=== PATIENT | female | born 1945 | race Caucasian/White ===

== ENCOUNTER 2016-10-21 05:23 | Inpatient (IN) | payer OTHER ==
[2016-10-21 05:33] VITALS: BMI 34.2
--- NOTE | 2016-10-21 06:01 | DR.GENAD ---
HPI - PCP Primary Care Physician: BLAIR - Complaint/Symptoms Chief Complaint Doctors Comments: RUQ onset this am associated with nausea. History pancreatitis. Griselda done in the past. Pain is 8-10, sharp, aggratavted by deep respiration. sharp quality. Pain radiates to back. Chief Complaint:: RUQ ABD PAIN ONSET 1230, NAUSEA Self Treatment fo Chief Complaint: TUMS - Source History Provided: Patient - Mode of Arrival Mode of Arrival: Wheelchair - Timing Onset of Chief Complaint: 10/21/16 PMH - PMH Past Medical History: Yes Past Medical History: Arthritis, GERD, Hypertension, Hypothyroidism, Kidney Stones Past Surgical History: Yes Surgical History: Cholecystectomy, Hysterectomy, Ortho Surgery - Family History History of Family Medical Conditions: Yes Family Medical History: Diabetes Mellitus, Cancer, [place], Heart Failure, Hypertension - Social History Does patient currently use any type of tobacco product: No Have you used tobacco products in the last 12 months: No Type of Tobacco Use: None Does any household member use tobacco: No Alcohol Use: None Do you use any recreational Drugs:: No Lives With: Spouse Lives Where: Home - infectious screening In the last 2 months have you had wt loss of >10#?: NO Have you had fever, night sweats or hemotysis?: No Have you traveled outside the country in the last 6 months?: No Isolation: Standard ROS - Review of Systems Constitutional: No Symptoms Reported Eyes: No Symptoms Reported ENTM: No Symptoms Reported Respiratoy: No Symptoms Reported Cardiovascular: No Symptoms Reported Gastrointestinal/Abdominal: No Symptoms Reported Genitourinary: No Symptoms Reported Neurological: No Symptoms Reported Musculoskeletal: No Symptoms Reported Integumentary: No Symptoms Reported Endocrine: No Symptoms Reported Psychiatric: No Symptoms Reported All Other Systems: Reviewed and Negative PE - Vital Signs Vitals: Temperature 97.9 F Pulse Rate 70 Respiratory Rate 16 Blood Pressure [Left Arm] 144/64 Blood Pressure [Right Arm] 132/60 Blood Pressure 137/69 O2 Sat by Pulse Oximetry 96 - General Limitations: No Limitations General Appearance: Alert, In No Apparent Distress - Head Head Exam: Normal Inspection, Atraumatic - Eyes Eye exam: Normal Appearance, PERRL, EOMI - ENT ENT Exam: Normal Exam External Ear Exam: Normal External Inspection TM/Canal Exam: Bilateral Normal Nose Exam: Normal Nose Exam, Sinus Tenderness Mouth Exam: Normal Inspection Throat Exam: Normal Inspection - Neck Neck Exam: Normal Inspection - Chest Chest Inspection: Normal Inspection - Respiratory Respiratory Exam: Normal Lung Sounds Bilat Respiratory Exam: Bilateral Clear to Auscultation - Cardiovascular Cardiovascular Exam: Regular Rate, Normal Rhythm - Abdominal Exam Abdominal Exam: Normal Inspection Abdominal Tenderness: negative: RUQ, RLQ, LUQ, LLQ, Epigastrium, Suprapubic, Diffuse, Mild, Moderate, Severe, Other - Extremities Extremities Exam: Normal Inspection - Back Back Exam: Normal Inspection - Neurologic Neurological Exam: Alert, Oriented X3, CN II-XII Intact - Psychiatric Psychiatric Exam: Normal Affect - Skin Skin Exam: Warm, Dry, Intact Course - Reevaluation 1st: Improved - Consultation Called: 08:00 (Admit for further management) ROR - Labs Reviewed Laboratory Results Reviewed?: Yes (Amylase 576, Lipase 61083) Result Diagrams: 10/21/16 06:15 10/21/16 06:15 Laboratory: WBC 12.1 X10^3/uL (3.6-10.0) H 10/21/16 06:15 RBC 3.86 X10^6/uL (3.5-5.4) 10/21/16 06:15 Hgb 11.8 g/dL (12.0-16.0) L 10/21/16 06:15 Hct 35.3 % (36.0-47.0) L 10/21/16 06:15 MCV 91.6 fL (80.0-100.0) 10/21/16 06:15 MCH 30.6 pg (27.0-34.0) 10/21/16 06:15 MCHC 33.4 g/dL (33.0-35.0) 10/21/16 06:15 RDW 14.0 % (11.6-16.5) 10/21/16 06:15 Plt Count 235 X10^3/uL (150.0-450.0) 10/21/16 06:15 MPV 7.9 fL (7.4-11.0) 10/21/16 06:15 Neut % 65.4 % (42.0-75.0) 10/21/16 06:15 Lymph % 28.0 % (21.0-51.0) 10/21/16 06:15 [place] % 5.1 % (0.0-13.0) 10/21/16 06:15 Eos % 0.8 % (0.9-2.9) L 10/21/16 06:15 Baso % 0.7 % (0.2-1.0) 10/21/16 06:15 Neut # 7.9 x10^3/uL (2.2-4.8) H 10/21/16 06:15 Lymph # 3.4 X10^3/uL (1.3-2.9) H 10/21/16 06:15 [place] # 0.6 x10^3/uL (0.3-0.8) 10/21/16 06:15 Eos # 0.1 x10^3/uL (0.0-0.2) 10/21/16 06:15 Baso # 0.1 X10^3/uL (0.0-0.1) 10/21/16 06:15 Absolute Nucleated RBC 0.0 /100WBC 10/21/16 06:15 Sodium 142 mmol/L (136-145) 10/21/16 06:15 Corrected Sodium 144 mmol/L (136-145) 10/21/16 06:15 Potassium 3.9 mmol/L (3.5-5.1) 10/21/16 06:15 Chloride 105 mmol/L (98-107) 10/21/16 06:15 Carbon Dioxide 26.8 mmol/L (21-32) 10/21/16 06:15 BUN 16 mg/dL (7-18) 10/21/16 06:15 Creatinine 0.94 mg/dL (0.55-1.02) 10/21/16 06:15 Est GFR (MDRD) Af Amer > 60 (>60) 10/21/16 06:15 Est GFR (MDRD) Non-Af > 60 (>60) 10/21/16 06:15 Glucose 174 mg/dL (65-99) H 10/21/16 06:15 Calcium 8.8 mg/dL (8.5-10.1) 10/21/16 06:15 Corrected Calcium 9.5 mg/dL (8.5-10.1) 10/21/16 06:15 Total Bilirubin 0.50 mg/dL (0.2-1.0) 10/21/16 06:15 AST 217 Units/L (15-37) H 10/21/16 06:15 ALT 101 Units/L (12-78) H 10/21/16 06:15 Alkaline Phosphatase 143 Units/L (46-116) H 10/21/16 06:15 Total Protein 7.0 g/dL (6.4-8.2) 10/21/16 06:15 Albumin 3.1 g/dL (3.4-5.0) L 10/21/16 06:15 Globulin 3.9 g/dL (2.5-4.5) 10/21/16 06:15 Albumin/Globulin Ratio 0.8 Ratio (1.1-2.1) L 10/21/16 06:15 Amylase 576 Units/L (25-115) H 10/21/16 06:15 Lipase 05772 Units/L (73-393) H 10/21/16 06:15 - Diagnosis Discharge Problem: Acute pancreatitis Qualifiers: Pancreatitis type: unspecified pancreatitis type Acute pancreatitis complication: unspecified Qualified Code(s): K85.90 - Acute pancreatitis without necrosis or infection, unspecified - Discharge Plan Condition: Stable - Follow ups/Referrals Follow ups/Referrals: Vijay Rai [Primary Care Provider] - 3 days - Instructions
[2016-10-21] MEDS ORDERED: MORPHINE SULFATE INJ 4 MG IVP ONE (06:06)
[2016-10-21] MEDS ORDERED: ZOFRAN INJ 4 MG VIAL IVP ONE (06:09)
[2016-10-21] MEDS ORDERED: ZOFRAN INJ 4 MG VIAL ONE (06:14)
[2016-10-21] MEDS ORDERED: MORPHINE SULFATE INJ 4 MG ONE (06:14)
[2016-10-21 06:32] LABS: BASOPHILS # (AUTO) 0.1 X10^3/uL (0.0-0.1); BASOPHILS % (AUTO) 0.7 % (0.2-1.0); EOSINOPHILS # (AUTO) 0.1 x10^3/uL (0.0-0.2); EOSINOPHILS % (AUTO) 0.8 % (0.9-2.9); HEMATOCRIT 35.3 % (36.0-47.0); HEMOGLOBIN 11.8 g/dL (12.0-16.0); LYMPHOCYTES # (AUTO) 3.4 X10^3/uL (1.3-2.9); MEAN CORPUSCULAR HEMOGLOBIN 30.6 pg (27.0-34.0); MEAN CORPUSCULAR HGB CONC 33.4 g/dL (33.0-35.0); MEAN CORPUSCULAR VOLUME 91.6 fL (80.0-100.0); MEAN PLATELET VOLUME 7.9 fL (7.4-11.0); MONOCYTES # (AUTO) 0.6 x10^3/uL (0.3-0.8); MONOCYTES % (AUTO) 5.1 % (0.0-13.0); NEUTROPHILS # (AUTO) 7.9 x10^3/uL (2.2-4.8); NEUTROPHILS % (AUTO) 65.4 % (42.0-75.0); PLATELET COUNT 235 X10^3/uL (150.0-450.0); RED BLOOD COUNT 3.86 X10^6/uL (3.5-5.4); WHITE BLOOD COUNT 12.1 X10^3/uL (3.6-10.0)
[2016-10-21 06:35] LABS: ALANINE AMINOTRANSFERASE 101 Units/L (12-78); ALBUMIN 3.1 g/dL (3.4-5.0); ALKALINE PHOSPHATASE 143 Units/L (46-116); AMYLASE 576 Units/L (25-115); ASPARTATE AMINO TRANSFERASE 217 Units/L (15-37); BLOOD UREA NITROGEN 16 mg/dL (7-18); CALCIUM 8.8 mg/dL (8.5-10.1); CARBON DIOXIDE 26.8 mmol/L (21-32); CHLORIDE 105 mmol/L (98-107); COR CA(FOR HYPOALB) 9.5 mg/dL (8.5-10.1); COR NA(FOR HYPERGLY) 144 mmol/L (136-145); CREATININE 0.94 mg/dL (0.55-1.02); GLUCOSE 174 mg/dL (65-99); SODIUM 142 mmol/L (136-145); eGFR BLACK RACES > 60 (>60); eGFR NON BLACK RACES > 60 (>60)
[2016-10-21 07:19] LABS: LIPASE 12434 Units/L (73-393)
[2016-10-21] MEDS ORDERED: MORPHINE SULFATE INJ 10 MG IVP PRN (08:18)
[2016-10-21] MEDS ORDERED: ZOFRAN INJ 4 MG VIAL IVP PRN (08:19)
[2016-10-21] MEDS ORDERED: NS 100 ML IV 100 ML IV ONE (08:39)
[2016-10-21] MEDS ORDERED: NS 1000 ML 1,000 ML ONE (08:54)
[2016-10-21] MEDS ORDERED: NS + KCL 20 MEQ/L 1,000 ML IV ONE (09:03)
[2016-10-21] MEDS: NS 1000 ML 1,000 ML with POTASSIUM CHLORIDE INJ 20 MEQ VIAL 20 MEQ IV SCH ×4 (09:09→21:59)
[2016-10-21] MEDS: FLAGYL IV PREMIX 500 MG BAG 500 MG/100 ML BAG IV SCH ×3 (09:17→20:43)
--- NOTE | 2016-10-21 09:50 | CT ---
Indication: Pain and pancreatitis. Exam: CT abdomen and pelvis with contrast . Technique: Axial spiral images were obtained from lung bases through the pubic symphysis after admin istration of 100 cc Omnipaque 350 and oral contrast and reconstructed at 5 mm intervals with coronal and sagittal multiplanar reconstructions . Comparison: 03/06/2015 . Findings: There is mild linear scarring along the lung bases which is unchanged. There is a small hi atal hernia with reflux of barium into the distal esophagus. There is a small pericardial effusion w hich is more apparent. The liver and spleen are normal size and density. There is mild prominence of the central biliary ducts which is unchanged. There is a 14 mm cyst in the right lobe of liver whic h is unchanged. The gallbladder has been removed with clips in the gallbladder fossa which is unchan ged. The common bile duct moderately dilated proximally and tapers to the ampulla which is unchanged . Again noted is a probable diverticulum along the 2nd portion the duodenum extending medially which is filled with debris and is more prominent. There is some mild stranding around the duodenum in th e area and involving the head of the pancreas which is less prominent . No focal mass or fluid colle ction is seen. The body and distal pancreas are unremarkable. The spleen is unremarkable . The adren als are normal . The kidneys are normal size with no hydronephrosis seen. There are several small st ones scattered in the right kidney measuring up to 4 mm superiorly which are more prominent. No hydr onephrosis is seen . There is cortical scarring in the right kidney which is unchanged. The ureters are normal caliber. No retroperitoneal mass or adenopathy is seen. The appendix is normal. The uteru s has been removed with no adnexal mass or free fluid. The appendix is unremarkable. Moderate degene rative changes are seen throughout the spine with a moderate compression fracture and vertebroplasty at T12 and a mild compression deformity of L1 which is unchanged. Impression: Status post cholecystectomy with persistent mild prominence of the central biliary ducts and moderat e dilatation of the common bile duct which tapers distally and is not significantly changed. Persistent diverticulum along the 2nd portion of the duodenum with mild stranding around the area an d extending along the head of the pancreas which is less prominent from the prior study. This could represent a recurrent inflammatory process in the area possibly due to duodenitis or pancreatitis wi th no focal mass or fluid collection seen. Slightly limited exam with all contrast seen still within the stomach which may represent an element of gastroparesis . Suggest a followup study with additional oral contrast to better delineate the d uodenum. Small pericardial effusion Small hepatic cyst . Small residual hiatal hernia with reflux into the distal esophagus. Small renal stones bilaterally which are more prominent with no hydronephrosis or renal masses. Previous hysterectomy with no pelvic mass or inflammation. Reported By:
[2016-10-21] MEDS: CIPRO IV 400 MG PREMIX* 400 MG/200 ML IV.SOLN. IV SCH ×2 (10:25→20:43)
[2016-10-21 11:10] LABS: BILIRUBIN,URINE NEGATIVE (NEGATIVE); BLOOD/HEMOGLOBIN,URINE NEGATIVE (NEGATIVE); GLUCOSE, URINE NEGATIVE (NEGATIVE); KETONES,URINE NEGATIVE (NEGATIVE); LEUKOCYTE ESTERASE ,URINE 2+ (NEGATIVE); NITRITES,URINE NEGATIVE (NEGATIVE); PROTEIN,URINE 1+ (NEGATIVE); UROBILINOGEN,URINE NORMAL (NORMAL)
[2016-10-21 11:16] LABS: APPEARANCE,URINE CLOUDY (CLEAR); COLOR,URINE YELLOW (YELLOW)
[2016-10-21 11:25] LABS: RBC,URINE Rare /HPF (NEGATIVE)
[2016-10-21 11:29] LABS: AMORPHOUS SEDIMENT,UR TRACE /HPF (NEGATIVE); SQUAMOUS EPITHELIAL CELL,UR RARE /HPF (NEGATIVE)
[2016-10-21 11:41] LABS: BACTERIA,URINE 3+ /HPF (NEGATIVE); CALCIUM OXALATE CRYSTALS,UR FEW /HPF (NEGATIVE)
[2016-10-21] MEDS: PEPCID 20 MG IV PREMIX* 20 MG/50 ML BAG IV SCH ×2 (14:32→20:43)
[2016-10-21] MEDS: PROTONIX INJ 40 MG VIAL IVP SCH (14:32)
[2016-10-21] MEDS: REQUIP PO SCH (16:07)
[2016-10-21] MEDS: RISPERDAL 0.5 MG PO SCH (20:44)
[2016-10-21] MEDS: NS + KCL 20 MEQ/L 1,000 ML IV SCH ×2 (22:10→23:43)
[2016-10-21] MEDS: DILAUDID INJ IVP PRN (22:22)
--- NOTE | 2016-10-21 23:35 | DR.H&P ---
H&P - History & Physical for Day of: H&P Date: 10/21/16 - Chief Complaint Chief Complaint: RUQ ABDOMINAL PAIN - Allergies Allergies/Adverse Reactions: Allergies Allergy/AdvReac Type Severity Reaction Status Date / Time Penicillins Allergy Verified 02/10/16 19:01 TAPE Allergy Uncoded 02/10/16 19:01 - History of Present Illness History of Present Illness: THIS IS A 71 YEAR OLD FEMALE, WHO IS A PATIENT OF OURS. SHE PRESENTS TO THE EMERGENCY ROOM WITH COMPLAINTS OF RUQ ABDOMINAL PAIN , ONSET THIS MORNING. SHE REPORTS ASSOCIATED NAUSEA WITH ABDOMINAL PAIN. PATIENT REPORTS PAIN IS AN 8 TO A 10 ON A 1-TO-10 PAIN SCALE AND IS AGGRAVATED BY DEEP BREATHING. SHE STATES THE PAIN IS SHARP, CONSTANT AND RADIATES TO HER BACK. PATIENT STATES SHE HAS TAKEN TUMS AT HOME WITH NO IMPROVEMENT IN SYMPTOMS. ON PALPATION, PATIENT IS NOTED WITH DIFFUSE, SEVERE, ABDOMINAL PAIN. LABS OBTAINED. CBC WNL EXCEPT: WBC 12.1, H/H 11.8/35.3. CMP WNL EXCEPT: GLUCOSE 174, AST 217, ALT 101, ALK PHOS 143, ALBUMIN 3.1. AMYLASE 576, LIPASE 12,434. PT/INR 2.40. URINALYSIS ABNORMALS: PROTEIN 1+, LEUKOCYTE ESTERASE 2+, WBC 5-10, BACTERIA 3+; CULTURE PENDING. CT OF ABD/PELVIS REPORTS: STATUS POST CHOLECYSTECTOMY WITH PERSISTENT MILD PROMINENCE OF THE CENTRAL BILIARY DUCTS AND MODERATE DILITATION OF THE COMMON BILE DUCT WHICH TAPERS DISTALLY AND IS NOT SIGNIFICANTLY CHANGED; PERSISTENT DIVERTICULUM OF THE DUODENUM WITH MILD STRANDING AROUND THE AREA AND EXTENDING ALONG THE HEAD OF THE PANCREAS WHICH COULD REPRESENT PANCREATITIS. WE WILL ADMIT PATIENT FOR FURTHER TREATMENT AND EVALUATION. WE WILL START IV FLUIDS, IV CIPRO, IV FLAGYL, PEPCID, PROTONIX, AND CONTINUE TO MONITOR. - Past Medical History Past Medical History: Arthritis, GERD, Hypertension, Hypothyroidism, Kidney Stones Additional Medical History: Lupus, Cataracts, Sleep Apnea (CPAP at home), Atrial Fibrillation, Hx IBS, Hiatal Hernia, Fibromyalgia, Chronic Back Pain, Hx DVT, Pancreatitis - Past Surgical History Surgical History: Hysterectomy, Ortho Surgery, Other Additional Surgical History: Bladder Tack, Breast Reduction, Fissurectomy, Hemorroidectomy, Cardiac Ablation, Back Stimulator - Family History Family Medical History: Diabetes Mellitus, Cancer, [place], Heart Failure, Hypertension - Social History Does patient currently use any type of tobacco product: No Have you used tobacco products in the last 12 months: No Type of Tobacco Use: None Does any household member use tobacco: No Alcohol Use: None Drug Use: None - Medications Home Medications: Melatonin 10 mg PO HS 10/21/16 [History Confirmed 10/21/16] Temazepam 7.5 mg PO HS 10/21/16 [History Confirmed 10/21/16] Warfarin Sodium [COUMADIN 4 MG *] 4 mg PO HS 10/21/16 [History Confirmed ] - Review of Systems Constitutional: Weakness, Malaise Eyes: No Symptoms Reported. denies: Pain, Vision Change, Conjunctivae Inflammation, Eyelid Inflammation, Redness ENT: No Symptoms Reported. denies: Ear Pain, Ear Discharge, Nose Pain, Nose Discharge, Nose Congestion, Mouth Pain, Mouth Swelling, Throat Pain, Throat Swelling Respiratory: No Symptoms Reported. denies: Cough, Shortness of Breath, Hemoptysis, SOB with Excertion, Pleuritic Pain, Sputum, Wheezing Cardiovascular: No Symptoms Reported. denies: Chest Pain, Palpitations, Orthopnea, Edema, Light Headedness Gastrointestinal: Nausea, Abdominal Pain. denies: Diarrhea, Constipation, Melena, Hematochezia Genitourinary: Frequency. denies: Dysuria, Incontinence, Hematuria, Retention Musculoskeletal: No Symptoms Reported. denies: Shoulder Pain, Arm Pain, Back Pain, Hand Pain, Leg Pain, Foot Pain, Neck Pain Skin: No Symptoms Reported. denies: Rash, Lesions, Jaundice, Bruising, Wound, Ecchymosis Neurological: No Symptoms Reported. denies: Weakness, Numbness, Incoordination , Change in Speech, Confusion, Seizures - Physical Exam Vital Signs: Temperature 98.5 F Pulse Rate [Right Brachial] 101 Pulse Rate [Left Brachial] 110 Respiratory Rate 18 Blood Pressure [Left Arm] 116/54 Blood Pressure [Right Arm] 93/50 O2 Sat by Pulse Oximetry 99 Oriented: Normal, Time, Person, Place Eyes: Normal. negative: Blurred Vision, Diplopia, Discharge, Pain, Redness, Photophobia Ear: Normal. negative: Swelling, Ecchymosis, Hemotypanum, Abrasion, Laceration Nose: Normal. negative: Injected, Discharge, Blood Throat: Dry. negative: Tonsillar Hypertrophy, Exudate Respiratory: Clear Throughout Cardiovascular: Normal. negative: Murmur, Edema : Frequency. negative: Bleeding, Auscultation: Bowel Sounds: Decreased. negative: Bruit Palpation: Normal. negative: Spleen Enlarged, Liver Enlarged, Mass Pulsatile Tenderness: Diffuse, RUQ, Periumbilical, Severe. negative: Rebound, Guarding, Rigidity Skin: Decreased [place]urgur. negative: Diaphoresis, Wound, Bruising, Ecchymosis Musculoskeletal: Instability Psychiatric: Normal Mood Description: Calm, Appropriate Affect: Normal Speech Pattern: Clear, Appropriate - Assessment/Plan (1) Acute pancreatitis Qualifiers: Pancreatitis type: unspecified pancreatitis type Acute pancreatitis complication: unspecified Qualified Code(s): K85.90 - Acute pancreatitis without necrosis or infection, unspecified Status: Acute Plan: ADMIT PATIENT, START CIPRO, FLAGYL, IV FLUIDS, PEPCID, PROTONIX, DILAUDID , ZOFRAN, MONITOR. (2) Abdominal pain Qualifiers: Abdominal location: generalized Qualified Code(s): R10.84 - Generalized abdominal pain Status: Acute Plan: ABOVE. (3) Urinary tract infection Qualifiers: Urinary tract infection type: acute cystitis Hematuria presence: without hematuria Indwelling urinary catheter type: I Encounter type: E Qualified Code(s): N30.00 - Acute cystitis without hematuria Status: Acute Plan: ABOVE. (4) Atrial fibrillation Qualifiers: Atrial fibrillation type: chronic Qualified Code(s): I48.2 - Chronic atrial fibrillation Status: Chronic (5) CAD (coronary artery disease) Qualifiers: Coronary Disease-Associated Artery/Lesion type: [place] artery [place] vs. 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 (7) Essential (primary) hypertension Status: Chronic (8) YANY (generalized anxiety disorder) Status: Chronic (9) GERD (gastroesophageal reflux disease) Qualifiers: Esophagitis presence: esophagitis presence not specified Qualified Code(s) : K21.9 - Gastro-esophageal reflux disease without esophagitis Status: Chronic (10) Hypertension Qualifiers: Hypertension type: essential hypertension Qualified Code(s): I10 - Essential (primary) hypertension Status: Chronic (11) Hypothyroidism Qualifiers: Hypothyroidism type: acquired Qualified Code(s): E03.9 - Hypothyroidism, unspecified Status: Chronic (12) Lupus Qualifiers: Systemic lupus erythematosus type: S Systemic lupus erythematosus organ involvement: S Status: Chronic (13) Arthritis Status: Chronic
[2016-10-22] MEDS: FLAGYL IV PREMIX 500 MG BAG 500 MG/100 ML BAG IV SCH ×4 (02:20→20:53)
[2016-10-22 06:33] LABS: BASOPHILS % (AUTO) 0.2 % (0.2-1.0); EOSINOPHILS # (AUTO) 0.1 x10^3/uL (0.0-0.2); EOSINOPHILS % (AUTO) 0.5 % (0.9-2.9); HEMATOCRIT 32.1 % (36.0-47.0); HEMOGLOBIN 10.6 g/dL (12.0-16.0); LYMPHOCYTES # (AUTO) 1.2 X10^3/uL (1.3-2.9); LYMPHOCYTES % (AUTO) 10.5 % (21.0-51.0); MEAN CORPUSCULAR HEMOGLOBIN 30.6 pg (27.0-34.0); MEAN CORPUSCULAR VOLUME 92.7 fL (80.0-100.0); MEAN PLATELET VOLUME 8.1 fL (7.4-11.0); MONOCYTES # (AUTO) 0.7 x10^3/uL (0.3-0.8); MONOCYTES % (AUTO) 6.1 % (0.0-13.0); NEUTROPHILS # (AUTO) 9.6 x10^3/uL (2.2-4.8); NEUTROPHILS % (AUTO) 82.7 % (42.0-75.0); PLATELET COUNT 216 X10^3/uL (150.0-450.0); RED BLOOD COUNT 3.46 X10^6/uL (3.5-5.4); WHITE BLOOD COUNT 11.7 X10^3/uL (3.6-10.0)
[2016-10-22 06:52] LABS: ALANINE AMINOTRANSFERASE 150 Units/L (12-78); ALBUMIN 2.6 g/dL (3.4-5.0); ALKALINE PHOSPHATASE 158 Units/L (46-116); AMYLASE 156 Units/L (25-115); ASPARTATE AMINO TRANSFERASE 172 Units/L (15-37); BLOOD UREA NITROGEN 16 mg/dL (7-18); CALCIUM 8.4 mg/dL (8.5-10.1); CARBON DIOXIDE 25.2 mmol/L (21-32); CHLORIDE 106 mmol/L (98-107); COR CA(FOR HYPOALB) 9.5 mg/dL (8.5-10.1); CREATININE 0.84 mg/dL (0.55-1.02); GLUCOSE 101 mg/dL (65-99); LIPASE 938 Units/L (73-393); SODIUM 140 mmol/L (136-145); TOTAL PROTEIN 6.2 g/dL (6.4-8.2); eGFR BLACK RACES > 60 (>60); eGFR NON BLACK RACES > 60 (>60)
[2016-10-22] MEDS ORDERED: PATIENT'S HOME MEDICATION RESPIRATORY (Ropinirole Hydrochloride [Ropinirole Hcl] 0.5 MG) PO SCH (09:00)
[2016-10-22] MEDS: PROTONIX INJ 40 MG VIAL IVP SCH (09:29)
[2016-10-22] MEDS: CIPRO IV 400 MG PREMIX* 400 MG/200 ML IV.SOLN. IV SCH ×2 (09:29→20:53)
[2016-10-22] MEDS: SYNTHROID 88 mcg TAB PO SCH (09:29)
[2016-10-22] MEDS: REQUIP PO SCH (09:29)
[2016-10-22] MEDS: EFFEXOR XR 150 MG CAP PO SCH (09:30)
[2016-10-22] MEDS: PEPCID 20 MG IV PREMIX* 20 MG/50 ML BAG IV SCH ×2 (09:30→20:53)
[2016-10-22] MEDS: DILAUDID INJ IVP PRN ×2 (09:39→15:50)
[2016-10-22] MEDS: NS + KCL 20 MEQ/L 1,000 ML IV SCH (15:41)
[2016-10-22] MEDS ORDERED: PHARMACY CONSULT - DOSE _____ XX SCH (17:00)
[2016-10-22] MEDS: RISPERDAL 0.5 MG PO SCH (20:54)
[2016-10-22] MEDS: LIPOSYN III 20% 250ML 250 ML IV SCH (23:00)
[2016-10-23] MEDS: FLAGYL IV PREMIX 500 MG BAG 500 MG/100 ML BAG IV SCH ×4 (02:03→20:20)
[2016-10-23] MEDS: NS + KCL 20 MEQ/L 1,000 ML IV SCH ×2 (02:03→18:43)
[2016-10-23 06:52] LABS: ALANINE AMINOTRANSFERASE 103 Units/L (12-78); ALBUMIN 2.6 g/dL (3.4-5.0); ALKALINE PHOSPHATASE 135 Units/L (46-116); AMYLASE 43 Units/L (25-115); ASPARTATE AMINO TRANSFERASE 86 Units/L (15-37); BLOOD UREA NITROGEN 8 mg/dL (7-18); CALCIUM 8.2 mg/dL (8.5-10.1); CARBON DIOXIDE 23.5 mmol/L (21-32); CHLORIDE 106 mmol/L (98-107); CHOL/HDL RATIO 2.3 (0.0-5.0); CHOLESTEROL 163 mg/dL (0-200); COR CA(FOR HYPOALB) 9.3 mg/dL (8.5-10.1); CREATININE 0.66 mg/dL (0.55-1.02); GLUCOSE 93 mg/dL (65-99); HDL CHOLESTEROL 71 mg/dL (40-60); LIPASE 301 Units/L (73-393); SODIUM 139 mmol/L (136-145); TOTAL PROTEIN 6.4 g/dL (6.4-8.2); TRIGLYCERIDES 41 mg/dL (0-150); eGFR BLACK RACES > 60 (>60); eGFR NON BLACK RACES > 60 (>60)
[2016-10-23 06:55] LABS: BASOPHILS % (AUTO) 0.6 % (0.2-1.0); EOSINOPHILS # (AUTO) 0.2 x10^3/uL (0.0-0.2); EOSINOPHILS % (AUTO) 2.1 % (0.9-2.9); HEMATOCRIT 31.8 % (36.0-47.0); HEMOGLOBIN 10.9 g/dL (12.0-16.0); LYMPHOCYTES # (AUTO) 1.5 X10^3/uL (1.3-2.9); LYMPHOCYTES % (AUTO) 16.4 % (21.0-51.0); MEAN CORPUSCULAR HEMOGLOBIN 31.8 pg (27.0-34.0); MEAN CORPUSCULAR HGB CONC 34.2 g/dL (33.0-35.0); MEAN CORPUSCULAR VOLUME 93.1 fL (80.0-100.0); MONOCYTES # (AUTO) 0.6 x10^3/uL (0.3-0.8); MONOCYTES % (AUTO) 6.3 % (0.0-13.0); NEUTROPHILS # (AUTO) 6.6 x10^3/uL (2.2-4.8); NEUTROPHILS % (AUTO) 74.6 % (42.0-75.0); PLATELET COUNT 214 X10^3/uL (150.0-450.0); RED BLOOD COUNT 3.42 X10^6/uL (3.5-5.4); WHITE BLOOD COUNT 8.9 X10^3/uL (3.6-10.0)
[2016-10-23] MEDS: REQUIP PO SCH (09:28)
[2016-10-23] MEDS: EFFEXOR XR 150 MG CAP PO SCH (09:28)
[2016-10-23] MEDS: PEPCID 20 MG IV PREMIX* 20 MG/50 ML BAG IV SCH ×2 (09:28→20:20)
[2016-10-23] MEDS: DILAUDID INJ IVP PRN ×2 (09:28→20:20)
[2016-10-23] MEDS: PROTONIX INJ 40 MG VIAL IVP SCH (09:28)
[2016-10-23] MEDS: CIPRO IV 400 MG PREMIX* 400 MG/200 ML IV.SOLN. IV SCH ×2 (09:28→20:19)
[2016-10-23] MEDS: SYNTHROID 88 mcg TAB PO SCH (09:28)
[2016-10-23] MEDS: RISPERDAL 0.5 MG PO SCH (20:19)
[2016-10-23] MEDS: LIPOSYN III 20% 250ML 250 ML IV SCH (21:00)
[2016-10-24] MEDS: NS + KCL 20 MEQ/L 1,000 ML IV SCH (03:47)
[2016-10-24] MEDS: FLAGYL IV PREMIX 500 MG BAG 500 MG/100 ML BAG IV SCH ×2 (03:47→09:13)
[2016-10-24 05:48] LABS: BASOPHILS # (AUTO) 0.1 X10^3/uL (0.0-0.1); BASOPHILS % (AUTO) 0.9 % (0.2-1.0); EOSINOPHILS # (AUTO) 0.2 x10^3/uL (0.0-0.2); HEMATOCRIT 32.3 % (36.0-47.0); LYMPHOCYTES # (AUTO) 2.2 X10^3/uL (1.3-2.9); LYMPHOCYTES % (AUTO) 32.4 % (21.0-51.0); MEAN CORPUSCULAR HEMOGLOBIN 31.1 pg (27.0-34.0); MEAN CORPUSCULAR HGB CONC 34.1 g/dL (33.0-35.0); MEAN CORPUSCULAR VOLUME 91.2 fL (80.0-100.0); MONOCYTES # (AUTO) 0.6 x10^3/uL (0.3-0.8); MONOCYTES % (AUTO) 9.5 % (0.0-13.0); NEUTROPHILS # (AUTO) 3.6 x10^3/uL (2.2-4.8); NEUTROPHILS % (AUTO) 54.2 % (42.0-75.0); PLATELET COUNT 221 X10^3/uL (150.0-450.0); RED BLOOD COUNT 3.54 X10^6/uL (3.5-5.4); RED CELL DISTRIBUTION WIDTH 13.7 % (11.6-16.5); WHITE BLOOD COUNT 6.7 X10^3/uL (3.6-10.0)
[2016-10-24 06:00] LABS: ALANINE AMINOTRANSFERASE 73 Units/L (12-78); ALBUMIN 2.5 g/dL (3.4-5.0); ALKALINE PHOSPHATASE 114 Units/L (46-116); AMYLASE 25 Units/L (25-115); ASPARTATE AMINO TRANSFERASE 48 Units/L (15-37); BLOOD UREA NITROGEN 6 mg/dL (7-18); CARBON DIOXIDE 24.8 mmol/L (21-32); CHLORIDE 107 mmol/L (98-107); COR CA(FOR HYPOALB) 9.2 mg/dL (8.5-10.1); CREATININE 0.71 mg/dL (0.55-1.02); GLUCOSE 84 mg/dL (65-99); LIPASE 129 Units/L (73-393); SODIUM 140 mmol/L (136-145); TOTAL PROTEIN 6.2 g/dL (6.4-8.2); eGFR BLACK RACES > 60 (>60); eGFR NON BLACK RACES > 60 (>60)
[2016-10-24] MEDS: PEPCID 20 MG IV PREMIX* 20 MG/50 ML BAG IV SCH (09:13)
[2016-10-24] MEDS: REQUIP PO SCH (09:14)
[2016-10-24] MEDS: SYNTHROID 88 mcg TAB PO SCH (09:14)
[2016-10-24] MEDS: EFFEXOR XR 150 MG CAP PO SCH (09:14)
[2016-10-24] MEDS: CIPRO IV 400 MG PREMIX* 400 MG/200 ML IV.SOLN. IV SCH (09:14)
[2016-10-24] MEDS: PROTONIX INJ 40 MG VIAL IVP SCH (09:21)
[2016-10-24 09:57] VITALS: BP 135/65
== END 2016-10-24 13:30 | disposition home or self-care (01) | DRG 439 ==
LOC: ER 05:23 → MED/SURG 08:14
PROVIDERS: ADMIT Internal Medicine; ATTEND Internal Medicine
DX: K85.80 Other acute pancreatitis without necrosis or infection (principal); R10.11 Right upper quadrant pain; M13.89 Other specified arthritis, multiple sites; K21.9 Gastro-esophageal reflux disease without esophagitis; I10 Essential (primary) hypertension; E03.8 Other specified hypothyroidism; N30.00 Acute cystitis without hematuria; I48.2 Chronic atrial fibrillation; I25.10 Atherosclerotic heart disease of native coronary artery without angina pectoris; I50.42 Chronic combined systolic (congestive) and diastolic (congestive) heart failure; F41.8 Other specified anxiety disorders; L93.0 Discoid lupus erythematosus
CPT/HCPCS: 36415; 74177; 80053; 80061; 81001; 82150; 83690; 85025; 85610; 87086; 87088; 87186; 94760; 96365; 96374; 96375; 99284; A4222; C9113; S0028; S0030; J0744; J1170; J2270; J2405; J3480

== ENCOUNTER 2017-05-02 13:23 | Day surgery (SDC) | payer OTHER ==
[~2017-05-02 13:23] MED LIST: AK-DILATE 2.5% OPHTH 1 DOSE OP ONE; ALPHAGAN-P OPHTH 1 DOSE AFFEYE ONE; CYCLOGYL 1% OPHTH 1 DOSE OP ONE; MYDRIACIL OPHTH 1 DOSE AFFEYE ONE; PROLENSA OPHTH 1 DOSE AFFEYE ONE; TETRACAINE 0.5% OPHTH 1 DOSE AFFEYE ONE; VIGAMOX 0.5% OPHTH 1 DOSE AFFEYE ONE
[2017-05-02] MEDS ORDERED: NS 500 ML IV 500 ML IV ONE (13:41)
[2017-05-02] MEDS ORDERED: TETRACAINE 0.5% OPHTH 1 DOSE AFFEYE ONE ×4 (13:55→16:45)
[2017-05-02] MEDS ORDERED: DIPRIVAN VIAL ONE (15:54)
[2017-05-02] MEDS: VERSED ONE ×2 (16:03→16:17)
[2017-05-02] MEDS ORDERED: AK-DILATE 10% OPHTH 1 DOSE AFFEYE ONE (16:21)
[2017-05-02] MEDS ORDERED: BETADINE OPHTH SOLN 5% EACHEYE ONE (16:40)
[2017-05-02] MEDS ORDERED: VISCOAT 0.5 ML IO ONE (16:46)
[2017-05-02] MEDS ORDERED: BSS OPHTH (PLAIN) 500 ML with VANCOMYCIN HCL 500 MG VIAL 25 MG, ADRENALINE CHL INJ 1 MG IR ONE ×3 (16:46)
[2017-05-02] MEDS ORDERED: DUOVISC IO ONE (16:46)
[2017-05-02] MEDS ORDERED: XYLOCAINE-MPF 1% IJ ONE (16:46)
[2017-05-02] MEDS ORDERED: ADRENALINE CHL INJ IJ ONE (16:46)
[2017-05-02] MEDS ORDERED: VIGAMOX 0.5% OPHTH 1 DOSE AFFEYE ONE ×2 (16:50→16:59)
[2017-05-02 17:43] VITALS: BP 122/70
== END 2017-05-02 17:25 | disposition home or self-care (01) ==
LOC: SURG1 13:23
PROVIDERS: ATTEND Ophthalmology
PROC: 08RK3JZ Replacement of Left Lens with Synthetic Substitute, Percutaneous Approach (ICD-10-PCS; principal; 2017-05-02 22:45)
PROC: 08DK3ZZ Extraction of Left Lens, Percutaneous Approach (ICD-10-PCS; principal; 2017-05-02 22:45)
DX: H25.12 Age-related nuclear cataract, left eye (principal); H25.012 Cortical age-related cataract, left eye; H52.222 Regular astigmatism, left eye
CPT/HCPCS: 99100; A4217; J0170; J2250; J3370; J3490

== ENCOUNTER 2017-05-18 01:06 | Inpatient (IN) | payer OTHER ==
[2017-05-18 01:52] LABS: BASOPHILS % (AUTO) 0.2 % (0.2-1.0); EOSINOPHILS # (AUTO) 0.1 x10^3/uL (0.0-0.2); HEMOGLOBIN 12.2 g/dL (12.0-16.0); LYMPHOCYTES # (AUTO) 2.5 X10^3/uL (1.3-2.9); LYMPHOCYTES % (AUTO) 24.1 % (21.0-51.0); MEAN CORPUSCULAR HEMOGLOBIN 31.8 pg (27.0-34.0); MEAN CORPUSCULAR HGB CONC 33.9 g/dL (33.0-35.0); MEAN CORPUSCULAR VOLUME 93.8 fL (80.0-100.0); MEAN PLATELET VOLUME 7.4 fL (7.4-11.0); MONOCYTES # (AUTO) 0.5 x10^3/uL (0.3-0.8); NEUTROPHILS # (AUTO) 7.3 x10^3/uL (2.2-4.8); NEUTROPHILS % (AUTO) 69.7 % (42.0-75.0); PLATELET COUNT 288 X10^3/uL (150.0-450.0); RED BLOOD COUNT 3.84 X10^6/uL (3.5-5.4); WHITE BLOOD COUNT 10.5 X10^3/uL (3.6-10.0)
[2017-05-18 02:06] LABS: ALANINE AMINOTRANSFERASE 110 Units/L (12-78); ALBUMIN 3.2 g/dL (3.4-5.0); ALKALINE PHOSPHATASE 111 Units/L (46-116); ASPARTATE AMINO TRANSFERASE 224 Units/L (15-37); BLOOD UREA NITROGEN 18 mg/dL (7-18); CALCIUM 8.8 mg/dL (8.5-10.1); CARBON DIOXIDE 26.1 mmol/L (21-32); CHLORIDE 102 mmol/L (98-107); COR CA(FOR HYPOALB) 9.4 mg/dL (8.5-10.1); COR NA(FOR HYPERGLY) 139 mmol/L (136-145); CREATININE 1.05 mg/dL (0.55-1.02); SODIUM 137 mmol/L (136-145); TOTAL PROTEIN 7.5 g/dL (6.4-8.2); eGFR BLACK RACES > 60 (>60); eGFR NON BLACK RACES 55 (>60)
[2017-05-18 02:16] LABS: AMYLASE 999 Units/L (25-115)
[2017-05-18 02:21] LABS: LIPASE 32421 Units/L (73-393)
--- NOTE | 2017-05-18 02:22 | DR.GENAD ---
HPI - PCP Primary Care Physician: BLAIR - HPI Comment HPI Comment: NO VOMITING OR FEVER. NO DYSURIA. HISTORY PREVIOUS EPISODES OF PANCREATITIS. - Complaint/Symptoms Chief Complaint Doctors Comments: UPPER ABDOMINAL PAIN WITH NAUSEA TIMES ONE DAY. WORSE SINCE 22:00PM TONIGHT. Chief Complaint:: PT C/O PAIN IN MIDDLE OF STOMACH CHILLS NAUSEA NO VOMITING - Nurses notes reviewed Nurses Notes Review: Yes - Source History Provided: Patient - Mode of Arrival Mode of Arrival: Ambulatory - Timing Onset of Chief Complaint: 05/18/17 Came on: Suddenly - Duration Duration: Constant Duration: Days - Severity Severity: Moderate PMH - PMH Past Medical History: Yes Past Medical History: Arthritis, GERD, Hypertension, Hypothyroidism, Kidney Stones Past Medical History Comment: LUPUS, A FIB Past Surgical History: Yes Surgical History: Angioplasty/Stents, Cholecystectomy, Ortho Surgery Past Surgical History Comment: BREAST REDUCTION,BACK SURGERY SPINAL CORD STIMULATOR - Family History History of Family Medical Conditions: Yes Family Medical History: Diabetes Mellitus, Cancer, [place], Heart Failure, Hypertension - Social History Does any household member use tobacco: No Do you use any recreational Drugs:: No Lives With: Family Lives Where: Home - infectious screening In the last 2 months have you had wt loss of >10#?: NO Have you traveled outside the country in the last 6 months?: No Isolation: Standard ROS - Review of Systems Constitutional: Chills, Weakness, Fatigue, Loss of Appetite. negative: Fever Eyes: negative: Eye Pain, Discharge ENTM: negative: Ear Discharge, Nose Discharge, Nose Congestion, Throat Pain Respiratoy: Short of Breath. negative: Productive Cough, Non-Productive Cough, Stridor, Wheezing Cardiovascular: Edema Gastrointestinal/Abdominal: Abdominal Pain, Nausea Genitourinary: negative: Dysuria, Frequency, Hematuria Neurological: Weakness, Dizziness Musculoskeletal: Muscle Pain Integumentary: No Symptoms Reported Hematologic/Lymphatic: No Symptoms Reported Endocrine: No Symptoms Reported All Other Systems: Reviewed and Negative PE - Vital Signs Vitals: Temperature 97.7 F Pulse Rate 99 Respiratory Rate 18 Blood Pressure [Left Arm] 135/65 Blood Pressure [Right Arm] 136/60 Blood Pressure 99/54 O2 Sat by Pulse Oximetry 100 - General Limitations: No Limitations General Appearance: Alert - Head Head Exam: Normal Inspection - Eyes Eye exam: Normal Appearance - ENT ENT Exam: Normal External Ear Exam External Ear Exam: Normal External Inspection TM/Canal Exam: Bilateral Normal Nose Exam: Normal Nose Exam Mouth Exam: Normal Inspection Throat Exam: Normal Inspection - Neck Neck Exam: Trachea Midline - Chest Chest Inspection: Symmetric Chest Wall Rise - Respiratory Respiratory Exam: Normal Lung Sounds Bilat Respiratory Exam: Bilateral Clear to Auscultation - Cardiovascular Cardiovascular Exam: Regular Rate, Normal Rhythm, Normal Heart Sounds - Abdominal Exam Abdominal Exam: Normal Bowel Sounds, Soft, Tenderness Abdominal Tenderness: Diffuse, Moderate - Extremities Extremities Exam: Edema - Back Back Exam: Normal Inspection - Neurologic Neurological Exam: Alert, Oriented X3 - Psychiatric Psychiatric Exam: Normal Affect, Normal Mood - Skin Skin Exam: Erythema MDM - Additional Information Additional Information Obtained From: Family - Differential Diagnosis Differential Diagnosis: ABDOMINAL PAIN, ACUTE PANCREATITIS, BOWEL OBSTRCTION, Course - Treatment Treatment: SEE ORDERS. - Consultation Consultation Comments: DISCUSS PATIENT WITH DR. DARBY. HE WILL ADMIT PATIENT. - Education/Counseling Education/Counseling: Patient, Family, Education Educated On: Diagnosis ROR - Labs Reviewed Laboratory Results Reviewed?: Yes Result Diagrams: 05/18/17 01:40 05/18/17 01:40 Laboratory: WBC 10.5 X10^3/uL (3.6-10.0) H 05/18/17 01:40 RBC 3.84 X10^6/uL (3.5-5.4) 05/18/17 01:40 Hgb 12.2 g/dL (12.0-16.0) 05/18/17 01:40 Hct 36.0 % (36.0-47.0) 05/18/17 01:40 MCV 93.8 fL (80.0-100.0) 05/18/17 01:40 MCH 31.8 pg (27.0-34.0) 05/18/17 01:40 MCHC 33.9 g/dL (33.0-35.0) 05/18/17 01:40 RDW 14.0 % (11.6-16.5) 05/18/17 01:40 Plt Count 288 X10^3/uL (150.0-450.0) 05/18/17 01:40 MPV 7.4 fL (7.4-11.0) 05/18/17 01:40 Neut % 69.7 % (42.0-75.0) 05/18/17 01:40 Lymph % 24.1 % (21.0-51.0) 05/18/17 01:40 [place] % 5.0 % (0.0-13.0) 05/18/17 01:40 Eos % 1.0 % (0.9-2.9) 05/18/17 01:40 Baso % 0.2 % (0.2-1.0) 05/18/17 01:40 Neut # 7.3 x10^3/uL (2.2-4.8) H 05/18/17 01:40 Lymph # 2.5 X10^3/uL (1.3-2.9) 05/18/17 01:40 [place] # 0.5 x10^3/uL (0.3-0.8) 05/18/17 01:40 Eos # 0.1 x10^3/uL (0.0-0.2) 05/18/17 01:40 Baso # 0.0 X10^3/uL (0.0-0.1) 05/18/17 01:40 Absolute Nucleated RBC 0.0 /100WBC 05/18/17 01:40 INR Target Range - 05/18/17 01:40 INR 2.30 (0.8-1.3) H 05/18/17 01:40 PTT 36.6 SECONDS (22.9-36.5) H 05/18/17 01:40 PTT Comment - 05/18/17 01:40 Sodium 137 mmol/L (136-145) 05/18/17 01:40 Corrected Sodium 139 mmol/L (136-145) 05/18/17 01:40 Potassium 3.9 mmol/L (3.5-5.1) 05/18/17 01:40 Chloride 102 mmol/L (98-107) 05/18/17 01:40 Carbon Dioxide 26.1 mmol/L (21-32) 05/18/17 01:40 BUN 18 mg/dL (7-18) 05/18/17 01:40 Creatinine 1.05 mg/dL (0.55-1.02) H 05/18/17 01:40 Est GFR (MDRD) Af Amer > 60 (>60) 05/18/17 01:40 Est GFR (MDRD) Non-Af 55 (>60) L 05/18/17 01:40 Glucose 170 mg/dL (65-99) H 05/18/17 01:40 Calcium 8.8 mg/dL (8.5-10.1) 05/18/17 01:40 Corrected Calcium 9.4 mg/dL (8.5-10.1) 05/18/17 01:40 Total Bilirubin 0.60 mg/dL (0.2-1.0) 05/18/17 01:40 AST 224 Units/L (15-37) H 05/18/17 01:40 ALT 110 Units/L (12-78) H 05/18/17 01:40 Alkaline Phosphatase 111 Units/L (46-116) 05/18/17 01:40 Total Protein 7.5 g/dL (6.4-8.2) 05/18/17 01:40 Albumin 3.2 g/dL (3.4-5.0) L 05/18/17 01:40 Globulin 4.3 g/dL (2.5-4.5) 05/18/17 01:40 Albumin/Globulin Ratio 0.7 Ratio (1.1-2.1) L 05/18/17 01:40 Amylase 999 Units/L (25-115) H 05/18/17 01:40 Lipase 98362 Units/L (73-393) H 05/18/17 01:40 H. pylori IgG Antibody Positive (NEGATIVE) A 05/18/17 01:40 - XRAY XRAY Interpreted by: Radiologist XRAY Findings: REPORT DISCUSS WITH PATIENT AND HER . - Diagnosis Discharge Problem: Helicobacter pylori antibody positive, Diverticulitis, duodenum Acute pancreatitis Qualifiers: Pancreatitis type: unspecified pancreatitis type Acute pancreatitis complication: unspecified Qualified Code(s): K85.90 - Acute pancreatitis without necrosis or infection, unspecified Abdominal pain Qualifiers: Abdominal location: upper abdomen, unspecified Qualified Code(s): R10.10 - Upper abdominal pain, unspecified - Discharge Plan Disposition: ADMITTED INPATIENT Condition: Stable - Follow ups/Referrals Follow ups/Referrals: Vijay Rai [Primary Care Provider] - 3 days - Instructions
[2017-05-18] MEDS ORDERED: PEPCID 20 MG IV PREMIX* 20 MG/50 ML BAG IV ONE ×2 (02:23→02:25)
[2017-05-18] MEDS ORDERED: DEMEROL INJ IVP ONE (02:23)
[2017-05-18] MEDS ORDERED: ZOFRAN INJ 4 MG VIAL IVP ONE (02:23)
[2017-05-18] MEDS ORDERED: ZOFRAN INJ 4 MG VIAL ONE (02:25)
[2017-05-18] MEDS ORDERED: DEMEROL INJ ONE (02:26)
[2017-05-18] MEDS ORDERED: NS 1000 ML 1,000 ML IV SCH (03:00)
[2017-05-18] MEDS ORDERED: PEPCID 20 MG IV PREMIX* 20 MG/50 ML BAG IV PRN (03:14)
[2017-05-18] MEDS ORDERED: MORPHINE SULFATE INJ 2 MG INJ IVP PRN (03:14)
--- NOTE | 2017-05-18 03:18 | CT ---
CT abdomen and pelvis without contrast Indication: Abdominal pain with nausea Comparison: 10/21/2016 CT Technique: Helical images through the abdomen and pelvis without contrast. Coronal and sagittal refor mats provided. Findings: Limited images through the lower chest shows coronary artery disease and cardiomegaly. Smal l hiatal hernia noted. Review of bone windows shows spine stimulator device and vertebroplasty change s T12. Abdomen: Indeterminate hepatic hypodensity. Atrophic fatty liver. The spleen, stomach and adrenal gla nds are normal. Duodenal diverticulum again noted. Remaining small bowel is normal. The appendix and colon are normal. Minimal vascular plaque seen. Multiple bilateral nonobstructing renal stones are no vincenzo. No hydroureteronephrosis seen. Pelvis: The urinary bladder and rectum are normal. Uterus is absent. No adnexal region lesion identif ied. Impression: 1. Minimal stranding around the duodenal diverticulum again noted. Duodenal diverticulitis not comple tely excluded. 2. Hiatal hernia, trace pericardial fluid, mild cardiomegaly, spine degenerative change other finding s as above. 3. Nonobstructing bilateral renal stones. 4. Hepatic hypodensity is probably a cyst. Nonemergent ultrasound confirmation recommended. Reported By:
[2017-05-18] MEDS ORDERED: ZOFRAN INJ 4 MG VIAL IVP PRN (03:23)
[2017-05-18 04:45] VITALS: BMI 35.3
[2017-05-18] MEDS: NS 1000 ML 1,000 ML IV SCH ×3 (05:41→14:39)
[2017-05-18] MEDS: CIPRO IV 400 MG PREMIX* 400 MG/200 ML IV.SOLN. IV SCH ×2 (05:46→20:38)
[2017-05-18] MEDS ORDERED: FLAGYL IV PREMIX 500 MG BAG 500 MG/100 ML BAG IV SCH ×2 (06:00→15:00)
[2017-05-18 07:39] LABS: BILIRUBIN,URINE NEGATIVE (NEGATIVE); BLOOD/HEMOGLOBIN,URINE NEGATIVE (NEGATIVE); GLUCOSE, URINE NEGATIVE (NEGATIVE); KETONES,URINE NEGATIVE (NEGATIVE); LEUKOCYTE ESTERASE ,URINE 1+ (NEGATIVE); NITRITES,URINE NEGATIVE (NEGATIVE); PROTEIN,URINE NEGATIVE (NEGATIVE); UROBILINOGEN,URINE 1+ (NORMAL)
[2017-05-18 07:54] LABS: APPEARANCE,URINE CLEAR (CLEAR); BACTERIA,URINE NEGATIVE /HPF (NEGATIVE); COLOR,URINE YELLOW (YELLOW); RBC,URINE 0-1 /HPF (NEGATIVE); RENAL EPITHELIAL CELLS,URINE RARE /HPF (NEGATIVE); SQUAMOUS EPITHELIAL CELL,UR RARE /HPF (NEGATIVE)
[2017-05-18] MEDS ORDERED: XANAX PO PRN (09:21)
[2017-05-18] MEDS ORDERED: CYANOCOBALAMIN PO SCH (09:30)
[2017-05-18] MEDS ORDERED: OXYBUTYNIN CHLORIDE 5 MG PO SCH (09:30)
[2017-05-18] MEDS ORDERED: PATIENT'S HOME MEDICATION (Cholecalciferol (Vitamin D3) [Vitamin D3] 5,000 UNIT) PO SCH (09:30)
[2017-05-18] MEDS ORDERED: PRASTERONE 25 MG PO SCH (09:30)
[2017-05-18] MEDS ORDERED: METOPROLOL TARTRATE PO SCH (09:30)
[2017-05-18] MEDS ORDERED: MULTIPLE VITAMINS PO SCH (09:30)
[2017-05-18] MEDS ORDERED: MINERALS PO SCH (09:30)
[2017-05-18] MEDS ORDERED: PATIENT'S HOME MEDICATION (Venlafaxine Hcl [Venlafaxine Hcl Er] 150 MG) PO SCH (09:30)
[2017-05-18] MEDS ORDERED: DIPRIVAN VIAL 20 ML ONE (12:52)
[2017-05-18] MEDS ORDERED: REGLAN INJ 10 MG VIAL IVP PRN (13:21)
[2017-05-18] MEDS: FLAGYL IV PREMIX 500 MG BAG 500 MG/100 ML BAG IV SCH ×2 (13:48→22:45)
[2017-05-18 14:00] LABS: CHOL/HDL RATIO 3.7 (0.0-5.0)
[2017-05-18] MEDS: REGLAN INJ 10 MG VIAL IVP SCH ×3 (14:51→20:56)
[2017-05-18] MEDS: TAB-A-VITE PO SCH (14:58)
[2017-05-18] MEDS: EFFEXOR XR 150 MG CAP PO SCH (14:58)
[2017-05-18] MEDS: OXYBUTYNIN CHLORIDE ER PO SCH (14:58)
[2017-05-18] MEDS: VITAMIN B-12 PO SCH (14:58)
[2017-05-18] MEDS: PROTONIX TAB 40 MG PO SCH (14:59)
[2017-05-18] MEDS: SYNTHROID 100 mcg TAB PO SCH (16:54)
[2017-05-18] MEDS ORDERED: ROPINIROLE HCL PO SCH (18:00)
[2017-05-18] MEDS ORDERED: RISPERIDONE 0.5 MG PO SCH (18:00)
[2017-05-18] MEDS: REQUIP PO SCH (20:38)
[2017-05-18] MEDS: VITAMIN D3 PO SCH (20:39)
[2017-05-18] MEDS: NORCO 10/325 TAB PO SCH (20:39)
[2017-05-18] MEDS: ULTRAM PO SCH (20:40)
[2017-05-18] MEDS: LOPRESSOR TAB 25 MG PO SCH (20:40)
[2017-05-18] MEDS: COUMADIN TAB 4 MG PO SCH (20:54)
[2017-05-18] MEDS ORDERED: PATIENT'S HOME MEDICATION (Melatonin [Melatonin] 10 MG) PO SCH (21:00)
[2017-05-18] MEDS ORDERED: TRAMADOL HCL 50 MG PO SCH (21:00)
[2017-05-19 05:58] LABS: BASOPHILS % (AUTO) 0.3 % (0.2-1.0); EOSINOPHILS # (AUTO) 0.2 x10^3/uL (0.0-0.2); EOSINOPHILS % (AUTO) 2.8 % (0.9-2.9); HEMATOCRIT 30.3 % (36.0-47.0); HEMOGLOBIN 10.6 g/dL (12.0-16.0); LYMPHOCYTES # (AUTO) 2.3 X10^3/uL (1.3-2.9); LYMPHOCYTES % (AUTO) 39.4 % (21.0-51.0); MEAN CORPUSCULAR HEMOGLOBIN 32.6 pg (27.0-34.0); MEAN CORPUSCULAR HGB CONC 34.9 g/dL (33.0-35.0); MEAN CORPUSCULAR VOLUME 93.5 fL (80.0-100.0); MEAN PLATELET VOLUME 7.8 fL (7.4-11.0); MONOCYTES # (AUTO) 0.4 x10^3/uL (0.3-0.8); MONOCYTES % (AUTO) 7.5 % (0.0-13.0); PLATELET COUNT 222 X10^3/uL (150.0-450.0); RED BLOOD COUNT 3.24 X10^6/uL (3.5-5.4); RED CELL DISTRIBUTION WIDTH 13.8 % (11.6-16.5); WHITE BLOOD COUNT 5.9 X10^3/uL (3.6-10.0)
[2017-05-19] MEDS: FLAGYL IV PREMIX 500 MG BAG 500 MG/100 ML BAG IV SCH ×3 (05:59→21:31)
[2017-05-19] MEDS: NS 1000 ML 1,000 ML IV SCH ×3 (05:59→20:19)
[2017-05-19 06:06] LABS: ALANINE AMINOTRANSFERASE 192 Units/L (12-78); ALBUMIN 2.4 g/dL (3.4-5.0); ALKALINE PHOSPHATASE 113 Units/L (46-116); AMYLASE 116 Units/L (25-115); ASPARTATE AMINO TRANSFERASE 194 Units/L (15-37); BILIRUBIN,DIRECT 0.18 mg/dL (0-0.2); BLOOD UREA NITROGEN 11 mg/dL (7-18); CALCIUM 8.4 mg/dL (8.5-10.1); CHLORIDE 107 mmol/L (98-107); COR CA(FOR HYPOALB) 9.7 mg/dL (8.5-10.1); LIPASE 501 Units/L (73-393); SODIUM 140 mmol/L (136-145); TOTAL PROTEIN 6.1 g/dL (6.4-8.2); eGFR BLACK RACES > 60 (>60); eGFR NON BLACK RACES > 60 (>60)
[2017-05-19] MEDS: LOPRESSOR TAB 25 MG PO SCH ×2 (09:08→20:21)
[2017-05-19] MEDS: EFFEXOR XR 150 MG CAP PO SCH (09:08)
[2017-05-19] MEDS: TAB-A-VITE PO SCH (09:08)
[2017-05-19] MEDS: PROTONIX TAB 40 MG PO SCH (09:08)
[2017-05-19] MEDS: VITAMIN D3 PO SCH ×2 (09:09→20:19)
[2017-05-19] MEDS: CIPRO IV 400 MG PREMIX* 400 MG/200 ML IV.SOLN. IV SCH ×2 (09:10→20:19)
[2017-05-19] MEDS: VITAMIN B-12 PO SCH (09:10)
[2017-05-19] MEDS: OXYBUTYNIN CHLORIDE ER PO SCH (09:10)
[2017-05-19] MEDS: REGLAN INJ 10 MG VIAL IVP SCH ×4 (09:11→20:21)
[2017-05-19] MEDS: SYNTHROID 100 mcg TAB PO SCH (17:30)
[2017-05-19] MEDS: ULTRAM PO SCH (20:20)
[2017-05-19] MEDS: REQUIP PO SCH (20:20)
[2017-05-19] MEDS: NORCO 10/325 TAB PO SCH (20:20)
[2017-05-19] MEDS: COUMADIN TAB 4 MG PO SCH (20:21)
[2017-05-20 06:31] LABS: BASOPHILS % (AUTO) 0.3 % (0.2-1.0); EOSINOPHILS # (AUTO) 0.2 x10^3/uL (0.0-0.2); EOSINOPHILS % (AUTO) 2.6 % (0.9-2.9); HEMATOCRIT 33.3 % (36.0-47.0); HEMOGLOBIN 11.4 g/dL (12.0-16.0); LYMPHOCYTES # (AUTO) 4.1 X10^3/uL (1.3-2.9); LYMPHOCYTES % (AUTO) 48.5 % (21.0-51.0); MEAN CORPUSCULAR HEMOGLOBIN 31.9 pg (27.0-34.0); MEAN CORPUSCULAR VOLUME 93.8 fL (80.0-100.0); MEAN PLATELET VOLUME 7.9 fL (7.4-11.0); MONOCYTES # (AUTO) 0.6 x10^3/uL (0.3-0.8); MONOCYTES % (AUTO) 7.5 % (0.0-13.0); NEUTROPHILS # (AUTO) 3.4 x10^3/uL (2.2-4.8); NEUTROPHILS % (AUTO) 41.1 % (42.0-75.0); PLATELET COUNT 258 X10^3/uL (150.0-450.0); RED BLOOD COUNT 3.56 X10^6/uL (3.5-5.4); RED CELL DISTRIBUTION WIDTH 13.8 % (11.6-16.5); WHITE BLOOD COUNT 8.4 X10^3/uL (3.6-10.0)
[2017-05-20 06:38] LABS: ALANINE AMINOTRANSFERASE 146 Units/L (12-78); ALBUMIN 2.8 g/dL (3.4-5.0); ALKALINE PHOSPHATASE 112 Units/L (46-116); AMYLASE 36 Units/L (25-115); ASPARTATE AMINO TRANSFERASE 106 Units/L (15-37); BLOOD UREA NITROGEN 8 mg/dL (7-18); CALCIUM 8.7 mg/dL (8.5-10.1); CARBON DIOXIDE 24.3 mmol/L (21-32); CHLORIDE 106 mmol/L (98-107); COR CA(FOR HYPOALB) 9.7 mg/dL (8.5-10.1); CREATININE 0.84 mg/dL (0.55-1.02); LIPASE 133 Units/L (73-393); SODIUM 142 mmol/L (136-145); TOTAL PROTEIN 6.8 g/dL (6.4-8.2); eGFR BLACK RACES > 60 (>60); eGFR NON BLACK RACES > 60 (>60)
[2017-05-20] MEDS: NS 1000 ML 1,000 ML IV SCH ×3 (06:44→17:30)
[2017-05-20] MEDS: FLAGYL IV PREMIX 500 MG BAG 500 MG/100 ML BAG IV SCH ×3 (06:47→22:15)
--- NOTE | 2017-05-20 08:31 | DR.H&P ---
H&P - History & Physical for Day of: H&P Date: 05/18/17 - Chief Complaint Chief Complaint: abdominal pain - Allergies Allergies/Adverse Reactions: Allergies Allergy/AdvReac Type Severity Reaction Status Date / Time adhesive tape Allergy Verified 05/18/17 01:08 ciprofloxacin Allergy ITCHING, Verified 05/20/17 09:33 REDNESS Penicillins Allergy Verified 05/18/17 01:08 - History of Present Illness History of Present Illness: Ms. Jaimes is a 72 year old patient of ours who presented to the emergency room with complaints of upper abdominal pain for one day. Patient reports that pain is located in the middle of her stomach. She reports chills and nausea, but denies vomiting, fever, or dysuria. Associated symptoms include chills, weakness, fatigue, loss of appetite, shortness of breath, edema, abdominal pain, nausea, dizziness and muscle pain. On examination , lungs are clear to auscultation. Abdomen is round, soft, and noted with moderated, diffuse tenderness. Normal bowel sounds are noted in all quadrants. On arrival to the ER, her vital signs were 97.7, 99, 18, 100%RA, 99/54. Labs and an abdomen/pelvis CT were obtained. Abnormal Lab values include the following: WBC 10.5, Neut# 7.3, INR 2.30, PTT 36.6, Creatinine 1.05, GFR(non) 55 , Glucose 170, AST 224, ALT 110, Albumin 3.2, A/G Ratio 0.7, Hpylori Positive. Amylase and Lipase levels are noted to be high at 999 and [address]. Urinalysis reported: Urobilinogen 1+, Leuk Jasmin 1+, RBC 0-1, WBC 0-3, Squam Epith Cells Rare, Renal Epith Cells Rare. Abd/Pelvis CT reported: Minimal stranding around the duodenal diverticulum again noted. Duodenal diverticulitis not completely excluded. Hiatal hernia, trace pericardial fluid, mild cardiomegaly, spine degenerative change other findings as above. Nonobstructing bilateral renal stones. Hepatic hypodensity is probably a cyst. Nonemergenct ultrasound confirmation recommended. Patient reports a medical history of arthritis, GERD, hypertension, hypothyroidism, kidney stones, lupus, afib, angioplasty/stents, cholecystectomy, ortho surgery, breast reduction, back surgery , spinal cord stimulator. We admitted patient to the hospital for further evaluation and treatment. She was started on Normal saline at 100ml/hr, flagyl 500mg IV q8h, cipro 400mg iv q12h, and Pepcid 20mg iv bid. Home medications will be reviewed when they are confirmed. Patient will be placed NPO. We plan to follow up with labs in the morning and continue to monitor patient. - Past Medical History Past Medical History: Arthritis, GERD, Hypertension, Hypothyroidism, Kidney Stones Additional Medical History: Lupus, Cataracts, Sleep Apnea (CPAP at home), Atrial Fibrillation, Hx IBS, Hiatal Hernia, Fibromyalgia, Chronic Back Pain, Hx DVT, Pancreatitis - Past Surgical History Surgical History: Hysterectomy, Ortho Surgery, Other Additional Surgical History: Bladder Tack, Breast Reduction, Fissurectomy, Hemorroidectomy, Cardiac Ablation, Back Stimulator - Family History Family Medical History: Diabetes Mellitus, Cancer, [place], Heart Failure, Hypertension - Social History Does patient currently use any type of tobacco product: No Have you used tobacco products in the last 12 months: No Type of Tobacco Use: None Does any household member use tobacco: No Alcohol Use: None Drug Use: None - Medications Home Medications: Alprazolam [Xanax] 0.5 mg PO HS PRN 05/18/17 [History Confirmed 05/18/17] Cholecalciferol (Vitamin D3) [D3 Maximum Strength] 5,000 unit PO BID 05/18/17 [ History Confirmed 05/18/17] Cyanocobalamin (Vitamin B-12) [B-12] 1 tab PO DAILY 05/18/17 [History Confirmed 05/18/17] Famotidine 20 mg PO HS 05/18/17 [History Confirmed 05/18/17] Levothyroxine Sodium [Levoxyl] 1 tab PO DAILYAC 05/18/17 [History Confirmed 09/02] Prasterone (Dhea) [Dhea 25] 25 mg PO DAILY 05/18/17 [History Confirmed 05/18/17] - Physical Exam Vital Signs: Temperature 98.6 F Pulse Rate [Left Brachial] 80 Pulse Rate 99 Respiratory Rate 16 Blood Pressure [Left Arm] 139/60 Blood Pressure [Right Arm] 136/60 Blood Pressure 99/54 O2 Sat by Pulse Oximetry 97
[2017-05-20] MEDS: CIPRO IV 400 MG PREMIX* 400 MG/200 ML IV.SOLN. IV SCH ×3 (09:17→21:12)
[2017-05-20] MEDS: REGLAN INJ 10 MG VIAL IVP SCH ×4 (09:18→21:15)
[2017-05-20] MEDS: VITAMIN D3 PO SCH ×2 (09:19→21:32)
[2017-05-20] MEDS: VITAMIN B-12 PO SCH (09:20)
[2017-05-20] MEDS: LOPRESSOR TAB 25 MG PO SCH ×2 (09:21→21:13)
[2017-05-20] MEDS: EFFEXOR XR 150 MG CAP PO SCH (09:21)
[2017-05-20] MEDS: PROTONIX TAB 40 MG PO SCH (09:21)
[2017-05-20] MEDS: TAB-A-VITE PO SCH (09:21)
[2017-05-20] MEDS: OXYBUTYNIN CHLORIDE ER PO SCH (09:21)
[2017-05-20] MEDS ORDERED: VISTARIL PO PRN (09:35)
[2017-05-20] MEDS: SYNTHROID 100 mcg TAB PO SCH (17:51)
[2017-05-20] MEDS: COUMADIN TAB 4 MG PO SCH (21:12)
[2017-05-20] MEDS: NORCO 10/325 TAB PO SCH (21:13)
[2017-05-20] MEDS: ULTRAM PO SCH (21:25)
[2017-05-20] MEDS: REQUIP PO SCH (21:25)
[2017-05-20] MEDS ORDERED: STERILE WATER IRRIGATION IR ONE (21:31)
[2017-05-21] MEDS: FLAGYL IV PREMIX 500 MG BAG 500 MG/100 ML BAG IV SCH ×2 (05:47→14:11)
[2017-05-21 06:19] LABS: BASOPHILS % (AUTO) 0.5 % (0.2-1.0); EOSINOPHILS # (AUTO) 0.2 x10^3/uL (0.0-0.2); EOSINOPHILS % (AUTO) 3.7 % (0.9-2.9); HEMATOCRIT 32.1 % (36.0-47.0); HEMOGLOBIN 11.1 g/dL (12.0-16.0); LYMPHOCYTES # (AUTO) 2.6 X10^3/uL (1.3-2.9); LYMPHOCYTES % (AUTO) 41.9 % (21.0-51.0); MEAN CORPUSCULAR HEMOGLOBIN 32.3 pg (27.0-34.0); MEAN CORPUSCULAR HGB CONC 34.6 g/dL (33.0-35.0); MEAN CORPUSCULAR VOLUME 93.3 fL (80.0-100.0); MEAN PLATELET VOLUME 8.1 fL (7.4-11.0); MONOCYTES # (AUTO) 0.5 x10^3/uL (0.3-0.8); NEUTROPHILS # (AUTO) 2.8 x10^3/uL (2.2-4.8); NEUTROPHILS % (AUTO) 45.9 % (42.0-75.0); PLATELET COUNT 256 X10^3/uL (150.0-450.0); RED BLOOD COUNT 3.44 X10^6/uL (3.5-5.4); RED CELL DISTRIBUTION WIDTH 13.9 % (11.6-16.5); WHITE BLOOD COUNT 6.1 X10^3/uL (3.6-10.0)
[2017-05-21 06:25] LABS: ALANINE AMINOTRANSFERASE 100 Units/L (12-78); ALBUMIN 2.5 g/dL (3.4-5.0); ALKALINE PHOSPHATASE 93 Units/L (46-116); AMYLASE 22 Units/L (25-115); ASPARTATE AMINO TRANSFERASE 62 Units/L (15-37); BLOOD UREA NITROGEN 7 mg/dL (7-18); CALCIUM 8.3 mg/dL (8.5-10.1); CARBON DIOXIDE 25.7 mmol/L (21-32); CHLORIDE 107 mmol/L (98-107); COR CA(FOR HYPOALB) 9.5 mg/dL (8.5-10.1); CREATININE 0.66 mg/dL (0.55-1.02); LIPASE 91 Units/L (73-393); SODIUM 141 mmol/L (136-145); TOTAL PROTEIN 6.3 g/dL (6.4-8.2); eGFR BLACK RACES > 60 (>60); eGFR NON BLACK RACES > 60 (>60)
[2017-05-21] MEDS: NS 1000 ML 1,000 ML IV SCH ×3 (07:09→14:07)
[2017-05-21] MEDS: CIPRO IV 400 MG PREMIX* 400 MG/200 ML IV.SOLN. IV SCH ×2 (08:03→21:07)
[2017-05-21] MEDS: VITAMIN B-12 PO SCH (09:07)
[2017-05-21] MEDS: PROTONIX TAB 40 MG PO SCH (09:08)
[2017-05-21] MEDS: EFFEXOR XR 150 MG CAP PO SCH (09:08)
[2017-05-21] MEDS: TAB-A-VITE PO SCH (09:08)
[2017-05-21] MEDS: OXYBUTYNIN CHLORIDE ER PO SCH (09:09)
[2017-05-21] MEDS: LOPRESSOR TAB 25 MG PO SCH ×2 (09:09→21:08)
[2017-05-21] MEDS: REGLAN INJ 10 MG VIAL IVP SCH ×4 (09:10→21:11)
[2017-05-21] MEDS: VITAMIN D3 PO SCH ×2 (09:10→21:10)
[2017-05-21] MEDS ORDERED: K-LYTE EFFERVESCENT PO PRN (15:31)
[2017-05-21] MEDS ORDERED: K-RIDER 10 MEQ/NS 100 ML 10 MEQ/100 ML BAG IV PRN (15:31)
[2017-05-21] MEDS: SYNTHROID 100 mcg TAB PO SCH (18:08)
[2017-05-21 20:30] VITALS: BP 173/74
[2017-05-21] MEDS: COUMADIN TAB 4 MG PO SCH (21:07)
[2017-05-21] MEDS: NORCO 10/325 TAB PO SCH (21:08)
[2017-05-21] MEDS: ULTRAM PO SCH (21:10)
[2017-05-21] MEDS: REQUIP PO SCH (21:11)
[2017-05-23 21:19] LABS: HEPATITIS A ANTIBODY IGM Negative (Negative)
[2017-05-24 06:08] LABS: HEPATITIS B CORE IGM Negative (Negative); HEPATITIS B SURFACE ANTIGEN Negative (Negative)
== END 2017-05-21 21:30 | disposition home or self-care (01) | DRG 440 ==
LOC: ER 01:06 → ICU 03:30
PROVIDERS: ADMIT Internal Medicine; ATTEND Internal Medicine
PROC: 0DJ08ZZ Inspection of Upper Intestinal Tract, Via Natural or Artificial Opening Endoscopic (ICD-10-PCS; principal; 2017-05-18 17:15)
DX: K85.80 Other acute pancreatitis without necrosis or infection (principal); K57.10 Diverticulosis of small intestine without perforation or abscess without bleeding; B96.81 Helicobacter pylori [H. pylori] as the cause of diseases classified elsewhere; K21.9 Gastro-esophageal reflux disease without esophagitis; I10 Essential (primary) hypertension; E03.8 Other specified hypothyroidism; I48.91 Unspecified atrial fibrillation; R10.10 Upper abdominal pain, unspecified; K31.84 Gastroparesis; K29.60 Other gastritis without bleeding
CPT/HCPCS: 36415; 74176; 80053; 80061; 80074; 81001; 82150; 82248; 83690; 85025; 85610; 85730; 86677; 96365; 96374; 96375; 99284; A4217; A4222; Q0177; S0028; S0030; J0744; J2175; J2405; J2765; J3490

== ENCOUNTER 2017-06-06 06:46 | Day surgery (SDC) | payer OTHER ==
[2017-06-06] MEDS ORDERED: TETRACAINE 0.5% OPHTH 1 DOSE AFFEYE ONE ×8 (07:00→10:29)
[2017-06-06] MEDS ORDERED: VIGAMOX 0.5% OPHTH 1 DOSE AFFEYE ONE ×5 (07:05→10:40)
[2017-06-06] MEDS ORDERED: PROLENSA OPHTH 1 DOSE AFFEYE ONE (07:16)
[2017-06-06] MEDS ORDERED: ALPHAGAN-P OPHTH 1 DOSE AFFEYE ONE (07:17)
[2017-06-06] MEDS ORDERED: MYDRIACIL OPHTH 1 DOSE AFFEYE ONE ×3 (07:18→07:20)
[2017-06-06] MEDS ORDERED: CYCLOGYL 1% OPHTH 1 DOSE OP ONE ×3 (07:18→07:20)
[2017-06-06] MEDS ORDERED: AK-DILATE 2.5% OPHTH 1 DOSE OP ONE ×3 (07:18→07:20)
[2017-06-06] MEDS ORDERED: NS 500 ML IV 500 ML IV ONE (07:20)
[2017-06-06] MEDS ORDERED: VERSED ONE ×2 (07:42→10:47)
[2017-06-06] MEDS ORDERED: VERSED IVP ONE ×4 (07:56→10:03)
[2017-06-06] MEDS ORDERED: AK-DILATE 10% OPHTH 1 DOSE AFFEYE ONE ×2 (07:57→10:04)
[2017-06-06] MEDS ORDERED: BETADINE OPHTH SOLN 5% EACHEYE ONE (10:10)
[2017-06-06] MEDS ORDERED: DUOVISC IO ONE ×3 (10:17→10:29)
[2017-06-06] MEDS ORDERED: ADRENALINE CHL INJ IJ ONE ×3 (10:17→10:29)
[2017-06-06] MEDS ORDERED: BSS OPHTH (PLAIN) 500 ML with VANCOMYCIN HCL 500 MG VIAL 25 MG, ADRENALINE CHL INJ 1 MG IR ONE ×6 (10:17)
[2017-06-06] MEDS ORDERED: XYLOCAINE-MPF 1% IJ ONE ×3 (10:17→10:29)
[2017-06-06 11:00] VITALS: BP 123/66
== END 2017-06-06 11:02 | disposition home or self-care (01) ==
LOC: SURG1 06:46
PROVIDERS: ATTEND Ophthalmology
PROC: 08DJ3ZZ Extraction of Right Lens, Percutaneous Approach (ICD-10-PCS; principal; 2017-06-06 09:45)
PROC: 08RJ3JZ Replacement of Right Lens with Synthetic Substitute, Percutaneous Approach (ICD-10-PCS; principal; 2017-06-06 09:45)
DX: H25.11 Age-related nuclear cataract, right eye (principal); H25.011 Cortical age-related cataract, right eye; H52.221 Regular astigmatism, right eye
CPT/HCPCS: 99100; A4217; J0170; J2250; J3370

== ENCOUNTER → 2017-07-18 | Outpatient (CLI) | payer OTHER ==
--- NOTE | 2017-07-19 12:48 | MG ---
HISTORY: SCREENING Comparison: 02/10/2016 FINDINGS: Bilateral CC and MLO projections of the breast were obtained. Scattered fibroglandular tissue is seen to be present. No significant architectural distortion, mass or clustered microcalcifications c an be observed to suggest malignancy. No skin thickening or nipple retraction is appreciated. No p athological lymphadenopathy can be identified. IMPRESSION: NO RADIOGRAPHIC EVIDENCE OF MALIGNANCY. ACR CATEGORY I - NEGATIVE EXAM. FOLLOW-UP EXAM 1 YEAR. Diagnostic CAD was utilized and reviewed. * 0 (ZERO) - ASSESSMENT INCOMPLETE; ADDITIONAL IMAGING IS NEEDED. * 1/ (ONE) - NEGATIVE. * 2/II (TWO) - BENIGN FINDINGS. * 3/III (THREE) - PROBABLY BENIGN FINDING; SHORT INTERVAL FOLLOW-UP SUGGESTED. * 4/IV (FOUR) - SUSPICIOUS ABNORMALITY; BIOPSY SHOULD BE CONSIDERED. * 5/V - HIGHLY SUSPICIOUS OF MALIGNANCY; BIOPSY SHOULD BE PERFORMED. A NEGATIVE X-RAY REPORT SHOULD NOT DELAY BIOPSY IF A DOMINANT OR CLINICALLY SUSPICIOUS MASS IS PRESENT; 4 TO 8 PERCENT OF CANCERS ARE NOT IDENTIFIED BY X-RAY. A NEGA TIVE REPORT MAY REINFORCE THE CLINICAL IMPRESSION. ADENOSIS AND DENSE BREASTS MAY OBSCURE AN UNDERLY ING NEOPLASM. Reported By:
== END ==
LOC: RAD 10:03
PROVIDERS: ATTEND Internal Medicine
DX: Z12.31 Encounter for screening mammogram for malignant neoplasm of breast (principal)
CPT/HCPCS: 77067

== ENCOUNTER 2017-09-08 15:08 | Emergency (ER) | payer OTHER ==
[2017-09-08 15:16] VITALS: BMI 33.2
[2017-09-08 15:18] VITALS: BP 136/71
--- NOTE | 2017-09-08 15:58 | DR.GENAD ---
HPI - PCP Primary Care Physician: priti beard - Complaint/Symptoms Chief Complaint:: Patient's stated "She has a egd done a few days ago and now she has been having a headche with a dry cough and "sweats". Patient states she has been very weak today and is unable to stand. - Source History Provided: Significant Other - Mode of Arrival Mode of Arrival: Wheelchair - Timing Onset of Chief Complaint: 09/06/17 PMH - PMH Past Medical History: Yes Past Medical History: Arthritis, GERD, Hypertension, Hypothyroidism, Kidney Stones Past Medical History Comment: dvt, a-fib, pancreatitis, lupus, fibromyalgia Past Surgical History: Yes Surgical History: Hysterectomy, Ortho Surgery, Other Past Surgical History Comment: spinal cord stimulator, cataracts - Family History History of Family Medical Conditions: Yes Family Medical History: Diabetes Mellitus, Cancer, [place], Heart Failure, Hypertension - Social History Does patient currently use any type of tobacco product: No Have you used tobacco products in the last 12 months: No Type of Tobacco Use: None Does any household member use tobacco: No Alcohol Use: None Do you use any recreational Drugs:: No Lives With: Family Lives Where: Home - infectious screening In the last 2 months have you had wt loss of >10#?: NO Have you had fever, night sweats or hemotysis?: No Have you traveled outside the country in the last 6 months?: No Isolation: Standard ROS - Review of Systems Eyes: No Symptoms Reported ENTM: No Symptoms Reported Respiratoy: No Symptoms Reported Cardiovascular: No Symptoms Reported Gastrointestinal/Abdominal: No Symptoms Reported Genitourinary: No Symptoms Reported Neurological: No Symptoms Reported Musculoskeletal: No Symptoms Reported Integumentary: No Symptoms Reported Hematologic/Lymphatic: No Symptoms Reported Endocrine: No Symptoms Reported Psychiatric: No Symptoms Reported All Other Systems: Reviewed and Negative PE - Vital Signs Vitals: Temperature 99 F Pulse Rate 99 Respiratory Rate 21 Blood Pressure [Left Arm] 173/74 Blood Pressure [Right Arm] 175/73 Blood Pressure 136/71 O2 Sat by Pulse Oximetry 99 - General General Appearance: Alert, In No Apparent Distress - Head Head Exam: Normal Inspection, Atraumatic - Eyes Eye exam: Normal Appearance, PERRL, EOMI - ENT ENT Exam: Normal Exam External Ear Exam: Normal External Inspection TM/Canal Exam: Bilateral Normal Nose Exam: Normal Nose Exam Mouth Exam: Normal Inspection Throat Exam: Normal Inspection - Neck Neck Exam: Normal Inspection, Full ROM - Chest Chest Inspection: Normal Inspection - Respiratory Respiratory Exam: Normal Lung Sounds Bilat Respiratory Exam: Bilateral Clear to Auscultation - Cardiovascular Cardiovascular Exam: Regular Rate, Normal Rhythm - Abdominal Exam Abdominal Exam: Normal Inspection, Normal Bowel Sounds Abdominal Tenderness: negative: RUQ, RLQ, LUQ, LLQ, Epigastrium, Suprapubic, Diffuse, Mild, Moderate, Severe, Other - Extremities Extremities Exam: Normal Inspection - Back Back Exam: Normal Inspection, Full ROM - Neurologic Neurological Exam: Alert, Oriented X3, CN II-XII Intact - Psychiatric Psychiatric Exam: Normal Affect - Skin Skin Exam: Warm, Dry, Intact ROR - Labs Reviewed Laboratory Results Reviewed?: Yes (influenza negative) Result Diagrams: 09/08/17 16:30 09/08/17 16:30 Laboratory: WBC 6.9 X10^3/uL (3.6-10.0) 09/08/17 16:30 RBC 3.91 X10^6/uL (3.5-5.4) 09/08/17 16:30 Hgb 12.3 g/dL (12.0-16.0) 09/08/17 16:30 Hct 35.6 % (36.0-47.0) L 09/08/17 16:30 MCV 91.0 fL (80.0-100.0) 09/08/17 16:30 MCH 31.6 pg (27.0-34.0) 09/08/17 16:30 MCHC 34.7 g/dL (33.0-35.0) 09/08/17 16:30 RDW 13.5 % (11.6-16.5) 09/08/17 16:30 Plt Count 294 X10^3/uL (150.0-450.0) 09/08/17 16:30 MPV 7.6 fL (7.4-11.0) 09/08/17 16:30 Neut % 61.4 % (42.0-75.0) 09/08/17 16:30 Lymph % 25.9 % (21.0-51.0) 09/08/17 16:30 [place] % 10.8 % (0.0-13.0) 09/08/17 16:30 Eos % 1.2 % (0.9-2.9) 09/08/17 16:30 Baso % 0.7 % (0.2-1.0) 09/08/17 16:30 Neut # 4.2 x10^3/uL (2.2-4.8) 09/08/17 16:30 Lymph # 1.8 X10^3/uL (1.3-2.9) 09/08/17 16:30 [place] # 0.7 x10^3/uL (0.3-0.8) 09/08/17 16:30 Eos # 0.1 x10^3/uL (0.0-0.2) 09/08/17 16:30 Baso # 0.0 X10^3/uL (0.0-0.1) 09/08/17 16:30 Absolute Nucleated RBC 0.0 /100WBC 09/08/17 16:30 Sodium 139 mmol/L (136-145) 09/08/17 16:30 Corrected Sodium 140 mmol/L (136-145) 09/08/17 16:30 Potassium 3.8 mmol/L (3.5-5.1) 09/08/17 16:30 Chloride 102 mmol/L (98-107) 09/08/17 16:30 Carbon Dioxide 26.4 mmol/L (21-32) 09/08/17 16:30 BUN 11 mg/dL (7-18) 09/08/17 16:30 Creatinine 0.89 mg/dL (0.55-1.02) 09/08/17 16:30 Est GFR (MDRD) Af Amer > 60 (>60) 09/08/17 16:30 Est GFR (MDRD) Non-Af > 60 (>60) 09/08/17 16:30 Glucose 122 mg/dL (65-99) H 09/08/17 16:30 Calcium 9.3 mg/dL (8.5-10.1) 09/08/17 16:30 Corrected Calcium 9.9 mg/dL (8.5-10.1) 09/08/17 16:30 Total Bilirubin 0.50 mg/dL (0.2-1.0) 09/08/17 16:30 AST 28 Units/L (15-37) 09/08/17 16:30 ALT 27 Units/L (12-78) 09/08/17 16:30 Alkaline Phosphatase 79 Units/L (46-116) 09/08/17 16:30 Total Protein 8.0 g/dL (6.4-8.2) 09/08/17 16:30 Albumin 3.3 g/dL (3.4-5.0) L 09/08/17 16:30 Globulin 4.7 g/dL (2.5-4.5) H 09/08/17 16:30 Albumin/Globulin Ratio 0.7 Ratio (1.1-2.1) L 09/08/17 16:30 Influenza Type A (PCR) Negative (NEGATIVE) 09/08/17 16:22 Influenza Type B (PCR) Negative (NEGATIVE) 09/08/17 16:22 - XRAY XRAY Interpreted by: Radiologist (Chest: No acute abnormality) - Diagnosis Discharge Problem: Upper respiratory infection Qualifiers: URI type: unspecified viral URI Qualified Code(s): J06.9 - Acute upper respiratory infection, unspecified - Discharge Plan Condition: Stable - Follow ups/Referrals Follow ups/Referrals: Vijay Beard [Primary Care Provider] - 3 days - Instructions
[2017-09-08 16:38] LABS: BASOPHILS % (AUTO) 0.7 % (0.2-1.0); EOSINOPHILS # (AUTO) 0.1 x10^3/uL (0.0-0.2); EOSINOPHILS % (AUTO) 1.2 % (0.9-2.9); HEMATOCRIT 35.6 % (36.0-47.0); HEMOGLOBIN 12.3 g/dL (12.0-16.0); LYMPHOCYTES # (AUTO) 1.8 X10^3/uL (1.3-2.9); LYMPHOCYTES % (AUTO) 25.9 % (21.0-51.0); MEAN CORPUSCULAR HEMOGLOBIN 31.6 pg (27.0-34.0); MEAN CORPUSCULAR HGB CONC 34.7 g/dL (33.0-35.0); MEAN PLATELET VOLUME 7.6 fL (7.4-11.0); MONOCYTES # (AUTO) 0.7 x10^3/uL (0.3-0.8); MONOCYTES % (AUTO) 10.8 % (0.0-13.0); NEUTROPHILS # (AUTO) 4.2 x10^3/uL (2.2-4.8); NEUTROPHILS % (AUTO) 61.4 % (42.0-75.0); PLATELET COUNT 294 X10^3/uL (150.0-450.0); RED BLOOD COUNT 3.91 X10^6/uL (3.5-5.4); RED CELL DISTRIBUTION WIDTH 13.5 % (11.6-16.5); WHITE BLOOD COUNT 6.9 X10^3/uL (3.6-10.0)
[2017-09-08 16:48] LABS: ALANINE AMINOTRANSFERASE 27 Units/L (12-78); ALBUMIN 3.3 g/dL (3.4-5.0); ALKALINE PHOSPHATASE 79 Units/L (46-116); ASPARTATE AMINO TRANSFERASE 28 Units/L (15-37); BLOOD UREA NITROGEN 11 mg/dL (7-18); CALCIUM 9.3 mg/dL (8.5-10.1); CARBON DIOXIDE 26.4 mmol/L (21-32); CHLORIDE 102 mmol/L (98-107); COR CA(FOR HYPOALB) 9.9 mg/dL (8.5-10.1); COR NA(FOR HYPERGLY) 140 mmol/L (136-145); CREATININE 0.89 mg/dL (0.55-1.02); SODIUM 139 mmol/L (136-145); eGFR BLACK RACES > 60 (>60); eGFR NON BLACK RACES > 60 (>60)
--- NOTE | 2017-09-08 17:55 | RAD ---
History: Cough Study: Portable upright AP chest Comparison: None Findings: The lungs are clear and the heart size is normal. There is no edema or effusion. Dorsal col umn stimulator wires are visualized. Impression: No acute cardiopulmonary disease Reported By:
[2017-09-08] MEDS ORDERED: TUSSIONEX PENNKINETIC SUSP PO ONE (18:01)
[2017-09-08] MEDS ORDERED: TUSSIONEX PENNKINETIC SUSP ONE (18:01)
== END 2017-09-08 18:11 | disposition home or self-care (01) ==
LOC: ER 15:24
DX: J06.9 Acute upper respiratory infection, unspecified (principal)
CPT/HCPCS: 36415; 71045; 80053; 85025; 87502; 99282

== ENCOUNTER 2019-03-23 11:14 | Inpatient (IN) ==
[2019-03-23] MEDS ORDERED: CARDIZEM INJ 125 MG VIAL ONE (12:13)
[2019-03-23] MEDS ORDERED: CARDIZEM INJ 50 MG VIAL ONE (12:13)
--- NOTE | 2019-03-23 12:13 | DR.GENAD ---
HPI - PCP Primary Care Physician: BLAIR GOULD - Complaint/Symptoms Chief Complaint Doctors Comments: Patient states her heart started running away at home after giving herself a Lovenox shot with dizziness and not feeling well at 10:30 am about two hours ago. She is taking metoprolol 25mg 1/2 tablet daily and is taking Lovenox shots twice daily because they stopped her coumadin two days ago so she can get injections in her back next week. States she has had a problem with atrial fibrillation in the past but had an ablation 9-10 years ago and has not had atrial fibrillation since. She denies tobacco, acohol, drug or vape usage. She denies chest pain but had sensation of indigestion earlier. Spouse states she took a hydrocodone for her back earlier today. Chief Complaint:: PT C/O HEART RATE FAST ,, PT STATES " I GAVE MY-SELF A LOVENOX SHOT AND THEN I HAD A BOUT OF MY HEART BEATING FAST ". .PT HAS HX , OF AFIB, AND PT HAS HX OF ABLATION,,BR. PT STATES " ITS STILL BEATING FAST NOW" PT C/O WEAKNESS ..BR Self Treatment fo Chief Complaint: PT TOOK HER METOPROLOL THIS AM , PTS COUMADIN IS ON HOLD AND SHE IS TAKING LOVENOX. BR - Nurses notes reviewed Nurses Notes Review: Yes - Source History Provided: Patient - Mode of Arrival Mode of Arrival: Ambulatory - Timing Onset of Chief Complaint: 03/23/19 Came on: Suddenly - Duration Duration: Constant How lon Duration: Hours - Location Location: low back pain - Severity Severity: Moderate - Modifying Factors Worsens:: heart running away Improves:: nothing PMH - PMH Past Medical History: Yes Past Medical History: Hypertension, Hypothyroidism, GERD, Arthritis, Kidney Stones Past Medical History Comment: AFIB, LUPUS, BACK , Past Surgical History: Yes Surgical History: Hysterectomy, Ortho Surgery, Other Past Surgical History Comment: PANCREATITIS, BACK STIMULATOR - Family History History of Family Medical Conditions: Yes Family Medical History: Diabetes Mellitus, Cancer, [place], Heart Failure, H ypertension - Social History Does patient currently use any type of tobacco product: No Have you used tobacco products in the last 12 months: No Type of Tobacco Use: None Does any household member use tobacco: No Alcohol Use: None Do you use any recreational Drugs:: No Lives With: Family Lives Where: Home - infectious screening In the last 2 months have you had wt loss of >10#?: NO Have you had fever, night sweats or hemotysis?: No Have you traveled outside the country in the last 6 months?: No Isolation: Standard ROS - Review of Systems Constitutional: No Symptoms Reported Eyes: No Symptoms Reported. negative: See HPI, Eye Pain, Blurred Vision, Tearing, Discharge, Photophobia, Diplopia, Other ENTM: No Symptoms Reported Respiratoy: No Symptoms Reported. negative: See HPI, Productive Cough, Non- Productive Cough, Moist Cough, Dry Cough, Hacking Cough, Barking Cough, Brassy Cough, Orthopnea, Short of Breath, Stridor, Wheezing, Hemoptysis, Other Cardiovascular: No Symptoms Reported, Palpitations Gastrointestinal/Abdominal: No Symptoms Reported. negative: See HPI, Abdominal Pain, Constipation, Diarrhea, Nausea, Vomiting, Food Intolerance, Other Genitourinary: No Symptoms Reported. negative: See HPI, Discharge, Dysuria, Frequency, Hematuria, Pain, Bleeding, Other Neurological: No Symptoms Reported Musculoskeletal: No Symptoms Reported, Back Pain (chronic back pain with stimulator) Integumentary: No Symptoms Reported. negative: See HPI, Change in Color, Change in Hair/Nails, Dryness, Lesions, Lumps, Rash, Itching, Wound, Bruises, Juandice, Other Hematologic/Lymphatic: No Symptoms Reported Endocrine: No Symptoms Reported Psychiatric: No Symptoms Reported. negative: See HPI, Anxiety, Depression, Hallucinations, Excessive crying, Suicidal, Other PE - General Limitations: No Limitations General Appearance: Alert, In Distress (moderate) - Head Head Exam: Normal Inspection, Atraumatic, Normocephalic - Eyes Eye exam: Normal Appearance, PERRL, EOMI. negative: Scleral Icterus, Conjunctival Injection, Nystagmus, Miosis, Mydrasis, Periorbital Swelling, Periorbital Tenderness, Other - ENT ENT Exam: Normal Exam, Normal Oropharynx, Normal External Ear Exam, Mucous Membranes Moist, TM's Normal Bilaterally External Ear Exam: Normal External Inspection TM/Canal Exam: Bilateral Normal Nose Exam: Normal Nose Exam Mouth Exam: Normal Inspection. negative: Drooling, Trismus, Lip Swelling, Tongue Elevation, Tongue Swelling, Laceration, Other Throat Exam: Normal Inspection. negative: Tonsillar Erythema, Tonsillomegaly, Tonsillar Exudate, R Peritonsillar Mass, L Peritonsillar Mass, Muffled Voice, Other - Neck Neck Exam: Normal Inspection, Full ROM, Trachea Midline. negative: Tenderness, Meningismus, Lymphadenopathy, Thyromegaly, Other - Chest Chest Inspection: Normal Inspection, Symmetric Chest Wall Rise. negative: Tenderness, Rash, Abscess, Other - Respiratory Respiratory Exam: Normal Lung Sounds Bilat Respiratory Exam: Bilateral Clear to Auscultation - Cardiovascular Cardiovascular Exam: Normal Rhythm, Tachycardia, Irregular Rhythm, Systolic Murmur - Abdominal Exam Abdominal Exam: Normal Inspection, Normal Bowel Sounds, Soft. negative: Distention, Tenderness, Guarding, Rebound, Rigidity, Dimnished Bowel Sounds, Hyperactive Bowel Sounds, Hypoactive Bowel Sounds, Organomegaly, Trauma, Incision, Ascites, Mass, Bruit, Pulsatile Mass, Hernia, Other Abdominal Tenderness: negative: RUQ, RLQ, LUQ, LLQ, Epigastrium, Suprapubic, Diffuse, Mild, Moderate, Severe, Other - Extremities Extremities Exam: Normal Inspection, Full ROM, Normal Capillary Refill. negative: Tenderness, Edema, Joint Swelling, Calf Tenderness, Other - Back Back Exam: Normal Inspection, Full ROM, Tenderness - Neurologic Neurological Exam: Alert, Oriented X3, CN II-XII Intact, Reflexes Normal. negat mary: Normal Gait (gait not tested) - Psychiatric Psychiatric Exam: Normal Affect, Normal Mood - Skin Skin Exam: Warm, Dry, Intact, Normal Color - Vital Signs Vitals: Temperature 97.0 F Pulse Rate [Left Brachial] 102 Pulse Rate 124 Respiratory Rate 15 Blood Pressure [Left Arm] 144/62 Blood Pressure [Right Arm] 175/73 Blood Pressure 114/59 O2 Sat by Pulse Oximetry 99 Course - Reevaluation 1st: Improved - Consultation Called: 14:22 Call Returned: 14:22 (Dr. Morales to admit) - Education/Counseling Education/Counseling: Patient, Family Educated On: Treatment, Diagnosis, Prognosis, Needs for Follow Up ROR - Labs Reviewed Laboratory Results Reviewed?: Yes (All labs and x-ray results reviewed and discussed with patient) Result Diagrams: 03/23/19 12:05 03/23/19 12:05 - XRAY XRAY Interpreted by: Radiologist (CXR: No acute chest abnormality or significant interval change) - EKG Rate: 191 [place]: Normal Rhythm: Afib Block: None Hypertrophy: None ST: Nonsp - Labs Reviewed Laboratory: WBC 7.7 X10^3/uL (3.6-10.0) 03/23/19 12:05 RBC 4.05 X10^6/uL (3.5-5.4) 03/23/19 12:05 Hgb 12.8 g/dL (12.0-16.0) 03/23/19 12:05 Hct 38.0 % (36.0-47.0) 03/23/19 12:05 MCV 94.0 fL (80.0-100.0) 03/23/19 12:05 MCH 31.6 pg (27.0-34.0) 03/23/19 12:05 MCHC 33.6 g/dL (33.0-35.0) 03/23/19 12:05 RDW 14.3 % (11.6-16.5) 03/23/19 12:05 Plt Count 311 X10^3/uL (150.0-450.0) 03/23/19 12:05 MPV 7.6 fL (7.4-11.0) 03/23/19 12:05 Neut % (Auto) 36.0 % (42.0-75.0) L 03/23/19 12:05 Lymph % (Auto) 51.9 % (21.0-51.0) H 03/23/19 12:05 [place] % (Auto) 7.8 % (0.0-13.0) 03/23/19 12:05 Eos % (Auto) 3.6 % (0.9-2.9) H 03/23/19 12:05 Baso % (Auto) 0.7 % (0.2-1.0) 03/23/19 12:05 Neut # (Auto) 2.8 x10^3/uL (2.2-4.8) 03/23/19 12:05 Lymph # (Auto) 4.0 X10^3/uL (1.3-2.9) H 03/23/19 12:05 [place] # (Auto) 0.6 x10^3/uL (0.3-0.8) 03/23/19 12:05 Eos # (Auto) 0.3 x10^3/uL (0.0-0.2) H 03/23/19 12:05 Baso # (Auto) 0.1 X10^3/uL (0.0-0.1) 03/23/19 12:05 Absolute Nucleated RBC 0.0 /100WBC 03/23/19 12:05 PT 22.0 SECONDS (11.8-14.3) 03/23/19 12:05 INR Target Range - 03/23/19 12:05 INR 2.00 (0.8-1.3) H 03/23/19 12:05 APTT 49.6 SECONDS (22.9-36.5) H 03/23/19 12:05 PTT Comment - 03/23/19 12:05 Sodium 139 mmol/L (136-145) 03/23/19 12:05 Corrected Sodium TNP 03/23/19 12:05 Potassium 3.8 mmol/L (3.5-5.1) 03/23/19 12:05 Chloride 103 mmol/L (98-107) 03/23/19 12:05 Carbon Dioxide 23.3 mmol/L (21-32) 03/23/19 12:05 BUN 14 mg/dL (7-18) 03/23/19 12:05 Creatinine 1.04 mg/dL (0.55-1.02) H 03/23/19 12:05 Est GFR (MDRD) Af Amer > 60 (>60) 03/23/19 12:05 Est GFR (MDRD) Non-Af 55 (>60) L 03/23/19 12:05 Glucose 110 mg/dL (65-99) H 03/23/19 12:05 Calcium 9.2 mg/dL (8.5-10.1) 03/23/19 12:05 Corrected Calcium 9.9 mg/dL (8.5-10.1) 03/23/19 12:05 Magnesium 1.5 mg/dL (1.7-2.9) L 03/23/19 12:05 Total Bilirubin 0.40 mg/dL (0.2-1.0) 03/23/19 12:05 AST 22 Units/L (15-37) 03/23/19 12:05 ALT 18 Units/L (12-78) 03/23/19 12:05 Alkaline Phosphatase 85 Units/L (46-116) 03/23/19 12:05 Creatine Kinase 48 Units/L (26-192) 03/23/19 12:05 CK-MB (CK-2) < 1.0 ng/mL (0-4.0) 03/23/19 12:05 CK/CKMB % Calc 2.1 % (<4) 03/23/19 12:05 Troponin I < 0.02 ng/mL (0-1.5) 03/23/19 12:05 Total Protein 7.3 g/dL (6.4-8.2) 03/23/19 12:05 Albumin 3.1 g/dL (3.4-5.0) L 03/23/19 12:05 Globulin 4.2 g/dL (2.5-4.5) 03/23/19 12:05 Albumin/Globulin Ratio 0.7 Ratio (1.1-2.1) L 03/23/19 12:05 Opioid - Opioid Risk Tool Age (Bennett box if 16-45): No History of Preadolescent Sexual Abuse: No Total: 0 Total Score Risk Category: Low Risk - Diagnosis Discharge Problem: Atrial fibrillation with rapid ventricular response, Cardiomegaly, Hyperglycemia Chronic kidney disease (CKD) Qualifiers: Chronic kidney disease stage: stage 4 (severe) Qualified Code(s): N18.4 - Chronic kidney disease, stage 4 (severe) Hypertension Qualifiers: Hypertension type: essential hypertension Qualified Code(s): I10 - Essential (primary) hypertension - Discharge Plan Disposition: ADMITTED INPATIENT Condition: Stable - Follow ups/Referrals Follow ups/Referrals: Vijay Rai [Primary Care Provider] - 3 days - Instructions
[2019-03-23] MEDS ORDERED: NS 100 ML IV + SPIKE MINIBAG* 100 ML ONE ×2 (12:15→19:03)
[2019-03-23 12:21] LABS: BASOPHILS # (AUTO) 0.1 X10^3/uL (0.0-0.1); BASOPHILS % (AUTO) 0.7 % (0.2-1.0); EOSINOPHILS # (AUTO) 0.3 x10^3/uL (0.0-0.2); EOSINOPHILS % (AUTO) 3.6 % (0.9-2.9); HEMOGLOBIN 12.8 g/dL (12.0-16.0); LYMPHOCYTES % (AUTO) 51.9 % (21.0-51.0); MEAN CORPUSCULAR HEMOGLOBIN 31.6 pg (27.0-34.0); MEAN CORPUSCULAR HGB CONC 33.6 g/dL (33.0-35.0); MEAN PLATELET VOLUME 7.6 fL (7.4-11.0); MONOCYTES # (AUTO) 0.6 x10^3/uL (0.3-0.8); MONOCYTES % (AUTO) 7.8 % (0.0-13.0); NEUTROPHILS # (AUTO) 2.8 x10^3/uL (2.2-4.8); PLATELET COUNT 311 X10^3/uL (150.0-450.0); RED BLOOD COUNT 4.05 X10^6/uL (3.5-5.4); RED CELL DISTRIBUTION WIDTH 14.3 % (11.6-16.5); WHITE BLOOD COUNT 7.7 X10^3/uL (3.6-10.0)
[2019-03-23] MEDS ORDERED: CARDIZEM INJ 50 MG VIAL IVP ONE (12:25)
[2019-03-23] MEDS: CARDIZEM INJ 125 MG VIAL 125 MG in NS 100 ML IV 100 ML IV PRN ×3 (12:26→19:17)
[2019-03-23 12:37] LABS: BLOOD UREA NITROGEN 14 mg/dL (7-18); CALCIUM 9.2 mg/dL (8.5-10.1); CARBON DIOXIDE 23.3 mmol/L (21-32); CHLORIDE 103 mmol/L (98-107); CREATININE 1.04 mg/dL (0.55-1.02); SODIUM 139 mmol/L (136-145); TROPONIN I < 0.02 ng/mL (0-1.5); eGFR NON BLACK RACES 55 (>60)
[2019-03-23 12:39] LABS: ALANINE AMINOTRANSFERASE 18 Units/L (12-78); ALBUMIN 3.1 g/dL (3.4-5.0); ALKALINE PHOSPHATASE 85 Units/L (46-116); ASPARTATE AMINO TRANSFERASE 22 Units/L (15-37); CKMB % 2.1 % (<4); COR CA(FOR HYPOALB) 9.9 mg/dL (8.5-10.1); CREATINE KINASE 48 Units/L (26-192); CREATINE KINASE MB < 1.0 ng/mL (0-4.0); MAGNESIUM 1.5 mg/dL (1.7-2.9); TOTAL PROTEIN 7.3 g/dL (6.4-8.2)
--- NOTE | 2019-03-23 13:02 | RAD ---
Examination: Portable AP chest History: Chest pain Comparison 09/08/2017 Findings: Cardiomegaly with essentially clear lungs and pleural spaces. Slight interstitial prominence in the lungs is compatible with mild peribronchial thickening. Spinal stimulator device is projected over the thoracic spine. Impression: No acute chest abnormality or significant interval change. Reported By:
[2019-03-23] MEDS ORDERED: MORPHINE SULFATE INJ 2 MG INJ IVP PRN (14:24)
[2019-03-23 15:51] VITALS: BMI 39.7
[2019-03-23] MEDS: NS 1000 ML 1,000 ML IV SCH (17:19)
[2019-03-23] MEDS: LOVENOX INJ 100 MG SYR SC SCH ×2 (17:20→20:00)
[2019-03-23] MEDS: PROTONIX INJ 40 MG VIAL IVP SCH (17:24)
[2019-03-23] MEDS: SYNTHROID 100 mcg TAB PO SCH (17:25)
[2019-03-23] MEDS ORDERED: STERILE WATER IRRIGATION ONE (17:26)
[2019-03-23 18:29] LABS: CREATINE KINASE 49 Units/L (26-192); CREATINE KINASE MB < 1.0 ng/mL (0-4.0); TROPONIN I 0.09 ng/mL (0-1.5)
[2019-03-23] MEDS ORDERED: K-DUR TAB 20 MEQ PO PRN (19:34)
[2019-03-23] MEDS ORDERED: POTASSIUM CHL 60 MEQ/NS 0.45% 500 ML IV PRN (19:34)
[2019-03-23] MEDS ORDERED: POTASSIUM CHL 40 MEQ/NS 0.45% 500 ML IV PRN (19:34)
[2019-03-23] MEDS ORDERED: KLOR-CON PO PRN (19:34)
[2019-03-23] MEDS ORDERED: MICRO K EXTEN CAP 10 MEQ PO PRN (19:34)
[2019-03-23] MEDS ORDERED: POTASSIUM CHLORIDE LIQ 20 MEQ UDC PO PRN (19:34)
[2019-03-23] MEDS ORDERED: K-RIDER 10 MEQ/NS 100 ML 10 MEQ/100 ML BAG IV PRN (19:34)
[2019-03-23] MEDS: MAGNESIUM SULFATE 1 GRAM/100 mL PREMIX 1 GM/100 ML BAG IV PRN ×2 (19:59→21:52)
[2019-03-24 01:23] LABS: CKMB % 2.3 % (<4); CREATINE KINASE 44 Units/L (26-192); CREATINE KINASE MB < 1.0 ng/mL (0-4.0); TROPONIN I 0.11 ng/mL (0-1.5)
[2019-03-24] MEDS ORDERED: ZOFRAN INJ 4 MG VIAL IVP PRN (03:10)
[2019-03-24] MEDS ORDERED: ZOFRAN INJ 4 MG VIAL ONE (03:11)
[2019-03-24] MEDS: NS 1000 ML 1,000 ML IV SCH ×3 (03:16→18:09)
[2019-03-24 05:52] LABS: BASOPHILS % (AUTO) 0.5 % (0.2-1.0); EOSINOPHILS # (AUTO) 0.2 x10^3/uL (0.0-0.2); EOSINOPHILS % (AUTO) 3.7 % (0.9-2.9); HEMOGLOBIN 11.2 g/dL (12.0-16.0); LYMPHOCYTES # (AUTO) 2.7 X10^3/uL (1.3-2.9); LYMPHOCYTES % (AUTO) 43.6 % (21.0-51.0); MEAN CORPUSCULAR HEMOGLOBIN 31.5 pg (27.0-34.0); MEAN CORPUSCULAR HGB CONC 33.9 g/dL (33.0-35.0); MEAN CORPUSCULAR VOLUME 93.1 fL (80.0-100.0); MEAN PLATELET VOLUME 7.9 fL (7.4-11.0); MONOCYTES # (AUTO) 0.5 x10^3/uL (0.3-0.8); NEUTROPHILS # (AUTO) 2.7 x10^3/uL (2.2-4.8); NEUTROPHILS % (AUTO) 44.2 % (42.0-75.0); PLATELET COUNT 263 X10^3/uL (150.0-450.0); RED BLOOD COUNT 3.54 X10^6/uL (3.5-5.4); RED CELL DISTRIBUTION WIDTH 14.4 % (11.6-16.5); WHITE BLOOD COUNT 6.1 X10^3/uL (3.6-10.0)
[2019-03-24 05:57] LABS: ALANINE AMINOTRANSFERASE 13 Units/L (12-78); ALBUMIN 2.7 g/dL (3.4-5.0); ALKALINE PHOSPHATASE 68 Units/L (46-116); ASPARTATE AMINO TRANSFERASE 18 Units/L (15-37); BLOOD UREA NITROGEN 10 mg/dL (7-18); CALCIUM 8.3 mg/dL (8.5-10.1); CARBON DIOXIDE 26.9 mmol/L (21-32); CHLORIDE 106 mmol/L (98-107); CHOL/HDL RATIO 3.7 (0.0-5.0); CHOLESTEROL 167 mg/dL (0-200); COR CA(FOR HYPOALB) 9.3 mg/dL (8.5-10.1); CREATININE 0.75 mg/dL (0.55-1.02); HDL CHOLESTEROL 45 mg/dL (40-60); MAGNESIUM 1.9 mg/dL (1.7-2.9); SODIUM 140 mmol/L (136-145); TOTAL PROTEIN 6.2 g/dL (6.4-8.2); TRIGLYCERIDES 91 mg/dL (0-150); eGFR NON BLACK RACES > 60 (>60)
[2019-03-24] MEDS: SYNTHROID 100 mcg TAB PO SCH (06:40)
[2019-03-24 07:07] LABS: CKMB % 2.5 % (<4); CREATINE KINASE 40 Units/L (26-192); CREATINE KINASE MB < 1.0 ng/mL (0-4.0); TROPONIN I 0.08 ng/mL (0-1.5)
[2019-03-24] MEDS: DITROPAN TAB 5 MG PO SCH (08:03)
[2019-03-24] MEDS: LOPRESSOR TAB 25 MG PO SCH (08:03)
[2019-03-24] MEDS: PROTONIX INJ 40 MG VIAL IVP SCH (08:04)
[2019-03-24] MEDS: LOVENOX INJ 100 MG SYR SC SCH ×2 (08:04→21:17)
[2019-03-24] MEDS: NYSTATIN POWDER TOP SCH ×2 (08:07→21:17)
[2019-03-24] MEDS: CARDIZEM CD 180 MG 24-HR PO SCH (10:12)
[2019-03-25] MEDS: NS 1000 ML 1,000 ML IV SCH ×2 (01:47→08:54)
[2019-03-25 02:46] LABS: APPEARANCE,URINE HAZY (CLEAR); BILIRUBIN,URINE NEGATIVE (NEGATIVE); BLOOD/HEMOGLOBIN,URINE 1+ (NEGATIVE); COLOR,URINE YELLOW (YELLOW); GLUCOSE, URINE NEGATIVE (NEGATIVE); KETONES,URINE NEGATIVE (NEGATIVE); LEUKOCYTE ESTERASE ,URINE 2+ (NEGATIVE); NITRITES,URINE POSITIVE (NEGATIVE); PROTEIN,URINE NEGATIVE (NEGATIVE); UROBILINOGEN,URINE NORMAL (NORMAL)
[2019-03-25 02:59] LABS: BACTERIA,URINE 2+ /HPF (NEGATIVE); RBC,URINE 0-2 /HPF (0-3); SQUAMOUS EPITHELIAL CELL,UR FEW /HPF (NEGATIVE)
[2019-03-25 05:40] LABS: BASOPHILS % (AUTO) 0.5 % (0.2-1.0); EOSINOPHILS # (AUTO) 0.3 x10^3/uL (0.0-0.2); EOSINOPHILS % (AUTO) 4.1 % (0.9-2.9); HEMATOCRIT 32.6 % (36.0-47.0); LYMPHOCYTES # (AUTO) 3.2 X10^3/uL (1.3-2.9); LYMPHOCYTES % (AUTO) 49.2 % (21.0-51.0); MEAN CORPUSCULAR HEMOGLOBIN 31.8 pg (27.0-34.0); MEAN CORPUSCULAR HGB CONC 33.8 g/dL (33.0-35.0); MEAN CORPUSCULAR VOLUME 93.9 fL (80.0-100.0); MEAN PLATELET VOLUME 8.1 fL (7.4-11.0); MONOCYTES # (AUTO) 0.5 x10^3/uL (0.3-0.8); MONOCYTES % (AUTO) 7.3 % (0.0-13.0); NEUTROPHILS # (AUTO) 2.5 x10^3/uL (2.2-4.8); NEUTROPHILS % (AUTO) 38.9 % (42.0-75.0); PLATELET COUNT 266 X10^3/uL (150.0-450.0); RED BLOOD COUNT 3.48 X10^6/uL (3.5-5.4); RED CELL DISTRIBUTION WIDTH 14.2 % (11.6-16.5); WHITE BLOOD COUNT 6.5 X10^3/uL (3.6-10.0)
[2019-03-25] MEDS: SYNTHROID 100 mcg TAB PO SCH (06:03)
[2019-03-25 06:04] LABS: ALANINE AMINOTRANSFERASE 15 Units/L (12-78); ALBUMIN 2.6 g/dL (3.4-5.0); ALKALINE PHOSPHATASE 71 Units/L (46-116); ASPARTATE AMINO TRANSFERASE 24 Units/L (15-37); BLOOD UREA NITROGEN 11 mg/dL (7-18); CALCIUM 8.1 mg/dL (8.5-10.1); CARBON DIOXIDE 26.1 mmol/L (21-32); CHLORIDE 107 mmol/L (98-107); COR CA(FOR HYPOALB) 9.2 mg/dL (8.5-10.1); CREATININE 0.81 mg/dL (0.55-1.02); SODIUM 141 mmol/L (136-145); TOTAL PROTEIN 6.2 g/dL (6.4-8.2); eGFR NON BLACK RACES > 60 (>60)
[2019-03-25] MEDS: LOPRESSOR TAB 25 MG PO SCH (08:55)
[2019-03-25] MEDS: DITROPAN TAB 5 MG PO SCH (08:55)
[2019-03-25] MEDS: MAGNESIUM SULFATE 1 GRAM/100 mL PREMIX 1 GM/100 ML BAG IV PRN ×2 (08:55→11:00)
[2019-03-25] MEDS: CARDIZEM CD 180 MG 24-HR PO SCH (08:55)
[2019-03-25] MEDS: LOVENOX INJ 100 MG SYR SC SCH (08:56)
[2019-03-25] MEDS: NYSTATIN POWDER TOP SCH (08:57)
[2019-03-25] MEDS: PROTONIX INJ 40 MG VIAL IVP SCH (08:58)
[2019-03-25] MEDS ORDERED: VITAMIN D3 PO SCH (09:00)
[2019-03-25] MEDS ORDERED: TAB-A-VITE PO SCH (09:00)
--- NOTE | 2019-03-25 09:00 | DR.H&P ---
H&P - History & Physical for Day of: H&P Date: 03/23/19 - Chief Complaint Chief Complaint: INCREASED HEART RATE, DIZZINESS - History of Present Illness History of Present Illness: IS A 73 YEAR OLD PATIENT OF OURS WHO PRESENTED TO THE ER WITH COMPLAINTS OF INCREASED HEART RATE. PATIENT HAS A HISTORY OF ATRIAL FIBRILLATION. SHE HAD AN ABLATION 9-10 YEARS AGO AND HAS NOT HAD PROBLEMS SINCE. SHE REPORTS COMPLIANCE WITH ALL MEDICATIONS. SYMPTOMS STARTED A FEW HOURS PRIOR TO ARRIVAL. SHE REPORTS THAT HER COUMADIN IS ON HOLD DUE TO UPCOMING BACK INJECTIONS. SHE IS TAKING LOVENOX INSTEAD. ASSOCIATED SYMPTOMS INCLUDE DIZZINESS AND INDIGESTION. SHE HAS CHRONIC BACK PAIN. ON ARRIVAL TO THE ER, VITALS WERE 97.0-91-20-95%RA-119/66. LABS WERE OBTAINED. ABNORMAL LAB VALUES INCLUDE THE FOLLOWING: INR 2.00, CREATININE 1.04, GLUCOSE 110, MAGNESIUM 1.5, ALBUMIN 3.1. CARDIAC ENZYMES ARE WITHIN NORMAL LIMITS. AN EKG WAS OBTAINED AND REVEALED: A-FIB WITH RAPID VENTRICULAR RATE. A CHEST XRAY WAS OBTAINED AND REVEALED: NO ACUTE CHEST ABNORMALITY OR SIGNIFICANT INTERVAL CHANGE. SHE WAS GIVEN A 20MG BOLUS OF CARDIZEM AND STARTED ON A CARDIZEM DRIP. SHE WAS ADMITTED TO THE INTENSIVE CARE UNIT FOR FURTHER EVALUATION AND TREATMENT OF ATRIAL FIBRILLATION WITH RVR. SHE WAS STARTED ON NORMAL SALINE AT 75ML/HR, POTASSIUM PROTOCOL, MAGNESIUM PROTOCOL, MORPHINE 2MG IV Q2H PRN, AND WILL REMAIN ON THE CARDIZEM DRIP. WE PLAN TO MONITOR SERIAL CARDIAC ENZYMES AND EKGs. OTHERWISE, WE WILL FOLLOW UP WITH AM LABS AND CONTINUE TO MONITOR. - Past Medical History Past Medical History: Hypertension, Hypothyroidism, GERD, Arthritis, Kidney Stones Additional Medical History: Lupus, Cataracts, Sleep Apnea (CPAP at home), Atrial Fibrillation, Hx IBS, Hiatal Hernia, Fibromyalgia, Chronic Back Pain, Hx DVT, Pancreatitis - Past Surgical History Surgical History: Abdominal Surgery, Hysterectomy, Joint Replacement, Other Additional Surgical History: Bladder Tack, Breast Reduction, Fissurectomy, Hemorroidectomy, Cardiac Ablation, Back Stimulator - Family History Family Medical History: Diabetes Mellitus, Cancer, [place], Heart Failure, Hypertension - Social History Does patient currently use any type of tobacco product: No Have you used tobacco products in the last 12 months: No Type of Tobacco Use: None Does any household member use tobacco: No Alcohol Use: None Drug Use: None Prescription drug monitoring program results: PDMP was not reviewed - Medications Home Medications: acetaminophen [From Percocet] Allergy (Verified 06/24/18 11:50) adhesive tape Allergy (Verified 03/23/19 11:23) ciprofloxacin Allergy (Verified 03/23/19 11:23) ITCHING, REDNESS oxycodone [From Percocet] Allergy (Verified 03/23/19 11:23) Penicillins Allergy (Verified 03/23/19 11:23) CONTINUE taking the following medications cholecalciferol (vitamin D3) [Vitamin D3] 5,000 unit PO DAILY 03/23/19 [History] cyanocobalamin (vitamin B-12) [Vitamin B-12] 5,000 mcg SUBLINGUAL DAILY 03/23/19 [History] duloxetine 30 mg PO HS 03/23/19 [History] - Review of Systems Constitutional: Weakness Eyes: No Symptoms Reported ENT: No Symptoms Reported Respiratory: Shortness of Breath Cardiovascular: See HPI, Palpitations, Light Headedness Gastrointestinal: No Symptoms Reported Genitourinary: No Symptoms Reported Musculoskeletal: Back Pain Skin: No Symptoms Reported Neurological: Weakness - Physical Exam Vital Signs: Temperature 97.6 F Pulse Rate [Left Brachial] 102 Pulse Rate 77 Respiratory Rate 17 Blood Pressure [Left Arm] 144/62 Blood Pressure [Right Arm] 175/73 Blood Pressure 108/52 O2 Sat by Pulse Oximetry 95 Oriented: Normal Eyes: Normal Ear: Normal Nose: Normal Throat: Normal Respiratory: Diminished Throughout Cardiovascular: Tachycardia, Irregular. negative: S3, S4, Murmur : Normal Auscultation: Bowel Sounds: Normal Palpation: Normal Tenderness: Normal Skin: Normal Musculoskeletal: Back:Lumbar, Tender Psychiatric: Normal Mood Description: Calm Affect: Normal Speech Pattern: Clear - Assessment/Plan (1) Atrial fibrillation with rapid ventricular response Status: Acute Plan: ADMIT, IV FLUIDS, CARDIZEM DRIP, SUPPLEMENTAL OXYGEN, MENTAL HEALTH PROGRAM SPECIALIST (2) Chronic kidney disease (CKD) Qualifiers: Chronic kidney disease stage: stage 4 (severe) Qualified Code(s): N18.4 - Chronic kidney disease, stage 4 (severe) Status: Acute Plan: IV FLUIDS, CONTINUE TO MONITOR (3) Chronic back pain Qualifiers: Back pain location: low back pain Sciatica presence: unspecified whether sciatica present Status: Acute - Allergies Allergies/Adverse Reactions: Allergies Allergy/AdvReac Type Severity Reaction Status Date / Time acetaminophen [From Percocet] Allergy Verified 06/24/18 11:50 adhesive tape Allergy Verified 03/23/19 11:23 ciprofloxacin Allergy ITCHING, Verified 03/23/19 11:23 REDNESS oxycodone [From Percocet] Allergy Verified 03/23/19 11:23 Penicillins Allergy Verified 03/23/19 11:23
[2019-03-25] MEDS ORDERED: AQUA-MEPHYTON ADULT INJ SC NR (10:13)
[2019-03-25 16:22] VITALS: BP 128/32
[2019-03-25] MEDS ORDERED: REQUIP PO SCH (18:00)
[2019-03-25] MEDS ORDERED: CYMBALTA PO SCH (21:00)
[2019-03-25] MEDS ORDERED: ATIVAN TAB 0.5 MG PO SCH (21:00)
[2019-03-25] MEDS ORDERED: ANTIVERT TAB 25 MG PO SCH (21:00)
[2019-03-25] MEDS ORDERED: PEPCID TAB 20 MG PO SCH (21:00)
[2019-03-25] MEDS ORDERED: PATIENT'S HOME MEDICATION (Melatonin 10 MG) PO SCH (21:00)
== END 2019-03-25 16:15 | disposition home or self-care (01) | DRG 309 ==
LOC: ER 11:14 → ICU 14:22
PROVIDERS: ADMIT Internal Medicine; ATTEND Internal Medicine
DX: N39.0 Urinary tract infection, site not specified; I51.7 Cardiomegaly; R42 Dizziness and giddiness; N18.4 Chronic kidney disease, stage 4 (severe); Z79.01 Long term (current) use of anticoagulants; M54.5 Low back pain; I12.9 Hypertensive chronic kidney disease with stage 1 through stage 4 chronic kidney disease, or unspecified chronic kidney disease; I48.91 Unspecified atrial fibrillation; B96.89 Other specified bacterial agents as the cause of diseases classified elsewhere
CPT/HCPCS: 36415; 71010; 71045; 80053; 80061; 81001; 82550; 82553; 83735; 84484; 85025; 85610; 85730; 87086; 87088; 87186; 93005; 93041; 96365; 96367; 96374; 96375; 99285; A4216; A4217; A4222; C9113; J1650; J2270; J2405; J3430; J3475; J3490; J7030; J7050

== ENCOUNTER 2020-03-27 00:51 | Observation (INO) ==
--- NOTE | 2020-03-27 01:22 | DR.FEVERAD ---
HPI Time seen Time Seen by Provider: 03/27/20 01:01 Complaints/Symptoms Chief Complaint Doctor Comments: complaint of fever onset last night 3-4 hours ago. Has had ear pain past 3 days and urinary urgency. Source History Provided: Patient and EMS Mode of Arrival Mode of Arrival: EMS Timing Onset of Chief Complaint: 03/26/20 Came on: Gradually Duration Duration: Intermittent How lon Duration: Hours Severity Fever Severity/Quality: greater than 100.5 F Context Recent: None Symptoms: Fever and Cough (chronic x months) History of: None Associated signs and symptoms Associated signs and symptoms: Weakness PMH PMH Past Medical History: Arthritis, GERD, Hypertension, Hypothyroidism and Kidney Stones Past Surgical History: Yes Surgical History: Abdominal Surgery, Hysterectomy, Joint Replacement and Other Family History Family Medical History: Diabetes Mellitus, Cancer, [place], Heart Failure and Hypertension Social History Do you use any recreational Drugs:: No ROS Review of Systems Constitutional: Fever Eyes: No Symptoms Reported ENTM: Ear Pain Respiratoy: Dry Cough (chronic) Cardiovascular: No Symptoms Reported Gastrointestinal/Abdominal: No Symptoms Reported Genitourinary: Dysuria Neurological: No Symptoms Reported Musculoskeletal: No Symptoms Reported Integumentary: No Symptoms Reported Hematologic/Lymphatic: No Symptoms Reported Endocrine: No Symptoms Reported Psychiatric: No Symptoms Reported All Other Systems: Reviewed and Negative PE Vital Signs Vitals: Temperature 98.8 F Pulse Rate [Left Brachial] 100 Pulse Rate 98 Respiratory Rate 20 Blood Pressure [Left Arm] 143/65 Blood Pressure [Right Arm] 175/73 Blood Pressure 132/61 O2 Sat by Pulse Oximetry 94 General Limitations: No Limitations General Appearance: Alert and In No Apparent Distress Head Head Exam: Normal Inspection, Atraumatic and Normocephalic Eyes Eye exam: Normal Appearance, PERRL and EOMI ENT ENT Exam: Normal Exam and Normal Oropharynx External Ear Exam: Normal External Inspection Nose Exam: Normal Nose Exam Nasal Speculum Exam: Bilateral: Normal Mouth Exam: Normal Inspection Teeth Exam: Normal Inspection Throat Exam: Normal Inspection Neck Neck Exam: Normal Inspection, Full ROM and Trachea Midline Respiratory Respiratory Exam: Normal Lung Sounds Bilat Respiratory Exam: Bilateral: Clear to Auscultation Cardiovascular Cardiovascular Exam: Regular Rate Abdominal Exam Abdominal Exam: Normal Inspection, Normal Bowel Sounds and Soft; negative Distention, Tenderness and Guarding Extremities Extremities Exam: Normal Inspection and Full ROM Back Back Exam: Normal Inspection and Full ROM Neurologic Neurological Exam: Alert, Oriented X3 and CN II-XII Intact Psychiatric Psychiatric Exam: Normal Affect Skin Skin Exam: Normal Color Type of Lesion: negative Rash COURSE Consultation Called: 03:31 Call Returned: 03:31 Consultation Comments: case discussed with DR. ENRIQUEZ requested troponin and admit if normal, transfer if elevated ROR Labs Reviewed Result Diagrams: 03/27/20 01:32 03/27/20 01:32 Laboratory: WBC 8.2 X10^3/uL (3.6-10.0) 03/27/20 01:32 RBC 4.13 X10^6/uL (3.5-5.4) 03/27/20 01:32 Hgb 13.0 g/dL (12.0-16.0) 03/27/20 01:32 Hct 38.6 % (36.0-47.0) 03/27/20 01:32 MCV 93.5 fL (80.0-100.0) 03/27/20 01:32 MCH 31.5 pg (27.0-34.0) 03/27/20 01:32 MCHC 33.7 g/dL (33.0-35.0) 03/27/20 01:32 RDW 13.6 % (11.6-16.5) 03/27/20 01:32 Plt Count 289 X10^3/uL (150.0-450.0) 03/27/20 01:32 MPV 7.2 fL (7.4-11.0) L 03/27/20 01:32 Neut % (Auto) 87.7 % (42.0-75.0) H 03/27/20 01:32 Lymph % (Auto) 9.7 % (21.0-51.0) L 03/27/20 01:32 [place] % (Auto) 2.2 % (0.0-13.0) 03/27/20 01:32 Eos % (Auto) 0.2 % (0.9-2.9) L 03/27/20 01:32 Baso % (Auto) 0.2 % (0.2-1.0) 03/27/20 01:32 Neut # (Auto) 7.2 x10^3/uL (2.2-4.8) H 03/27/20 01:32 Lymph # (Auto) 0.8 X10^3/uL (1.3-2.9) L 03/27/20 01:32 [place] # (Auto) 0.2 x10^3/uL (0.3-0.8) L 03/27/20 01:32 Eos # (Auto) 0.0 x10^3/uL (0.0-0.2) 03/27/20 01:32 Baso # (Auto) 0.0 X10^3/uL (0.0-0.1) 03/27/20 01:32 Absolute Nucleated RBC 0.0 /100WBC 03/27/20 01:32 PT 29.9 SECONDS (11.8-14.3) 03/27/20 01:32 INR Target Range - 03/27/20 01:32 INR 2.95 (0.8-1.3) H 03/27/20 01:32 Sodium 140 mmol/L (136-145) 03/27/20 01:32 Corrected Sodium 141 mmol/L (136-145) 03/27/20 01:32 Potassium 3.9 mmol/L (3.5-5.1) 03/27/20 01:32 Chloride 103 mmol/L (98-107) 03/27/20 01:32 Carbon Dioxide 29.8 mmol/L (21-32) 03/27/20 01:32 BUN 18 mg/dL (7-18) 03/27/20 01:32 Creatinine 1.24 mg/dL (0.55-1.02) H 03/27/20 01:32 Est GFR (MDRD) Af Amer 55 (>60) L 03/27/20 01:32 Est GFR (MDRD) Non-Af 45 (>60) L 03/27/20 01:32 Glucose 151 mg/dL (65-99) H 03/27/20 01:32 Calcium 9.0 mg/dL (8.5-10.1) 03/27/20 01:32 Corrected Calcium 9.7 mg/dL (8.5-10.1) 03/27/20 01:32 Total Bilirubin 0.90 mg/dL (0.2-1.0) 03/27/20 01:32 AST 611 Units/L (15-37) H 03/27/20 01:32 ALT 317 Units/L (12-78) H 03/27/20 01:32 Alkaline Phosphatase 174 Units/L (46-116) H 03/27/20 01:32 Troponin I < 0.02 ng/mL (0-1.5) 03/27/20 01:32 Total Protein 7.2 g/dL (6.4-8.2) 03/27/20 01:32 Albumin 3.1 g/dL (3.4-5.0) L 03/27/20 01:32 Globulin 4.1 g/dL (2.5-4.5) 03/27/20 01:32 Albumin/Globulin Ratio 0.8 Ratio (1.1-2.1) L 03/27/20 01:32 Lipase 75 Units/L (73-393) 03/27/20 01:32 Specimen Type Random urine 03/27/20 02:38 Urine Color Yellow (YELLOW) 03/27/20 02:38 Urine Appearance Clear (CLEAR) 03/27/20 02:38 Urine pH 7.0 (5.0 - 8.0) 03/27/20 02:38 Ur Specific [place] 1.010 (1.000-1.030) 03/27/20 02:38 Urine Protein Negative (NEGATIVE) 03/27/20 02:38 Urine Glucose (UA) Negative (NEGATIVE) 03/27/20 02:38 Urine Ketones Negative (NEGATIVE) 03/27/20 02:38 Urine Occult Blood 2+ (NEGATIVE) 03/27/20 02:38 Urine Nitrite Negative (NEGATIVE) 03/27/20 02:38 Urine Bilirubin Negative (NEGATIVE) 03/27/20 02:38 Urine Urobilinogen 2+ (NORMAL) 03/27/20 02:38 Ur Leukocyte Esterase 1+ (NEGATIVE) 03/27/20 02:38 Urine RBC 0-2 /HPF (0-3) 03/27/20 02:38 Urine WBC 0-2 /HPF (0-5) 03/27/20 02:38 Ur Squamous Epith Cells Few /HPF (NEGATIVE) 03/27/20 02:38 Urine Bacteria 4+ /HPF (NEGATIVE) 03/27/20 02:38 Ur Culture Indicated? No/not indicated 03/27/20 02:38 Salicylates < 2.8 mg/dL (2.8-20) L 03/27/20 01:32 Acetaminophen 0.0 ug/mL (10-30) L 03/27/20 01:32 SARS-CoV-2 (PCR) Negative (NEGATIVE) 03/27/20 04:18 Opioid Opioid Risk Tool Age (Bennett box if 16-45): No History of Preadolescent Sexual Abuse: No Total: 0 Total Score Risk Category: Low Risk Copyright: Christian [employer]NALES predicting aberrant behaviors
[2020-03-27] MEDS ORDERED: MOTRIN TAB 800 MG PO ONE ×2 (01:23→01:28)
[2020-03-27 01:44] LABS: BASOPHILS % (AUTO) 0.2 % (0.2-1.0); EOSINOPHILS % (AUTO) 0.2 % (0.9-2.9); HEMATOCRIT 38.6 % (36.0-47.0); LYMPHOCYTES # (AUTO) 0.8 X10^3/uL (1.3-2.9); LYMPHOCYTES % (AUTO) 9.7 % (21.0-51.0); MEAN CORPUSCULAR HEMOGLOBIN 31.5 pg (27.0-34.0); MEAN CORPUSCULAR HGB CONC 33.7 g/dL (33.0-35.0); MEAN CORPUSCULAR VOLUME 93.5 fL (80.0-100.0); MEAN PLATELET VOLUME 7.2 fL (7.4-11.0); MONOCYTES # (AUTO) 0.2 x10^3/uL (0.3-0.8); MONOCYTES % (AUTO) 2.2 % (0.0-13.0); NEUTROPHILS # (AUTO) 7.2 x10^3/uL (2.2-4.8); NEUTROPHILS % (AUTO) 87.7 % (42.0-75.0); PLATELET COUNT 289 X10^3/uL (150.0-450.0); RED BLOOD COUNT 4.13 X10^6/uL (3.5-5.4); RED CELL DISTRIBUTION WIDTH 13.6 % (11.6-16.5); WHITE BLOOD COUNT 8.2 X10^3/uL (3.6-10.0)
[2020-03-27 01:52] LABS: ALBUMIN 3.1 g/dL (3.4-5.0); CARBON DIOXIDE 29.8 mmol/L (21-32); COR CA(FOR HYPOALB) 9.7 mg/dL (8.5-10.1); CREATININE 1.24 mg/dL (0.55-1.02); TOTAL PROTEIN 7.2 g/dL (6.4-8.2)
--- NOTE | 2020-03-27 02:21 | RAD ---
STUDY: CHEST, 1 VIEWCOMPARISON: March 23, 2019HISTORY: PT C/O FEVER SINCE 10 PM PT DENIES TAKING ANYTHING FOR THE TEMP PT ALSO C/O HAVING SOME DIZZINESS AND NAUSEAFINDINGS:Cardiomegaly is seen with findings suggesting mild degree of pulmonary edema. Probable small left pleural effusion is noted. No right-sided pleural effusion is seen. Exam is limited due to patient rotation of the left no gross pneumothorax is identified.IMPRESSION:Exam is limited due to patient rotation to the left. No definitive focal consolidation is seen.Electronically signed by: Jason Spicer (Mar 27, 2020 02:21:05)
[2020-03-27 02:58] LABS: BILIRUBIN,URINE NEGATIVE (NEGATIVE); BLOOD/HEMOGLOBIN,URINE 2+ (NEGATIVE); GLUCOSE, URINE NEGATIVE (NEGATIVE); KETONES,URINE NEGATIVE (NEGATIVE); LEUKOCYTE ESTERASE ,URINE 1+ (NEGATIVE); NITRITES,URINE NEGATIVE (NEGATIVE); PROTEIN,URINE NEGATIVE (NEGATIVE); UROBILINOGEN,URINE 2+ (NORMAL)
[2020-03-27 03:09] LABS: APPEARANCE,URINE CLEAR (CLEAR); BACTERIA,URINE 4+ /HPF (NEGATIVE); COLOR,URINE YELLOW (YELLOW); RBC,URINE 0-2 /HPF (0-3); SQUAMOUS EPITHELIAL CELL,UR FEW /HPF (NEGATIVE)
[2020-03-27 03:22] LABS: SALICYLATE < 2.8 mg/dL (2.8-20)
[2020-03-27] MEDS ORDERED: NS 1000 ML 1,000 ML ONE (04:35)
[2020-03-27] MEDS ORDERED: NS 500 ML IV 500 ML IV ONE (09:25)
[2020-03-27] MEDS ORDERED: MUCOMYST (RESPIRATORY USE ONLY) ONE (09:48)
[2020-03-27] MEDS: MUCOMYST 20% 200 MG/ML PO SCH ×2 (10:19→20:43)
[2020-03-27] MEDS ORDERED: ZOFRAN INJ 4 MG VIAL IVP PRN (10:51)
[2020-03-27] MEDS ORDERED: MORPHINE SULFATE INJ 2 MG INJ IVP PRN (10:52)
[2020-03-27] MEDS ORDERED: MOTRIN TAB 800 MG PO PRN (10:53)
--- NOTE | 2020-03-27 10:59 | DR.H&P ---
H&P - History & Physical for Day of: H&P Date: 03/27/20 - Chief Complaint Chief Complaint: FEVER, WEAKNESS, URINARY URGENCY, ABDOMINAL PAIN. - History of Present Illness History of Present Illness: IS A 74 YEAR OLD PATIENT OF OURS. SHE PRESENTED TO THE ER WITH COMPLAINTS OF FEVER, WEAKNESS, URINARY URGENCY, DIFFUSE ABDOMINAL PAIN, AND EAR PAIN. PAIN STARTED 3-4 DAYS PRIOR. 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 ABDOMINAL PAIN IS CURRENTLY RATED A 4/10. SHE DENIES DIARRHEA, NAUSEA, OR VOMITING. SHE DOES ADMIT TO A CHRONIC COUGH. HER PMH INCLUDES: ARTHRITIS, GERD, HTN, HYPOTHYROIDISM, KIDNEY STONES, ABDOMINAL SURGERY, HYSTERECTOMY AND JOINT REPLACEMENT. ON ARRIVAL TO THE ER, VITALS WERE 100.3-98-18-97%-132/61. LABS WERE OBTAINED. ABNORMAL LAB VALUES INCLUDE THE FOLLOWING: INR 2.95, CREATININE 1.24, GLUCOSE 151, AST 611, ALT 317, ALK PHOS 174, BNP 80.30, ALBUMIN 3.1. URINALYSIS REVEALED: WBC 0-2, RBC 0-2, LEUKOCYTES 1+, BACTERIA 4+. COVID-19 NEGATIVE. BLOOD CULTURES WERE SET UP. A CHEST XRAY WAS OBTAINED DUE TO CHRONIC COUGH AND REVEALED: Cardiomegaly is seen with findings suggesting mild degree of pulmonary edema. Probable small left pleural effusion is noted. No right-sided pleural effusion is seen. Exam is limited due to patient rotation of the left no gross pneumothorax is identified. SHE WAS GIVEN MOTRIN 800MG PO X 1 FOR FEVER IN THE ER. SHE WAS ADMITTED TO THE HOSPITAL FOR FURTHER EVALUATION AND TREATMENT OF ABDOMINAL PAIN, ELEVATED LIVER ENZYMES, FEVER, AND A LEFT PLEURAL EFFUSION. SHE WAS GIVEN A 500 ML BOLUS OF NORMAL SALINE, THEN STARTED ON NORMAL SALINE AT 50 ML/HR, MORPHINE 2MG IV Q4H PRN, ZOFRAN 4MG IV Q4H PRN, IBUPROFEN 800MG IV Q8H, AND MUCOMYST 600MG PO BID. WE WILL OBTAIN AN ABDOMEN/PELVIS CT WITH CONTRAST. WE WILL REVIEW HER HOME MEDICATIONS. OTHERWISE, WE PLAN TO FOLLOW UP WITH AM LABS AND CONTINUE TO MONITOR. - Past Medical History Past Medical History: Hypertension, Hypothyroidism, GERD, Arthritis, Kidney Stones Additional Medical History: Lupus, Cataracts, Sleep Apnea (CPAP at home), Atrial Fibrillation, Hx IBS, Hiatal Hernia, Fibromyalgia, Chronic Back Pain, Hx DVT, Pancreatitis - Past Surgical History Surgical History: Abdominal Surgery, Hysterectomy, Joint Replacement, Other Additional Surgical History: Bladder Tack, Breast Reduction, Fissurectomy, He morroidectomy, Cardiac Ablation, Back Stimulator - Family History Family Medical History: Diabetes Mellitus, Cancer, [place], Heart Failure, Hypertension - Social History Does any household member use tobacco: No Alcohol Use: None - Medications Home Medications: acetaminophen [From Percocet] Allergy (Verified 06/24/18 11:50) adhesive tape Allergy (Verified 03/23/19 11:23) ciprofloxacin Allergy (Verified 03/23/19 11:23) ITCHING, REDNESS oxycodone [From Percocet] Allergy (Verified 03/23/19 11:23) Penicillins Allergy (Verified 03/23/19 11:23) CONTINUE taking the following medications cyanocobalamin (vitamin B-12) 1,500 mcg IM QWEEK 03/27/20 [History] diltiazem HCl 120 mg PO QAM 03/27/20 [History] duloxetine 60 mg PO QAM 03/27/20 [History] melatonin 10 mg PO HS 03/27/20 [History] meloxicam 15 mg PO QAM 03/27/20 [History] metoprolol tartrate 12.5 mg PO BID 03/27/20 [History] montelukast 10 mg PO QAM 03/27/20 [History] ztiertipotzb-Gw-cqvm-minerals [Multiple Vitamin, Womens] 1 tab PO QAM 03/27/20 [History] oxybutynin chloride 10 mg PO DAILY 03/27/20 [History] pantoprazole [Protonix] 40 mg PO QAM 03/27/20 [History] warfarin 2 mg PO SUTUTHFRSA 03/27/20 [History] warfarin 4 mg PO MOWE 03/27/20 [History] - Review of Systems Constitutional: Fever, Chills, Weakness Eyes: No Symptoms Reported ENT: No Symptoms Reported Respiratory: No Symptoms Reported Gastrointestinal: See HPI, Abdominal Pain. denies: Nausea, Vomiting, Diarrhea, Constipation, Melena, Hematochezia Genitourinary: No Symptoms Reported Musculoskeletal: No Symptoms Reported Skin: No Symptoms Reported Neurological: Weakness - Physical Exam Vital Signs: Temperature 98.3 F Pulse Rate [Left Brachial] 91 Pulse Rate 98 Respiratory Rate 20 Blood Pressure [Left Arm] 117/66 Blood Pressure [Right Arm] 175/73 Blood Pressure 132/61 O2 Sat by Pulse Oximetry 95 Oriented: Normal Eyes: Normal Ear: Normal Nose: Normal Throat: Normal Respiratory: Diminished Throughout Cardiovascular: Normal : Normal Auscultation: Bowel Sounds: Normal Palpation: Normal Tenderness: Diffuse, Mild. negative: Rebound, Guarding, Rigidity Skin: Normal Musculoskeletal: Normal Psychiatric: Normal Mood Description: Calm Affect: Normal Speech Pattern: Clear - Assessment/Plan (1) Abdominal pain Qualifiers: Abdominal location: upper abdomen, unspecified Qualified Code(s): R10.10 - Upper abdominal pain, unspecified Status: Acute Plan: ADMIT, NORMAL SALINE AT 50 ML/HR, MORPHINE 2MG IV Q4H PRN, ZOFRAN 4MG IV Q4H PRN, IBUPROFEN 800MG IV Q8H, AND MUCOMYST 600MG PO BID. OBTAIN ABDOMEN/PELVIS CT WITH CONTRAST (2) Elevated liver enzymes Status: Acute (3) Fever Qualifiers: Fever type: unspecified Qualified Code(s): R50.9 - Fever, unspecified Status: Acute (4) Pleural effusion, left Status: Acute - Allergies Allergies/Adverse Reactions: Allergies Allergy/AdvReac Type Severity Reaction Status Date / Time acetaminophen [From Percocet] Allergy Verified 06/24/18 11:50 adhesive tape Allergy Verified 03/23/19 11:23 ciprofloxacin Allergy ITCHING, Verified 03/23/19 11:23 REDNESS oxycodone [From Percocet] Allergy Verified 03/23/19 11:23 Penicillins Allergy Verified 03/23/19 11:23
[2020-03-27] MEDS: NS 1000 ML 1,000 ML IV SCH ×3 (11:57→22:01)
[2020-03-27 12:01] VITALS: BMI 37.8
--- NOTE | 2020-03-27 12:44 | CT ---
HISTORYABD PAINSTUDYABDOMEN/PELVIS WITH CONCOMPARISONCT abdomen and pelvis/report only June 24, 2018.TECHNIQUEMultiple axial images of the abdomen and pelvis were obtained from the lung bases to the pubic symphysis after the administration of IV contrast. Dose reduction techniques including Automated Exposure Control (AEC) and adjustment of mA and kV were utilized.FINDINGSThe visualized portions of the lung bases are unremarkable other than a small pericardial effusion maximal 1.34 cm in thickness posteriorly and a moderate-sized hiatal hernia. Mitral annulus calcifications are observed.. The liver, spleen, kidneys, and adrenal glands are unremarkable in their CT appearance. The gallbladder surgically absent with surgical clips in the gallbladder fossa and mild dilatation of the intrahepatic ducts left greater than right. A small cyst is seen laterally in the right lobe of the liver also described on the last exam in 2018 at the same location in same size. The pancreas is atrophic.. No significant mesenteric lymphadenopathy or stranding can be observed. The abdominal aorta and IVC are normal there is no aneurysm or retroperitoneal adenopathy. No free fluid or free air is seen within the abdomen. No bowel wall thickening or bowel dilatation is present. The colon is unremarkable. Specifically, there is no diverticulosis noted within the sigmoid colon. The urinary bladder is grossly unremarkable. The bony structures are grossly intact. There is vacuum disc space narrowing at L5-S1. The patient has undergone a prior T12 vertebroplasty. The patient has also had a hysterectomy.IMPRESSIONNo acute findings to explain abdominal pain. Again note is made of a hiatal hernia small pericardial effusion simple hepatic cysts. The gallbladder and uterus are surgically absent. There is vacuum disc space narrowing at L5-S1 L1-2 T12-L1 and T11-12 with prior vertebroplasty at T12.There are no renal calculi or obstructive uropathy.Electronically signed by: DION NAIK (Mar 27, 2020 12:44:28)
[2020-03-28 06:05] LABS: ALANINE AMINOTRANSFERASE 256 Units/L (12-78); ALBUMIN 2.7 g/dL (3.4-5.0); ALKALINE PHOSPHATASE 139 Units/L (46-116); ASPARTATE AMINO TRANSFERASE 245 Units/L (15-37); BLOOD UREA NITROGEN 10 mg/dL (7-18); CALCIUM 8.1 mg/dL (8.5-10.1); CARBON DIOXIDE 25.8 mmol/L (21-32); CHLORIDE 106 mmol/L (98-107); COR CA(FOR HYPOALB) 9.1 mg/dL (8.5-10.1); CREATININE 0.81 mg/dL (0.55-1.02); SODIUM 139 mmol/L (136-145); TOTAL PROTEIN 6.7 g/dL (6.4-8.2); eGFR NON BLACK RACES > 60 (>60)
[2020-03-28] MEDS: NS 1000 ML 1,000 ML IV SCH ×3 (06:28→20:00)
[2020-03-28 06:36] LABS: BASOPHILS % (AUTO) 0.2 % (0.2-1.0); EOSINOPHILS # (AUTO) 0.2 x10^3/uL (0.0-0.2); EOSINOPHILS % (AUTO) 1.8 % (0.9-2.9); HEMOGLOBIN 12.1 g/dL (12.0-16.0); LYMPHOCYTES # (AUTO) 2.1 X10^3/uL (1.3-2.9); MEAN CORPUSCULAR HEMOGLOBIN 31.4 pg (27.0-34.0); MEAN CORPUSCULAR HGB CONC 33.6 g/dL (33.0-35.0); MEAN CORPUSCULAR VOLUME 93.6 fL (80.0-100.0); MEAN PLATELET VOLUME 7.8 fL (7.4-11.0); MONOCYTES # (AUTO) 0.6 x10^3/uL (0.3-0.8); MONOCYTES % (AUTO) 5.4 % (0.0-13.0); NEUTROPHILS # (AUTO) 7.8 x10^3/uL (2.2-4.8); NEUTROPHILS % (AUTO) 72.6 % (42.0-75.0); PLATELET COUNT 255 X10^3/uL (150.0-450.0); RED BLOOD COUNT 3.85 X10^6/uL (3.5-5.4); WHITE BLOOD COUNT 10.7 X10^3/uL (3.6-10.0)
[2020-03-28] MEDS ORDERED: K-RIDER 10 MEQ/NS 100 ML 10 MEQ/100 ML BAG IV PRN (06:49)
[2020-03-28] MEDS ORDERED: MICRO K EXTEN CAP 10 MEQ PO PRN (06:49)
[2020-03-28] MEDS ORDERED: POTASSIUM CHL 60 MEQ/NS 0.45% 500 ML IV PRN (06:49)
[2020-03-28] MEDS ORDERED: KLOR-CON PO PRN (06:49)
[2020-03-28] MEDS ORDERED: POTASSIUM CHLORIDE LIQ 20 MEQ UDC PO PRN (06:49)
[2020-03-28] MEDS ORDERED: POTASSIUM CHL 40 MEQ/NS 0.45% 500 ML IV PRN (06:49)
[2020-03-28] MEDS: MUCOMYST 20% 200 MG/ML PO SCH ×2 (09:06→21:30)
[2020-03-28] MEDS: K-DUR TAB 20 MEQ PO PRN ×2 (09:07→12:45)
[2020-03-28] MEDS: TAB-A-VITE PO SCH (16:15)
[2020-03-28] MEDS: CARDIZEM CD 120 MG 24-HR PO SCH (16:15)
[2020-03-28] MEDS: MOBIC TAB 15 MG PO SCH (16:15)
[2020-03-28] MEDS: CYMBALTA PO SCH (16:15)
[2020-03-28] MEDS: PROTONIX INJ 40 MG VIAL IVP SCH (16:15)
[2020-03-28] MEDS: OXYBUTYNIN CHLORIDE ER PO SCH (16:15)
[2020-03-28] MEDS: SINGULAIR TAB 10 MG PO SCH (16:15)
[2020-03-28] MEDS ORDERED: SYNTHROID 100 mcg TAB PO SCH (16:30)
[2020-03-28] MEDS ORDERED: REQUIP PO SCH (18:00)
[2020-03-28] MEDS ORDERED: PEPCID 20 MG IV PREMIX* 20 MG/50 ML BAG IV SCH (21:00)
[2020-03-28] MEDS ORDERED: COUMADIN TAB 2 MG PO SCH (21:00)
[2020-03-28] MEDS: VITAMIN D3 125 mcg (5,000 UNITS) PO SCH (21:29)
[2020-03-28] MEDS: VITAMIN B-12 INJ IM SCH ×2 (21:29→22:56)
[2020-03-28] MEDS: LOPRESSOR TAB 25 MG PO SCH (21:29)
[2020-03-28] MEDS: ANTIVERT TAB 25 MG PO SCH (21:29)
[2020-03-29] MEDS: ANTIVERT TAB 25 MG PO SCH ×2 (05:52→13:55)
[2020-03-29 06:33] LABS: BASOPHILS % (AUTO) 0.5 % (0.2-1.0); EOSINOPHILS # (AUTO) 0.2 x10^3/uL (0.0-0.2); EOSINOPHILS % (AUTO) 2.5 % (0.9-2.9); HEMATOCRIT 35.3 % (36.0-47.0); HEMOGLOBIN 11.8 g/dL (12.0-16.0); LYMPHOCYTES # (AUTO) 2.4 X10^3/uL (1.3-2.9); LYMPHOCYTES % (AUTO) 35.3 % (21.0-51.0); MEAN CORPUSCULAR HEMOGLOBIN 31.2 pg (27.0-34.0); MEAN CORPUSCULAR HGB CONC 33.5 g/dL (33.0-35.0); MEAN CORPUSCULAR VOLUME 93.2 fL (80.0-100.0); MEAN PLATELET VOLUME 7.6 fL (7.4-11.0); MONOCYTES # (AUTO) 0.4 x10^3/uL (0.3-0.8); MONOCYTES % (AUTO) 6.7 % (0.0-13.0); NEUTROPHILS # (AUTO) 3.7 x10^3/uL (2.2-4.8); PLATELET COUNT 281 X10^3/uL (150.0-450.0); RED BLOOD COUNT 3.79 X10^6/uL (3.5-5.4); WHITE BLOOD COUNT 6.7 X10^3/uL (3.6-10.0)
[2020-03-29 06:55] LABS: ALANINE AMINOTRANSFERASE 178 Units/L (12-78); ALBUMIN 2.8 g/dL (3.4-5.0); ALKALINE PHOSPHATASE 129 Units/L (46-116); ASPARTATE AMINO TRANSFERASE 104 Units/L (15-37); BLOOD UREA NITROGEN 7 mg/dL (7-18); CALCIUM 8.4 mg/dL (8.5-10.1); CARBON DIOXIDE 23.6 mmol/L (21-32); CHLORIDE 107 mmol/L (98-107); COR CA(FOR HYPOALB) 9.4 mg/dL (8.5-10.1); COR NA(FOR HYPERGLY) 141 mmol/L (136-145); CREATININE 0.88 mg/dL (0.55-1.02); SODIUM 141 mmol/L (136-145); TOTAL PROTEIN 6.8 g/dL (6.4-8.2); eGFR NON BLACK RACES > 60 (>60)
[2020-03-29] MEDS ORDERED: MUCOMYST (RESPIRATORY USE ONLY) ONE (07:58)
[2020-03-29] MEDS: SINGULAIR TAB 10 MG PO SCH (08:46)
[2020-03-29] MEDS: CYMBALTA PO SCH (08:46)
[2020-03-29] MEDS: MOBIC TAB 15 MG PO SCH (08:46)
[2020-03-29] MEDS: CARDIZEM CD 120 MG 24-HR PO SCH (08:46)
[2020-03-29] MEDS: TAB-A-VITE PO SCH (08:46)
[2020-03-29] MEDS: LOPRESSOR TAB 25 MG PO SCH (08:46)
[2020-03-29] MEDS: VITAMIN D3 125 mcg (5,000 UNITS) PO SCH (08:47)
[2020-03-29] MEDS: OXYBUTYNIN CHLORIDE ER PO SCH (08:47)
[2020-03-29] MEDS: PROTONIX INJ 40 MG VIAL IVP SCH (08:50)
[2020-03-29] MEDS: MUCOMYST 20% 200 MG/ML PO SCH (08:51)
[2020-03-29] MEDS: NS 1000 ML 1,000 ML IV SCH (09:39)
[2020-03-29 11:56] VITALS: BP 171/71
--- NOTE | 2020-03-30 11:39 | PCM.PROG ---
Progress Note - Progress Note for Day of Date of Exam: 03/28/20 - Subjective Subjective: IS BEING TREATED FOR ABDOMINAL PAIN, ELEVATED LIVER ENZYMES, FEVER, AND A LEFT PLEURAL EFFUSION. TODAY, SHE IS ALERT AND ORIENTED, LYING IN BED ON MORNING ROUNDS. SHE HAS BEEN AFEBRILE SINCE ADMISSION. SHE DOES CONTINUE WITH MILD, INTERMITTENT ABDOMINAL PAIN THIS MORNING. ON EXAMINATION, HEART IS REGULAR IN RATE AND RHYTHM. BILATERAL LUNGS ARE NOTED WITH DIMINISHED LUNG SOUNDS THROUGHOUT. ABDOMEN IS ROUND, SOFT, AND NON-TENDER WITH NORMAL BOWEL SOUNDS NOTED IN ALL QUADRANTS. HER VITALS THIS MORNING ARE: 97.4-101-18-95%-129/62. LABS WERE OBTAINED. ABNORMAL LAB VALUES INCLUDE THE FOLLOWING: WBC 10.7, INR 2.32, CALCIUM 8.1, TOTAL BILI 1.50, AST 245, ALT 256, ALK PHOS 139, BNP 80.3, ALBUMIN 2.7. BLOOD CULTURES ARE PENDING. AN ABDOMEN/PELVIS CT WAS OBTAINED AND REVEALED: No acute findings to explain abdominal pain. Again note is made of a hiatal hernia, small pericardial ef fusion, simple hepatic cysts. The gallbladder and uterus are surgically absent. There is vacuum disc space narrowing at L5-S1 L1-2 T12-L1 and T11-12 with prior vertebroplasty at T12. There are no renal calculi or obstructive uropathy. WE WILL RESUME HER HOME MEDICATIONS, START THE POTASSIUM AND MAGNESIUM PROTOCOLS, PROTONIX 40MG IV DAILY, PEPCID 20MG IV DAILY, AND CONTINUE WITH CURRENT PLAN OF CARE TODAY. OTHERWISE, WE PLAN TO FOLLOW UP WITH AM LABS AND CONTINUE TO MONITOR. - Past Medical Family Social History Past Med/Fam/Surg Hx: No changes since H&P Allergies: Allergies acetaminophen [From Percocet] Allergy (Verified 06/24/18 11:50) adhesive tape Allergy (Verified 03/23/19 11:23) ciprofloxacin Allergy (Verified 03/23/19 11:23) ITCHING, REDNESS oxycodone [From Percocet] Allergy (Verified 03/23/19 11:23) Penicillins Allergy (Verified 03/23/19 11:23) - Review of Systems ROS: No change since H&P - Vital Signs and I&O's Vital Signs: Temperature 97.2 F Pulse Rate [Left Brachial] 67 Pulse Rate 98 Respiratory Rate 18 Blood Pressure [Left Arm] 171/71 Blood Pressure [Right Arm] 175/73 Blood Pressure 132/61 O2 Sat by Pulse Oximetry 96 Intake and Output: Intake & Output 03/27/20 03/28/20 03/29/20 03/30/20 11:59 11:59 11:59 11:59 Intake Total 1470 / 1470 1959 Balance 147 / 1469 - Physical Exam Oriented: Normal Eyes: Normal Ear: Normal Nose: Normal Throat: Normal Respiratory: Generalized, Diminished Cardiovascular: Normal : Normal Auscultation: Bowel Sounds: Normal Palpation: Normal Tenderness: Diffuse, Mild. negative: Rebound, Guarding, Rigidity Skin: Normal Musculoskeletal: Normal Psychiatric: Normal Mood Description: Calm Affect: Normal Speech Pattern: Clear, Appropriate - Laboratory and Diagnostics Result Diagrams: 03/29/20 06:00 03/29/20 06:00 Labs: 03/27/20 11:15 Blood Blood Culture - Preliminary 03/27/20 11:10 Blood Blood Culture - Preliminary Laboratory WBC 6.7 X10^3/uL (3.6-10.0) 03/29/20 06:00 RBC 3.79 X10^6/uL (3.5-5.4) 03/29/20 06:00 Hgb 11.8 g/dL (12.0-16.0) L 03/29/20 06:00 Hct 35.3 % (36.0-47.0) L 03/29/20 06:00 MCV 93.2 fL (80.0-100.0) 03/29/20 06:00 MCH 31.2 pg (27.0-34.0) 03/29/20 06:00 MCHC 33.5 g/dL (33.0-35.0) 03/29/20 06:00 RDW 14.0 % (11.6-16.5) 03/29/20 06:00 Plt Count 281 X10^3/uL (150.0-450.0) 03/29/20 06:00 MPV 7.6 fL (7.4-11.0) 03/29/20 06:00 Neut % (Auto) 55.0 % (42.0-75.0) 03/29/20 06:00 Lymph % (Auto) 35.3 % (21.0-51.0) 03/29/20 06:00 [place] % (Auto) 6.7 % (0.0-13.0) 03/29/20 06:00 Eos % (Auto) 2.5 % (0.9-2.9) 03/29/20 06:00 Baso % (Auto) 0.5 % (0.2-1.0) 03/29/20 06:00 Neut # (Auto) 3.7 x10^3/uL (2.2-4.8) 03/29/20 06:00 Lymph # (Auto) 2.4 X10^3/uL (1.3-2.9) 03/29/20 06:00 [place] # (Auto) 0.4 x10^3/uL (0.3-0.8) 03/29/20 06:00 Eos # (Auto) 0.2 x10^3/uL (0.0-0.2) 03/29/20 06:00 Baso # (Auto) 0.0 X10^3/uL (0.0-0.1) 03/29/20 06:00 Absolute Nucleated RBC 0.0 /100WBC 03/29/20 06:00 PT 20.7 SECONDS (11.8-14.3) 03/29/20 06:00 INR Target Range - 03/29/20 06:00 INR 1.84 (0.8-1.3) H 03/29/20 06:00 Sodium 141 mmol/L (136-145) 03/29/20 06:00 Corrected Sodium 141 mmol/L (136-145) 03/29/20 06:00 Potassium 3.8 mmol/L (3.5-5.1) 03/29/20 06:00 Chloride 107 mmol/L (98-107) 03/29/20 06:00 Carbon Dioxide 23.6 mmol/L (21-32) 03/29/20 06:00 BUN 7 mg/dL (7-18) 03/29/20 06:00 Creatinine 0.88 mg/dL (0.55-1.02) 03/29/20 06:00 Est GFR (MDRD) Af Amer > 60 (>60) 03/29/20 06:00 Est GFR (MDRD) Non-Af > 60 (>60) 03/29/20 06:00 Glucose 112 mg/dL (65-99) H 03/29/20 06:00 Calcium 8.4 mg/dL (8.5-10.1) L 03/29/20 06:00 Corrected Calcium 9.4 mg/dL (8.5-10.1) 03/29/20 06:00 Total Bilirubin 0.80 mg/dL (0.2-1.0) 03/29/20 06:00 AST 104 Units/L (15-37) H 03/29/20 06:00 ALT 178 Units/L (12-78) H 03/29/20 06:00 Alkaline Phosphatase 129 Units/L (46-116) H 03/29/20 06:00 Troponin I < 0.02 ng/mL (0-1.5) 03/27/20 01:32 B-Natriuretic Peptide 80.3 pg/mL (0-79) H 03/27/20 01:32 Total Protein 6.8 g/dL (6.4-8.2) 03/29/20 06:00 Albumin 2.8 g/dL (3.4-5.0) L 03/29/20 06:00 Globulin 4.0 g/dL (2.5-4.5) 03/29/20 06:00 Albumin/Globulin Ratio 0.7 Ratio (1.1-2.1) L 03/29/20 06:00 Amylase 25 Units/L (25-115) 03/27/20 01:32 Lipase 75 Units/L (73-393) 03/27/20 01:32 Specimen Type Random urine 03/27/20 02:38 Urine Color Yellow (YELLOW) 03/27/20 02:38 Urine Appearance Clear (CLEAR) 03/27/20 02:38 Urine pH 7.0 (5.0 - 8.0) 03/27/20 02:38 Ur Specific [place] 1.010 (1.000-1.030) 03/27/20 02:38 Urine Protein Negative (NEGATIVE) 03/27/20 02:38 Urine Glucose (UA) Negative (NEGATIVE) 03/27/20 02:38 Urine Ketones Negative (NEGATIVE) 03/27/20 02:38 Urine Occult Blood 2+ (NEGATIVE) 03/27/20 02:38 Urine Nitrite Negative (NEGATIVE) 03/27/20 02:38 Urine Bilirubin Negative (NEGATIVE) 03/27/20 02:38 Urine Urobilinogen 2+ (NORMAL) 03/27/20 02:38 Ur Leukocyte Esterase 1+ (NEGATIVE) 03/27/20 02:38 Urine RBC 0-2 /HPF (0-3) 03/27/20 02:38 Urine WBC 0-2 /HPF (0-5) 03/27/20 02:38 Ur Squamous Epith Cells Few /HPF (NEGATIVE) 03/27/20 02:38 Urine Bacteria 4+ /HPF (NEGATIVE) 03/27/20 02:38 Ur Culture Indicated? No/not indicated 03/27/20 02:38 Salicylates < 2.8 mg/dL (2.8-20) L 03/27/20 01:32 Acetaminophen 0.0 ug/mL (10-30) L 03/27/20 01:32 SARS-CoV-2 (PCR) Negative (NEGATIVE) 03/27/20 04:18 - Plan (1) Abdominal pain Status: Acute Qualifiers: Abdominal location: upper abdomen, unspecified Qualified Code(s): R10.10 - Upper abdominal pain, unspecified Plan: NORMAL SALINE AT 50 ML/HR, PEPCID 20MG IV DAILY, PROTONIX 40MG IV DAILY, MORPHINE 2MG IV Q4H PRN, ZOFRAN 4MG IV Q4H PRN, IBUPROFEN 800MG IV Q8H, AND MUCOMYST 600MG PO BID. (2) Elevated liver enzymes Status: Acute (3) Fever Status: Acute Qualifiers: Fever type: unspecified Qualified Code(s): R50.9 - Fever, unspecified (4) Pleural effusion, left Status: Acute
[2020-03-30] MEDS ORDERED: COUMADIN TAB 4 MG PO SCH (21:00)
[2020-04-01 06:29] LABS: HEPATITIS B SURFACE ANTIGEN Negative (Negative)
--- NOTE | 2020-04-07 06:52 | DR.FEVERAD ---
HPI Time seen Time Seen by Provider: 03/27/20 01:01 PCP Primary Care Physician: Fredi Complaints/Symptoms Chief Complaint:: PT C/O FEVER SINCE 10 PM PT DENIES TAKING ANYTHING FOR THE TEMP PT ALSO C/O HAVING SOME DIZZINESS AND NAUSEA COVID-19 Coronavirus risk:travel/contact w/high risk person: No Has patient experienced Coronavirus symptoms: Yes Coronavirus symptoms experienced: Fever Source History Provided: Patient and EMS Mode of Arrival Mode of Arrival: EMS Timing Onset of Chief Complaint: 03/26/20 Severity Fever Severity/Quality: greater than 100.5 F PMH PMH Past Medical History: Yes Past Medical History: Arthritis, GERD, Hypertension, Hypothyroidism and Kidney Stones Past Medical History Comment: LUPUS,AFIB, VERTIGO, CHRONIC BACK PAIN Past Surgical History: Yes Surgical History: Abdominal Surgery, Hysterectomy, Joint Replacement and Other Family History History of Family Medical Conditions: Yes Family Medical History: Diabetes Mellitus, Cancer, [place], Heart Failure and Hypertension Social History Does patient currently use any type of tobacco product: No Have you used tobacco products in the last 12 months: No Type of Tobacco Use: None Does any household member use tobacco: No Alcohol Use: None Do you use any recreational Drugs:: No Lives With: Family Lives Where: Home Travel Risk Coronavirus risk:travel/contact w/high risk person: No Has patient experienced Coronavirus symptoms: Yes Coronavirus symptoms experienced: Fever Infectious screening In the last 2 months have you had wt loss of >10#?: NO Have you had fever, night sweats or hemotysis?: No Have you traveled outside the country in the last 6 months?: No Isolation: Standard ROS Review of Systems Constitutional: Fever Eyes: No Symptoms Reported ENTM: No Symptoms Reported Respiratoy: No Symptoms Reported Cardiovascular: No Symptoms Reported Gastrointestinal/Abdominal: No Symptoms Reported Genitourinary: No Symptoms Reported Neurological: No Symptoms Reported Musculoskeletal: No Symptoms Reported Integumentary: No Symptoms Reported Hematologic/Lymphatic: No Symptoms Reported Endocrine: No Symptoms Reported Psychiatric: No Symptoms Reported All Other Systems: Reviewed and Negative PE Vital Signs Vitals: Temperature 98.8 F Pulse Rate [Left Brachial] 100 Pulse Rate 98 Respiratory Rate 20 Blood Pressure [Left Arm] 143/65 Blood Pressure [Right Arm] 175/73 Blood Pressure 132/61 O2 Sat by Pulse Oximetry 94 General Limitations: No Limitations General Appearance: Alert and In No Apparent Distress Head Head Exam: Normal Inspection, Atraumatic and Normocephalic Eyes Eye exam: Normal Appearance and EOMI ENT ENT Exam: Normal Exam and Normal Oropharynx External Ear Exam: Normal External Inspection Mouth Exam: Normal Inspection Teeth Exam: Normal Inspection Neck Neck Exam: Normal Inspection, Full ROM and Trachea Midline Respiratory Respiratory Exam: Normal Lung Sounds Bilat Respiratory Exam: Bilateral: Clear to Auscultation Cardiovascular Cardiovascular Exam: Regular Rate Abdominal Exam Abdominal Exam: Normal Inspection, Normal Bowel Sounds and Soft Abdominal Tenderness: Epigastrium and Mild Extremities Extremities Exam: Normal Inspection and Full ROM Back Back Exam: Normal Inspection and Full ROM Neurologic Neurological Exam: Alert, Oriented X3, CN II-XII Intact and Normal Gait Psychiatric Psychiatric Exam: Normal Affect and Normal Mood Skin Skin Exam: Normal Color ROR Labs Reviewed Result Diagrams: 03/29/20 06:00 03/29/20 06:00 Laboratory: WBC 8.2 X10^3/uL (3.6-10.0) 03/27/20 01:32 RBC 4.13 X10^6/uL (3.5-5.4) 03/27/20 01:32 Hgb 13.0 g/dL (12.0-16.0) 03/27/20 01:32 Hct 38.6 % (36.0-47.0) 03/27/20 01:32 MCV 93.5 fL (80.0-100.0) 03/27/20 01:32 MCH 31.5 pg (27.0-34.0) 03/27/20 01:32 MCHC 33.7 g/dL (33.0-35.0) 03/27/20 01:32 RDW 13.6 % (11.6-16.5) 03/27/20 01:32 Plt Count 289 X10^3/uL (150.0-450.0) 03/27/20 01:32 MPV 7.2 fL (7.4-11.0) L 03/27/20 01:32 Neut % (Auto) 87.7 % (42.0-75.0) H 03/27/20 01:32 Lymph % (Auto) 9.7 % (21.0-51.0) L 03/27/20 01:32 [place] % (Auto) 2.2 % (0.0-13.0) 03/27/20 01:32 Eos % (Auto) 0.2 % (0.9-2.9) L 03/27/20 01:32 Baso % (Auto) 0.2 % (0.2-1.0) 03/27/20 01:32 Neut # (Auto) 7.2 x10^3/uL (2.2-4.8) H 03/27/20 01:32 Lymph # (Auto) 0.8 X10^3/uL (1.3-2.9) L 03/27/20 01:32 [place] # (Auto) 0.2 x10^3/uL (0.3-0.8) L 03/27/20 01:32 Eos # (Auto) 0.0 x10^3/uL (0.0-0.2) 03/27/20 01:32 Baso # (Auto) 0.0 X10^3/uL (0.0-0.1) 03/27/20 01:32 Absolute Nucleated RBC 0.0 /100WBC 03/27/20 01:32 PT 29.9 SECONDS (11.8-14.3) 03/27/20 01:32 INR Target Range - 03/27/20 01:32 INR 2.95 (0.8-1.3) H 03/27/20 01:32 Sodium 140 mmol/L (136-145) 03/27/20 01:32 Corrected Sodium 141 mmol/L (136-145) 03/27/20 01:32 Potassium 3.9 mmol/L (3.5-5.1) 03/27/20 01:32 Chloride 103 mmol/L (98-107) 03/27/20 01:32 Carbon Dioxide 29.8 mmol/L (21-32) 03/27/20 01:32 BUN 18 mg/dL (7-18) 03/27/20 01:32 Creatinine 1.24 mg/dL (0.55-1.02) H 03/27/20 01:32 Est GFR (MDRD) Af Amer 55 (>60) L 03/27/20 01:32 Est GFR (MDRD) Non-Af 45 (>60) L 03/27/20 01:32 Glucose 151 mg/dL (65-99) H 03/27/20 01:32 Calcium 9.0 mg/dL (8.5-10.1) 03/27/20 01:32 Corrected Calcium 9.7 mg/dL (8.5-10.1) 03/27/20 01:32 Total Bilirubin 0.90 mg/dL (0.2-1.0) 03/27/20 01:32 AST 611 Units/L (15-37) H 03/27/20 01:32 ALT 317 Units/L (12-78) H 03/27/20 01:32 Alkaline Phosphatase 174 Units/L (46-116) H 03/27/20 01:32 Troponin I < 0.02 ng/mL (0-1.5) 03/27/20 01:32 B-Natriuretic Peptide 80.3 pg/mL (0-79) H 03/27/20 01:32 Total Protein 7.2 g/dL (6.4-8.2) 03/27/20 01:32 Albumin 3.1 g/dL (3.4-5.0) L 03/27/20 01:32 Globulin 4.1 g/dL (2.5-4.5) 03/27/20 01:32 Albumin/Globulin Ratio 0.8 Ratio (1.1-2.1) L 03/27/20 01:32 Amylase 25 Units/L (25-115) 03/27/20 01:32 Lipase 75 Units/L (73-393) 03/27/20 01:32 Specimen Type Random urine 03/27/20 02:38 Urine Color Yellow (YELLOW) 03/27/20 02:38 Urine Appearance Clear (CLEAR) 03/27/20 02:38 Urine pH 7.0 (5.0 - 8.0) 03/27/20 02:38 Ur Specific [place] 1.010 (1.000-1.030) 03/27/20 02:38 Urine Protein Negative (NEGATIVE) 03/27/20 02:38 Urine Glucose (UA) Negative (NEGATIVE) 03/27/20 02:38 Urine Ketones Negative (NEGATIVE) 03/27/20 02:38 Urine Occult Blood 2+ (NEGATIVE) 03/27/20 02:38 Urine Nitrite Negative (NEGATIVE) 03/27/20 02:38 Urine Bilirubin Negative (NEGATIVE) 03/27/20 02:38 Urine Urobilinogen 2+ (NORMAL) 03/27/20 02:38 Ur Leukocyte Esterase 1+ (NEGATIVE) 03/27/20 02:38 Urine RBC 0-2 /HPF (0-3) 03/27/20 02:38 Urine WBC 0-2 /HPF (0-5) 03/27/20 02:38 Ur Squamous Epith Cells Few /HPF (NEGATIVE) 03/27/20 02:38 Urine Bacteria 4+ /HPF (NEGATIVE) 03/27/20 02:38 Ur Culture Indicated? No/not indicated 03/27/20 02:38 Salicylates < 2.8 mg/dL (2.8-20) L 03/27/20 01:32 Acetaminophen 0.0 ug/mL (10-30) L 03/27/20 01:32 SARS-CoV-2 (PCR) Negative (NEGATIVE) 03/27/20 04:18 Opioid Opioid Risk Tool Age ([place] box if 16-45): No History of Preadolescent Sexual Abuse: No Total: 0 Total Score Risk Category: Low Risk Copyright: Christian CANALES predicting aberrant behaviors Instructions Forms: Excuse From Work or School Precautions for COVID19 Patient Portal Social Distancing
--- NOTE | 2020-04-09 11:19 | DR.FEVERAD ---
HPI Time seen Time Seen by Provider: 03/27/20 01:01 PCP Primary Care Physician: Fredi Complaints/Symptoms Chief Complaint:: PT C/O FEVER SINCE 10 PM PT DENIES TAKING ANYTHING FOR THE TEMP PT ALSO C/O HAVING SOME DIZZINESS AND NAUSEA COVID-19 Coronavirus risk:travel/contact w/high risk person: No Has patient experienced Coronavirus symptoms: Yes Coronavirus symptoms experienced: Fever Source History Provided: Patient and EMS Mode of Arrival Mode of Arrival: EMS Timing Onset of Chief Complaint: 03/26/20 Severity Fever Severity/Quality: greater than 100.5 F PMH PMH Past Medical History: Yes Past Medical History: Arthritis, GERD, Hypertension, Hypothyroidism and Kidney Stones Past Medical History Comment: LUPUS,AFIB, VERTIGO, CHRONIC BACK PAIN Past Surgical History: Yes Surgical History: Abdominal Surgery, Hysterectomy, Joint Replacement and Other Family History History of Family Medical Conditions: Yes Family Medical History: Diabetes Mellitus, Cancer, [place], Heart Failure and Hypertension Social History Does patient currently use any type of tobacco product: No Have you used tobacco products in the last 12 months: No Type of Tobacco Use: None Does any household member use tobacco: No Alcohol Use: None Do you use any recreational Drugs:: No Lives With: Family Lives Where: Home Travel Risk Coronavirus risk:travel/contact w/high risk person: No Has patient experienced Coronavirus symptoms: Yes Coronavirus symptoms experienced: Fever Infectious screening In the last 2 months have you had wt loss of >10#?: NO Have you had fever, night sweats or hemotysis?: No Have you traveled outside the country in the last 6 months?: No Isolation: Standard ROS Review of Systems Constitutional: Fever Eyes: No Symptoms Reported ENTM: No Symptoms Reported Respiratoy: No Symptoms Reported Cardiovascular: No Symptoms Reported Gastrointestinal/Abdominal: Nausea Genitourinary: No Symptoms Reported Neurological: Dizziness Musculoskeletal: No Symptoms Reported Integumentary: No Symptoms Reported Endocrine: No Symptoms Reported Psychiatric: No Symptoms Reported All Other Systems: Reviewed and Negative PE Vital Signs Vitals: Temperature 98.8 F Pulse Rate [Left Brachial] 100 Pulse Rate 98 Respiratory Rate 20 Blood Pressure [Left Arm] 143/65 Blood Pressure [Right Arm] 175/73 Blood Pressure 132/61 O2 Sat by Pulse Oximetry 94 General Limitations: No Limitations General Appearance: Alert and In No Apparent Distress Head Head Exam: Normal Inspection, Atraumatic and Normocephalic Eyes Eye exam: Normal Appearance and EOMI ENT ENT Exam: Normal Exam and Normal Oropharynx External Ear Exam: Normal External Inspection Nose Exam: Normal Nose Exam Mouth Exam: Normal Inspection Teeth Exam: Normal Inspection Neck Neck Exam: Normal Inspection, Full ROM and Trachea Midline Respiratory Respiratory Exam: Normal Lung Sounds Bilat; negative Accessory Muscle Use Respiratory Exam: Bilateral: Clear to Auscultation Cardiovascular Cardiovascular Exam: Regular Rate Abdominal Exam Abdominal Exam: Normal Inspection Extremities Extremities Exam: Normal Inspection Back Back Exam: Normal Inspection and Full ROM Neurologic Neurological Exam: Alert, Oriented X3 and CN II-XII Intact Psychiatric Psychiatric Exam: Anxious Skin Skin Exam: Normal Color ROR Labs Reviewed Result Diagrams: 03/29/20 06:00 03/29/20 06:00 Laboratory: WBC 8.2 X10^3/uL (3.6-10.0) 03/27/20 01:32 RBC 4.13 X10^6/uL (3.5-5.4) 03/27/20 01:32 Hgb 13.0 g/dL (12.0-16.0) 03/27/20 01:32 Hct 38.6 % (36.0-47.0) 03/27/20 01:32 MCV 93.5 fL (80.0-100.0) 03/27/20 01:32 MCH 31.5 pg (27.0-34.0) 03/27/20 01:32 MCHC 33.7 g/dL (33.0-35.0) 03/27/20 01:32 RDW 13.6 % (11.6-16.5) 03/27/20 01:32 Plt Count 289 X10^3/uL (150.0-450.0) 03/27/20 01:32 MPV 7.2 fL (7.4-11.0) L 03/27/20 01:32 Neut % (Auto) 87.7 % (42.0-75.0) H 03/27/20 01:32 Lymph % (Auto) 9.7 % (21.0-51.0) L 03/27/20 01:32 [place] % (Auto) 2.2 % (0.0-13.0) 03/27/20 01:32 Eos % (Auto) 0.2 % (0.9-2.9) L 03/27/20 01:32 Baso % (Auto) 0.2 % (0.2-1.0) 03/27/20 01:32 Neut # (Auto) 7.2 x10^3/uL (2.2-4.8) H 03/27/20 01:32 Lymph # (Auto) 0.8 X10^3/uL (1.3-2.9) L 03/27/20 01:32 [place] # (Auto) 0.2 x10^3/uL (0.3-0.8) L 03/27/20 01:32 Eos # (Auto) 0.0 x10^3/uL (0.0-0.2) 03/27/20 01:32 Baso # (Auto) 0.0 X10^3/uL (0.0-0.1) 03/27/20 01:32 Absolute Nucleated RBC 0.0 /100WBC 03/27/20 01:32 PT 29.9 SECONDS (11.8-14.3) 03/27/20 01:32 INR Target Range - 03/27/20 01:32 INR 2.95 (0.8-1.3) H 03/27/20 01:32 Sodium 140 mmol/L (136-145) 03/27/20 01:32 Corrected Sodium 141 mmol/L (136-145) 03/27/20 01:32 Potassium 3.9 mmol/L (3.5-5.1) 03/27/20 01:32 Chloride 103 mmol/L (98-107) 03/27/20 01:32 Carbon Dioxide 29.8 mmol/L (21-32) 03/27/20 01:32 BUN 18 mg/dL (7-18) 03/27/20 01:32 Creatinine 1.24 mg/dL (0.55-1.02) H 03/27/20 01:32 Est GFR (MDRD) Af Amer 55 (>60) L 03/27/20 01:32 Est GFR (MDRD) Non-Af 45 (>60) L 03/27/20 01:32 Glucose 151 mg/dL (65-99) H 03/27/20 01:32 Calcium 9.0 mg/dL (8.5-10.1) 03/27/20 01:32 Corrected Calcium 9.7 mg/dL (8.5-10.1) 03/27/20 01:32 Total Bilirubin 0.90 mg/dL (0.2-1.0) 03/27/20 01:32 AST 611 Units/L (15-37) H 03/27/20 01:32 ALT 317 Units/L (12-78) H 03/27/20 01:32 Alkaline Phosphatase 174 Units/L (46-116) H 03/27/20 01:32 Troponin I < 0.02 ng/mL (0-1.5) 03/27/20 01:32 B-Natriuretic Peptide 80.3 pg/mL (0-79) H 03/27/20 01:32 Total Protein 7.2 g/dL (6.4-8.2) 03/27/20 01:32 Albumin 3.1 g/dL (3.4-5.0) L 03/27/20 01:32 Globulin 4.1 g/dL (2.5-4.5) 03/27/20 01:32 Albumin/Globulin Ratio 0.8 Ratio (1.1-2.1) L 03/27/20 01:32 Amylase 25 Units/L (25-115) 03/27/20 01:32 Lipase 75 Units/L (73-393) 03/27/20 01:32 Specimen Type Random urine 03/27/20 02:38 Urine Color Yellow (YELLOW) 03/27/20 02:38 Urine Appearance Clear (CLEAR) 03/27/20 02:38 Urine pH 7.0 (5.0 - 8.0) 03/27/20 02:38 Ur Specific [place] 1.010 (1.000-1.030) 03/27/20 02:38 Urine Protein Negative (NEGATIVE) 03/27/20 02:38 Urine Glucose (UA) Negative (NEGATIVE) 03/27/20 02:38 Urine Ketones Negative (NEGATIVE) 03/27/20 02:38 Urine Occult Blood 2+ (NEGATIVE) 03/27/20 02:38 Urine Nitrite Negative (NEGATIVE) 03/27/20 02:38 Urine Bilirubin Negative (NEGATIVE) 03/27/20 02:38 Urine Urobilinogen 2+ (NORMAL) 03/27/20 02:38 Ur Leukocyte Esterase 1+ (NEGATIVE) 03/27/20 02:38 Urine RBC 0-2 /HPF (0-3) 03/27/20 02:38 Urine WBC 0-2 /HPF (0-5) 03/27/20 02:38 Ur Squamous Epith Cells Few /HPF (NEGATIVE) 03/27/20 02:38 Urine Bacteria 4+ /HPF (NEGATIVE) 03/27/20 02:38 Ur Culture Indicated? No/not indicated 03/27/20 02:38 Salicylates < 2.8 mg/dL (2.8-20) L 03/27/20 01:32 Acetaminophen 0.0 ug/mL (10-30) L 03/27/20 01:32 SARS-CoV-2 (PCR) Negative (NEGATIVE) 03/27/20 04:18 Opioid Opioid Risk Tool Age (Benn[place] box if 16-45): No History of Preadolescent Sexual Abuse: No Total: 0 Total Score Risk Category: Low Risk Copyright: Christian CANALES predicting aberrant behaviors Diagnosis Discharge Problem: Elevated liver enzymes Fever Qualifiers: Fever type: unspecified Qualified Code(s): R50.9 - Fever, unspecified Instructions Forms: Excuse From Work or School Precautions for COVID19 Patient Portal Social Distancing
== END 2020-03-29 14:30 | disposition home or self-care (01) ==
LOC: MED/SURG 00:52 → ER 00:52 → MED/SURG 08:04
PROVIDERS: ADMIT Obstetrics & Gynecology Obstetrics; ATTEND Internal Medicine
DX: Z20.828 Contact with and (suspected) exposure to other viral communicable diseases; Z79.899 Other long term (current) drug therapy; R94.5 Abnormal results of liver function studies; I10 Essential (primary) hypertension; R50.9 Fever, unspecified; E03.8 Other specified hypothyroidism; K21.9 Gastro-esophageal reflux disease without esophagitis; J90 Pleural effusion, not elsewhere classified; Z79.01 Long term (current) use of anticoagulants

== ENCOUNTER 2021-09-06 10:09 | Inpatient (IN) ==
[2021-09-06] MEDS ORDERED: NS 500 ML IV 500 ML IV ONE ×2 (10:40→11:24)
--- NOTE | 2021-09-06 10:40 | DR.DIZZY ---
HPI Time seen Time Seen by Provider: 09/06/21 10:37 PCP Primary Care Physician: Dr Rai Complaint Chief Complaint Doctor Comments: 76 y/o female brought in via EMS for evaluation. Pt was diagnosed with Covid 2 weeks ago. Feeling worse over the past 2 days. Has had decreased PO intake, increasing weakness. Has been having some confusion. Urine with some odor. Pulse ox reportedly low with EMS, 90-91%. Doing better with 2 L NC. Chief Complaint:: Pt has had poor PO intake x2 days, c/o weakness, possible dehydration, odorous urine, some confusion. Pt's son recently and she was talking to him this morning, per spouse. Pt was dx with COVID 2 weeks ago. COVID-19 Coronavirus risk:travel/contact w/high risk person: No Has patient experienced Coronavirus symptoms: Yes Coronavirus symptoms experienced: Shortness of Breath Nurses Notes Reviewed Nurses Notes Review: Yes Source History Provided: Patient and EMS Mode of Arrival Mode of Arrival: EMS Timing Onset of Chief Complaint: 09/04/21 Symptom Onset: Unknown Location of Weakness Weakness Location: Generalized Context History of: DM Stroke Symptoms: None Associated signs and symptoms Associated Signs and Symptoms: Weak and Other PMH PMH Past Medical History: Yes Past Medical History: Arthritis, GERD, Hypertension, Hypothyroidism and Kidney Stones Past Surgical History: Yes Surgical History: Abdominal Surgery, Hysterectomy, Joint Replacement and Other Family History History of Family Medical Conditions: Yes Family Medical History: Diabetes Mellitus, Cancer, [place], Heart Failure and Hypertension Social History Alcohol Use: None Do you use any recreational Drugs:: No Lives With: Spouse Lives Where: Home Travel Risk Coronavirus risk:travel/contact w/high risk person: No Has patient experienced Coronavirus symptoms: Yes Coronavirus symptoms experienced: Shortness of Breath Infectious screening Have you traveled outside the country in the last 6 months?: No Isolation: Droplet ROS Review of Systems Constitutional: Malaise and Weakness Eyes: No Symptoms Reported ENTM: No Symptoms Reported Respiratoy: Non-Productive Cough Cardiovascular: No Symptoms Reported Gastrointestinal/Abdominal: Nausea Genitourinary: Dysuria and Frequency Neurological: Weakness and Dizziness Musculoskeletal: No Symptoms Reported Integumentary: No Symptoms Reported Hematologic/Lymphatic: No Symptoms Reported Psychiatric: No Symptoms Reported All Other Systems: Reviewed and Negative PE Vital Signs Vitals: Temperature 98.3 F Pulse Rate 76 Respiratory Rate 20 Blood Pressure [Left Arm] 171/71 Blood Pressure [Right Arm] 175/73 Blood Pressure 118/56 O2 Sat by Pulse Oximetry 98 General Limitations: No Limitations General Appearance: Alert and In No Apparent Distress Head Head Exam: Normal Inspection Eyes Eye exam: Normal Appearance, PERRL and EOMI ENT ENT Exam: Normal Exam and Mucous Membranes Moist Neck Neck Exam: Normal Inspection and Full ROM; negative Tenderness Chest Chest Inspection: Normal Inspection Respiratory Respiratory Exam: Normal Lung Sounds Bilat; negative Accessory Muscle Use and Respiratory Distress Respiratory Exam: Bilateral: Clear to Auscultation Cardiovascular Cardiovascular Exam: Regular Rate, Normal Rhythm and Normal Heart Sounds Abdominal Exam Abdominal Exam: Normal Inspection, Normal Bowel Sounds, Soft and Tenderness (suprapubic region) Extremeties Extremities Exam: Normal Inspection and Full ROM; negative Tenderness and Edema Back Back Exam: Normal Inspection; negative (R) CVA Tenderness and (L) CVA Tenderness Neurologic Neurological Exam: Alert, Oriented X3 and CN II-XII Intact; negative Motor Sensory Deficit MDM Differential Diagnosis Differential Diagnosis: Dehydration and Electrolyte disorder Differential Diagnosis Comment: Covid, pneumonia, UTI COURSE Treatment Treatment: 76 y/o female, diagnosed with Covid 2 weeks ago. Has had decreased PO intake, increased weakness. Having some urinary difficulties. W/u initiated. Pt given IV fluids. 1600 - pt still covid +, CXR looks good, no pneumonia changes. U/A + for supriya est, nit, but not many WBC, does have 2+ bacteria. Labs otherwise acceptable. Recommend observation admission. Call put out to Dr Rai, her attending. His CONTINUOUS PROCESS MACHINE OPERATOR agreed to the admission. Pt was given IV fluids, IV rocephin. ROR Labs Reviewed Laboratory Results Reviewed?: Yes Result Diagrams: 09/06/21 10:59 09/06/21 10:59 Laboratory: WBC 10.2 X10^3/uL (3.6-10.0) H 09/06/21 10:59 RBC 4.02 X10^6/uL (3.5-5.4) 09/06/21 10:59 Hgb 12.6 g/dL (12.0-16.0) 09/06/21 10:59 Hct 37.1 % (36.0-47.0) 09/06/21 10:59 MCV 92.3 fL (80.0-100.0) 09/06/21 10:59 MCH 31.4 pg (27.0-34.0) 09/06/21 10:59 MCHC 34.0 g/dL (33.0-35.0) 09/06/21 10:59 RDW 13.8 % (11.6-16.5) 09/06/21 10:59 Plt Count 270 X10^3/uL (150.0-450.0) 09/06/21 10:59 MPV 7.5 fL (7.4-11.0) 09/06/21 10:59 Neut % (Auto) 50.9 % (42.0-75.0) 09/06/21 10:59 Lymph % (Auto) 39.3 % (21.0-51.0) 09/06/21 10:59 [place] % (Auto) 7.8 % (0.0-13.0) 09/06/21 10:59 Eos % (Auto) 0.5 % (0.9-2.9) L 09/06/21 10:59 Baso % (Auto) 1.5 % (0.2-1.0) H 09/06/21 10:59 Neut # (Auto) 5.2 x10^3/uL (2.2-4.8) H 09/06/21 10:59 Lymph # (Auto) 4.0 X10^3/uL (1.3-2.9) H 09/06/21 10:59 [place] # (Auto) 0.8 x10^3/uL (0.3-0.8) 09/06/21 10:59 Eos # (Auto) 0.0 x10^3/uL (0.0-0.2) 09/06/21 10:59 Baso # (Auto) 0.1 X10^3/uL (0.0-0.1) 09/06/21 10:59 Absolute Nucleated RBC 0.1 /100WBC 09/06/21 10:59 Sodium 138 mmol/L (136-145) 09/06/21 10:59 Corrected Sodium TNP 09/06/21 10:59 Potassium 4.0 mmol/L (3.5-5.1) 09/06/21 10:59 Chloride 103 mmol/L (98-107) 09/06/21 10:59 Carbon Dioxide 26.2 mmol/L (21-32) 09/06/21 10:59 BUN 19 mg/dL (7-18) H 09/06/21 10:59 Creatinine 0.86 mg/dL (0.55-1.02) 09/06/21 10:59 Est GFR (MDRD) Af Amer > 60 (>60) 09/06/21 10:59 Est GFR (MDRD) Non-Af > 60 (>60) 09/06/21 10:59 Glucose 95 mg/dL (65-99) 09/06/21 10:59 Calcium 8.0 mg/dL (8.5-10.1) L 09/06/21 10:59 Corrected Calcium 9.1 mg/dL (8.5-10.1) 09/06/21 10:59 Total Bilirubin 0.50 mg/dL (0.2-1.0) 09/06/21 10:59 AST 32 Units/L (15-37) 09/06/21 10:59 ALT 53 Units/L (12-78) 09/06/21 10:59 Alkaline Phosphatase 102 Units/L (46-116) 09/06/21 10:59 Creatine Kinase 24 Units/L (26-192) L 09/06/21 10:59 CK-MB (CK-2) < 1.0 ng/mL (0-4.0) 09/06/21 10:59 CK/CKMB % Calc 4.2 % (<4) 09/06/21 10:59 Troponin I High Sens 13.6 ng/L (4.0-60.0) 09/06/21 10:59 Total Protein 6.7 g/dL (6.4-8.2) 09/06/21 10:59 Albumin 2.6 g/dL (3.4-5.0) L 09/06/21 10:59 Globulin 4.1 g/dL (2.5-4.5) 09/06/21 10:59 Albumin/Globulin Ratio 0.6 Ratio (1.1-2.1) L 09/06/21 10:59 Lipase 64 Units/L (73-393) L 09/06/21 10:59 Specimen Type Catherized urine 09/06/21 11:58 Urine Color Yellow (YELLOW) 09/06/21 11:58 Urine Appearance Clear (CLEAR) 09/06/21 11:58 Urine pH 5.0 (5.0 - 8.0) 09/06/21 11:58 Ur Specific [place] 1.025 (1.000-1.030) 09/06/21 11:58 Urine Protein 2+ (NEGATIVE) 09/06/21 11:58 Urine Glucose (UA) Negative (NEGATIVE) 09/06/21 11:58 Urine Ketones Negative (NEGATIVE) 09/06/21 11:58 Urine Occult Blood 1+ (NEGATIVE) 09/06/21 11:58 Urine Nitrite Positive (NEGATIVE) 09/06/21 11:58 Urine Bilirubin Negative (NEGATIVE) 09/06/21 11:58 Urine Urobilinogen Normal (NORMAL) 09/06/21 11:58 Ur Leukocyte Esterase 1+ (NEGATIVE) 09/06/21 11:58 Urine RBC 3-5 /HPF (0-3) A 09/06/21 11:58 Urine WBC 3-5 /HPF (0-5) 09/06/21 11:58 Ur Squamous Epith Cells Rare /HPF (NEGATIVE) 09/06/21 11:58 Amorphous Sediment 1+ /HPF (NEGATIVE) 09/06/21 11:58 Urine Bacteria 2+ /HPF (NEGATIVE) 09/06/21 11:58 Ur Culture Indicated? Yes/culture set up 09/06/21 11:58 SARS-CoV-2 (PCR) Positive (NEGATIVE) A 09/06/21 11:48 Influenza Type A (PCR) Negative (NEGATIVE) 09/06/21 11:48 Influenza Type B (PCR) Negative (NEGATIVE) 09/06/21 11:48 RSV (PCR) Negative (NEGATIVE) 09/06/21 11:48 EKG Rate: 74 [place]: LAD Rhythm: Afib Block: None Hypertrophy: None ST: Nonsp Opioid Opioid Risk Tool Age (Bennett box if 16-45): No History of Preadolescent Sexual Abuse: No Total: 0 Total Score Risk Category: Low Risk Copyright: Christian CANALES predicting aberrant behaviors Diagnosis Discharge Problem: COVID-19 virus infection, Acute UTI
[2021-09-06 11:07] LABS: BASOPHILS # (AUTO) 0.1 X10^3/uL (0.0-0.1); BASOPHILS % (AUTO) 1.5 % (0.2-1.0); EOSINOPHILS % (AUTO) 0.5 % (0.9-2.9); HEMATOCRIT 37.1 % (36.0-47.0); HEMOGLOBIN 12.6 g/dL (12.0-16.0); LYMPHOCYTES % (AUTO) 39.3 % (21.0-51.0); MEAN CORPUSCULAR HEMOGLOBIN 31.4 pg (27.0-34.0); MEAN CORPUSCULAR VOLUME 92.3 fL (80.0-100.0); MEAN PLATELET VOLUME 7.5 fL (7.4-11.0); MONOCYTES # (AUTO) 0.8 x10^3/uL (0.3-0.8); MONOCYTES % (AUTO) 7.8 % (0.0-13.0); NEUTROPHILS # (AUTO) 5.2 x10^3/uL (2.2-4.8); NEUTROPHILS % (AUTO) 50.9 % (42.0-75.0); RED BLOOD COUNT 4.02 X10^6/uL (3.5-5.4); RED CELL DISTRIBUTION WIDTH 13.8 % (11.6-16.5); WHITE BLOOD COUNT 10.2 X10^3/uL (3.6-10.0)
[2021-09-06 11:32] LABS: ALANINE AMINOTRANSFERASE 53 Units/L (12-78); ALBUMIN 2.6 g/dL (3.4-5.0); ALKALINE PHOSPHATASE 102 Units/L (46-116); ASPARTATE AMINO TRANSFERASE 32 Units/L (15-37); BLOOD UREA NITROGEN 19 mg/dL (7-18); CARBON DIOXIDE 26.2 mmol/L (21-32); CHLORIDE 103 mmol/L (98-107); CKMB % 4.2 % (<4); COR CA(FOR HYPOALB) 9.1 mg/dL (8.5-10.1); CREATINE KINASE 24 Units/L (26-192); CREATINE KINASE MB < 1.0 ng/mL (0-4.0); CREATININE 0.86 mg/dL (0.55-1.02); LIPASE 64 Units/L (73-393); SODIUM 138 mmol/L (136-145); TOTAL PROTEIN 6.7 g/dL (6.4-8.2); eGFR NON BLACK RACES > 60 (>60)
[2021-09-06 12:17] LABS: BILIRUBIN,URINE NEGATIVE (NEGATIVE); BLOOD/HEMOGLOBIN,URINE 1+ (NEGATIVE); GLUCOSE, URINE NEGATIVE (NEGATIVE); KETONES,URINE NEGATIVE (NEGATIVE); LEUKOCYTE ESTERASE ,URINE 1+ (NEGATIVE); NITRITES,URINE POSITIVE (NEGATIVE); PROTEIN,URINE 2+ (NEGATIVE); UROBILINOGEN,URINE NORMAL (NORMAL)
[2021-09-06 12:18] LABS: APPEARANCE,URINE CLEAR (CLEAR); COLOR,URINE YELLOW (YELLOW)
[2021-09-06 12:25] LABS: BACTERIA,URINE 2+ /HPF (NEGATIVE); SQUAMOUS EPITHELIAL CELL,UR RARE /HPF (NEGATIVE)
--- NOTE | 2021-09-06 12:57 | RAD ---
HISTORYHTN, ABD SURGERY, HYST, JOINT REPLACEMENT, SPINAL STIMULATOR Pt has had poor PO intake x2 days, c/o weakness, possible dehydration, odorous urine, some confusion. Pt's son recently and she was talking to him this morning, per spouse. Pt was dx with COVID 2 weeks ago.STUDYCHEST, 1 VIEWCOMPARISONSeptember 2019FINDINGSThe trachea is deviated to the left secondary to rotation. The cardiac silhouette is enlarged stable. The lungs are clear without focal infiltrate or effusion. The bony thorax is unremarkable. There is a stable thoracic spinal cord stimulator in place.IMPRESSIONNo acute cardiopulmonary disease.Electronically signed by: JOSHUA ONEILL (Sep 06, 2021 12:56:10)
[2021-09-06] MEDS ORDERED: ROCEPHIN 1 GRAM IV PREMIX 1 G/50 ML IV.SOLN. IV ONE (15:50)
[2021-09-06] MEDS: ROCEPHIN 1 GRAM IV PREMIX 1 G/50 ML IV.SOLN. IV SCH (16:11)
[2021-09-06] MEDS ORDERED: BROVANA ONE (19:32)
[2021-09-06] MEDS ORDERED: PULMICORT NEB TX 0.5 MG NEB ONE (19:32)
[2021-09-06] MEDS ORDERED: PATIENT'S HOME MEDICATION (Melatonin 10 mg Tablet) PO SCH (21:28)
[2021-09-06] MEDS ORDERED: TYLENOL 325 MG TAB PO PRN (21:43)
[2021-09-06] MEDS: BROVANA IN SCH (21:45)
[2021-09-06] MEDS: PULMICORT NEB TX 0.5 MG NEB SCH (21:45)
[2021-09-06] MEDS ORDERED: TYLENOL 325 MG TAB PO ONE (22:07)
[2021-09-06] MEDS ORDERED: NS 1,000 ML IV 1,000 ML ONE (22:07)
[2021-09-06] MEDS: ATIVAN TAB 0.5 MG PO SCH (22:58)
[2021-09-06] MEDS: ELIQUIS PO SCH (22:58)
[2021-09-06] MEDS: LOPRESSOR TAB 25 MG PO SCH (23:00)
[2021-09-06] MEDS: PROTONIX TAB 40 MG PO SCH (23:01)
[2021-09-06] MEDS: REQUIP PO SCH (23:02)
[2021-09-06] MEDS: VITAMIN D3 125 mcg (5,000 UNITS) PO SCH (23:03)
[2021-09-07 05:30] LABS: BASOPHILS % (AUTO) 0.3 % (0.2-1.0); EOSINOPHILS % (AUTO) 0.4 % (0.9-2.9); HEMATOCRIT 34.6 % (36.0-47.0); HEMOGLOBIN 11.7 g/dL (12.0-16.0); LYMPHOCYTES # (AUTO) 3.6 X10^3/uL (1.3-2.9); LYMPHOCYTES % (AUTO) 39.5 % (21.0-51.0); MEAN CORPUSCULAR HEMOGLOBIN 31.3 pg (27.0-34.0); MEAN CORPUSCULAR HGB CONC 33.8 g/dL (33.0-35.0); MEAN CORPUSCULAR VOLUME 92.5 fL (80.0-100.0); MONOCYTES # (AUTO) 0.7 x10^3/uL (0.3-0.8); MONOCYTES % (AUTO) 7.7 % (0.0-13.0); NEUTROPHILS # (AUTO) 4.8 x10^3/uL (2.2-4.8); NEUTROPHILS % (AUTO) 52.1 % (42.0-75.0); RED BLOOD COUNT 3.74 X10^6/uL (3.5-5.4); RED CELL DISTRIBUTION WIDTH 13.8 % (11.6-16.5); WHITE BLOOD COUNT 9.1 X10^3/uL (3.6-10.0)
[2021-09-07 05:45] LABS: ALANINE AMINOTRANSFERASE 43 Units/L (12-78); ALBUMIN 2.4 g/dL (3.4-5.0); ALKALINE PHOSPHATASE 92 Units/L (46-116); ASPARTATE AMINO TRANSFERASE 33 Units/L (15-37); BLOOD UREA NITROGEN 17 mg/dL (7-18); CALCIUM 7.6 mg/dL (8.5-10.1); CARBON DIOXIDE 23.6 mmol/L (21-32); CHLORIDE 105 mmol/L (98-107); COR CA(FOR HYPOALB) 8.9 mg/dL (8.5-10.1); CREATININE 0.85 mg/dL (0.55-1.02); SODIUM 138 mmol/L (136-145); TOTAL PROTEIN 6.4 g/dL (6.4-8.2); eGFR NON BLACK RACES > 60 (>60)
[2021-09-07] MEDS: PULMICORT NEB TX 0.5 MG NEB SCH ×2 (08:18→20:20)
[2021-09-07] MEDS: BROVANA IN SCH ×2 (08:18→20:20)
[2021-09-07] MEDS ORDERED: POTASSIUM CHL 40 MEQ/NS 0.45% 500 ML IV PRN (08:23)
[2021-09-07] MEDS ORDERED: POTASSIUM CHL 60 MEQ/NS 0.45% 500 ML IV PRN (08:23)
[2021-09-07] MEDS ORDERED: K-DUR TAB 20 MEQ PO PRN (08:23)
[2021-09-07] MEDS ORDERED: POTASSIUM CHLORIDE LIQ 20 MEQ UDC PO PRN (08:23)
[2021-09-07] MEDS ORDERED: MICRO K EXTEN CAP 10 MEQ PO PRN (08:23)
[2021-09-07] MEDS ORDERED: KLOR-CON PO PRN (08:23)
[2021-09-07] MEDS ORDERED: K-RIDER 10 MEQ/NS 100 ML 10 MEQ/100 ML BAG IV PRN (08:23)
[2021-09-07] MEDS ORDERED: PATIENT'S HOME MEDICATION (Zinc 50 mg Capsule) PO SCH (09:00)
[2021-09-07] MEDS: OXYBUTYNIN CHLORIDE ER PO SCH (09:01)
[2021-09-07] MEDS: CYMBALTA PO SCH (09:01)
[2021-09-07] MEDS: ELIQUIS PO SCH ×2 (09:01→21:07)
[2021-09-07] MEDS: LOPRESSOR TAB 25 MG PO SCH ×2 (09:01→21:08)
[2021-09-07] MEDS: ZINC SULFATE PO SCH (09:02)
[2021-09-07] MEDS: PROTONIX TAB 40 MG PO SCH ×2 (09:02→21:09)
[2021-09-07] MEDS: SINGULAIR TAB 10 MG PO SCH (09:02)
[2021-09-07] MEDS: ATIVAN TAB 0.5 MG PO SCH ×2 (09:02→21:06)
[2021-09-07] MEDS: SYNTHROID 100 mcg TAB PO SCH (09:02)
[2021-09-07] MEDS: CARDIZEM CD 120 MG 24-HR PO SCH (09:02)
[2021-09-07] MEDS: VITAMIN C PO SCH (09:03)
[2021-09-07] MEDS: ROCEPHIN 1 GRAM IV PREMIX 1 G/50 ML IV.SOLN. IV SCH (09:03)
--- NOTE | 2021-09-07 09:35 | DR.H&P ---
H&P - History & Physical for Day of: H&P Date: 09/06/21 - Chief Complaint Chief Complaint: COUGH, SOB, POOR ORAL INTAKE, INCREASED WEAKNESS, ODOROUS URINE, INCREASED CONFUSION - History of Present Illness History of Present Illness: IS A 76 YEAR OLD PATIENT OF OURS. SHE PRESENTED TO THE ER VIA EMS WITH COMPLAINTS OF COUGH, SHORTNESS OF BREATH, POOR INTAKE, INCREASED WEAKNESS, DEHYDRATION, ODOROUS URINE, AND INCREASED CONFUSION. PATIENT WAS REPORTEDLY DIAGNOSED WITH COVID-19 TWO WEEKS AGO. EMS REPORTS THAT ON SCENE, HER SATURATIONS WERE 90% ON ROOM AIR. OXYGEN VIA NASAL CANNULA AT 2 LPM WAS APPLIED AND SATURATIONS INCREASED TO THE HIGH 90s. PATIENTS SPOUSE REPORTS THAT THEIR SON RECENTLY AND PATIENT HAS HAD A DECLINE IN HEALTH SINCE. PATIENT HAS TAKEN IVERMECTIN, AZITHROMYCIN, FLUVOXAMINE, AND A MEDROL DOSEPACK FOR TREATMENT OF COVID. ON ARRIVAL TO THE ER, HER VITALS WERE 98.3-86-18-95%-120/59. LABS WERE OBTAINED. WBC 10.2, HGB 12.6, HCT 37.1, D-DIMER 0.37, SODIUM 138, POTASISUM 4.0, BUN 19, CREATININE 0.86, CALCIUM 8.0, CREATINE KINASE 24, ALBUMIN 2.6, LIPASE 64, CRP 94.30, BNP 81.9. URINALYSIS REVEALED: WBC 3-5, RBC 3-5, LEUKOCYTES 1+, BACTERIA 2+, NITRITE POSITIVE. A URINE CULTURE AND BLOOD CULTURES WERE SET UP. COVID-19 POSITIVE. A CHEST XRAY WAS OBTAINED AND REVEALED: No acute cardiopulmonary disease. EKG REVEALED: ATRIAL FIBRILLATION WITH HR 74. IN THE ER, SHE WAS GIVEN A NORMAL SALINE BOLUS. SHE WAS ADMITTED TO THE HOSPITAL FOR FURTHER EVALUATION AND TREATMENT OF COVID-19, UTI, GENERALIZED WEAKNESS, AMS. SHE WAS STARTED ON NORAML SALINE AT KVO, ROCEPHIN 1G IV DAILY, THE POTASSIUM AND MAGNESIUM PROTOCOLS, BROVANA INHALER BID, PULMICORT NEBS BID, AND HER HOME MEDICATIONS WERE RESUMED. OTHERWISE, WE PLAN TO FOLLOW UP WITH AM LABS AND CONTINUE TO MONITOR. TIME SPENT ON CLINICAL ASSESSMENT, REVIEWING LABS AND IMAGING, DECISION MAKING, AND DOCUMENTATION GREATER THAN 75 MINUTES. - Past Medical History Past Medical History: Hypertension, Hypothyroidism, GERD, Arthritis, Kidney Stones Additional Medical History: Lupus, Cataracts, Sleep Apnea (CPAP at home), Atrial Fibrillation, Hx IBS, Hiatal Hernia, Fibromyalgia, Chronic Back Pain, Hx DVT, Pancreatitis - Past Surgical History Surgical History: Abdominal Surgery, Hysterectomy, Ortho Surgery Additional Surgical History: Bladder Tack, Breast Reduction, Fissurectomy, Hemorroidectomy, Cardiac Ablation, Back Stimulator - Family History Family Medical History: Diabetes Mellitus, Cancer, [place], Heart Failure, Hypertension - Social History Does patient currently use any type of tobacco product: No Have you used tobacco products in the last 12 months: No Type of Tobacco Use: None Does any household member use tobacco: No Alcohol Use: None Drug Use: None - Medications Home Medications: adhesive tape Allergy (Verified 09/06/21 10:10) ciprofloxacin Allergy (Verified 09/06/21 10:10) ITCHING, REDNESS oxycodone [From Percocet] Allergy (Verified 09/06/21 10:10) Penicillins Allergy (Verified 09/06/21 10:10) CONTINUE taking the following medications apixaban [Eliquis] 5 mg PO BID 09/06/21 [History] ascorbic acid (vitamin C) [Vitamin C] 500 mg PO DAILY 09/06/21 [History] cholecalciferol (vitamin D3) [Vitamin D3] 125 mcg PO ONCE 09/06/21 [History] diltiazem HCl 120 mg PO DAILY 09/06/21 [History] duloxetine 60 mg PO DAILY 09/06/21 [History] fluconazole 150 mg PO DAILY 09/06/21 [History] geriatric multivitamin-min [One-A-Day 50 Plus] 1 tab PO DAILY 09/06/21 [History] hydrocodone-acetaminophen 1 tab PO QID 09/06/21 [History] levothyroxine 100 mcg PO DAILY 09/06/21 [History] lorazepam 0.5 mg PO BID 09/06/21 [History] meclizine 25 mg PO TID 09/06/21 [History] melatonin 10 mg PO HS 09/06/21 [History] metoprolol tartrate 12.5 mg PO BID 09/06/21 [History] montelukast 10 mg PO DAILY 09/06/21 [History] oxybutynin chloride 15 mg PO DAILY 09/06/21 [History] pantoprazole 40 mg PO BID 09/06/21 [History] risperidone 0.5 mg PO HS 09/06/21 [History] ropinirole 0.25 mg PO HS 09/06/21 [History] vitamin [id number] 1.5 ml IM WEEKLY 09/06/21 [History] zinc 50 mg PO DAILY 09/06/21 [History] - Review of Systems Constitutional: Weakness, Malaise Eyes: No Symptoms Reported ENT: No Symptoms Reported Respiratory: Cough, Shortness of Breath Cardiovascular: No Symptoms Reported Gastrointestinal: No Symptoms Reported Genitourinary: See HPI Musculoskeletal: No Symptoms Reported Skin: No Symptoms Reported Neurological: Weakness, Confusion - Physical Exam Vital Signs: Temperature 98.1 F Pulse Rate [Left Brachial] 90 Pulse Rate 76 Respiratory Rate 28 Blood Pressure [Left Arm] 128/61 Blood Pressure [Right Arm] 175/73 Blood Pressure 121/63 O2 Sat by Pulse Oximetry 99 Oriented: Normal Eyes: Normal Ear: Normal Nose: Normal Throat: Normal Respiratory: Diminished Throughout Cardiovascular: Normal : Normal Auscultation: Bowel Sounds: Normal Palpation: Normal Tenderness: Normal Skin: Decreased [place] Musculoskeletal: Normal Psychiatric: Normal Mood Description: Calm Affect: Normal Speech Pattern: Inappropriate - Assessment/Plan (1) UTI (urinary tract infection) Qualifiers: Urinary tract infection type: acute cystitis Hematuria presence: with hematuria Qualified Code(s): N30.01 - Acute cystitis with hematuria Status: Acute Plan: ADMIT, NORAML SALINE AT KVO, ROCEPHIN 1G IV DAILY, THE POTASSIUM AND MAGNESIUM PROTOCOLS, BROVANA INHALER BID, PULMICORT NEBS BID, AND HER HOME MEDICATIONS WERE RESUMED. (2) COVID-19 virus infection Status: Acute (3) Upper respiratory infection Qualifiers: URI type: unspecified URI Qualified Code(s): J06.9 - Acute upper respiratory infection, unspecified Status: Acute (4) Generalized weakness Status: Acute (5) Altered mental status Qualifiers: Altered mental status type: transient alteration of awareness Qualified Code(s): R40.4 - Transient alteration of awareness Status: Acute - Allergies Allergies/Adverse Reactions: Allergies Allergy/AdvReac Type Severity Reaction Status Date / Time adhesive tape Allergy Verified 09/06/21 10:10 ciprofloxacin Allergy ITCHING, Verified 09/06/21 10:10 REDNESS oxycodone [From Percocet] Allergy Verified 09/06/21 10:10 Penicillins Allergy Verified 09/06/21 10:10
[2021-09-07 11:46] VITALS: BMI 38.5
[2021-09-07] MEDS ORDERED: NORCO 10/325 TAB PO PRN (15:02)
[2021-09-07] MEDS: MAGNESIUM SULFATE 1 GRAM/100 mL PREMIX 1 G/100 ML BAG IV PRN ×2 (15:02→16:40)
[2021-09-07] MEDS ORDERED: VITAMIN D3 125 mcg (5,000 UNITS) ONE (21:02)
[2021-09-07] MEDS: VITAMIN D3 125 mcg (5,000 UNITS) PO SCH (21:07)
[2021-09-07] MEDS: MELATONIN PO SCH (21:07)
[2021-09-07] MEDS: REQUIP PO SCH (21:09)
--- NOTE | 2021-09-08 05:21 | RAD ---
HISTORYSOB HTN, ABD SURGERY, HYST, JOINT REPLACEMENT, SPINAL STIMULATORSTUDYCHEST, 1 [id number]/2022 theFINDINGSThe trachea is midline. The cardiac silhouette is enlarged. The lungs are clear without focal infiltrate or effusion. The bony thorax is unremarkable. Thoracic spinal cord stimulator again noted.IMPRESSIONMild cardiomegaly.No active cardiopulmonary disease.Electronically signed by: Rios Goldstein (Sep 08, 2021 05:19:51)
[2021-09-08 05:26] LABS: BASOPHILS % (AUTO) 0.5 % (0.2-1.0); EOSINOPHILS # (AUTO) 0.1 x10^3/uL (0.0-0.2); EOSINOPHILS % (AUTO) 1.5 % (0.9-2.9); HEMOGLOBIN 11.5 g/dL (12.0-16.0); LYMPHOCYTES # (AUTO) 2.7 X10^3/uL (1.3-2.9); LYMPHOCYTES % (AUTO) 34.8 % (21.0-51.0); MEAN CORPUSCULAR HEMOGLOBIN 31.1 pg (27.0-34.0); MEAN CORPUSCULAR HGB CONC 33.9 g/dL (33.0-35.0); MEAN CORPUSCULAR VOLUME 91.9 fL (80.0-100.0); MEAN PLATELET VOLUME 7.8 fL (7.4-11.0); MONOCYTES # (AUTO) 0.6 x10^3/uL (0.3-0.8); MONOCYTES % (AUTO) 7.5 % (0.0-13.0); NEUTROPHILS # (AUTO) 4.3 x10^3/uL (2.2-4.8); NEUTROPHILS % (AUTO) 55.7 % (42.0-75.0); RED CELL DISTRIBUTION WIDTH 13.9 % (11.6-16.5); WHITE BLOOD COUNT 7.8 X10^3/uL (3.6-10.0)
[2021-09-08 05:45] LABS: ALANINE AMINOTRANSFERASE 35 Units/L (12-78); ALBUMIN 2.3 g/dL (3.4-5.0); ALKALINE PHOSPHATASE 90 Units/L (46-116); ASPARTATE AMINO TRANSFERASE 29 Units/L (15-37); BLOOD UREA NITROGEN 12 mg/dL (7-18); CALCIUM 7.6 mg/dL (8.5-10.1); CARBON DIOXIDE 25.3 mmol/L (21-32); CHLORIDE 106 mmol/L (98-107); COR NA(FOR HYPERGLY) 140 mmol/L (136-145); SODIUM 140 mmol/L (136-145); TOTAL PROTEIN 6.3 g/dL (6.4-8.2); eGFR NON BLACK RACES > 60 (>60)
[2021-09-08] MEDS: CARDIZEM CD 120 MG 24-HR PO SCH (08:14)
[2021-09-08] MEDS: ATIVAN TAB 0.5 MG PO SCH ×2 (08:14→20:21)
[2021-09-08] MEDS: ROCEPHIN 1 GRAM IV PREMIX 1 G/50 ML IV.SOLN. IV SCH (08:14)
[2021-09-08] MEDS: PROTONIX TAB 40 MG PO SCH ×2 (08:14→20:22)
[2021-09-08] MEDS: SINGULAIR TAB 10 MG PO SCH (08:15)
[2021-09-08] MEDS: OXYBUTYNIN CHLORIDE ER PO SCH (08:15)
[2021-09-08] MEDS: ELIQUIS PO SCH ×2 (08:15→20:21)
[2021-09-08] MEDS: ZINC SULFATE PO SCH (08:15)
[2021-09-08] MEDS: VITAMIN C PO SCH (08:15)
[2021-09-08] MEDS: LOPRESSOR TAB 25 MG PO SCH ×2 (08:15→20:21)
[2021-09-08] MEDS: CYMBALTA PO SCH (08:15)
[2021-09-08] MEDS: SYNTHROID 100 mcg TAB PO SCH (08:15)
[2021-09-08] MEDS: PULMICORT NEB TX 0.5 MG NEB SCH ×2 (08:24→20:58)
[2021-09-08] MEDS: BROVANA IN SCH ×2 (08:24→20:58)
[2021-09-08] MEDS: MELATONIN PO SCH (20:21)
[2021-09-08] MEDS: REQUIP PO SCH (20:22)
[2021-09-08] MEDS: VITAMIN D3 125 mcg (5,000 UNITS) PO SCH (20:54)
--- NOTE | 2021-09-09 05:44 | RAD ---
HISTORYSOB HTN, ABD SURGERY, HYST, JOINT REPLACEMENT, SPINAL STIMULATORSTUDYCHEST, 1 [id number] trachea is midline. The cardiac silhouette is mildly enlarged.. The lungs are clear without focal infiltrate or effusion. The bony thorax is unremarkable. Thoracic spinal cord stimulator again noted.IMPRESSIONMild cardiomegaly.No active cardiopulmonary disease.Electronically signed by: Rios Goldstein (Sep 09, 2021 05:43:21)
[2021-09-09 06:25] LABS: ALANINE AMINOTRANSFERASE 32 Units/L (12-78); ALBUMIN 2.2 g/dL (3.4-5.0); ALKALINE PHOSPHATASE 90 Units/L (46-116); ASPARTATE AMINO TRANSFERASE 24 Units/L (15-37); BLOOD UREA NITROGEN 9 mg/dL (7-18); CALCIUM 7.6 mg/dL (8.5-10.1); CARBON DIOXIDE 23.9 mmol/L (21-32); CHLORIDE 110 mmol/L (98-107); COR NA(FOR HYPERGLY) 143 mmol/L (136-145); CREATININE 0.69 mg/dL (0.55-1.02); SODIUM 143 mmol/L (136-145); TOTAL PROTEIN 6.1 g/dL (6.4-8.2); eGFR NON BLACK RACES > 60 (>60)
[2021-09-09 06:28] LABS: BASOPHILS % (AUTO) 0.4 % (0.2-1.0); EOSINOPHILS # (AUTO) 0.2 x10^3/uL (0.0-0.2); EOSINOPHILS % (AUTO) 2.9 % (0.9-2.9); HEMATOCRIT 33.3 % (36.0-47.0); HEMOGLOBIN 11.2 g/dL (12.0-16.0); LYMPHOCYTES # (AUTO) 2.7 X10^3/uL (1.3-2.9); LYMPHOCYTES % (AUTO) 40.1 % (21.0-51.0); MEAN CORPUSCULAR HEMOGLOBIN 31.3 pg (27.0-34.0); MEAN CORPUSCULAR HGB CONC 33.7 g/dL (33.0-35.0); MEAN CORPUSCULAR VOLUME 92.8 fL (80.0-100.0); MEAN PLATELET VOLUME 8.1 fL (7.4-11.0); MONOCYTES # (AUTO) 0.5 x10^3/uL (0.3-0.8); MONOCYTES % (AUTO) 7.7 % (0.0-13.0); NEUTROPHILS # (AUTO) 3.3 x10^3/uL (2.2-4.8); NEUTROPHILS % (AUTO) 48.9 % (42.0-75.0); RED BLOOD COUNT 3.59 X10^6/uL (3.5-5.4); RED CELL DISTRIBUTION WIDTH 14.1 % (11.6-16.5); WHITE BLOOD COUNT 6.8 X10^3/uL (3.6-10.0)
[2021-09-09] MEDS: ATIVAN TAB 0.5 MG PO SCH ×2 (08:25→20:28)
[2021-09-09] MEDS: ELIQUIS PO SCH ×2 (08:27→20:28)
[2021-09-09] MEDS: CARDIZEM CD 120 MG 24-HR PO SCH (08:27)
[2021-09-09] MEDS: LOPRESSOR TAB 25 MG PO SCH ×2 (08:27→20:29)
[2021-09-09] MEDS: CYMBALTA PO SCH (08:27)
[2021-09-09] MEDS: VITAMIN C PO SCH (08:28)
[2021-09-09] MEDS: PROTONIX TAB 40 MG PO SCH ×2 (08:28→20:29)
[2021-09-09] MEDS: SINGULAIR TAB 10 MG PO SCH (08:28)
[2021-09-09] MEDS: OXYBUTYNIN CHLORIDE ER PO SCH (08:28)
[2021-09-09] MEDS: ROCEPHIN 1 GRAM IV PREMIX 1 G/50 ML IV.SOLN. IV SCH (08:29)
[2021-09-09] MEDS: ZINC SULFATE PO SCH (08:29)
[2021-09-09] MEDS: SYNTHROID 100 mcg TAB PO SCH (08:30)
[2021-09-09] MEDS: BROVANA IN SCH ×2 (08:49→20:13)
[2021-09-09] MEDS: PULMICORT NEB TX 0.5 MG NEB SCH ×2 (08:49→20:13)
--- NOTE | 2021-09-09 09:35 | PCM.PROG ---
Progress Note - Progress Note for Day of Date of Exam: 09/08/21 - Subjective Subjective: WAS ADMITTED FOR TREATMENT OF UTI, UPPER RESPIRATORY INFECTION, COVID-19, GENERALIZED WEAKNESS, AND ALTERED MENTAL STATUS. TODAY, SHE IS ALERT AND ORIENTED, SITTING UP IN BED ON MORNING ROUNDS. SHE CONTINUES WITH COMPLAINTS OF COUGH, SHORTNESS OF BREATH, AND GENERALIZED WEAKNESS. SPOUSE REPORTS THAT SHE CONTINUES WITH CONFUSION AND HALLUCINATIONS AT TIMES. ON EXAMINATION, HEART IS REGULAR IN RATE AND RHYTHM. BILATERAL LUNGS NOTED WITH DIMINISHED LUNG SOUNDS THROUGHOUT. ABDOMEN IS ROUND, SOFT, AND NON-TENDER WITH NORMAL BOWEL SOUNDS NOTED IN ALL QUADRANTS. THURMAN CATHETER NOTED TO BEDSIDE DRAINAGE. HER VITALS THIS MORNING ARE: 99.3-71-18-98%-123/60. LABS WERE OBTAINED. ABNORMAL LAB VALUES INCLUDE THE FOLLOWING: HGB 11.2, HCT 33.3, CHLORIDE 110, GLUCOSE 117, CALCIUM 7.6, CRP 46.40, BNP 92.9, TOTAL PROTEIN 6.1, ALBUMIN 2.2. URINE AND BLOOD CULTURES ARE PENDING. PRELIMINARY URINE CULTURE REPORTS GROWTH OF GRAM NEGATIVE RODS. A CHEST XRAY WAS OBTAINED AND REVEALED: Mild cardiomegaly. No active cardiopulmonary disease. SHE IS CURRENTLY RECEIVING NORAML SALINE AT KVO, ROCEPHIN 1G IV DAILY, THE POTASSIUM AND MAGNESIUM PROTOCOLS, BROVANA INHALER BID, PULMICORT NEBS BID, AND HER HOME MEDICATIONS WERE RESUMED. WE WILL CONTINUE WITH CURRENT PLAN OF CARE TODAY. OTHERWISE, WE PLAN TO FOLLOW UP WITH AM LABS AND CONTINUE TO MONITOR. TIME SPENT ON CLINICAL ASSESSMENT, REVIEWING LABS AND IMAGING, DECISION MAKING, AND DOCUMENTATION GREATER THAN 45 MINUTES. - Past Medical Family Social History Past Med/Fam/Surg Hx: No changes since H&P Allergies: Allergies adhesive tape Allergy (Verified 09/06/21 10:10) ciprofloxacin Allergy (Verified 09/06/21 10:10) ITCHING, REDNESS oxycodone [From Percocet] Allergy (Verified 09/06/21 10:10) Penicillins Allergy (Verified 09/06/21 10:10) - Review of Systems ROS: No change since H&P - Vital Signs and I&O's Vital Signs: Temperature 98.0 F Pulse Rate [Left Brachial] 90 Pulse Rate 73 Respiratory Rate 24 Blood Pressure [Left Arm] 128/61 Blood Pressure [Right Arm] 175/73 Blood Pressure 122/58 O2 Sat by Pulse Oximetry 98 Intake and Output: Intake & Output 09/06/21 09/07/21 09/08/21 09/09/21 11:59 11:59 11:59 11:59 Intake Total 145 / 145 1450 / 1450 1155 / 1155 Output Total 425 / 425 875 / 875 500 / 500 Balance -280 / -280 575 / 575 655 / 655 - Physical Exam Oriented: Normal Eyes: Normal Ear: Normal Nose: Normal Throat: Normal Respiratory: Generalized, Diminished Cardiovascular: Normal : Normal Auscultation: Bowel Sounds: Normal Palpation: Normal Tenderness: Normal Skin: Normal Musculoskeletal: Normal Psychiatric: Normal Mood Description: Calm Affect: Normal Speech Pattern: Clear, Appropriate - Laboratory and Diagnostics Result Diagrams: 09/09/21 04:50 09/09/21 04:50 Labs: 09/06/21 22:35 Blood Blood Culture - Preliminary 09/06/21 11:58 Urine,Catheterized Urine Culture - Final Klebsiella Pneumoniae 09/06/21 22:43 Blood Blood Culture - Preliminary Laboratory WBC 6.8 X10^3/uL (3.6-10.0) 09/09/21 04:50 RBC 3.59 X10^6/uL (3.5-5.4) 09/09/21 04:50 Hgb 11.2 g/dL (12.0-16.0) L 09/09/21 04:50 Hct 33.3 % (36.0-47.0) L 09/09/21 04:50 MCV 92.8 fL (80.0-100.0) 09/09/21 04:50 MCH 31.3 pg (27.0-34.0) 09/09/21 04:50 MCHC 33.7 g/dL (33.0-35.0) 09/09/21 04:50 RDW 14.1 % (11.6-16.5) 09/09/21 04:50 Plt Count 280 X10^3/uL (150.0-450.0) 09/09/21 04:50 MPV 8.1 fL (7.4-11.0) 09/09/21 04:50 Neut % (Auto) 48.9 % (42.0-75.0) 09/09/21 04:50 Lymph % (Auto) 40.1 % (21.0-51.0) 09/09/21 04:50 [place] % (Auto) 7.7 % (0.0-13.0) 09/09/21 04:50 Eos % (Auto) 2.9 % (0.9-2.9) 09/09/21 04:50 Baso % (Auto) 0.4 % (0.2-1.0) 09/09/21 04:50 Neut # (Auto) 3.3 x10^3/uL (2.2-4.8) 09/09/21 04:50 Lymph # (Auto) 2.7 X10^3/uL (1.3-2.9) 09/09/21 04:50 [place] # (Auto) 0.5 x10^3/uL (0.3-0.8) 09/09/21 04:50 Eos # (Auto) 0.2 x10^3/uL (0.0-0.2) 09/09/21 04:50 Baso # (Auto) 0.0 X10^3/uL (0.0-0.1) 09/09/21 04:50 Absolute Nucleated RBC 0.1 /100WBC 09/09/21 04:50 D-Dimer 0.37 ug/ml (0.0-0.57) 09/07/21 08:22 Sodium 143 mmol/L (136-145) 09/09/21 04:50 Corrected Sodium 143 mmol/L (136-145) 09/09/21 04:50 Potassium 3.9 mmol/L (3.5-5.1) 09/09/21 04:50 Chloride 110 mmol/L (98-107) H 09/09/21 04:50 Carbon Dioxide 23.9 mmol/L (21-32) 09/09/21 04:50 BUN 9 mg/dL (7-18) 09/09/21 04:50 Creatinine 0.69 mg/dL (0.55-1.02) 09/09/21 04:50 Est GFR (MDRD) Af Amer > 60 (>60) 09/09/21 04:50 Est GFR (MDRD) Non-Af > 60 (>60) 09/09/21 04:50 Glucose 117 mg/dL (65-99) H 09/09/21 04:50 POC Glucose (mg/dL) 111 mg/dL (65-99) H 09/09/21 05:05 Calcium 7.6 mg/dL (8.5-10.1) L 09/09/21 04:50 Corrected Calcium 9.0 mg/dL (8.5-10.1) 09/09/21 04:50 Magnesium 1.9 mg/dL (1.7-2.9) 09/07/21 04:54 Total Bilirubin 0.20 mg/dL (0.2-1.0) 09/09/21 04:50 AST 24 Units/L (15-37) 09/09/21 04:50 ALT 32 Units/L (12-78) 09/09/21 04:50 Alkaline Phosphatase 90 Units/L (46-116) 09/09/21 04:50 Creatine Kinase 24 Units/L (26-192) L 09/06/21 10:59 CK-MB (CK-2) < 1.0 ng/mL (0-4.0) 09/06/21 10:59 CK/CKMB % Calc 4.2 % (<4) 09/06/21 10:59 Troponin I High Sens 13.6 ng/L (4.0-60.0) 09/06/21 10:59 C-Reactive Protein 46.40 mg/L (0-3.0) H 09/09/21 04:50 B-Natriuretic Peptide 92.9 pg/mL (0-79) H 09/09/21 04:50 Total Protein 6.1 g/dL (6.4-8.2) L 09/09/21 04:50 Albumin 2.2 g/dL (3.4-5.0) L 09/09/21 04:50 Globulin 3.9 g/dL (2.5-4.5) 09/09/21 04:50 Albumin/Globulin Ratio 0.6 Ratio (1.1-2.1) L 09/09/21 04:50 Lipase 64 Units/L (73-393) L 09/06/21 10:59 Specimen Type Catherized urine 09/06/21 11:58 Urine Color Yellow (YELLOW) 09/06/21 11:58 Urine Appearance Clear (CLEAR) 09/06/21 11:58 Urine pH 5.0 (5.0 - 8.0) 09/06/21 11:58 Ur Specific [place] 1.025 (1.000-1.030) 09/06/21 11:58 Urine Protein 2+ (NEGATIVE) 09/06/21 11:58 Urine Glucose (UA) Negative (NEGATIVE) 09/06/21 11:58 Urine Ketones Negative (NEGATIVE) 09/06/21 11:58 Urine Occult Blood 1+ (NEGATIVE) 09/06/21 11:58 Urine Nitrite Positive (NEGATIVE) 09/06/21 11:58 Urine Bilirubin Negative (NEGATIVE) 09/06/21 11:58 Urine Urobilinogen Normal (NORMAL) 09/06/21 11:58 Ur Leukocyte Esterase 1+ (NEGATIVE) 09/06/21 11:58 Urine RBC 3-5 /HPF (0-3) A 09/06/21 11:58 Urine WBC 3-5 /HPF (0-5) 09/06/21 11:58 Ur Squamous Epith Cells Rare /HPF (NEGATIVE) 09/06/21 11:58 Amorphous Sediment 1+ /HPF (NEGATIVE) 09/06/21 11:58 Urine Bacteria 2+ /HPF (NEGATIVE) 09/06/21 11:58 Ur Culture Indicated? Yes/culture set up 09/06/21 11:58 SARS-CoV-2 (PCR) Positive (NEGATIVE) A 09/06/21 11:48 Influenza Type A (PCR) Negative (NEGATIVE) 09/06/21 11:48 Influenza Type B (PCR) Negative (NEGATIVE) 09/06/21 11:48 RSV (PCR) Negative (NEGATIVE) 09/06/21 11:48 - Plan (1) UTI (urinary tract infection) Status: Acute Qualifiers: Urinary tract infection type: acute cystitis Hematuria presence: with hematuria Qualified Code(s): N30.01 - Acute cystitis with hematuria Plan: NORMAL SALINE AT KVO, ROCEPHIN 1G IV DAILY, THE POTASSIUM AND MAGNESIUM PROTOCOLS, BROVANA INHALER BID, PULMICORT NEBS BID, AND HER HOME MEDICATIONS WERE RESUMED. (2) COVID-19 virus infection Status: Acute (3) Upper respiratory infection Status: Acute Qualifiers: URI type: unspecified URI Qualified Code(s): J06.9 - Acute upper respiratory infection, unspecified (4) Generalized weakness Status: Acute (5) Altered mental status Status: Acute Qualifiers: Altered mental status type: transient alteration of awareness Qualified Code(s): R40.4 - Transient alteration of awareness
--- NOTE | 2021-09-09 09:38 | PCM.PROG ---
Progress Note - Progress Note for Day of Date of Exam: 09/09/21 - Subjective Subjective: WAS ADMITTED FOR TREATMENT OF UTI, UPPER RESPIRATORY INFECTION, COVID-19, GENERALIZED WEAKNESS, AND ALTERED MENTAL STATUS. TODAY, SHE IS ALERT AND ORIENTED, SITTING UP IN BED ON MORNING ROUNDS. SHE CONTINUES WITH COMPLAINTS OF SHORTNESS OF BREATH AT TIMES AND GENERALIZED WEAKNESS. SPOUSE REPORTS THAT SHE CONTINUES WITH CONFUSION AND HALLUCINATIONS AT TIMES. ON EXAMINATION, HEART IS REGULAR IN RATE AND RHYTHM. BILATERAL LUNGS NOTED WITH DIMINISHED LUNG SOUNDS THROUGHOUT. ABDOMEN IS ROUND, SOFT, AND NON-TENDER WITH NORMAL BOWEL SOUNDS NOTED IN ALL QUADRANTS. HER VITALS THIS MORNING ARE: 98.0-64-24-95%-122/58. LABS WERE OBTAINED. ABNORMAL LAB VALUES INCLUDE THE FOLLOWING: HGB 11.2, HCT 33.3, CHLORIDE 110, GLUCOSE 117, CALCIUM 7.6, CRP 46.40, BNP 92.9, TOTAL PROTEIN 6.1, ALBUMIN 2.2. BLOOD CULTURES ARE PENDING. URINE CULTURE IS POSITIVE FOR GROWTH OF KLEBSIELLA PNEUMONIAE. A CHEST XRAY WAS OBTAINED AND REVEALED: Mild cardiomegaly. No active cardiopulmonary disease. SHE IS CURRENTLY RECEIVING NORAML SALINE AT KVO, ROCEPHIN 1G IV DAILY, THE POTASSIUM AND MAGNESIUM PROTOCOLS, BROVANA INHALER BID, PULMICORT NEBS BID, AND HER HOME MEDICATIONS WERE RESUMED. WE WILL CONTINUE WITH CURRENT PLAN OF CARE TODAY. OTHERWISE, WE PLAN TO FOLLOW UP WITH AM LABS AND CONTINUE TO MONITOR. TIME SPENT ON CLINICAL ASSESSMENT, REVIEWING LABS AND IMAGING, DECISION MAKING, AND DOCUMENTATION GREATER THAN 45 MINUTES. - Past Medical Family Social History Past Med/Fam/Surg Hx: No changes since H&P Allergies: Allergies adhesive tape Allergy (Verified 09/06/21 10:10) ciprofloxacin Allergy (Verified 09/06/21 10:10) ITCHING, REDNESS oxycodone [From Percocet] Allergy (Verified 09/06/21 10:10) Penicillins Allergy (Verified 09/06/21 10:10) - Review of Systems ROS: No change since H&P - Vital Signs and I&O's Vital Signs: Temperature 98.0 F Pulse Rate [Left Brachial] 90 Pulse Rate 73 Respiratory Rate 24 Blood Pressure [Left Arm] 128/61 Blood Pressure [Right Arm] 175/73 Blood Pressure 122/58 O2 Sat by Pulse Oximetry 98 Intake and Output: Intake & Output 09/06/21 09/07/21 09/08/21 09/09/21 11:59 11:59 11:59 11:59 Intake Total 145 / 145 1450 / 1450 1155 / 1155 Output Total 425 / 425 875 / 875 500 / 500 Balance -280 / -280 575 / 575 655 / 655 - Physical Exam Oriented: Normal Eyes: Normal Ear: Normal Nose: Normal Throat: Normal Respiratory: Generalized, Diminished Cardiovascular: Normal : Normal Auscultation: Bowel Sounds: Normal Palpation: Normal Tenderness: Normal Skin: Normal Musculoskeletal: Normal Psychiatric: Normal Mood Description: Calm Affect: Normal Speech Pattern: Clear, Appropriate - Laboratory and Diagnostics Result Diagrams: 09/09/21 04:50 09/09/21 04:50 Labs: 09/06/21 22:35 Blood Blood Culture - Preliminary 09/06/21 11:58 Urine,Catheterized Urine Culture - Final Klebsiella Pneumoniae 09/06/21 22:43 Blood Blood Culture - Preliminary Laboratory WBC 6.8 X10^3/uL (3.6-10.0) 09/09/21 04:50 RBC 3.59 X10^6/uL (3.5-5.4) 09/09/21 04:50 Hgb 11.2 g/dL (12.0-16.0) L 09/09/21 04:50 Hct 33.3 % (36.0-47.0) L 09/09/21 04:50 MCV 92.8 fL (80.0-100.0) 09/09/21 04:50 MCH 31.3 pg (27.0-34.0) 09/09/21 04:50 MCHC 33.7 g/dL (33.0-35.0) 09/09/21 04:50 RDW 14.1 % (11.6-16.5) 09/09/21 04:50 Plt Count 280 X10^3/uL (150.0-450.0) 09/09/21 04:50 MPV 8.1 fL (7.4-11.0) 09/09/21 04:50 Neut % (Auto) 48.9 % (42.0-75.0) 09/09/21 04:50 Lymph % (Auto) 40.1 % (21.0-51.0) 09/09/21 04:50 Scott % (Auto) 7.7 % (0.0-13.0) 09/09/21 04:50 Eos % (Auto) 2.9 % (0.9-2.9) 09/09/21 04:50 Baso % (Auto) 0.4 % (0.2-1.0) 09/09/21 04:50 Neut # (Auto) 3.3 x10^3/uL (2.2-4.8) 09/09/21 04:50 Lymph # (Auto) 2.7 X10^3/uL (1.3-2.9) 09/09/21 04:50 Scott # (Auto) 0.5 x10^3/uL (0.3-0.8) 09/09/21 04:50 Eos # (Auto) 0.2 x10^3/uL (0.0-0.2) 09/09/21 04:50 Baso # (Auto) 0.0 X10^3/uL (0.0-0.1) 09/09/21 04:50 Absolute Nucleated RBC 0.1 /100WBC 09/09/21 04:50 D-Dimer 0.37 ug/ml (0.0-0.57) 09/07/21 08:22 Sodium 143 mmol/L (136-145) 09/09/21 04:50 Corrected Sodium 143 mmol/L (136-145) 09/09/21 04:50 Potassium 3.9 mmol/L (3.5-5.1) 09/09/21 04:50 Chloride 110 mmol/L (98-107) H 09/09/21 04:50 Carbon Dioxide 23.9 mmol/L (21-32) 09/09/21 04:50 BUN 9 mg/dL (7-18) 09/09/21 04:50 Creatinine 0.69 mg/dL (0.55-1.02) 09/09/21 04:50 Est GFR (MDRD) Af Amer > 60 (>60) 09/09/21 04:50 Est GFR (MDRD) Non-Af > 60 (>60) 09/09/21 04:50 Glucose 117 mg/dL (65-99) H 09/09/21 04:50 POC Glucose (mg/dL) 111 mg/dL (65-99) H 09/09/21 05:05 Calcium 7.6 mg/dL (8.5-10.1) L 09/09/21 04:50 Corrected Calcium 9.0 mg/dL (8.5-10.1) 09/09/21 04:50 Magnesium 1.9 mg/dL (1.7-2.9) 09/07/21 04:54 Total Bilirubin 0.20 mg/dL (0.2-1.0) 09/09/21 04:50 AST 24 Units/L (15-37) 09/09/21 04:50 ALT 32 Units/L (12-78) 09/09/21 04:50 Alkaline Phosphatase 90 Units/L (46-116) 09/09/21 04:50 Creatine Kinase 24 Units/L (26-192) L 09/06/21 10:59 CK-MB (CK-2) < 1.0 ng/mL (0-4.0) 09/06/21 10:59 CK/CKMB % Calc 4.2 % (<4) 09/06/21 10:59 Troponin I High Sens 13.6 ng/L (4.0-60.0) 09/06/21 10:59 C-Reactive Protein 46.40 mg/L (0-3.0) H 09/09/21 04:50 B-Natriuretic Peptide 92.9 pg/mL (0-79) H 09/09/21 04:50 Total Protein 6.1 g/dL (6.4-8.2) L 09/09/21 04:50 Albumin 2.2 g/dL (3.4-5.0) L 09/09/21 04:50 Globulin 3.9 g/dL (2.5-4.5) 09/09/21 04:50 Albumin/Globulin Ratio 0.6 Ratio (1.1-2.1) L 09/09/21 04:50 Lipase 64 Units/L (73-393) L 09/06/21 10:59 Specimen Type Catherized urine 09/06/21 11:58 Urine Color Yellow (YELLOW) 09/06/21 11:58 Urine Appearance Clear (CLEAR) 09/06/21 11:58 Urine pH 5.0 (5.0 - 8.0) 09/06/21 11:58 Ur Specific [place] 1.025 (1.000-1.030) 09/06/21 11:58 Urine Protein 2+ (NEGATIVE) 09/06/21 11:58 Urine Glucose (UA) Negative (NEGATIVE) 09/06/21 11:58 Urine Ketones Negative (NEGATIVE) 09/06/21 11:58 Urine Occult Blood 1+ (NEGATIVE) 09/06/21 11:58 Urine Nitrite Positive (NEGATIVE) 09/06/21 11:58 Urine Bilirubin Negative (NEGATIVE) 09/06/21 11:58 Urine Urobilinogen Normal (NORMAL) 09/06/21 11:58 Ur Leukocyte Esterase 1+ (NEGATIVE) 09/06/21 11:58 Urine RBC 3-5 /HPF (0-3) A 09/06/21 11:58 Urine WBC 3-5 /HPF (0-5) 09/06/21 11:58 Ur Squamous Epith Cells Rare /HPF (NEGATIVE) 09/06/21 11:58 Amorphous Sediment 1+ /HPF (NEGATIVE) 09/06/21 11:58 Urine Bacteria 2+ /HPF (NEGATIVE) 09/06/21 11:58 Ur Culture Indicated? Yes/culture set up 09/06/21 11:58 SARS-CoV-2 (PCR) Positive (NEGATIVE) A 09/06/21 11:48 Influenza Type A (PCR) Negative (NEGATIVE) 09/06/21 11:48 Influenza Type B (PCR) Negative (NEGATIVE) 09/06/21 11:48 RSV (PCR) Negative (NEGATIVE) 09/06/21 11:48 - Plan (1) UTI (urinary tract infection) Status: Acute Qualifiers: Urinary tract infection type: acute cystitis Hematuria presence: with hematuria Qualified Code(s): N30.01 - Acute cystitis with hematuria Plan: NORMAL SALINE AT KVO, ROCEPHIN 1G IV DAILY, THE POTASSIUM AND MAGNESIUM PROTOCOLS, BROVANA INHALER BID, PULMICORT NEBS BID, AND HER HOME MEDICATIONS WERE RESUMED. (2) COVID-19 virus infection Status: Acute (3) Upper respiratory infection Status: Acute Qualifiers: URI type: unspecified URI Qualified Code(s): J06.9 - Acute upper respiratory infection, unspecified (4) Generalized weakness Status: Acute (5) Altered mental status Status: Acute Qualifiers: Altered mental status type: transient alteration of awareness Qualified Code(s): R40.4 - Transient alteration of awareness
[2021-09-09] MEDS: MELATONIN PO SCH (20:29)
[2021-09-09] MEDS: REQUIP PO SCH (20:29)
[2021-09-09] MEDS: VITAMIN D3 125 mcg (5,000 UNITS) PO SCH (20:29)
[2021-09-10 04:57] LABS: BASOPHILS # (AUTO) 0.2 X10^3/uL (0.0-0.1); BASOPHILS % (AUTO) 2.6 % (0.2-1.0); EOSINOPHILS # (AUTO) 0.2 x10^3/uL (0.0-0.2); EOSINOPHILS % (AUTO) 2.9 % (0.9-2.9); HEMATOCRIT 31.6 % (36.0-47.0); HEMOGLOBIN 10.8 g/dL (12.0-16.0); LYMPHOCYTES # (AUTO) 2.6 X10^3/uL (1.3-2.9); LYMPHOCYTES % (AUTO) 35.4 % (21.0-51.0); MEAN CORPUSCULAR HEMOGLOBIN 31.6 pg (27.0-34.0); MEAN CORPUSCULAR HGB CONC 34.3 g/dL (33.0-35.0); MEAN CORPUSCULAR VOLUME 92.2 fL (80.0-100.0); MONOCYTES # (AUTO) 0.4 x10^3/uL (0.3-0.8); MONOCYTES % (AUTO) 4.9 % (0.0-13.0); NEUTROPHILS # (AUTO) 3.9 x10^3/uL (2.2-4.8); NEUTROPHILS % (AUTO) 54.2 % (42.0-75.0); RED BLOOD COUNT 3.43 X10^6/uL (3.5-5.4); RED CELL DISTRIBUTION WIDTH 13.7 % (11.6-16.5); WHITE BLOOD COUNT 7.2 X10^3/uL (3.6-10.0)
[2021-09-10 05:15] LABS: ALANINE AMINOTRANSFERASE 26 Units/L (12-78); ALBUMIN 2.2 g/dL (3.4-5.0); ALKALINE PHOSPHATASE 91 Units/L (46-116); ASPARTATE AMINO TRANSFERASE 22 Units/L (15-37); BLOOD UREA NITROGEN 11 mg/dL (7-18); CALCIUM 7.8 mg/dL (8.5-10.1); CARBON DIOXIDE 23.1 mmol/L (21-32); CHLORIDE 109 mmol/L (98-107); COR CA(FOR HYPOALB) 9.2 mg/dL (8.5-10.1); COR NA(FOR HYPERGLY) 140 mmol/L (136-145); CREATININE 0.78 mg/dL (0.55-1.02); SODIUM 140 mmol/L (136-145); TOTAL PROTEIN 6.1 g/dL (6.4-8.2); eGFR NON BLACK RACES > 60 (>60)
--- NOTE | 2021-09-10 05:56 | RAD ---
HISTORYSOB, COVID+ HTN, ABD SURGERY, HYST, JOINT REPLACEMENT, SPINAL STIMULATORSTUDYCHEST, 1 [id number]/24/2022 aFINDINGSThe trachea is midline. The cardiac silhouette is mildly enlarged.. The lungs are clear without focal infiltrate or effusion. The bony thorax is unremarkable.IMPRESSIONMild cardiomegaly.No active cardiopulmonary disease.Electronically signed by: Rios Goldstein (Sep 10, 2021 05:54:47)
[2021-09-10] MEDS: ELIQUIS PO SCH (08:00)
[2021-09-10] MEDS: PROTONIX TAB 40 MG PO SCH (08:00)
[2021-09-10] MEDS: ATIVAN TAB 0.5 MG PO SCH (08:00)
[2021-09-10] MEDS: CYMBALTA PO SCH (08:00)
[2021-09-10] MEDS: OXYBUTYNIN CHLORIDE ER PO SCH (08:00)
[2021-09-10] MEDS: CARDIZEM CD 120 MG 24-HR PO SCH (08:00)
[2021-09-10] MEDS: LOPRESSOR TAB 25 MG PO SCH (08:00)
[2021-09-10] MEDS: ZINC SULFATE PO SCH (08:01)
[2021-09-10] MEDS: SINGULAIR TAB 10 MG PO SCH (08:01)
[2021-09-10] MEDS: VITAMIN C PO SCH (08:01)
[2021-09-10] MEDS: SYNTHROID 100 mcg TAB PO SCH (08:01)
[2021-09-10] MEDS: ROCEPHIN 1 GRAM IV PREMIX 1 G/50 ML IV.SOLN. IV SCH (08:01)
[2021-09-10] MEDS: BROVANA IN SCH (08:25)
[2021-09-10] MEDS: PULMICORT NEB TX 0.5 MG NEB SCH (08:25)
[2021-09-10 08:53] VITALS: BP 118/56
== END 2021-09-10 10:15 | disposition home health service (06) | DRG 178 ==
LOC: ER 10:09 → ICU 10:09
PROVIDERS: ADMIT Internal Medicine; ATTEND Internal Medicine

== ENCOUNTER 2022-02-07 01:06 | Inpatient (IN) ==
[2022-02-07 01:19] VITALS: BMI 35.5
--- NOTE | 2022-02-07 01:28 | DR.DIZZY ---
HPI Time seen Time Seen by Provider: 02/07/22 01:16 PCP Primary Care Physician: MD BLAIR HPI Comment HPI Comment: A 76 y/o female arriving by EMS with c/o: 1) light headed while her was helping her up form the bathroom/commode to get unto her wheelchair and also while trile to get from the wheelchair into bed and she slid down. 2): abdominal pain x 3 days. She can't describe it. Nurses Notes Reviewed Nurses Notes Review: Yes Source History Provided: Patient Mode of Arrival Mode of Arrival: EMS Timing Onset of Chief Complaint: 02/07/22 Came on: Suddenly Context Does pt take pot. toxic medication?: No Stroke Symptoms: None Severity Severity: Normal activity level Modifying factors Worsens: Change in Position Associated signs and symptoms Associated Signs and Symptoms: Faintness PMH PMH Past Medical History: Arthritis, CHF, Coronary Artery Disease, Depression, Diabetes, GERD, Hypertension, Hypothyroidism, Kidney Stones, Renal Disease and Sleep Apnea Past Surgical History: Yes Surgical History: Abdominal Surgery, Hysterectomy and Ortho Surgery Family History Family Medical History: Diabetes Mellitus, Cancer, [place], Heart Failure and Hypertension Social History Do you use any recreational Drugs:: No ROS Review of Systems Constitutional: No Symptoms Reported Eyes: No Symptoms Reported ENTM: No Symptoms Reported Respiratoy: No Symptoms Reported Cardiovascular: No Symptoms Reported Gastrointestinal/Abdominal: See HPI Genitourinary: No Symptoms Reported Neurological: Dizziness Musculoskeletal: No Symptoms Reported Integumentary: No Symptoms Reported Hematologic/Lymphatic: No Symptoms Reported Endocrine: No Symptoms Reported Psychiatric: No Symptoms Reported All Other Systems: Reviewed and Negative PE Vital Signs Vitals: Temperature 98 F Pulse Rate [Left Brachial] 90 Pulse Rate 91 Respiratory Rate 18 Blood Pressure [Left Arm] 108/54 Blood Pressure 114/58 O2 Sat by Pulse Oximetry 95 General Limitations: No Limitations General Appearance: Alert and In No Apparent Distress Head Head Exam: Normal Inspection, Atraumatic and Normocephalic Eyes Eye exam: Normal Appearance and EOMI ENT ENT Exam: Normal Exam, Normal Oropharynx and Normal External Ear Exam Neck Neck Exam: Normal Inspection, Full ROM and Trachea Midline Chest Chest Inspection: Normal Inspection and Symmetric Chest Wall Rise Respiratory Respiratory Exam: Normal Lung Sounds Bilat Cardiovascular Cardiovascular Exam: Regular Rate, Normal Rhythm, Normal Heart Sounds, +S1 and +S2 Abdominal Exam Abdominal Exam: Normal Inspection, Normal Bowel Sounds, Soft and Tenderness Abdominal Tenderness: LLQ Rectal Rectal Exam: Deferred Extremeties Extremities Exam: Normal Inspection and Full ROM Back Back Exam: Normal Inspection and Full ROM Neurologic Neurological Exam: Alert and Oriented X3 Psychiatric Psychiatric Exam: Normal Affect and Normal Mood Skin Skin Exam: Dry, Intact and Normal Color COURSE Treatment Treatment: compared to her admission in November 2021, her Alk. Phos is now about double what it was. AST,ALT and Alk. Phos seems elevated over the last 3 yrs. and have been rising. I did review her labs. with Dr. Rai, heagrees with recommendation to place her in-house for further testing. I then informed the pt. and her spouse of the paln of care and they are in agreement with this also. Reevaluation 1st: Improved Consultation Consultation Comments: Name: ALONDRA MCCAULEY#: [id number]: [id number]: [id number]: FLocation: EROrder Number(s): [id number](s):CHEST, 1 VIEW Ordering Physician: SKY ARIAS Primary Care: Vijay Rai Service Date: 02/07/22 Service Time: 0140 HISTORY PT C/O NAUSEA, DIZZINESS, WEAKNESS, ABDOMINAL PAIN CAD, HTN, DM, RENAL DISEASE, GERD, KIDNEY STONES, CHF SX: ABD SURG, HYST, ORTHO STUDY CHEST, 1 VIEW COMPARISON 09/09/2021 FINDINGS The trachea is midline. The cardiac silhouette is unremarkable. The lungs are clear without focal infiltrate or effusion. The bony thorax is unremarkable. Thoracic spinal cord stimulator again noted. IMPRESSION No acute cardiopulmonary findings . Electronically signed by: Rios Goldstein (Feb 07, 2022 02:01:14) Report Electronically signed: 02/07/22 0203 CC: Sky Arias Education/Counseling Education/Counseling: Patient, Family, Education and Counseling Educated On: Treatment, Diagnosis, Prognosis and Needs for Follow Up ROR Labs Reviewed Laboratory Results Reviewed?: Yes Result Diagrams: 02/07/22 01:27 02/07/22 01:27 Laboratory: WBC 12.4 X10^3/uL (3.6-10.0) H 02/07/22 01:27 RBC 3.98 X10^6/uL (3.5-5.4) 02/07/22 01: Hgb 12.6 g/dL (12.0-16.0) 02/07/22 01: Hct 38.5 % (36.0-47.0) 02/07/22 01: MCV 96.6 fL (80.0-100.0) 02/07/22 01: MCH 31.7 pg (27.0-34.0) 02/07/22 01: MCHC 32.8 g/dL (33.0-35.0) L 02/07/22 01: RDW 14.3 % (11.6-16.5) 02/07/22: Plt Count 331 X10^3/uL (150.0-450.0) 02/07/22 01: MPV 8.4 fL (7.4-11.0) 02/07/22 01: Neut % (Auto) 88.4 % (42.0-75.0) H 02/07/22 01: Lymph % (Auto) 9.2 % (21.0-51.0) L 02/07/22 01: [place] % (Auto) 2.1 % (0.0-13.0) 02/07/22: Eos % (Auto) 0.1 % (0.9-2.9) L 02/07/22 01: Baso % (Auto) 0.2 % (0.2-1.0) 02/07/22 01: Neut # (Auto) 10.9 x10^3/uL (2.2-4.8) H 02/07/22 01: Lymph # (Auto) 1.1 X10^3/uL (1.3-2.9) L 02/07/22 01: Mcdonald # (Auto) 0.3 x10^3/uL (0.3-0.8) 02/07/22 01: Eos # (Auto) 0.0 x10^3/uL (0.0-0.2) 02/07/22 01: Baso # (Auto) 0.0 X10^3/uL (0.0-0.1) 02/07/22 01: Absolute Nucleated RBC 0.1 /100WBC 02/07/22 01:27 Sodium 141 mmol/L (136-145) 02/07/22 01:27 Corrected Sodium 141 mmol/L (136-145) 02/07/22 01:27 Potassium 3.5 mmol/L (3.5-5.1) 02/07/22 01:27 Chloride 106 mmol/L (98-107) 02/07/22 01:27 Carbon Dioxide 23.8 mmol/L (21-32) 02/07/22 01:27 BUN 26 mg/dL (7-18) H 02/07/22 01:27 Creatinine 1.36 mg/dL (0.55-1.02) H 02/07/22 01:27 Est GFR (MDRD) Af Amer 49 (>60) L 02/07/22 01:27 Est GFR (MDRD) Non-Af 40 (>60) L 02/07/22 01:27 Glucose 120 mg/dL (65-99) H 02/07/22 01:27 Calcium 9.3 mg/dL (8.5-10.1) 02/07/22 01:27 Corrected Calcium 10.2 mg/dL (8.5-10.1) H 02/07/22 01:27 Total Bilirubin 0.70 mg/dL (0.2-1.0) 02/07/22 01:27 AST 106 Units/L (15-37) H 02/07/22 01:27 ALT 192 Units/L (12-78) H 02/07/22 01:27 Alkaline Phosphatase 545 Units/L (46-116) H 02/07/22 01:27 Total Protein 7.3 g/dL (6.4-8.2) 02/07/22 01:27 Albumin 2.9 g/dL (3.4-5.0) L 02/07/22 01:27 Globulin 4.4 g/dL (2.5-4.5) 02/07/22 01:27 Albumin/Globulin Ratio 0.7 Ratio (1.1-2.1) L 02/07/22 01:27 EKG Rate: 91 [place]: Normal Rhythm: NSR Block: None Hypertrophy: None ST: Normal Opioid Opioid Risk Tool Age (Bennett box if 16-45): No History of Preadolescent Sexual Abuse: No Total: 0 Total Score Risk Category: Low Risk Copyright: [facility] predicting aberrant behaviors Discharge Plan Diagnosis Discharge Problem: Dizziness, Abnormal LFTs Abdominal pain Qualifiers: Abdominal location: left lower quadrant Qualified Code(s): R10.32 - Left lower quadrant pain Discharge Plan Patient Disposition: ADMITTED INPATIENT Condition: Stable Prescriptions: No Action vitamin [id number] B1 1,000-100 mg/mL Solution 1.5 ml IM WEEKLY ascorbic acid (vitamin C) [Vitamin C] 500 mg Tablet 500 mg PO DAILY zinc 50 mg Capsule 50 mg PO DAILY One-A-Day 50 Plus Tablet 1 tab PO DAILY oxybutynin chloride 15 mg tablet extended release 24hr 1 tab PO QDAY ketoconazole 200 mg tablet 1 tab PO BID fluconazole 150 mg tablet 1 tab PO QDAY levothyroxine 100 mcg tablet 1 tab PO QDAY lorazepam 0.5 mg tablet 1 tab PO BID ropinirole 0.25 mg tablet 1 tab PO QPM meclizine 25 mg tablet 1 tab PO QID PRN pantoprazole 40 mg tablet,delayed release (DR/EC) 1 tab PO BID diltiazem HCl 120 mg capsule,extended release 24hr 1 cap PO QDAY montelukast 10 mg tablet 1 tab PO QDAY risperidone 1 mg tablet 1 tab PO QPM metoprolol tartrate 25 mg tablet 0.5 tab PO BID duloxetine 60 mg capsule,delayed release(DR/EC) 1 cap PO QDAY Eliquis 5 mg tablet 1 tab PO BID Health Concerns: Post Hospitalization: new medications and changes needed to prevent readmission or further decline. Pt educated and given instructions on all concerns. Plan of Treatment: Continue with present treatment and follow up plan. Pt is to keep follow up appointment as instructed and take medications as ordered. Orders to Discharge Patient Discharge Orders: Transfer (Routine); Ordered 02/07/22 Ordered By: SKY ARIAS Follow ups/Referrals Follow ups/Referrals: Vijay Rai [Primary Care Provider] - 3 days ADDITIONAL NOTES Additional Notes Additional Notes: Name: ALONDRA MCCAULEYsandra#: [id number]: [id number]: [id number]: FLocation: EROrder Number(s): [id number](s):ABDOMEN/PELVIS W/O CON Ordering Physician: SKY ARIAS Primary Care: Vijay Rai Service Date: 02/07/22 Service Time: 410 HISTORY PT C/O NAUSEA, DIZZINESS, WEAKNESS, ABDOMINAL PAIN STUDY ABDOMEN/PELVIS W/O CON COMPARISON 03/27/2020 is is is TECHNIQUE Multiple axial images of the abdomen and pelvis were obtained from the lung bases to the pubic symphysis without the administration of IV contrast. Oral contrast was administered. Dose reduction techniques including Automated Exposure Control (AEC) and adjustment of mA and kV were utilized. FINDINGS The visualized portions of the lung bases are unremarkable. Small hiatal hernia. The, spleen, pancreas, and adrenal glands are unremarkable in their CT appearance. Post cholecystectomy changes. Intra and extrahepatic biliary ductal dilatation the the is again noted with degree of dilatation increased from prior study. The common hepatic duct is now dilated up to 1.6 cm.. Kidneys are normal in size. Bilateral nephrolithiasis, nonobstructing. no significant mesenteric lymphadenopathy or stranding can be observed. No free fluid or free air is seen within the abdomen. Normal appendix right lower quadrant. No bowel wall thickening or bowel dilatation is present. The colon is unremarkable. Specifically, there is no diverticulosis noted within the sigmoid colon. The urinary bladder is grossly unremarkable. The uterus is been removed. The bony structures are grossly intact. IMPRESSION Small hiatal hernia. Post cholecystectomy changes with intra and extrahepatic biliary ductal dilatation as described. Correlate with LFTs. Bilateral nephrolithiasis, nonobstructing. No acute abdominal or pelvic pathology. Electronically signed by: Rios Goldstein (Feb 07, 2022 04:34:37) Report Electronically signed: 02/07/22 0436 CC: Sky Arias
[2022-02-07 01:38] LABS: BASOPHILS % (AUTO) 0.2 % (0.2-1.0); EOSINOPHILS % (AUTO) 0.1 % (0.9-2.9); HEMATOCRIT 38.5 % (36.0-47.0); HEMOGLOBIN 12.6 g/dL (12.0-16.0); LYMPHOCYTES # (AUTO) 1.1 X10^3/uL (1.3-2.9); LYMPHOCYTES % (AUTO) 9.2 % (21.0-51.0); MEAN CORPUSCULAR HEMOGLOBIN 31.7 pg (27.0-34.0); MEAN CORPUSCULAR HGB CONC 32.8 g/dL (33.0-35.0); MEAN CORPUSCULAR VOLUME 96.6 fL (80.0-100.0); MEAN PLATELET VOLUME 8.4 fL (7.4-11.0); MONOCYTES # (AUTO) 0.3 x10^3/uL (0.3-0.8); MONOCYTES % (AUTO) 2.1 % (0.0-13.0); NEUTROPHILS # (AUTO) 10.9 x10^3/uL (2.2-4.8); NEUTROPHILS % (AUTO) 88.4 % (42.0-75.0); RED BLOOD COUNT 3.98 X10^6/uL (3.5-5.4); RED CELL DISTRIBUTION WIDTH 14.3 % (11.6-16.5); WHITE BLOOD COUNT 12.4 X10^3/uL (3.6-10.0)
[2022-02-07 02:00] LABS: ALBUMIN 2.9 g/dL (3.4-5.0); CALCIUM 9.3 mg/dL (8.5-10.1); CARBON DIOXIDE 23.8 mmol/L (21-32); COR CA(FOR HYPOALB) 10.2 mg/dL (8.5-10.1); CREATININE 1.36 mg/dL (0.55-1.02); TOTAL PROTEIN 7.3 g/dL (6.4-8.2)
--- NOTE | 2022-02-07 02:03 | RAD ---
HISTORYPT C/O NAUSEA, DIZZINESS, WEAKNESS, ABDOMINAL PAIN CAD, HTN, DM, RENAL DISEASE, GERD, KIDNEY STONES, CHF SX: ABD SURG, HYST, ORTHOSTUDYCHEST, 1 [id number]/2022FINDINGSThe trachea is midline. The cardiac silhouette is unremarkable. The lungs are clear without focal infiltrate or effusion. The bony thorax is unremarkable. Thoracic spinal cord stimulator again noted.IMPRESSIONNo acute cardiopulmonary findings .Electronically signed by: Rios Goldstein (Feb 07, 2022 02:01:14)
--- NOTE | 2022-02-07 04:36 | CT ---
HISTORYPT C/O NAUSEA, DIZZINESS, WEAKNESS, ABDOMINAL PAINSTUDYABDOMEN/PELVIS W/O [id number]/11/2020 is is isTECHNIQUEMultiple axial images of the abdomen and pelvis were obtained from the lung bases to the pubic symphysis without the administration of IV contrast. Oral contrast was administered. Dose reduction techniques including Automated Exposure Control (AEC) and adjustment of mA and kV were utilized.FINDINGSThe visualized portions of the lung bases are unremarkable. Small hiatal hernia. The, spleen, pancreas, and adrenal glands are unremarkable in their CT appearance. Post cholecystectomy changes. Intra and extrahepatic biliary ductal dilatation the the is again noted with degree of dilatation increased from prior study. The common hepatic duct is now dilated up to 1.6 cm.. Kidneys are normal in size. Bilateral nephrolithiasis, nonobstructing. no significant mesenteric lymphadenopathy or stranding can be observed. No free fluid or free air is seen within the abdomen. Normal appendix right lower quadrant. No bowel wall thickening or bowel dilatation is present. The colon is unremarkable. Specifically, there is no diverticulosis noted within the sigmoid colon. The urinary bladder is grossly unremarkable. The uterus is been removed. The bony structures are grossly intact.IMPRESSIONSmall hiatal hernia.Post cholecystectomy changes with intra and extrahepatic biliary ductal dilatation as described. Correlate with LFTs.Bilateral nephrolithiasis, nonobstructing.No acute abdominal or pelvic pathology.Electronically signed by: Rios Goldstein (Feb 07, 2022 04:34:37)
[2022-02-07] MEDS ORDERED: ANTIVERT TAB 25 MG PO PRN (06:18)
[2022-02-07] MEDS ORDERED: NS 1,000 ML IV 1,000 ML ONE (06:28)
[2022-02-07] MEDS: NS 1,000 ML IV 1,000 ML IV SCH ×2 (06:37→20:21)
[2022-02-07] MEDS: ATIVAN TAB 0.5 MG PO SCH ×2 (08:40→20:21)
[2022-02-07] MEDS: TAB-A-VITE PO SCH (08:40)
[2022-02-07] MEDS: ZINC SULFATE PO SCH (08:40)
[2022-02-07] MEDS: VITAMIN C PO SCH (08:41)
[2022-02-07] MEDS: OXYBUTYNIN CHLORIDE ER PO SCH (08:41)
[2022-02-07] MEDS: SYNTHROID 100 mcg TAB PO SCH (08:41)
[2022-02-07] MEDS: PROTONIX TAB 40 MG PO SCH ×2 (08:41→20:27)
[2022-02-07] MEDS: LOPRESSOR TAB 25 MG PO SCH ×2 (08:42→20:27)
[2022-02-07] MEDS: CYMBALTA PO SCH (08:42)
[2022-02-07] MEDS: ELIQUIS PO SCH ×2 (08:42→20:28)
[2022-02-07] MEDS: SINGULAIR TAB 10 MG PO SCH (08:42)
[2022-02-07] MEDS ORDERED: PATIENT'S HOME MEDICATION (Zinc 50 mg Capsule) PO SCH (09:00)
[2022-02-07] MEDS ORDERED: MULTIVITAMIN PO SCH (09:00)
[2022-02-07] MEDS: PEPCID 20 MG VIAL 20 MG in NS 50 ML IV 50 ML IV SCH (12:00)
[2022-02-07] MEDS: BENTYL CAP 10 MG PO SCH ×4 (12:13→21:04)
[2022-02-07] MEDS: LEVSIN/MAALOX/LIDOC VISC PO SCH ×4 (12:13→20:28)
[2022-02-07] MEDS: FORTAZ or TAZICEF VIAL INJ 1 G in NS 100 ML IV 100 ML IV SCH ×2 (12:43→20:27)
--- NOTE | 2022-02-07 13:55 | DR.H&P ---
H&P - History & Physical for Day of: H&P Date: 02/07/22 - Chief Complaint Chief Complaint: WEAKNESS, ABDOMINAL PAIN - History of Present Illness History of Present Illness: IS A 76 YEAR OLD PATIENT OF OURS. SHE PRESENTED TO THE ER WITH COMPLAINTS OF WEAKNESS, DIZZINESS, AND DIFFUSE ABDOMINAL PAIN. PAIN STARTED 3-4 DAYS PRIOR. ABDOMINAL PAIN IS CURRENTLY RATED A 4/10. SHE DESCRIBES PAIN INTERMITTENT AND DULL. SHE DENIES DIARRHEA, NAUSEA, OR VOMITING. HER PMH INCLUDES: ARTHRITIS, GERD, HTN, HYPOTHYROIDISM, KIDNEY STONES, ABDOMINAL SURGERY, HYSTERECTOMY AND JOINT REPLACEMENT. ON ARRIVAL TO THE ER, VITALS WERE 98.0-96-18-96%-95/51. LABS WERE OBTAINED. WBC 12.4, RBC 3.98, HGB 12.6, HCT 96.6, PLT COUNT 331, SODIUM 141, POTASSIUM 3.5, CHLORIDE 106, CARBON DIOXIDE 23.8, BUN 26, CREATININE 1.36, GLUCOSE 120, CALCIUM 10.2, TOTAL BILI 0.70, AST 106, ALT 192, ALK PHOS 545, TOTAL PROTEIN 7.3, ALBUMIN 2.9. URINALYSIS REVEALED: WBC 0-2, RBC 0-2, LEUKOCYTES 1+, BACTERIA 4+. COVID-19, INFLUENZA, AND RSV ARE NEGATIVE. A CHEST XRAY WAS OBTAINED DUE TO CHRONIC COUGH AND REVEALED: The trachea is midline. The cardiac silhouette is unremarkable. The lungs are clear without focal infiltrate or effusion. The bony thorax is unremarkable. Thoracic spinal cord stimulator again noted. AN ABDOMEN/PELVIS CT WITHOUT CONTRAST WAS OBTAINED AND REVEALED: The visualized portions of the lung bases are unremarkable. Small hiatal hernia. The, spleen, pancreas, and adrenal glands are unremarkable in their CT appearance. Post cholecystectomy changes. Intra and extrahepatic biliary ductal dilatation the the is again noted with of dilatation increased from prior study. The common hepatic duct is now dilated up to 1.6 cm.. Kidneys are normal in size. Bilateral nephrolithiasis, nonobstructing. no significant mesenteric lymphadenopathy or stranding can be observed. No free fluid or free air is seen within the abdomen. Normal appendix right lower quadrant. No bowel wall thickening or bowel dilatation is present. The colon is unremarkable. Specifically, there is no diverticulosis noted within the sigmoid colon. The urinary bladder is grossly unremarkable. The uterus is been removed. The bony structures are grossly intact. EKG REVEALED: SINUS RHYTHM WITH HR 91. SHE WAS GIVEN MOTRIN 800MG PO X 1 FOR FEVER IN THE ER. SHE WAS ADMITTED TO THE HOSPITAL FOR FURTHER EVALUATION AND TREATMENT OF ABDOMINAL PAIN, ELEVATED LIVER ENZYMES, WEAKNESS, AND DIZZINESS. SHE WAS STARTED ON NORMAL SALINE AT 80 ML/HR, FORTAZ 1G IV DAILY, PEPCID 20MG IV Q12H, GI COCKTAIL QID, DICYCLOMINE 20MG PO QID PRN, AND HER HOME MEDICATIONS WERE RESUMED. WE WILL REPEAT AN ABDOMEN/PELVIS CT WITH CONTRAST IN THE MORNING. WE WILL OBTAIN URINE, STOOL, AND BLOOD CULTURES. OTHERWISE, WE PLAN TO FOLLOW UP WITH AM LABS AND CONTINUE TO MONITOR. TIME SPENT ON CLINICAL ASSESSMENT, REVIEWING LABS AND IMAGING, DECISION MAKING, AND DOCUMENTATION GREATER THAN 75 MINUTES. - Past Medical History Past Medical History: Coronary Artery Disease, Hypertension, Diabetes, Renal Disease, Depression, Hypothyroidism, GERD, Arthritis, Kidney Stones, Sleep Apnea, CHF Additional Medical History: Lupus, Cataracts, Sleep Apnea (CPAP at home), Atrial Fibrillation, Hx IBS, Hiatal Hernia, Fibromyalgia, Chronic Back Pain, Hx DVT, Pancreatitis - Past Surgical History Surgical History: Abdominal Surgery, Cholecystectomy, Hysterectomy, Ortho Surgery Additional Surgical History: Bladder Tack, Breast Reduction, Fissurectomy, Hemorroidectomy, Cardiac Ablation, Back Stimulator - Family History Family Medical History: Diabetes Mellitus, Cancer, [place], Heart Failure, Hypertension - Social History Does patient currently use any type of tobacco product: No Have you used tobacco products in the last 12 months: No Type of Tobacco Use: None Alcohol Use: None Drug Use: None - Medications Home Medications: adhesive tape Allergy (Verified 09/06/21 10:10) ciprofloxacin Allergy (Verified 09/06/21 10:10) ITCHING, REDNESS oxycodone [From Percocet] Allergy (Verified 09/06/21 10:10) Penicillins Allergy (Verified 09/06/21 10:10) CONTINUE taking the following medications apixaban 5 mg tablet (Eliquis) 1 tab PO BID 02/07/22 [History] diltiazem HCl 120 mg capsule,extended release 24 hr 1 cap PO QDAY 02/07/22 [ History] duloxetine 60 mg capsule,delayed release 1 cap PO QDAY 02/07/22 [History] fluconazole 150 mg tablet 1 tab PO QDAY 02/07/22 [History] ketoconazole 200 mg tablet 1 tab PO BID 02/07/22 [History] levothyroxine 100 mcg tablet 1 tab PO QDAY 02/07/22 [History] lorazepam 0.5 mg tablet 1 tab PO BID 02/07/22 [History] meclizine 25 mg tablet 1 tab PO QID PRN 02/07/22 [History] metoprolol tartrate 25 mg tablet 0.5 tab PO BID 02/07/22 [History] montelukast 10 mg tablet 1 tab PO QDAY 02/07/22 [History] oxybutynin chloride 15 mg tablet,extended release 24 hr 1 tab PO QDAY 02/07/22 [History] pantoprazole 40 mg tablet,delayed release 1 tab PO BID 02/07/22 [History] risperidone 1 mg tablet 1 tab PO QPM 02/07/22 [History] ropinirole 0.25 mg tablet 1 tab PO QPM 02/07/22 [History] - Review of Systems Constitutional: Weakness Eyes: No Symptoms Reported ENT: No Symptoms Reported Respiratory: No Symptoms Reported Cardiovascular: Light Headedness Gastrointestinal: No Symptoms Reported, Abdominal Pain Genitourinary: No Symptoms Reported Musculoskeletal: No Symptoms Reported Skin: No Symptoms Reported Neurological: Weakness - Physical Exam Vital Signs: Temperature 97.8 F Pulse Rate [Right Brachial] 88 Pulse Rate [Left Brachial] 90 Pulse Rate 91 Respiratory Rate 18 Blood Pressure [Right Arm] 114/58 Blood Pressure [Left Arm] 108/54 Blood Pressure 114/58 O2 Sat by Pulse Oximetry 95 Oriented: Normal Eyes: Normal Ear: Normal Nose: Normal Throat: Normal Respiratory: Diminished Throughout Cardiovascular: Normal : Normal Auscultation: Bowel Sounds: Normal Palpation: Normal Tenderness: Diffuse, Mild Skin: Normal Musculoskeletal: Normal Psychiatric: Normal Mood Description: Calm Affect: Normal Speech Pattern: Clear - Assessment/Plan (1) Abdominal pain Qualifiers: Abdominal location: generalized Qualified Code(s): R10.84 - Generalized abdominal pain Status: Acute Plan: ADMIT, NORMAL SALINE AT 80 ML/HR, FORTAZ 1G IV DAILY, PEPCID 20MG IV Q12H, GI COCKTAIL QID, DICYCLOMINE 20MG PO QID PRN, AND HER HOME MEDICATIONS WERE RESUMED. (2) Generalized weakness Status: Acute (3) Abnormal LFTs Status: Acute - Allergies Allergies/Adverse Reactions: Allergies Allergy/AdvReac Type Severity Reaction Status Date / Time adhesive tape Allergy Verified 09/06/21 10:10 ciprofloxacin Allergy ITCHING, Verified 09/06/21 10:10 REDNESS oxycodone [From Percocet] Allergy Verified 09/06/21 10:10 Penicillins Allergy Verified 09/06/21 10:10
[2022-02-07] MEDS: REQUIP PO SCH (20:26)
[2022-02-07] MEDS: RisperDAL TAB 1 MG PO SCH (20:26)
[2022-02-08 05:58] LABS: BASOPHILS % (AUTO) 0.3 % (0.2-1.0); EOSINOPHILS # (AUTO) 0.1 x10^3/uL (0.0-0.2); EOSINOPHILS % (AUTO) 1.4 % (0.9-2.9); HEMATOCRIT 34.2 % (36.0-47.0); HEMOGLOBIN 11.6 g/dL (12.0-16.0); LYMPHOCYTES # (AUTO) 2.3 X10^3/uL (1.3-2.9); LYMPHOCYTES % (AUTO) 22.5 % (21.0-51.0); MEAN CORPUSCULAR HEMOGLOBIN 32.1 pg (27.0-34.0); MEAN CORPUSCULAR VOLUME 94.4 fL (80.0-100.0); MEAN PLATELET VOLUME 8.9 fL (7.4-11.0); MONOCYTES # (AUTO) 0.5 x10^3/uL (0.3-0.8); MONOCYTES % (AUTO) 4.5 % (0.0-13.0); NEUTROPHILS # (AUTO) 7.4 x10^3/uL (2.2-4.8); NEUTROPHILS % (AUTO) 71.3 % (42.0-75.0); RED BLOOD COUNT 3.62 X10^6/uL (3.5-5.4); RED CELL DISTRIBUTION WIDTH 14.3 % (11.6-16.5); WHITE BLOOD COUNT 10.3 X10^3/uL (3.6-10.0)
[2022-02-08 06:15] LABS: ALANINE AMINOTRANSFERASE 125 Units/L (12-78); ALBUMIN 2.5 g/dL (3.4-5.0); ALKALINE PHOSPHATASE 368 Units/L (46-116); ASPARTATE AMINO TRANSFERASE 54 Units/L (15-37); BLOOD UREA NITROGEN 20 mg/dL (7-18); CALCIUM 9.2 mg/dL (8.5-10.1); CARBON DIOXIDE 25.5 mmol/L (21-32); CHLORIDE 107 mmol/L (98-107); COR CA(FOR HYPOALB) 10.4 mg/dL (8.5-10.1); CREATININE 0.77 mg/dL (0.55-1.02); SODIUM 139 mmol/L (136-145); TOTAL PROTEIN 6.7 g/dL (6.4-8.2); eGFR NON BLACK RACES > 60 (>60)
[2022-02-08] MEDS ORDERED: NS 100 ML IV 100 ML ONE (06:46)
[2022-02-08] MEDS: CYMBALTA PO SCH (08:48)
[2022-02-08] MEDS: LOPRESSOR TAB 25 MG PO SCH ×2 (08:48→20:52)
[2022-02-08] MEDS: ZINC SULFATE PO SCH (08:49)
[2022-02-08] MEDS: PROTONIX TAB 40 MG PO SCH ×2 (08:49→20:52)
[2022-02-08] MEDS: OXYBUTYNIN CHLORIDE ER PO SCH (08:49)
[2022-02-08] MEDS: TAB-A-VITE PO SCH (08:49)
[2022-02-08] MEDS: BENTYL CAP 10 MG PO SCH ×4 (08:49→20:51)
[2022-02-08] MEDS: ATIVAN TAB 0.5 MG PO SCH ×2 (08:49→20:51)
[2022-02-08] MEDS: SINGULAIR TAB 10 MG PO SCH (08:49)
[2022-02-08] MEDS: ELIQUIS PO SCH ×2 (08:49→20:51)
[2022-02-08] MEDS: VITAMIN C PO SCH (08:50)
[2022-02-08] MEDS: PEPCID 20 MG VIAL 20 MG in NS 50 ML IV 50 ML IV SCH (08:50)
[2022-02-08] MEDS: SYNTHROID 100 mcg TAB PO SCH (08:50)
[2022-02-08] MEDS: FORTAZ or TAZICEF VIAL INJ 1 G in NS 100 ML IV 100 ML IV SCH ×2 (08:51→20:51)
[2022-02-08] MEDS: LEVSIN/MAALOX/LIDOC VISC PO SCH ×4 (08:51→20:51)
[2022-02-08] MEDS: NS 1,000 ML IV 1,000 ML IV SCH ×2 (09:31→21:51)
--- NOTE | 2022-02-08 15:31 | CT ---
EXAM: CT ABDOMEN AND PELVIS WITH INTRAVENOUS CONTRASTHISTORY: Abdominal pain. Elevated LFTs.TECHNIQUE: Spiral axial CT images are obtained through the abdomen and pelvis with the administration of oral contrast and intravenous contrast. Additional coronal and sagittal reformatted images are reconstructed.DOSIMETRY: Total DLP 1203.5 mGycm; CTDI 73.3 mGyCOMPARISON: CT abdomen and pelvis dated February 07, 2022.FINDINGS:BILIARY SYSTEM: The patient is status post cholecystectomy. There is intrahepatic and extrahepatic biliary ductal dilatation (CBD measures up to 2 cm), with questionable intraluminal filling defect (approximately 2 cm long by 1.3 cm diameter) in the distal CBD; possible choledocholithiasis, but cannot rule out a soft tissue lesion. Recommend follow-up MRCP and/or HIDA scan for further characterization and to rule out obstructive biliary disease as clinically suspected.GASTROINTESTINAL TRACT: There is suggestion of an approximately 3.5 cm AP by 3 cm x 3.9 cm CC duodenal diverticulum in the second portion of the duodenal sweep (at the level of the distal CBD insertion). Correlation with MRI and/or upper GI series may be beneficial for confirmation of further characterization. There is an approximately 5.2 cm AP by 5.2 cm transverse hiatal hernia containing collapsed proximal stomach. There is no evidence for bowel herniation, bowel obstruction, colitis or diverticulitis. A normal-appearing appendix is seen.GENITOURINARY SYSTEM: There are multiple bilateral nonobstructing renal calculi noted, left greater than right. The kidneys are otherwise unremarkable. There is no ureteral calculus or stigmata of obstructive uropathy. The urinary bladder is grossly unremarkable for a non-dedicated exam.CT ABDOMEN: There is an approximately 1.3 cm cyst in the peripheral aspect of the inferior segment of the right lobe of the liver. The spleen, pancreas, adrenal glands, gallbladder, aorta, and inferior vena cava are within normal limits for a CT scan. There is no intra-abdominal or retroperitoneal lymphadenopathy, free fluid, or free air seen. No abdominal herniation is noted.CT PELVIS: Status post hysterectomy. No pelvic sidewall or inguinal lymphadenopathy is seen. No inguinal herniation is noted. No free fluid or free air is seen. A right flank subcutaneous thoracic spinal epidural stimulator is noted in situ.BONES AND JOINTS: Status post vertebroplasty of T12 anterior wedge compression fracture with, with residual thoracolumbar kyphosis. Multilevel DDD is seen throughout the distal thoracic and lumbar spine, and prominent lumbar dextroscoliosis. The visualized bony structures are within normal limits.LUNG BASES: The lung bases are clear. There is a stable small pericardial effusion, measuring up to 1.4 cm thick posteriorly. Mitral annular calcifications are seen.IMPRESSION:1. Status post cholecystectomy.2. Intrahepatic and extrahepatic biliary ductal dilatation (CBD measures up to 2 cm), with questionable intraluminal filling defect (approximately 2 cm long by 1.3 cm diameter) in the distal CBD; possible choledocholithiasis, but cannot rule out a soft tissue lesion. Recommend follow-up MRCP and/or HIDA scan for further characterization and to rule out obstructive biliary disease as clinically suspected.3. Suggestion of an approximately 3.5 cm AP by 3 cm x 3.9 cm CC duodenal diverticulum in the second portion of the duodenal sweep (at the level of the distal CBD insertion). Correlation with MRI and/or upper GI series may be beneficial for confirmation of further characterization.4. Approximately 5.2 cm AP by 5.2 cm transverse by 5.2 cm CC hiatal hernia containing collapsed proximal stomach.5. Multiple bilateral nonobstructing renal calculi (left greater than right); no evidence for pyelonephritis, ureteral stones or obstructive uropathy.6. No free fluid, free air, mass lesions, or lymphadenopathy seen.7. Stable small pericardial effusion, measuring up to 1.4 cm thick posteriorly. Mitral annular calcification seen.8. Overall, no significant interval change seen.Electronically signed by: Emani Maldonado (Feb 08, 2022 15:29:36)
[2022-02-08 16:46] LABS: BILIRUBIN,URINE NEGATIVE (NEGATIVE); BLOOD/HEMOGLOBIN,URINE 1+ (NEGATIVE); GLUCOSE, URINE NEGATIVE (NEGATIVE); KETONES,URINE NEGATIVE (NEGATIVE); LEUKOCYTE ESTERASE ,URINE NEGATIVE (NEGATIVE); NITRITES,URINE NEGATIVE (NEGATIVE); PH,URINE 6.5 (5.0 - 8.0); PROTEIN,URINE NEGATIVE (NEGATIVE); UROBILINOGEN,URINE NORMAL (NORMAL)
[2022-02-08 16:52] LABS: APPEARANCE,URINE CLEAR (CLEAR); COLOR,URINE YELLOW (YELLOW)
[2022-02-08 17:00] LABS: BACTERIA,URINE TRACE /HPF (NEGATIVE); RBC,URINE 0-2 /HPF (0-3); SQUAMOUS EPITHELIAL CELL,UR RARE /HPF (NEGATIVE)
[2022-02-08] MEDS: RisperDAL TAB 1 MG PO SCH (20:52)
[2022-02-08] MEDS: REQUIP PO SCH (20:52)
[2022-02-09 05:05] LABS: BASOPHILS % (AUTO) 0.4 % (0.2-1.0); EOSINOPHILS # (AUTO) 0.2 x10^3/uL (0.0-0.2); EOSINOPHILS % (AUTO) 1.9 % (0.9-2.9); HEMATOCRIT 33.1 % (36.0-47.0); HEMOGLOBIN 11.3 g/dL (12.0-16.0); LYMPHOCYTES # (AUTO) 2.7 X10^3/uL (1.3-2.9); LYMPHOCYTES % (AUTO) 27.7 % (21.0-51.0); MEAN CORPUSCULAR HGB CONC 34.1 g/dL (33.0-35.0); MEAN PLATELET VOLUME 8.9 fL (7.4-11.0); MONOCYTES # (AUTO) 0.6 x10^3/uL (0.3-0.8); NEUTROPHILS # (AUTO) 6.2 x10^3/uL (2.2-4.8); RED BLOOD COUNT 3.52 X10^6/uL (3.5-5.4); RED CELL DISTRIBUTION WIDTH 14.2 % (11.6-16.5); WHITE BLOOD COUNT 9.8 X10^3/uL (3.6-10.0)
[2022-02-09 05:17] LABS: ALANINE AMINOTRANSFERASE 96 Units/L (12-78); ALBUMIN 2.4 g/dL (3.4-5.0); ALKALINE PHOSPHATASE 318 Units/L (46-116); ASPARTATE AMINO TRANSFERASE 38 Units/L (15-37); BLOOD UREA NITROGEN 15 mg/dL (7-18); CALCIUM 8.8 mg/dL (8.5-10.1); CARBON DIOXIDE 25.9 mmol/L (21-32); CHLORIDE 107 mmol/L (98-107); COR CA(FOR HYPOALB) 10.1 mg/dL (8.5-10.1); SODIUM 139 mmol/L (136-145); TOTAL PROTEIN 6.4 g/dL (6.4-8.2); eGFR NON BLACK RACES > 60 (>60)
[2022-02-09] MEDS: ATIVAN TAB 0.5 MG PO SCH ×2 (08:44→20:38)
[2022-02-09] MEDS: ELIQUIS PO SCH ×2 (08:45→20:39)
[2022-02-09] MEDS: FORTAZ or TAZICEF VIAL INJ 1 G in NS 100 ML IV 100 ML IV SCH ×2 (08:45→20:36)
[2022-02-09] MEDS: LOPRESSOR TAB 25 MG PO SCH ×2 (08:45→20:38)
[2022-02-09] MEDS: LEVSIN/MAALOX/LIDOC VISC PO SCH ×4 (08:45→20:36)
[2022-02-09] MEDS: BENTYL CAP 10 MG PO SCH ×4 (08:45→20:42)
[2022-02-09] MEDS: CYMBALTA PO SCH (08:45)
[2022-02-09] MEDS: SINGULAIR TAB 10 MG PO SCH (08:46)
[2022-02-09] MEDS: SYNTHROID 100 mcg TAB PO SCH (08:46)
[2022-02-09] MEDS: PEPCID 20 MG VIAL 20 MG in NS 50 ML IV 50 ML IV SCH (08:46)
[2022-02-09] MEDS: OXYBUTYNIN CHLORIDE ER PO SCH (08:46)
[2022-02-09] MEDS: PROTONIX TAB 40 MG PO SCH ×2 (08:46→20:40)
[2022-02-09] MEDS: ZINC SULFATE PO SCH (08:47)
[2022-02-09] MEDS: TAB-A-VITE PO SCH (08:47)
[2022-02-09] MEDS: VITAMIN C PO SCH (08:47)
[2022-02-09] MEDS ORDERED: COLACE CAP 100 MG PO PRN (09:00)
[2022-02-09] MEDS ORDERED: MILK OF MAGNESIA PO PRN (09:00)
[2022-02-09 10:03] LABS: AMMONIA < 10 umol/L (11-32)
[2022-02-09] MEDS: NS 1,000 ML IV 1,000 ML IV SCH ×3 (10:15→23:59)
[2022-02-09 10:32] LABS: AMYLASE 24 Units/L (25-115); LIPASE 72 Units/L (73-393)
--- NOTE | 2022-02-09 11:57 | CT ---
HISTORYAMSSTUDYBRAIN W/O CONCOMPARISONNoneTECHNIQUEAxial images through the head was performed without contrast. CT scan was performed following ALARA (As low as Reasonably Achievable).Coronal and Sagittal reformatted images were performed.FINDINGSThe ventricles are normal in size and symmetric. There is no evidence of acute hemorrhage, mass effect or edema, no intra or extra-axial fluid collections, no hyperdense vessel. There is mild periventricular hypo attenuations. No evidence of sellar masses. The cervicocranial junction is unremarkable. There is mild periventricular hypo attenuations, the mastoid cells are clear. There is secretions with bubbles of air in the sphenoid sinus consistent with acute sinus disease. No air-fluid levels in the maxillary sinus. No acute fractures. There is also aerolized secretions in the pneumatized bilateral clinoid processes.IMPRESSIONNo acute intracranial abnormalities.Acute sphenoid sinus disease. Mild periventricular white matter changes.Electronically signed by: Lashaun Kellogg (Feb 09, 2022 11:55:31)
--- NOTE | 2022-02-09 17:22 | RAD ---
HISTORYABD PAINSTUDYKUBCOMPARISONCT abdomen and pelvis 02/08/2022FINDINGSGas is present in nondilated bowel. No bowel obstruction or free air. There is not an abnormally large amount of stool in the colon. Contrast is present in the colon. No significant abnormal calcification is seen. Treated compression fracture is present at T12. Scoliosis.Surgical clips are present in the right upper abdomen, probably from a cholecystectomy. Generator battery pack is superimposed over the right gluteal region.IMPRESSION1. No significant abnormalityElectronically signed by: Boy Quintana (Feb 09, 2022 17:20:35)
--- NOTE | 2022-02-09 20:00 | PCM.PROG ---
Progress Note - Progress Note for Day of Date of Exam: 02/08/22 - Subjective Subjective: WAS ADMITTED FOR TREATMENT OF ABDOMINAL PAIN, GENERALIZED WEAKNESS, AND ABNORMAL LIVER FUNCTION TEST. HER PMH INCLUDES: CHF, CAD, RENAL DISEASE, DEPRESSION, SLEEP APNEA, ARTHRITIS, GERD, HTN, HYPOTHYROIDISM, KIDNEY STONES, ABDOMINAL SURGERY, HYSTERECTOMY, AND JOINT REPLACEMENT. TODAY, SHE IS ALERT AND ORIENTED, LYING IN BED ON MORNING ROUNDS. SHE CONTINUES TO COMPLAIN OF WEAKNESS AND DIFFUSE ABDOMINAL PAIN, BUT DENIES DIZZINESS THIS MORNING. SHE DENIES NAUSEA OR VOMITING. ABDOMINAL PAIN IS DESCRIBED DULL AND INTERMITTENT. ON EXAMINATION, HEART IS REGULAR IN RATE AND RHYTHM. BILATERAL LUNGS NOTED WITH DIMINISHED LUNG SOUNDS THROUGHOUT. ABDOMEN IS ROUND, SOFT, AND NOTED WITH DIFFUSE TENDERNESS. NORMAL BOWEL SOUNDS NOTED IN ALL QUADRANTS. TRACE EDEMA NOTED TO LOWER EXTREMITIES. HER VITALS THIS MORNING ARE: 98.0-79-18-94%-135/63. LABS WERE OBTAINED. WBC 10.3, RBC 3.62, HGB 11.6, HCT 34.2, SODIUM 139, POTASSIUM 4.0, CHLORIDE 107, CARBON DIOXIDE 25.5, BUN 20, CREATININE 0.77, GLUCOSE 102, CALCIUM 9.2, AST 54, ALT 125, ALK PHOS 368, TOTAL PROTEIN 6.7, ALBUMIN 2.5. URINALYSIS OBTAINED AND IS UNREMARKABLE. URINE CULTURE IS PENDING. AN ABDOMEN/PELVIS CT WITH CONTRAST WAS OBTAINED THIS MORNING AND REVEALED: 1. Status post cholecystectomy. 2. Intrahepatic and extrahepatic biliary ductal dilatation (CBD measures up to 2 cm), with questionable intraluminal filling defect (approximately 2 cm long by 1.3 cm diameter) in the distal CBD; possible choledocholithiasis, but cannot rule out a soft tissue lesion. Recommend follow-up MRCP and/or HIDA scan for further characterization and to rule out obstructive biliary disease as clinically suspected. 3. Suggestion of an approximately 3.5 cm AP by 3 cm x 3.9 cm CC duodenal diverticulum in the second portion of the duodenal sweep (at the level of the distal CBD insertion). Correlation with MRI and/or upper GI series may be beneficial for confirmation of further characterization. 4. Approximately 5.2 cm AP by 5.2 cm transverse by 5.2 cm CC hiatal hernia containing collapsed proximal stomach. 5. Multiple bilateral nonobstructing renal calculi (left greater than right); no evidence for pyelonephritis, ureteral stones or obstructive uropathy. 6. No free fluid, free air, mass lesions, or lymphadenopathy seen. 7. Stable small pericardial effusion, measuring up to 1.4 cm thick posteriorly. Mitral annular calcification seen.8. Overall, no significant interval change seen. SHE IS CURRENTLY RECEIVING NORMAL SALINE AT 80 ML/HR, FORTAZ 1G IV DAILY, PEPCID 20MG IV Q12H, GI COCKTAIL QID, DICYCLOMINE 20MG PO QID PRN, AND HER HOME MEDICATIONS WERE RESUMED. TODAY, WE WILL CONSULT WITH , GENERAL SURGEON, DUE TO PERSISTENT ABDOMINAL PAIN. OTHERWISE, WE WILL FOLLOW-UP WITH AM LABS AND CONTINUE TO MONITOR. TIME SPENT ON CLINICAL ASSESSMENT, REVIEWING LABS AND IMAGING, DECISION MAKING, AND DOCUMENTATION GREATER THAN 45 MINUTES. - Past Medical Family Social History Past Med/Fam/Surg Hx: No changes since H&P Allergies: Allergies adhesive tape Allergy (Verified 09/06/21 10:10) ciprofloxacin Allergy (Verified 09/06/21 10:10) ITCHING, REDNESS oxycodone [From Percocet] Allergy (Verified 09/06/21 10:10) Penicillins Allergy (Verified 09/06/21 10:10) - Review of Systems ROS: No change since H&P - Vital Signs and I&O's Vital Signs: Temperature 97.8 F Pulse Rate [Right Brachial] 76 Pulse Rate [Left Brachial] 90 Pulse Rate 91 Respiratory Rate 18 Blood Pressure [Right Arm] 135/70 Blood Pressure [Left Arm] 108/54 Blood Pressure 114/58 O2 Sat by Pulse Oximetry 95 Intake and Output: Intake & Output 02/07/22 02/08/22 02/09/22 02/10/22 11:59 11:59 11:59 11:59 Intake Total 1426 / 1426 2849 / 2849 1349 / 1349 Balance 1426 / 1426 2849 / 2849 1349 / 1349 - Physical Exam Oriented: Normal Eyes: Normal Ear: Normal Nose: Normal Throat: Normal Respiratory: Generalized, Diminished Cardiovascular: Normal : Normal Auscultation: Bowel Sounds: Normal Palpation: Normal Tenderness: Diffuse, Mild Skin: Normal Musculoskeletal: Normal Psychiatric: Normal Mood Description: Calm Affect: Normal Speech Pattern: Clear, Appropriate - Laboratory and Diagnostics Result Diagrams: 02/09/22 04:14 02/09/22 04:14 Labs: 02/07/22 10:48 Blood Blood Culture - Preliminary 02/08/22 16:10 Urine,Clean Catch Urine Culture - Preliminary 02/07/22 10:59 Blood Blood Culture - Preliminary Laboratory WBC 9.8 X10^3/uL (3.6-10.0) 02/09/22 04:14 RBC 3.52 X10^6/uL (3.5-5.4) 02/09/22 04:14 Hgb 11.3 g/dL (12.0-16.0) L 02/09/22 04:14 Hct 33.1 % (36.0-47.0) L 02/09/22 04:14 MCV 94.0 fL (80.0-100.0) 02/09/22 04:14 MCH 32.0 pg (27.0-34.0) 02/09/22 04:14 MCHC 34.1 g/dL (33.0-35.0) 02/09/22 04:14 RDW 14.2 % (11.6-16.5) 02/09/22 04:14 Plt Count 281 X10^3/uL (150.0-450.0) 02/09/22 04:14 MPV 8.9 fL (7.4-11.0) 02/09/22 04:14 Neut % (Auto) 64.0 % (42.0-75.0) 02/09/22 04:14 Lymph % (Auto) 27.7 % (21.0-51.0) 02/09/22 04:14 [place]y % (Auto) 6.0 % (0.0-13.0) 02/09/22 04:14 Eos % (Auto) 1.9 % (0.9-2.9) 02/09/22 04:14 Baso % (Auto) 0.4 % (0.2-1.0) 02/09/22 04:14 Neut # (Auto) 6.2 x10^3/uL (2.2-4.8) H 02/09/22 04:14 Lymph # (Auto) 2.7 X10^3/uL (1.3-2.9) 02/09/22 04:14 [place]y # (Auto) 0.6 x10^3/uL (0.3-0.8) 02/09/22 04:14 Eos # (Auto) 0.2 x10^3/uL (0.0-0.2) 02/09/22 04:14 Baso # (Auto) 0.0 X10^3/uL (0.0-0.1) 02/09/22 04:14 Absolute Nucleated RBC 0.0 /100WBC 02/09/22 04:14 Sodium 139 mmol/L (136-145) 02/09/22 04:14 Corrected Sodium TNP 02/09/22 04:14 Potassium 4.1 mmol/L (3.5-5.1) 02/09/22 04:14 Chloride 107 mmol/L (98-107) 02/09/22 04:14 Carbon Dioxide 25.9 mmol/L (21-32) 02/09/22 04:14 BUN 15 mg/dL (7-18) 02/09/22 04:14 Creatinine 0.90 mg/dL (0.55-1.02) 02/09/22 04:14 Est GFR (MDRD) Af Amer > 60 (>60) 02/09/22 04:14 Est GFR (MDRD) Non-Af > 60 (>60) 02/09/22 04:14 Glucose 110 mg/dL (65-99) H 02/09/22 04:14 POC Glucose (mg/dL) 134 mg/dL (65-99) H 02/07/22 06:30 Calcium 8.8 mg/dL (8.5-10.1) 02/09/22 04:14 Corrected Calcium 10.1 mg/dL (8.5-10.1) 02/09/22 04:14 Total Bilirubin 0.40 mg/dL (0.2-1.0) 02/09/22 04:14 AST 38 Units/L (15-37) H 02/09/22 04:14 ALT 96 Units/L (12-78) H 02/09/22 04:14 Alkaline Phosphatase 318 Units/L (46-116) H 02/09/22 04:14 Ammonia < 10 umol/L (11-32) L 02/09/22 09:21 Total Protein 6.4 g/dL (6.4-8.2) 02/09/22 04:14 Albumin 2.4 g/dL (3.4-5.0) L 02/09/22 04:14 Globulin 4.0 g/dL (2.5-4.5) 02/09/22 04:14 Albumin/Globulin Ratio 0.6 Ratio (1.1-2.1) L 02/09/22 04:14 Amylase 24 Units/L (25-115) L 02/09/22 09:21 Lipase 72 Units/L (73-393) L 02/09/22 09:21 Specimen Type Clean catch urine 02/08/22 16:10 Urine Color Yellow (YELLOW) 02/08/22 16:10 Urine Appearance Clear (CLEAR) 02/08/22 16:10 Urine pH 6.5 (5.0 - 8.0) 02/08/22 16:10 Ur Specific [place] 1.015 (1.000-1.030) 02/08/22 16:10 Urine Protein Negative (NEGATIVE) 02/08/22 16:10 Urine Glucose (UA) Negative (NEGATIVE) 02/08/22 16:10 Urine Ketones Negative (NEGATIVE) 02/08/22 16:10 Urine Blood 1+ (NEGATIVE) 02/08/22 16:10 Urine Nitrite Negative (NEGATIVE) 02/08/22 16:10 Urine Bilirubin Negative (NEGATIVE) 02/08/22 16:10 Urine Urobilinogen Normal (NORMAL) 02/08/22 16:10 Ur Leukocyte Esterase Negative (NEGATIVE) 02/08/22 16:10 Urine RBC 0-2 /HPF (0-3) 02/08/22 16:10 Urine WBC None seen /HPF (0-5) 02/08/22 16:10 Ur Squamous Epith Cells Rare /HPF (NEGATIVE) 02/08/22 16:10 Urine Bacteria Trace /HPF (NEGATIVE) 02/08/22 16:10 Ur Culture Indicated? No/not indicated 02/08/22 16:10 SARS-CoV-2 (PCR) Negative (NEGATIVE) 02/07/22 05:40 Influenza Type A (PCR) Negative (NEGATIVE) 02/07/22 05:40 Influenza Type B (PCR) Negative (NEGATIVE) 02/07/22 05:40 RSV (PCR) Negative (NEGATIVE) 02/07/22 05:40 - Plan (1) Abdominal pain Status: Acute Qualifiers: Abdominal location: generalized Qualified Code(s): R10.84 - Generalized abdominal pain Plan: NORMAL SALINE AT 80 ML/HR, FORTAZ 1G IV DAILY, PEPCID 20MG IV Q12H, GI COCKTAIL QID, DICYCLOMINE 20MG PO QID PRN, AND HER HOME MEDICATIONS WERE RESUMED. (2) Generalized weakness Status: Acute (3) Abnormal LFTs Status: Acute (4) Osteoarthritis Status: Chronic Qualifiers: Osteoarthritis location: unspecified site Osteoarthritis type: primary Qualified Code(s): M19.91 - Primary osteoarthritis, unspecified site (5) Atrial fibrillation Status: Chronic Qualifiers: Atrial fibrillation type: chronic (6) Essential (primary) hypertension Status: Chronic (7) CHF (congestive heart failure) Status: Chronic Qualifiers: Qualified Code(s): I50.42 - Chronic combined systolic (congestive) and diastolic (congestive) heart failure (8) CAD (coronary artery disease) Status: Chronic Qualifiers: Coronary Disease-Associated Artery/Lesion type: [place] artery [place] vs. transplanted heart: [place] heart Associated angina: without angina Qualified Code(s): I25.10 - Atherosclerotic heart disease of [place] coronary artery wi thout angina pectoris
[2022-02-09] MEDS: RisperDAL TAB 1 MG PO SCH (20:41)
[2022-02-09] MEDS: REQUIP PO SCH (20:41)
[2022-02-10] MEDS: NS 1,000 ML IV 1,000 ML IV SCH ×2 (02:44→12:04)
[2022-02-10 06:20] LABS: BASOPHILS % (AUTO) 0.4 % (0.2-1.0); EOSINOPHILS # (AUTO) 0.3 x10^3/uL (0.0-0.2); EOSINOPHILS % (AUTO) 3.9 % (0.9-2.9); HEMATOCRIT 33.9 % (36.0-47.0); HEMOGLOBIN 11.8 g/dL (12.0-16.0); LYMPHOCYTES # (AUTO) 3.3 X10^3/uL (1.3-2.9); LYMPHOCYTES % (AUTO) 41.3 % (21.0-51.0); MEAN CORPUSCULAR HEMOGLOBIN 32.8 pg (27.0-34.0); MEAN CORPUSCULAR HGB CONC 34.6 g/dL (33.0-35.0); MEAN CORPUSCULAR VOLUME 94.8 fL (80.0-100.0); MEAN PLATELET VOLUME 8.4 fL (7.4-11.0); MONOCYTES # (AUTO) 0.6 x10^3/uL (0.3-0.8); NEUTROPHILS # (AUTO) 3.8 x10^3/uL (2.2-4.8); NEUTROPHILS % (AUTO) 47.4 % (42.0-75.0); RED BLOOD COUNT 3.58 X10^6/uL (3.5-5.4); RED CELL DISTRIBUTION WIDTH 14.3 % (11.6-16.5); WHITE BLOOD COUNT 7.9 X10^3/uL (3.6-10.0)
[2022-02-10 06:32] LABS: ALANINE AMINOTRANSFERASE 86 Units/L (12-78); ALBUMIN 2.6 g/dL (3.4-5.0); ALKALINE PHOSPHATASE 318 Units/L (46-116); ASPARTATE AMINO TRANSFERASE 33 Units/L (15-37); BLOOD UREA NITROGEN 14 mg/dL (7-18); CALCIUM 9.4 mg/dL (8.5-10.1); CARBON DIOXIDE 24.1 mmol/L (21-32); CHLORIDE 107 mmol/L (98-107); COR CA(FOR HYPOALB) 10.5 mg/dL (8.5-10.1); CREATININE 0.79 mg/dL (0.55-1.02); SODIUM 139 mmol/L (136-145); TOTAL PROTEIN 6.8 g/dL (6.4-8.2); eGFR NON BLACK RACES > 60 (>60)
[2022-02-10] MEDS: ATIVAN TAB 0.5 MG PO SCH ×2 (09:42→20:47)
[2022-02-10] MEDS: CYMBALTA PO SCH (09:43)
[2022-02-10] MEDS: BENTYL CAP 10 MG PO SCH ×4 (09:43→20:49)
[2022-02-10] MEDS: ELIQUIS PO SCH ×2 (09:43→20:47)
[2022-02-10] MEDS: FORTAZ or TAZICEF VIAL INJ 1 G in NS 100 ML IV 100 ML IV SCH ×2 (09:43→20:54)
[2022-02-10] MEDS: LEVSIN/MAALOX/LIDOC VISC PO SCH ×4 (09:43→20:48)
[2022-02-10] MEDS: SYNTHROID 100 mcg TAB PO SCH (09:44)
[2022-02-10] MEDS: SINGULAIR TAB 10 MG PO SCH (09:44)
[2022-02-10] MEDS: VITAMIN C PO SCH (09:44)
[2022-02-10] MEDS: OXYBUTYNIN CHLORIDE ER PO SCH (09:45)
[2022-02-10] MEDS: PEPCID 20 MG VIAL 20 MG in NS 50 ML IV 50 ML IV SCH (09:45)
[2022-02-10] MEDS: LOPRESSOR TAB 25 MG PO SCH ×2 (09:45→20:50)
[2022-02-10] MEDS: TAB-A-VITE PO SCH (09:45)
[2022-02-10] MEDS: PROTONIX TAB 40 MG PO SCH ×2 (09:45→20:50)
[2022-02-10] MEDS: ZINC SULFATE PO SCH (09:45)
[2022-02-10] MEDS ORDERED: NS 100 ML IV 100 ML ONE (10:27)
--- NOTE | 2022-02-10 15:04 | PCM.PROG ---
Progress Note - Progress Note for Day of Date of Exam: 02/09/22 - Subjective Subjective: WAS ADMITTED FOR TREATMENT OF ABDOMINAL PAIN, GENERALIZED WEAKNESS, AND ABNORMAL LIVER FUNCTION TEST. HER PMH INCLUDES: CHF, CAD, RENAL DISEASE, DEPRESSION, SLEEP APNEA, ARTHRITIS, GERD, HTN, HYPOTHYROIDISM, KIDNEY STONES, ABDOMINAL SURGERY, HYSTERECTOMY, AND JOINT REPLACEMENT. TODAY, SHE IS ALERT AND ORIENTED, LYING IN BED ON MORNING ROUNDS. SHE CONTINUES TO COMPLAIN OF WEAKNESS AND DIFFUSE ABDOMINAL PAIN, BUT DENIES DIZZINESS THIS MORNING. SHE DENIES NAUSEA OR VOMITING. ABDOMINAL PAIN IS DESCRIBED DULL AND INTERMITTENT. HER SPOUSE REPORTS THAT SHE HAD CONFUSION AND DISORIENTATION THROUGHOUT THE NIGHT. ON EXAMINATION, HEART IS REGULAR IN RATE AND RHYTHM. BILATERAL LUNGS NOTED WITH DIMINISHED LUNG SOUNDS THROUGHOUT. ABDOMEN IS ROUND, SOFT, AND NOTED WITH DIFFUSE TENDERNESS. NORMAL BOWEL SOUNDS NOTED IN ALL QUADRANTS. TRACE EDEMA NOTED TO LOWER EXTREMITIES. HER VITALS THIS MORNING ARE: 97.9-93-18-94%-174/77. LABS WERE OBTAINED. WBC 7.9, RBC 3.58, HGB 11.8, HCT 33.9, SODIUM 139, POTASSIUM 4.1, CHLORIDE 107, BUN 14, CREATININE 0.79, GLUCOSE 100, CALCIUM 9.4, AT 33, ALT 86, ALK PHOS 318, TOTAL PROTEIN 6.8, ALUBMIN 2.6. URINALYSIS OBTAINED AND IS UNREMARKABLE. URINE CULTURE IS PENDING. ONE OF HER BLOOD CULTURES ARE POSITIVE FOR GROWTH OF E.COLI. A KUB WAS OBTAINED THIS MORNING AND WAS NEGATIVE FOR ACUTE ABNORMALITY. SHE IS CURRENTLY RECEIVING NORMAL SALINE AT 80 ML/HR, FORTAZ 1G IV DAILY, PEPCID 20MG IV Q12H, GI COCKTAIL QID, DICYCLOMINE 20MG PO QID PRN, AND HER HOME MEDICATIONS WERE RESUMED. CONSULTED WITH PATIENT AND SUGGESTS TO CONTINUE WITH CURRENT PLAN OF CARE. WE WILL ALSO OBTAIN AN AMYLASE, LIPASE, AMMONIA, AND BRAIN CT DUE TO INCREASED CONFUSION. OTHERWISE, WE WILL FOLLOW-UP WITH AM LABS AND CONTINUE TO MONITOR. TIME SPENT ON CLINICAL ASSESSMENT, REVIEWING LABS AND IMAGING, DECISION MAKING, AND DOCUMENTATION GREATER THAN 45 MINUTES. - Past Medical Family Social History Past Med/Fam/Surg Hx: No changes since H&P Allergies: Allergies adhesive tape Allergy (Verified 09/06/21 10:10) ciprofloxacin Allergy (Verified 09/06/21 10:10) ITCHING, REDNESS oxycodone [From Percocet] Allergy (Verified 09/06/21 10:10) Penicillins Allergy (Verified 09/06/21 10:10) - Review of Systems ROS: No change since H&P - Vital Signs and I&O's Vital Signs: Temperature 98.1 F Pulse Rate [Right Brachial] 61 Pulse Rate [Left Brachial] 90 Pulse Rate 91 Respiratory Rate 20 Blood Pressure [Right Arm] 137/64 Blood Pressure [Left Arm] 108/54 Blood Pressure 114/58 O2 Sat by Pulse Oximetry 96 Intake and Output: Intake & Output 02/08/22 02/09/22 02/10/22 02/11/22 11:59 11:59 11:59 11:59 Intake Total 1426 / 1426 2849 / 2849 3526 / 3526 Balance 1426 / 1426 2849 / 2849 3526 / 3526 - Physical Exam Oriented: Normal Eyes: Normal Ear: Normal Nose: Normal Throat: Normal Respiratory: Generalized, Diminished Cardiovascular: Normal : Normal Auscultation: Bowel Sounds: Normal Palpation: Normal Tenderness: Diffuse, Mild Skin: Normal Musculoskeletal: Normal Psychiatric: Normal Mood Description: Calm Affect: Normal Speech Pattern: Clear, Appropriate - Laboratory and Diagnostics Result Diagrams: 02/10/22 05:54 02/10/22 05:54 Labs: 02/08/22 16:10 Urine,Clean Catch Urine Culture - Final 02/07/22 10:59 Blood Blood Culture - Final Escherichia Coli 02/07/22 10:48 Blood Blood Culture - Preliminary Laboratory WBC 7.9 X10^3/uL (3.6-10.0) 02/10/22 05:54 RBC 3.58 X10^6/uL (3.5-5.4) 02/10/22 05:54 Hgb 11.8 g/dL (12.0-16.0) L 02/10/22 05:54 Hct 33.9 % (36.0-47.0) L 02/10/22 05:54 MCV 94.8 fL (80.0-100.0) 02/10/22 05:54 MCH 32.8 pg (27.0-34.0) 02/10/22 05:54 MCHC 34.6 g/dL (33.0-35.0) 02/10/22 05:54 RDW 14.3 % (11.6-16.5) 02/10/22 05:54 Plt Count 294 X10^3/uL (150.0-450.0) 02/10/22 05:54 MPV 8.4 fL (7.4-11.0) 02/10/22 05:54 Neut % (Auto) 47.4 % (42.0-75.0) 02/10/22 05:54 Lymph % (Auto) 41.3 % (21.0-51.0) 02/10/22 05:54 [place] % (Auto) 7.0 % (0.0-13.0) 02/10/22 05:54 Eos % (Auto) 3.9 % (0.9-2.9) H 02/10/22 05:54 Baso % (Auto) 0.4 % (0.2-1.0) 02/10/22 05:54 Neut # (Auto) 3.8 x10^3/uL (2.2-4.8) 02/10/22 05:54 Lymph # (Auto) 3.3 X10^3/uL (1.3-2.9) H 02/10/22 05:54 [place] # (Auto) 0.6 x10^3/uL (0.3-0.8) 02/10/22 05:54 Eos # (Auto) 0.3 x10^3/uL (0.0-0.2) H 02/10/22 05:54 Baso # (Auto) 0.0 X10^3/uL (0.0-0.1) 02/10/22 05:54 Absolute Nucleated RBC 0.1 /100WBC 02/10/22 05:54 Sodium 139 mmol/L (136-145) 02/10/22 05:54 Corrected Sodium TNP 02/10/22 05:54 Potassium 4.1 mmol/L (3.5-5.1) 02/10/22 05:54 Chloride 107 mmol/L (98-107) 02/10/22 05:54 Carbon Dioxide 24.1 mmol/L (21-32) 02/10/22 05:54 BUN 14 mg/dL (7-18) 02/10/22 05:54 Creatinine 0.79 mg/dL (0.55-1.02) 02/10/22 05:54 Est GFR (MDRD) Af Amer > 60 (>60) 02/10/22 05:54 Est GFR (MDRD) Non-Af > 60 (>60) 02/10/22 05:54 Glucose 100 mg/dL (65-99) H 02/10/22 05:54 POC Glucose (mg/dL) 134 mg/dL (65-99) H 02/07/22 06:30 Calcium 9.4 mg/dL (8.5-10.1) 02/10/22 05:54 Corrected Calcium 10.5 mg/dL (8.5-10.1) H 02/10/22 05:54 Total Bilirubin 0.40 mg/dL (0.2-1.0) 02/10/22 05:54 AST 33 Units/L (15-37) 02/10/22 05:54 ALT 86 Units/L (12-78) H 02/10/22 05:54 Alkaline Phosphatase 318 Units/L (46-116) H 02/10/22 05:54 Ammonia < 10 umol/L (11-32) L 02/09/22 09:21 Total Protein 6.8 g/dL (6.4-8.2) 02/10/22 05:54 Albumin 2.6 g/dL (3.4-5.0) L 02/10/22 05:54 Globulin 4.2 g/dL (2.5-4.5) 02/10/22 05:54 Albumin/Globulin Ratio 0.6 Ratio (1.1-2.1) L 02/10/22 05:54 Amylase 24 Units/L (25-115) L 02/09/22 09:21 Lipase 72 Units/L (73-393) L 02/09/22 09:21 Specimen Type Clean catch urine 02/08/22 16:10 Urine Color Yellow (YELLOW) 02/08/22 16:10 Urine Appearance Clear (CLEAR) 02/08/22 16:10 Urine pH 6.5 (5.0 - 8.0) 02/08/22 16:10 Ur Specific [place] 1.015 (1.000-1.030) 02/08/22 16:10 Urine Protein Negative (NEGATIVE) 02/08/22 16:10 Urine Glucose (UA) Negative (NEGATIVE) 02/08/22 16:10 Urine Ketones Negative (NEGATIVE) 02/08/22 16:10 Urine Blood 1+ (NEGATIVE) 02/08/22 16:10 Urine Nitrite Negative (NEGATIVE) 02/08/22 16:10 Urine Bilirubin Negative (NEGATIVE) 02/08/22 16:10 Urine Urobilinogen Normal (NORMAL) 02/08/22 16:10 Ur Leukocyte Esterase Negative (NEGATIVE) 02/08/22 16:10 Urine RBC 0-2 /HPF (0-3) 02/08/22 16:10 Urine WBC None seen /HPF (0-5) 02/08/22 16:10 Ur Squamous Epith Cells Rare /HPF (NEGATIVE) 02/08/22 16:10 Urine Bacteria Trace /HPF (NEGATIVE) 02/08/22 16:10 Ur Culture Indicated? No/not indicated 02/08/22 16:10 SARS-CoV-2 (PCR) Negative (NEGATIVE) 02/07/22 05:40 Influenza Type A (PCR) Negative (NEGATIVE) 02/07/22 05:40 Influenza Type B (PCR) Negative (NEGATIVE) 02/07/22 05:40 RSV (PCR) Negative (NEGATIVE) 02/07/22 05:40 - Plan (1) Abdominal pain Status: Acute Qualifiers: Abdominal location: generalized Qualified Code(s): R10.84 - Generalized ab dominal pain Plan: NORMAL SALINE AT 80 ML/HR, FORTAZ 1G IV DAILY, PEPCID 20MG IV Q12H, GI COCKTAIL QID, DICYCLOMINE 20MG PO QID PRN, AND HER HOME MEDICATIONS WERE RESUMED. (2) Generalized weakness Status: Acute (3) Abnormal LFTs Status: Acute (4) Osteoarthritis Status: Chronic Qualifiers: Osteoarthritis location: unspecified site Osteoarthritis type: primary Qualified Code(s): M19.91 - Primary osteoarthritis, unspecified site (5) Atrial fibrillation Status: Chronic Qualifiers: Atrial fibrillation type: chronic (6) Essential (primary) hypertension Status: Chronic (7) CHF (congestive heart failure) Status: Chronic Qualifiers: Qualified Code(s): I50.42 - Chronic combined systolic (congestive) and diastolic (congestive) heart failure (8) CAD (coronary artery disease) Status: Chronic Qualifiers: Coronary Disease-Associated Artery/Lesion type: [place] artery [place] vs. transplanted heart: [place] heart Associated angina: without angina Qualified Code(s): I25.10 - Atherosclerotic heart disease of [place] coronary artery without angina pectoris
--- NOTE | 2022-02-10 15:15 | PCM.PROG ---
Progress Note - Progress Note for Day of Date of Exam: 02/10/22 - Subjective Subjective: WAS ADMITTED FOR TREATMENT OF ABDOMINAL PAIN, GENERALIZED WEAKNESS, AND ABNORMAL LIVER FUNCTION TEST. HER PMH INCLUDES: CHF, CAD, RENAL DISEASE, DEPRESSION, SLEEP APNEA, ARTHRITIS, GERD, HTN, HYPOTHYROIDISM, KIDNEY STONES, ABDOMINAL SURGERY, HYSTERECTOMY, AND JOINT REPLACEMENT. TODAY, SHE IS ALERT AND ORIENTED, LYING IN BED ON MORNING ROUNDS. SHE CONTINUES TO COMPLAIN OF WEAKNESS AND DIFFUSE ABDOMINAL PAIN. SHE DOES ADMIT TO SLIGHT IMPROVEMENT IN SYMPTOMS TODAY. SHE DENIES NAUSEA, VOMITING, OR DIZZINESS. ABDOMINAL PAIN IS DESCRIBED DULL AND INTERMITTENT. HER SPOUSE REPORTS THAT SHE IS NO LONGER HAVING CONFUSION AND AMS. ON EXAMINATION, HEART IS REGULAR IN RATE AND RHYTHM. BILATERAL LUNGS NOTED WITH DIMINISHED LUNG SOUNDS THROUGHOUT. ABDOMEN IS ROUND, SOFT, AND NOTED WITH DIFFUSE TENDERNESS. NORMAL BOWEL SOUNDS NOTED IN ALL QUADRANTS. TRACE EDEMA NOTED TO LOWER EXTREMITIES. HER VITALS THIS MORNING ARE: 97.4-70-18-96%-134/78. LABS WERE OBTAINED. WBC 7.9, RBC 3.58, HGB 11.8, HCT 33.9, SODIUM 139, POTASSIUM 4.1, CHLORIDE 107, BUN 14, CREATININE 0.79, GLUCOSE 100, CALCIUM 9.4, AT 33, ALT 86, ALK PHOS 318, TOTAL PROTEIN 6.8, ALUBMIN 2.6. URINALYSIS OBTAINED AND IS UNREMARKABLE. URINE CULTURE IS PENDING. ONE OF HER BLOOD CULTURES ARE POSITIVE FOR GROWTH OF E.COLI. A BRAIN CT WAS OBTAINE YESTERDAY AND WAS NEGATIVE FOR ACUTE ABNORMALITY. SHE IS CURRENTLY RECEIVING NORMAL SALINE AT 80 ML/HR, FORTAZ 1G IV DAILY, PEPCID 20MG IV Q12H, GI COCKTAIL QID, DICYCLOMINE 20MG PO QID PRN, AND HER HOME MEDICATIONS WERE RESUMED. CONSULTED WITH PATIENT AND SUGGESTS TO CONTINUE WITH CURRENT PLAN OF CARE. PATIENT IS UNABLE TO HAVE AN ABDOMEN MRI DUE TO PAIN STIMULATOR. WE WILL OBTAIN A LIVER ULTRASOUND IN THE MORNING. OTHERWISE, WE WILL FOLLOW-UP WITH AM LABS AND CONTINUE TO MONITOR. TIME SPENT ON CLINICAL ASSESSMENT, REVIEWING LABS AND IMAGING, DECISION MAKING, AND DOCUMENTATION GREATER THAN 45 MINUTES. - Past Medical Family Social History Past Med/Fam/Surg Hx: No changes since H&P Allergies: Allergies adhesive tape Allergy (Verified 09/06/21 10:10) ciprofloxacin Allergy (Verified 09/06/21 10:10) ITCHING, REDNESS oxycodone [From Percocet] Allergy (Verified 09/06/21 10:10) Penicillins Allergy (Verified 09/06/21 10:10) - Review of Systems ROS: No change since H&P - Vital Signs and I&O's Vital Signs: Temperature 98.1 F Pulse Rate [Right Brachial] 61 Pulse Rate [Left Brachial] 90 Pulse Rate 91 Respiratory Rate 20 Blood Pressure [Right Arm] 137/64 Blood Pressure [Left Arm] 108/54 Blood Pressure 114/58 O2 Sat by Pulse Oximetry 96 Intake and Output: Intake & Output 02/08/22 02/09/22 02/10/22 02/11/22 11:59 11:59 11:59 11:59 Intake Total 1426 / 1426 2849 / 2849 3526 / 3526 Balance 1426 / 1426 2849 / 2849 3526 / 3526 - Physical Exam Oriented: Normal Eyes: Normal Ear: Normal Nose: Normal Throat: Normal Respiratory: Generalized, Diminished Cardiovascular: Normal : Normal Auscultation: Bowel Sounds: Normal Tenderness: Diffuse, Mild Skin: Normal Musculoskeletal: Normal Psychiatric: Normal Mood Description: Calm Affect: Normal Speech Pattern: Clear, Appropriate - Laboratory and Diagnostics Result Diagrams: 02/10/22 05:54 02/10/22 05:54 Labs: 02/08/22 16:10 Urine,Clean Catch Urine Culture - Final 02/07/22 10:59 Blood Blood Culture - Final Escherichia Coli 02/07/22 10:48 Blood Blood Culture - Preliminary Laboratory WBC 7.9 X10^3/uL (3.6-10.0) 02/10/22 05:54 RBC 3.58 X10^6/uL (3.5-5.4) 02/10/22 05:54 Hgb 11.8 g/dL (12.0-16.0) L 02/10/22 05:54 Hct 33.9 % (36.0-47.0) L 02/10/22 05:54 MCV 94.8 fL (80.0-100.0) 02/10/22 05:54 MCH 32.8 pg (27.0-34.0) 02/10/22 05:54 MCHC 34.6 g/dL (33.0-35.0) 02/10/22 05:54 RDW 14.3 % (11.6-16.5) 02/10/22 05:54 Plt Count 294 X10^3/uL (150.0-450.0) 02/10/22 05:54 MPV 8.4 fL (7.4-11.0) 02/10/22 05:54 Neut % (Auto) 47.4 % (42.0-75.0) 02/10/22 05:54 Lymph % (Auto) 41.3 % (21.0-51.0) 02/10/22 05:54 [place] % (Auto) 7.0 % (0.0-13.0) 02/10/22 05:54 Eos % (Auto) 3.9 % (0.9-2.9) H 02/10/22 05:54 Baso % (Auto) 0.4 % (0.2-1.0) 02/10/22 05:54 Neut # (Auto) 3.8 x10^3/uL (2.2-4.8) 02/10/22 05:54 Lymph # (Auto) 3.3 X10^3/uL (1.3-2.9) H 02/10/22 05:54 [place] # (Auto) 0.6 x10^3/uL (0.3-0.8) 02/10/22 05:54 Eos # (Auto) 0.3 x10^3/uL (0.0-0.2) H 02/10/22 05:54 Baso # (Auto) 0.0 X10^3/uL (0.0-0.1) 02/10/22 05:54 Absolute Nucleated RBC 0.1 /100WBC 02/10/22 05:54 Sodium 139 mmol/L (136-145) 02/10/22 05:54 Corrected Sodium TNP 02/10/22 05:54 Potassium 4.1 mmol/L (3.5-5.1) 02/10/22 05:54 Chloride 107 mmol/L (98-107) 02/10/22 05:54 Carbon Dioxide 24.1 mmol/L (21-32) 02/10/22 05:54 BUN 14 mg/dL (7-18) 02/10/22 05:54 Creatinine 0.79 mg/dL (0.55-1.02) 02/10/22 05:54 Est GFR (MDRD) Af Amer > 60 (>60) 02/10/22 05:54 Est GFR (MDRD) Non-Af > 60 (>60) 02/10/22 05:54 Glucose 100 mg/dL (65-99) H 02/10/22 05:54 POC Glucose (mg/dL) 134 mg/dL (65-99) H 02/07/22 06:30 Calcium 9.4 mg/dL (8.5-10.1) 02/10/22 05:54 Corrected Calcium 10.5 mg/dL (8.5-10.1) H 02/10/22 05:54 Total Bilirubin 0.40 mg/dL (0.2-1.0) 02/10/22 05:54 AST 33 Units/L (15-37) 02/10/22 05:54 ALT 86 Units/L (12-78) H 02/10/22 05:54 Alkaline Phosphatase 318 Units/L (46-116) H 02/10/22 05:54 Ammonia < 10 umol/L (11-32) L 02/09/22 09:21 Total Protein 6.8 g/dL (6.4-8.2) 02/10/22 05:54 Albumin 2.6 g/dL (3.4-5.0) L 02/10/22 05:54 Globulin 4.2 g/dL (2.5-4.5) 02/10/22 05:54 Albumin/Globulin Ratio 0.6 Ratio (1.1-2.1) L 02/10/22 05:54 Amylase 24 Units/L (25-115) L 02/09/22 09:21 Lipase 72 Units/L (73-393) L 02/09/22 09:21 Specimen Type Clean catch urine 02/08/22 16:10 Urine Color Yellow (YELLOW) 02/08/22 16:10 Urine Appearance Clear (CLEAR) 02/08/22 16:10 Urine pH 6.5 (5.0 - 8.0) 02/08/22 16:10 Ur Specific [place] 1.015 (1.000-1.030) 02/08/22 16:10 Urine Protein Negative (NEGATIVE) 02/08/22 16:10 Urine Glucose (UA) Negative (NEGATIVE) 02/08/22 16:10 Urine Ketones Negative (NEGATIVE) 02/08/22 16:10 Urine Blood 1+ (NEGATIVE) 02/08/22 16:10 Urine Nitrite Negative (NEGATIVE) 02/08/22 16:10 Urine Bilirubin Negative (NEGATIVE) 02/08/22 16:10 Urine Urobilinogen Normal (NORMAL) 02/08/22 16:10 Ur Leukocyte Esterase Negative (NEGATIVE) 02/08/22 16:10 Urine RBC 0-2 /HPF (0-3) 02/08/22 16:10 Urine WBC None seen /HPF (0-5) 02/08/22 16:10 Ur Squamous Epith Cells Rare /HPF (NEGATIVE) 02/08/22 16:10 Urine Bacteria Trace /HPF (NEGATIVE) 02/08/22 16:10 Ur Culture Indicated? No/not indicated 02/08/22 16:10 SARS-CoV-2 (PCR) Negative (NEGATIVE) 02/07/22 05:40 Influenza Type A (PCR) Negative (NEGATIVE) 02/07/22 05:40 Influenza Type B (PCR) Negative (NEGATIVE) 02/07/22 05:40 RSV (PCR) Negative (NEGATIVE) 02/07/22 05:40 - Plan (1) Abdominal pain Status: Acute Qualifiers: Abdominal location: generalized Qualified Code(s): R10.84 - Generalized ab dominal pain Plan: NORMAL SALINE AT 80 ML/HR, FORTAZ 1G IV DAILY, PEPCID 20MG IV Q12H, GI COCKTAIL QID, DICYCLOMINE 20MG PO QID PRN, AND HER HOME MEDICATIONS WERE RESUMED. (2) Generalized weakness Status: Acute (3) Abnormal LFTs Status: Acute (4) Osteoarthritis Status: Chronic Qualifiers: Osteoarthritis location: unspecified site Osteoarthritis type: primary Qualified Code(s): M19.91 - Primary osteoarthritis, unspecified site (5) Atrial fibrillation Status: Chronic Qualifiers: Atrial fibrillation type: chronic (6) Essential (primary) hypertension Status: Chronic (7) CHF (congestive heart failure) Status: Chronic Qualifiers: Qualified Code(s): I50.42 - Chronic combined systolic (congestive) and diastolic (congestive) heart failure (8) CAD (coronary artery disease) Status: Chronic Qualifiers: Coronary Disease-Associated Artery/Lesion type: [place] artery [place] vs. transplanted heart: [place] heart Associated angina: without angina Qualified Code(s): I25.10 - Atherosclerotic heart disease of [place] coronary artery without angina pectoris
[2022-02-10] MEDS: RisperDAL TAB 1 MG PO SCH (20:46)
[2022-02-10] MEDS: REQUIP PO SCH (20:51)
[2022-02-11] MEDS: NS 1,000 ML IV 1,000 ML IV SCH ×2 (01:07→03:30)
[2022-02-11 06:24] LABS: BASOPHILS % (AUTO) 0.6 % (0.2-1.0); EOSINOPHILS # (AUTO) 0.3 x10^3/uL (0.0-0.2); EOSINOPHILS % (AUTO) 4.2 % (0.9-2.9); HEMATOCRIT 33.1 % (36.0-47.0); HEMOGLOBIN 11.3 g/dL (12.0-16.0); LYMPHOCYTES # (AUTO) 3.2 X10^3/uL (1.3-2.9); LYMPHOCYTES % (AUTO) 43.5 % (21.0-51.0); MEAN CORPUSCULAR HEMOGLOBIN 32.4 pg (27.0-34.0); MEAN CORPUSCULAR HGB CONC 34.1 g/dL (33.0-35.0); MONOCYTES # (AUTO) 0.5 x10^3/uL (0.3-0.8); MONOCYTES % (AUTO) 6.7 % (0.0-13.0); NEUTROPHILS # (AUTO) 3.3 x10^3/uL (2.2-4.8); RED BLOOD COUNT 3.49 X10^6/uL (3.5-5.4); RED CELL DISTRIBUTION WIDTH 14.2 % (11.6-16.5); WHITE BLOOD COUNT 7.4 X10^3/uL (3.6-10.0)
[2022-02-11 06:25] LABS: ALANINE AMINOTRANSFERASE 96 Units/L (12-78); ALBUMIN 2.3 g/dL (3.4-5.0); ALKALINE PHOSPHATASE 350 Units/L (46-116); ASPARTATE AMINO TRANSFERASE 68 Units/L (15-37); BLOOD UREA NITROGEN 15 mg/dL (7-18); CALCIUM 8.7 mg/dL (8.5-10.1); CARBON DIOXIDE 24.4 mmol/L (21-32); CHLORIDE 108 mmol/L (98-107); COR CA(FOR HYPOALB) 10.1 mg/dL (8.5-10.1); SODIUM 140 mmol/L (136-145); TOTAL PROTEIN 6.3 g/dL (6.4-8.2); eGFR NON BLACK RACES > 60 (>60)
[2022-02-11] MEDS ORDERED: VITAMIN B-12 INJ IM SCH (08:26)
--- NOTE | 2022-02-11 09:11 | US ---
HISTORYAbdominal pain gallbladder removed.STUDYLIVERCOMPARISONCT abdomen and pelvis February 08, 2022.TECHNIQUEMultiple [place] scale and color flow Doppler images of the right upper quadrant were obtained.FINDINGSThe liver is normal in echotexture and upper limits of normal in size. The liver measures 16.6 cm sagittal. No focal intraparenchymal mass or intrahepatic biliary ductal dilatation can be observed. Normal flow is seen in the IVC main portal vein hepatic artery the gallbladder is surgically absent.. The common bile duct is unremarkable measuring 4 mm. No pericholecystic fluid or gallbladder wall thickening can be observed .The right kidney appears normal in size without focal parenchymal mass or nephrolithiasis. The right kidney measurers 11.5 cm in length by 5 cm AP with a cortical thickness of 12.4 mm and a transverse diameter of 6.4 cm. Normal vascular flow is observed with a resistance index of 0.68.. No hydronephrosis or perirenal fluid can be observed. The pancreas is obscured by overlying bowel gas.IMPRESSIONUnremarkable examination of the right upper quadrant. The liver is normal. The gallbladder surgically absent. The common duct is normal at 4 mm. The right kidney and IVC are normal.The pancreas is obscured by bowel gas.Electronically signed by: DION NAIK (Feb 11, 2022 09:09:32)
[2022-02-11] MEDS: BENTYL CAP 10 MG PO SCH (09:16)
[2022-02-11] MEDS: ATIVAN TAB 0.5 MG PO SCH (09:16)
[2022-02-11] MEDS: ELIQUIS PO SCH (09:17)
[2022-02-11] MEDS: LEVSIN/MAALOX/LIDOC VISC PO SCH (09:17)
[2022-02-11] MEDS: CYMBALTA PO SCH (09:17)
[2022-02-11] MEDS: PEPCID 20 MG VIAL 20 MG in NS 50 ML IV 50 ML IV SCH (09:18)
[2022-02-11] MEDS: LOPRESSOR TAB 25 MG PO SCH (09:18)
[2022-02-11] MEDS: OXYBUTYNIN CHLORIDE ER PO SCH (09:18)
[2022-02-11] MEDS: PROTONIX TAB 40 MG PO SCH (09:19)
[2022-02-11] MEDS: SINGULAIR TAB 10 MG PO SCH (09:19)
[2022-02-11] MEDS: ZINC SULFATE PO SCH (09:20)
[2022-02-11] MEDS: TAB-A-VITE PO SCH (09:20)
[2022-02-11] MEDS: SYNTHROID 100 mcg TAB PO SCH (09:20)
[2022-02-11] MEDS: VITAMIN C PO SCH (09:20)
[2022-02-11] MEDS: FORTAZ or TAZICEF VIAL INJ 1 G in NS 100 ML IV 100 ML IV SCH (10:00)
[2022-02-11 11:53] VITALS: BP 133/64
== END 2022-02-11 12:15 | disposition home health service (06) | DRG 392 ==
LOC: MED/SURG 01:06 → ER 01:06 → MED/SURG 06:16
PROVIDERS: ADMIT Internal Medicine; ATTEND Internal Medicine
DX: M19.90 Unspecified osteoarthritis, unspecified site; R97.8 Other abnormal tumor markers; R41.0 Disorientation, unspecified; K21.9 Gastro-esophageal reflux disease without esophagitis; R60.0 Localized edema; R26.89 Other abnormalities of gait and mobility; I11.0 Hypertensive heart disease with heart failure; Z87.19 Personal history of other diseases of the digestive system; R19.4 Change in bowel habit; K44.9 Diaphragmatic hernia without obstruction or gangrene; I25.10 Atherosclerotic heart disease of native coronary artery without angina pectoris; I50.42 Chronic combined systolic (congestive) and diastolic (congestive) heart failure; R94.5 Abnormal results of liver function studies; K29.00 Acute gastritis without bleeding; R42 Dizziness and giddiness; R10.84 Generalized abdominal pain; Z20.822 Contact with and (suspected) exposure to COVID-19; B96.29 Other Escherichia coli [E. coli] as the cause of diseases classified elsewhere; E03.8 Other specified hypothyroidism; R53.1 Weakness; I48.20 Chronic atrial fibrillation, unspecified; E11.65 Type 2 diabetes mellitus with hyperglycemia

== ENCOUNTER 2022-07-08 13:44 | Inpatient (IN) ==
--- NOTE | 2022-07-08 13:52 | ED.ABDFE ---
HPI Time Seen Time Seen by Provider: 07/08/22 13:54 Complaint Doctors Chief Complaint Comments: 77 y/o female presents for evaluation. Was admitted her 3 weeks ago, for confusion. Improved then, no cause identified. Now feeling bad since yesterday. Having abdominal and chest pain. Abdomen worse, seems to be more upper abdominal pain. + nausea, vomiting yesterday. No BM x 3 days (can go up to 5 days at a time). No known fever, chills, URI symptoms, or urinary complaints. Is chronically bed bound. Feeling weaker and more confused. Had meds changed in the office [address] Rai. Reviewed Nurses Notes Review: Yes Source History Provided: Patient PMH PMH Past Medical History: Arthritis, CHF, Coronary Artery Disease, Depression, Diabetes, GERD, Hypertension, Hypothyroidism, Kidney Stones, Renal Disease and Sleep Apnea Past Surgical History: Yes Surgical History: Abdominal Surgery, Cholecystectomy, Hysterectomy and Ortho Surgery Family History Family Medical History: Diabetes Mellitus, Cancer, [place], Coronary Artery Disease, Heart Failure and Hypertension Social History Do you use any recreational Drugs:: No ROS Review of Systems Constitutional: Weakness Eyes: No Symptoms Reported ENTM: No Symptoms Reported Respiratoy: No Symptoms Reported Cardiovascular: Chest Pain Gastrointestinal/Abdominal: Abdominal Pain, Constipation, Nausea and Vomiting Genitourinary: No Symptoms Reported Neurological: Weakness Musculoskeletal: No Symptoms Reported Integumentary: No Symptoms Reported Hematologic/Lymphatic: No Symptoms Reported Psychiatric: No Symptoms Reported All Other Systems: Reviewed and Negative PE Vital Signs Vitals: Temperature 99.1 F Pulse Rate 84 Respiratory Rate 20 Blood Pressure [Right Arm] 118/56 Blood Pressure 123/60 O2 Sat by Pulse Oximetry 94 General General Appearance: Alert and In No Apparent Distress Eyes Eye exam: PERRL and EOMI ENT ENT Exam: Mucous Membranes Moist Neck Neck Exam: Normal Inspection Respiratory Respiratory Exam: Normal Lung Sounds Bilat; negative Accessory Muscle Use or Respiratory Distress Respiratory Exam: Bilateral: Clear to Auscultation Cardiovascular Cardiovascular Exam: Regular Rate, Normal Rhythm and Normal Heart Sounds Abdominal Exam Abdominal Exam: Tenderness (RUQ > LUQ, no guarding or rebound. + increased bowel sounds.) Extremeties Extremities Exam: Normal Inspection; negative Edema Neurologic Neurological Exam: Alert and CN II-XII Intact; negative Motor Sensory Deficit Skin Skin Exam: Warm and Dry COURSE Treatment Treatment: 77 y/o female ill since yesterday. Having increasing weakness, some confusion. Pulse ox low at home, better on O2. Not actively coughing. W/u initiated. Given IV fluids. 1603 - CXR - no obvious abnormalities, bases not visualized due to body habitus. WBC markedly elevated at 22K, 39% bands. Chemistries with some liver enzyme elevation, otherwise acceptable. U/A + for nitrite, supriya est, 3+ bacteria, but only 5-[address] abd/pelvis obtained, without contrast (EGFR 40). Some dilated liver ducts. + increased pleural density of R > L. Will treat with rocephin at present. Blood cultures, lactic acid added. Oxygenating better on O2. Recommend admission for further treatment, w/u. Discussed with Dr Brown, covering for Dr Rai. Accepts the admission. CT of chest with IV contrast added. + pleural effusions, no obvious infiltrate/mass. + dilated liver ducts. Possible cholangitis, but no fever/jaundice yet, has hada distant cholecystectomy. ROR Labs Reviewed Result Diagrams: 07/08/22 14:10 07/08/22 14:10 Laboratory: WBC 22.1 X10^3/uL (3.6-10.0) H 07/08/22 14:10 RBC 4.37 X10^6/uL (3.5-5.4) 07/08/22 14:10 Hgb 13.6 g/dL (12.0-16.0) 07/08/22 14:10 Hct 40.9 % (36.0-47.0) 07/08/22 14:10 MCV 93.7 fL (80.0-100.0) 07/08/22 14:10 MCH 31.2 pg (27.0-34.0) 07/08/22 14:10 MCHC 33.3 g/dL (33.0-35.0) 07/08/22 14:10 RDW 13.9 % (11.6-16.5) 07/08/22 14:10 Plt Count 372 X10^3/uL (150.0-450.0) 07/08/22 14:10 Plt Count Comment Adequate (ADEQUATE) 07/08/22 14:10 MPV 8.6 fL (7.4-11.0) 07/08/22 14:10 Neut % (Auto) 88.5 % (42.0-75.0) H 07/08/22 14:10 Lymph % (Auto) 8.7 % (21.0-51.0) L 07/08/22 14:10 [place] % (Auto) 2.6 % (0.0-13.0) 07/08/22 14:10 Eos % (Auto) 0.1 % (0.9-2.9) L 07/08/22 14:10 Baso % (Auto) 0.1 % (0.2-1.0) L 07/08/22 14:10 Neut # (Auto) 19.5 x10^3/uL (2.2-4.8) H 07/08/22 14:10 Lymph # (Auto) 1.9 X10^3/uL (1.3-2.9) 07/08/22 14:10 [place] # (Auto) 0.6 x10^3/uL (0.3-0.8) 07/08/22 14:10 Eos # (Auto) 0.0 x10^3/uL (0.0-0.2) 07/08/22 14:10 Baso # (Auto) 0.0 X10^3/uL (0.0-0.1) 07/08/22 14:10 Absolute Nucleated RBC 0.0 /100WBC 07/08/22 14:10 Total Counted 100 07/08/22 14:10 Neutrophils % (Manual) 39 % (39-76) 07/08/22 14:10 Band Neutrophils % 39 % (0-10) H 07/08/22 14:10 Lymphocytes % (Manual) 17 % (13-43) 07/08/22 14:10 Monocytes % (Manual) 2 % (4-9) L 07/08/22 14:10 Metamyelocytes % 3 07/08/22 14:10 Plt Morphology Comment Normal (NORMAL) 07/08/22 14:10 RBC Morphology Normal (NORMAL) 07/08/22 14:10 Sodium 136 mmol/L (136-145) 07/08/22 14:10 Corrected Sodium 136 mmol/L (136-145) 07/08/22 14:10 Potassium 4.4 mmol/L (3.5-5.1) 07/08/22 14:10 Chloride 101 mmol/L (98-107) 07/08/22 14:10 Carbon Dioxide 27.0 mmol/L (21-32) 07/08/22 14:10 BUN 21 mg/dL (7-18) H 07/08/22 14:10 Creatinine 1.36 mg/dL (0.55-1.02) H 07/08/22 14:10 Est GFR (MDRD) Af Amer 49 (>60) L 07/08/22 14:10 Est GFR (MDRD) Non-Af 40 (>60) L 07/08/22 14:10 Glucose 111 mg/dL (65-99) H 07/08/22 14:10 POC Glucose (mg/dL) 116 mg/dL (65-99) H 07/08/22 13:56 Lactic Acid 2.5 mmol/L (0.4-2.0) H 07/08/22 15:46 Calcium 8.5 mg/dL (8.5-10.1) 07/08/22 14:10 Corrected Calcium 9.5 mg/dL (8.5-10.1) 07/08/22 14:10 Total Bilirubin 3.90 mg/dL (0.2-1.0) H 07/08/22 14:10 AST 177 Units/L (15-37) H 07/08/22 14:10 ALT 96 Units/L (12-78) H 07/08/22 14:10 Alkaline Phosphatase 120 Units/L (46-116) H 07/08/22 14:10 Troponin I High Sens 12.4 ng/L (4.0-60.0) 07/08/22 14:10 Total Protein 6.9 g/dL (6.4-8.2) 07/08/22 14:10 Albumin 2.8 g/dL (3.4-5.0) L 07/08/22 14:10 Globulin 4.1 g/dL (2.5-4.5) 07/08/22 14:10 Albumin/Globulin Ratio 0.7 Ratio (1.1-2.1) L 07/08/22 14:10 Lipase 20 Units/L (73-393) L 07/08/22 14:10 TSH 3rd Generation 1.305 uIU/mL (0.358-3.74) 07/08/22 14:10 Specimen Type Catherized urine 07/08/22 14:37 Urine Color Karrie (YELLOW) 07/08/22 14:37 Urine Appearance Slightly hazy (CLEAR) 07/08/22 14:37 Urine pH 5.0 (5.0 - 8.0) 07/08/22 14:37 Ur Specific Left Hand 1.030 (1.000-1.030) 07/08/22 14:37 Urine Protein 3+ (NEGATIVE) 07/08/22 14:37 Urine Glucose (UA) Negative (NEGATIVE) 07/08/22 14:37 Urine Ketones 1+ (NEGATIVE) 07/08/22 14:37 Urine Blood 1+ (NEGATIVE) 07/08/22 14:37 Urine Nitrite Positive (NEGATIVE) 07/08/22 14:37 Urine Bilirubin 3+ (NEGATIVE) 07/08/22 14:37 Urine Urobilinogen 4+ (NORMAL) 07/08/22 14:37 Ur Leukocyte Esterase 1+ (NEGATIVE) 07/08/22 14:37 Urine RBC 0-2 /HPF (0-3) 07/08/22 14:37 Urine WBC 5-10 /HPF (0-5) A 07/08/22 14:37 Ur Squamous Epith Cells Rare /HPF (NEGATIVE) 07/08/22 14:37 Ur Renal Epithelial Cell Rare /HPF (NEGATIVE) 07/08/22 14:37 Amorphous Sediment 1+ /HPF (NEGATIVE) 07/08/22 14:37 Urine Bacteria 3+ /HPF (NEGATIVE) 07/08/22 14:37 Hyaline Casts Rare /LPF (NEGATIVE) 07/08/22 14:37 Other Casts Few /LPF (NEGATIVE) 07/08/22 14:37 Ur Culture Indicated? Yes/culture set up 07/08/22 14:37 SARS-CoV-2 (PCR) Negative (NEGATIVE) 07/08/22 15:33 Influenza Type A (PCR) Negative (NEGATIVE) 07/08/22 15:33 Influenza Type B (PCR) Negative (NEGATIVE) 07/08/22 15:33 RSV (PCR) Negative (NEGATIVE) 07/08/22 15:33 SARS CoV-2 RNA Rapid JESSICA Cancelled 07/08/22 15:33 EKG Rate: 86 [place]: Normal Rhythm: NSR Block: 1 ST: Nonsp Opioid Opioid Risk Tool Age (Bennett box if 16-45): No History of Preadolescent Sexual Abuse: No Total: 0 Total Score Risk Category: Low Risk Copyright: Christian CANALES predicting aberrant behaviors Discharge Plan Diagnosis Discharge Problem: Altered mental status, Leukocytosis Discharge Plan Patient Disposition: 09 ADMITTED INPATIENT Condition: Stable
[2022-07-08] MEDS ORDERED: NS 500 ML IV 500 ML IV ONE ×2 (13:54→14:05)
--- NOTE | 2022-07-08 14:09 | EKG ---
Test Reason : confusion Blood Pressure : */* mmHG Vent. Rate : 86 BPM Atrial Rate : 86 BPM P-R Int : 210 ms QRS Dur : 76 ms QT Int : 402 ms P-R-T Axes : * -10 76 degrees QTc Int : 481 ms Sinus rhythm with 1st degree AV block Nonspecific T wave abnormality Abnormal ECG When compared with ECG of 20-JUN-2022 12:47, T wave inversion now evident in Anterior leads Confirmed by Jarrod Coates ([id number]) on 07/10/2022 9:24:31 AM Referred By: Confirmed By: Jarrod Coates
[2022-07-08 14:40] LABS: ALBUMIN 2.8 g/dL (3.4-5.0); CALCIUM 8.5 mg/dL (8.5-10.1); COR CA(FOR HYPOALB) 9.5 mg/dL (8.5-10.1); CREATININE 1.36 mg/dL (0.55-1.02); TOTAL PROTEIN 6.9 g/dL (6.4-8.2); TSH (3RD GENERATION) 1.305 uIU/mL (0.358-3.74)
[2022-07-08 14:46] LABS: BILIRUBIN,URINE 3+ (NEGATIVE); BLOOD/HEMOGLOBIN,URINE 1+ (NEGATIVE); GLUCOSE, URINE NEGATIVE (NEGATIVE); KETONES,URINE 1+ (NEGATIVE); LEUKOCYTE ESTERASE ,URINE 1+ (NEGATIVE); NITRITES,URINE POSITIVE (NEGATIVE); PROTEIN,URINE 3+ (NEGATIVE); UROBILINOGEN,URINE 4+ (NORMAL)
[2022-07-08 14:55] LABS: COLOR,URINE AMBER (YELLOW)
[2022-07-08 14:56] LABS: APPEARANCE,URINE SLIGHTLY HAZY (CLEAR); BACTERIA,URINE 3+ /HPF (NEGATIVE); HYALINE CASTS, URINE RARE /LPF (NEGATIVE); RBC,URINE 0-2 /HPF (0-3); RENAL EPITHELIAL CELLS,URINE RARE /HPF (NEGATIVE); SQUAMOUS EPITHELIAL CELL,UR RARE /HPF (NEGATIVE)
[2022-07-08 14:57] LABS: BASOPHILS % (AUTO) 0.1 % (0.2-1.0); EOSINOPHILS % (AUTO) 0.1 % (0.9-2.9); HEMATOCRIT 40.9 % (36.0-47.0); HEMOGLOBIN 13.6 g/dL (12.0-16.0); LYMPHOCYTES # (AUTO) 1.9 X10^3/uL (1.3-2.9); LYMPHOCYTES % (AUTO) 8.7 % (21.0-51.0); MEAN CORPUSCULAR HEMOGLOBIN 31.2 pg (27.0-34.0); MEAN CORPUSCULAR HGB CONC 33.3 g/dL (33.0-35.0); MEAN CORPUSCULAR VOLUME 93.7 fL (80.0-100.0); MEAN PLATELET VOLUME 8.6 fL (7.4-11.0); MONOCYTES # (AUTO) 0.6 x10^3/uL (0.3-0.8); MONOCYTES % (AUTO) 2.6 % (0.0-13.0); NEUTROPHILS # (AUTO) 19.5 x10^3/uL (2.2-4.8); NEUTROPHILS % (AUTO) 88.5 % (42.0-75.0); RED BLOOD COUNT 4.37 X10^6/uL (3.5-5.4); RED CELL DISTRIBUTION WIDTH 13.9 % (11.6-16.5); WHITE BLOOD COUNT 22.1 X10^3/uL (3.6-10.0)
[2022-07-08 14:57] LABS: OTHER CASTS, URINE FEW /LPF (NEGATIVE)
--- NOTE | 2022-07-08 15:08 | RAD ---
HISTORYConfusion abdomen painSTUDYAP chestCOMPARISONDecember 2021FINDINGSCardiomegaly with no definite pulmonary consolidation. The lung bases are not well visualized. The upper lobes are clear.IMPRESSIONNo definite/acute findings. See above. Stable cardiomegaly. A repeat exam is recommended to better evaluate the obscured lower lobes.Electronically signed by: JENNIFER DICK (Jul 08, 2022 15:06:27)
[2022-07-08 15:19] LABS: BAND NEUTROPHILS % 39 % (0-10); METAMYELOCYTES % 3; PLATELET MORPHOLOGY COMMENT NORMAL (NORMAL)
--- NOTE | 2022-07-08 15:51 | CT ---
HISTORYUPPER ABDOMINAL PAINSTUDYABDOMEN/PELVIS W/O [id number]/26/2022.TECHNIQUEMultipl e axial images of the abdomen and pelvis were obtained from the lung bases to the pubic symphysis without the administration of IV contrast. Dose reduction techniques including Automated Exposure Control (AEC) and adjustment of mA and kV were utilized.FINDINGSThere is dependent basilar opacity. There is a trace left effusion. The heart size is enlarged. There is heavy calcification in the mitral annulus. The liver is grossly normal. The gallbladder has been removed. There is dilation of the extrahepatic biliary tree. No obstructing mass or stone is identified. Pancreas is atrophic. Spleen and adrenal glands are normal. There is some renal cortical thinning in both kidneys. There is parenchymal calcification in the right kidney. There is some small nonobstructing stones in the left kidney measuring up to 3 mm in diameter. There is no hydronephrosis on either side. The stomach is normal. There is a duodenal diverticulum. The small bowel loops are otherwise normal. The appendix is normal. The large bowel loops are normal. There is a Marquez catheter in the urinary bladder. The uterus has been removed and there is no adnexal mass. There is stable kyphosis in the lower thoracic spine with a vertebroplasty at T12. There is no worrisome bone marrow lesion.IMPRESSION1. Nonspecific dilation of the biliary tree status post cholecystectomy. Consider further evaluation to exclude a obstructing stone or mass. 2. Duodenal diverticulum. 3. Bibasilar atelectasis and trace right effusion.Electronically signed by: Reno Rondon (Jul 08, 2022 15:49:19)
[2022-07-08] MEDS ORDERED: ROCEPHIN VIAL 1 GRAM ONE (16:10)
[2022-07-08] MEDS: ROCEPHIN VIAL 1 GRAM 1 G in NS 100 ML IV 100 ML IV SCH (16:12)
--- NOTE | 2022-07-08 17:12 | CT ---
HISTORYWBC 22K, possible RLL infiltrate, lisa effSTUDYCHEST WITH CONCOMPARISONChest radiograph from July 08, [address]22TECHNIQUEAxial CT images of the chest were obtained after the administration of 75 mL Omnipaque 350 IV contrast. Images were reformatted into the coronal and sagittal planes for further evaluation.Radiation dose: 561.69 mGy-cm total DLPFINDINGSTrace pericardial effusion.Coronary arteries with scattered calcifications.Cardiac chambers are mildly enlarged.Mitral valve calcification.Aorta and pulmonary arteries are normal in caliber.No hilar or mediastinal adenopathy.Central airways are widely patent.Esophagus appears normal.Status post cholecystectomy.Widening of the extrahepatic biliary duct up to 1.5 cm. No calcified choledocholithiasis. Mild enhancement of the aguilar of the extrahepatic biliary ducts.Diffuse fatty infiltration of the liver.Colonic diverticulosis.Remainder of the upper abdomen is unremarkable.Trace bilateral layering pleural effusions with adjacent atelectasis.Mild smooth interlobular septal thickening.No pneumothorax.No acute osseous abnormality.IMPRESSION1. Findings are consistent with mild cardiogenic edema resulting in trace bilateral layering pleural effusions with adjacent atelectasis.2. Widening of the extrahepatic duct up to 15 mm with no choledocholithiasis. Mild enhancement of the aguilar of the extrahepatic biliary ducts. Recommend correlation for symptoms of ascending cholangitis.3. Diffuse fatty infiltration of the liver.Electronically signed by: Arnaud Yeboah (Jul 08, 2022 17:10:28)
[2022-07-08] MEDS: D5 1/2 NS 1,000 ML 1,000 ML IV SCH (18:08)
[2022-07-08] MEDS ORDERED: NORCO 5/325 MG TAB PO PRN (21:04)
[2022-07-08] MEDS: ULTRAM PO PRN (21:27)
[2022-07-09] MEDS: D5 1/2 NS 1,000 ML 1,000 ML IV SCH ×4 (02:24→16:59)
[2022-07-09 05:13] LABS: BASOPHILS % (AUTO) 0.2 % (0.2-1.0); HEMATOCRIT 37.8 % (36.0-47.0); HEMOGLOBIN 12.7 g/dL (12.0-16.0); LYMPHOCYTES # (AUTO) 2.2 X10^3/uL (1.3-2.9); LYMPHOCYTES % (AUTO) 10.9 % (21.0-51.0); MEAN CORPUSCULAR HEMOGLOBIN 30.5 pg (27.0-34.0); MEAN CORPUSCULAR HGB CONC 33.5 g/dL (33.0-35.0); MEAN CORPUSCULAR VOLUME 91.2 fL (80.0-100.0); MEAN PLATELET VOLUME 8.8 fL (7.4-11.0); MONOCYTES # (AUTO) 0.3 x10^3/uL (0.3-0.8); MONOCYTES % (AUTO) 1.5 % (0.0-13.0); NEUTROPHILS # (AUTO) 17.3 x10^3/uL (2.2-4.8); NEUTROPHILS % (AUTO) 87.4 % (42.0-75.0); RED BLOOD COUNT 4.14 X10^6/uL (3.5-5.4); RED CELL DISTRIBUTION WIDTH 13.8 % (11.6-16.5); WHITE BLOOD COUNT 19.8 X10^3/uL (3.6-10.0)
[2022-07-09 05:15] LABS: ALANINE AMINOTRANSFERASE 71 Units/L (12-78); ALBUMIN 2.4 g/dL (3.4-5.0); ALKALINE PHOSPHATASE 104 Units/L (46-116); ASPARTATE AMINO TRANSFERASE 101 Units/L (15-37); BLOOD UREA NITROGEN 19 mg/dL (7-18); CALCIUM 7.9 mg/dL (8.5-10.1); CARBON DIOXIDE 23.9 mmol/L (21-32); CHLORIDE 102 mmol/L (98-107); COR CA(FOR HYPOALB) 9.2 mg/dL (8.5-10.1); COR NA(FOR HYPERGLY) 137 mmol/L (136-145); CREATININE 1.09 mg/dL (0.55-1.02); SODIUM 136 mmol/L (136-145); TOTAL PROTEIN 6.3 g/dL (6.4-8.2); eGFR NON BLACK RACES 52 (>60)
[2022-07-09 06:00] LABS: BAND NEUTROPHILS % 17 % (0-10); PLATELET MORPHOLOGY COMMENT NORMAL (NORMAL)
[2022-07-09] MEDS ORDERED: KLOR-CON PO PRN (06:06)
[2022-07-09] MEDS: MICRO K EXTEN CAP 10 MEQ PO PRN (08:50)
[2022-07-09] MEDS: ROCEPHIN VIAL 1 GRAM 1 G in NS 100 ML IV 100 ML IV SCH (08:50)
[2022-07-09] MEDS: MAGNESIUM SULFATE 1 GRAM/100 mL PREMIX 1 G/100 ML BAG IV PRN ×3 (10:11→13:25)
[2022-07-09 10:26] VITALS: BMI 38.7
--- NOTE | 2022-07-09 12:44 | DR.H&P ---
H&P History & Physical for Day of: H&P Date: 07/08/22 Chief Complaint Chief Complaint: Altered mental status Allergies Allergies Allergy/AdvReac Type Severity Reaction Status Date / Time adhesive tape Allergy Verified 09/06/21 10:10 ciprofloxacin Allergy ITCHING, Verified 09/06/21 10:10 REDNESS oxycodone [From Percocet] Allergy Verified 09/06/21 10:10 Penicillins Allergy Verified 09/06/21 10:10 History of Present Illness History of Present Illness: This is a 77-year-old white female who is a patient of Dr. Rai here in [place], [place]. She was here in the [facility] 3 weeks ago she was admitted then for altered mental status. Her confusion resolved and they could not find a reason for her confusion at that time. She reports not having a bowel movement for the last 3 days and goes up to 5 days sometimes not having a bowel movement. She reports some abdominal pain and chest pain as well in the ER. The patient had a CT of the lungs and abdomen/pelvis that showed extrahepatic dilatation of the biliary ducts. She also had fatty infiltration of the liver. There was no choledocholithiasis seen however cannot rule out ascending cholangitis. No masses were seen. Urinalysis did show the patient has a urinary tract infection with 3+ leukocyte esterase and positive nitrites. We elected to start the patient on IV Rocephin as she is allergic to penicillin and ciprofloxacin. We will admit her to the medical floor and start her on IV hydration as she is also dehydrated and for pain control of the abdominal pain. She is also noted to have a white blood cell count greater than 20,000 and is mildly dehydrated. Past Medical History Past Medical History: Arthritis, CHF, Coronary Artery Disease, Depression, Diabetes, GERD, Hypertension, Hypothyroidism, Kidney Stones, Renal Disease and Sleep Apnea Additional Medical History: Lupus, Cataracts, Sleep Apnea (CPAP at home), Atrial Fibrillation, Hx IBS, Hiatal Hernia, Fibromyalgia, Chronic Back Pain, Hx DVT, Pancreatitis Past Surgical History Surgical History: Abdominal Surgery, Cholecystectomy, Hysterectomy and Ortho Surgery Additional Surgical History: Bladder Tack, Breast Reduction, Fissurectomy, Hemorroidectomy, Cardiac Ablation, Back Stimulator Family History Family Medical History: Diabetes Mellitus, Cancer, [place], Coronary Artery Disease, Heart Failure and Hypertension Social History Does patient currently use any type of tobacco product: No Have you used tobacco products in the last 12 months: No Type of Tobacco Use: None Does any household member use tobacco: No Alcohol Use: None Drug Use: None Medications Home Medications: adhesive tape Allergy (Verified 09/06/21 10:10) ciprofloxacin Allergy (Verified 09/06/21 10:10) ITCHING, REDNESS oxycodone [From Percocet] Allergy (Verified 09/06/21 10:10) Penicillins Allergy (Verified 09/06/21 10:10) CONTINUE taking the following medications B-complex with vitamin C 1 cap PO QDAY 07/08/22 [History] cholecalciferol (vitamin D3) 125 mcg (5,000 unit) disintegrating tablet 125 mcg PO DAILY 07/08/22 [History] diphenhydramine HCl 12.5 mg/5 mL oral elixir 12.5 mg PO Q4-6H PRN Itching 07/08/22 [History] duloxetine 60 mg capsule,delayed release 1 cap PO QDAY 07/08/22 [History] hydrocodone 7.5 mg-acetaminophen 325 mg tablet 1 tab PO TID PRN pain 07/08/22 [History] nystatin 100,000 unit/gram topical powder See Rx Instructions .Route .COMPLEX 07/08/22 [History] Labs Result Diagrams: 07/09/22 04:05 07/09/22 04:05 Labs: 07/08/22 14:37 Urine,Catheterized Urine Culture - Preliminary Laboratory WBC 19.8 X10^3/uL (3.6-10.0) H 07/09/22 04:05 RBC 4.14 X10^6/uL (3.5-5.4) 07/09/22 04:05 Hgb 12.7 g/dL (12.0-16.0) 07/09/22 04:05 Hct 37.8 % (36.0-47.0) 07/09/22 04:05 MCV 91.2 fL (80.0-100.0) 07/09/22 04:05 MCH 30.5 pg (27.0-34.0) 07/09/22 04:05 MCHC 33.5 g/dL (33.0-35.0) 07/09/22 04:05 RDW 13.8 % (11.6-16.5) 07/09/22 04:05 Plt Count 324 X10^3/uL (150.0-450.0) 07/09/22 04:05 Plt Count Comment Adequate (ADEQUATE) 07/09/22 04:05 MPV 8.8 fL (7.4-11.0) 07/09/22 04:05 Neut % (Auto) 87.4 % (42.0-75.0) H 07/09/22 04:05 Lymph % (Auto) 10.9 % (21.0-51.0) L 07/09/22 04:05 [place] % (Auto) 1.5 % (0.0-13.0) 07/09/22 04:05 Eos % (Auto) 0.0 % (0.9-2.9) L 07/09/22 04:05 Baso % (Auto) 0.2 % (0.2-1.0) 07/09/22 04:05 Neut # (Auto) 17.3 x10^3/uL (2.2-4.8) H 07/09/22 04:05 Lymph # (Auto) 2.2 X10^3/uL (1.3-2.9) 07/09/22 04:05 [place] # (Auto) 0.3 x10^3/uL (0.3-0.8) 07/09/22 04:05 Eos # (Auto) 0.0 x10^3/uL (0.0-0.2) 07/09/22 04:05 Baso # (Auto) 0.0 X10^3/uL (0.0-0.1) 07/09/22 04:05 Absolute Nucleated RBC 0.0 /100WBC 07/09/22 04:05 Total Counted 100 07/09/22 04:05 Neutrophils % (Manual) 70 % (39-76) 07/09/22 04:05 Band Neutrophils % 17 % (0-10) H 07/09/22 04:05 Lymphocytes % (Manual) 11 % (13-43) L 07/09/22 04:05 Monocytes % (Manual) 2 % (4-9) L 07/09/22 04:05 Metamyelocytes % 3 07/08/22 14:10 Plt Morphology Comment Normal (NORMAL) 07/09/22 04:05 RBC Morphology Normal (NORMAL) 07/09/22 04:05 Sodium 136 mmol/L (136-145) 07/09/22 04:05 Corrected Sodium 137 mmol/L (136-145) 07/09/22 04:05 Potassium 3.6 mmol/L (3.5-5.1) 07/09/22 04:05 Chloride 102 mmol/L (98-107) 07/09/22 04:05 Carbon Dioxide 23.9 mmol/L (21-32) 07/09/22 04:05 BUN 19 mg/dL (7-18) H 07/09/22 04:05 Creatinine 1.09 mg/dL (0.55-1.02) H 07/09/22 04:05 Est GFR (MDRD) Af Amer > 60 (>60) 07/09/22 04:05 Est GFR (MDRD) Non-Af 52 (>60) L 07/09/22 04:05 Glucose 135 mg/dL (65-99) H 07/09/22 04:05 POC Glucose (mg/dL) 142 mg/dL (65-99) H 07/09/22 11:52 Lactic Acid 2.5 mmol/L (0.4-2.0) H 07/08/22 15:46 Calcium 7.9 mg/dL (8.5-10.1) L 07/09/22 04:05 Corrected Calcium 9.2 mg/dL (8.5-10.1) 07/09/22 04:05 Magnesium 1.2 mg/dL (2.0-2.9) L 07/09/22 04:05 Total Bilirubin 1.90 mg/dL (0.2-1.0) H 07/09/22 04:05 AST 101 Units/L (15-37) H 07/09/22 04:05 ALT 71 Units/L (12-78) 07/09/22 04:05 Alkaline Phosphatase 104 Units/L (46-116) 07/09/22 04:05 Troponin I High Sens 12.4 ng/L (4.0-60.0) 07/08/22 14:10 Total Protein 6.3 g/dL (6.4-8.2) L 07/09/22 04:05 Albumin 2.4 g/dL (3.4-5.0) L 07/09/22 04:05 Globulin 3.9 g/dL (2.5-4.5) 07/09/22 04:05 Albumin/Globulin Ratio 0.6 Ratio (1.1-2.1) L 07/09/22 04:05 Lipase 20 Units/L (73-393) L 07/08/22 14:10 TSH 3rd Generation 1.305 uIU/mL (0.358-3.74) 07/08/22 14:10 Specimen Type Catherized urine 07/08/22 14:37 Urine Color Karrie (YELLOW) 07/08/22 14:37 Urine Appearance Slightly hazy (CLEAR) 07/08/22 14:37 Urine pH 5.0 (5.0 - 8.0) 07/08/22 14:37 Ur Specific [place] 1.030 (1.000-1.030) 07/08/22 14:37 Urine Protein 3+ (NEGATIVE) 07/08/22 14:37 Urine Glucose (UA) Negative (NEGATIVE) 07/08/22 14:37 Urine Ketones 1+ (NEGATIVE) 07/08/22 14:37 Urine Blood 1+ (NEGATIVE) 07/08/22 14:37 Urine Nitrite Positive (NEGATIVE) 07/08/22 14:37 Urine Bilirubin 3+ (NEGATIVE) 07/08/22 14:37 Urine Urobilinogen 4+ (NORMAL) 07/08/22 14:37 Ur Leukocyte Esterase 1+ (NEGATIVE) 07/08/22 14:37 Urine RBC 0-2 /HPF (0-3) 07/08/22 14:37 Urine WBC 5-10 /HPF (0-5) A 07/08/22 14:37 Ur Squamous Epith Cells Rare /HPF (NEGATIVE) 07/08/22 14:37 Ur Renal Epithelial Cell Rare /HPF (NEGATIVE) 07/08/22 14:37 Amorphous Sediment 1+ /HPF (NEGATIVE) 07/08/22 14:37 Urine Bacteria 3+ /HPF (NEGATIVE) 07/08/22 14:37 Hyaline Casts Rare /LPF (NEGATIVE) 07/08/22 14:37 Other Casts Few /LPF (NEGATIVE) 07/08/22 14:37 Ur Culture Indicated? Yes/culture set up 07/08/22 14:37 SARS-CoV-2 (PCR) Negative (NEGATIVE) 07/08/22 15:33 Influenza Type A (PCR) Negative (NEGATIVE) 07/08/22 15:33 Influenza Type B (PCR) Negative (NEGATIVE) 07/08/22 15:33 RSV (PCR) Negative (NEGATIVE) 07/08/22 15:33 SARS CoV-2 RNA Rapid JESSICA Cancelled 07/08/22 15:33 Review of Systems Constitutional: Fever, Weakness and Malaise Eyes: No Symptoms Reported ENT: No Symptoms Reported Respiratory: No Symptoms Reported Cardiovascular: Chest Pain Gastrointestinal: Nausea, Abdominal Pain and Constipation Genitourinary: Dysuria Musculoskeletal: No Symptoms Reported Skin: No Symptoms Reported Neurological: Confusion Physical Exam Vital Signs: Temperature 100.1 F Pulse Rate [Left Radial] 97 Pulse Rate 84 Respiratory Rate 20 Blood Pressure [Right Arm] 135/65 Blood Pressure 123/60 O2 Sat by Pulse Oximetry 91 Oriented: Normal Eyes: Normal Respiratory: Clear Throughout Auscultation: Bowel Sounds: Decreased Palpation: Normal Tenderness: RUQ Skin: Decreased Turgur Musculoskeletal: Normal Psychiatric: Depression Mood Description: Apathetic and Depressed Affect: Depressed Speech Pattern: Clear and Appropriate Assessment/Plan (1) UTI (urinary tract infection): Qualifiers: Urinary tract infection type: acute cystitis Hematuria presence: with hematuria Qualified Code(s): N30.01 - Acute cystitis with hematuria Status: Acute Plan: IV Rocephin. (2) Chronic kidney disease (CKD): Qualifiers: Chronic kidney disease stage: stage 4 (severe) Qualified Code(s): N18.4 - Chronic kidney disease, stage 4 (severe) Status: Acute (3) Elevated liver enzymes: Status: Acute Plan: Follow-up general surgery recommendations check a CA 199 to rule out pancreatic mass/cancer. (4) Altered mental status: Qualifiers: Altered mental status type: transient alteration of awareness Qualified Code(s): R40.4 - Transient alteration of awareness Status: Acute Plan: Follow for improvement. (5) Generalized weakness: Status: Acute (6) Leukocytosis: Status: Acute Plan: IV Rocephin for UTI. (7) Atrial fibrillation: Qualifiers: Atrial fibrillation type: chronic Qualified Code(s): I48.2 - Chronic atrial fibrillation Status: Chronic Plan: Diltiazem 120 mg daily and Eliquis 5 mg twice daily. (8) Hypertension: Qualifiers: Hypertension type: essential hypertension Qualified Code(s): I10 - Essential (primary) hypertension Status: Chronic Plan: Metoprolol 12.5 mg twice daily (9) Right upper quadrant abdominal pain: Narrative Support Text: Patient is status postcholecystectomy in the past however she is having right upper quadrant pain with elevated LFTs and dilated biliary ducts. Status: Acute Plan: I will go ahead and consult general surgery, Dr. Fay for further evaluation and follow his recommendations. (10) Dehydration: Status: Acute Plan: IV hydration.
[2022-07-09] MEDS: ULTRAM PO PRN (13:08)
--- NOTE | 2022-07-09 13:08 | PCM.PROG ---
Progress Note Progress Note for Day of Date of Exam: 07/09/22 Subjective Subjective: The patient is alert and awake this morning. Her family is with her at her bedside. She is still having some right upper quadrant pain and nausea but no vomiting at this time. She had a temp of 101.5 F at midnight and this morning she is 101 F. Her white blood cell count is down some to 19,900 and her BUN and creatinine has not improved since admission. Her total bilirubin went from 3.9 to 1.9. Her LFTs have almost normalized this morning. Her lactic acid was noted to be slightly elevated at 2.5. We will can continue with her current treatment and I will follow-up with general surgery's recommendations later today when available. Past Medical Family Social History Allergies: Allergies adhesive tape Allergy (Verified 09/06/21 10:10) ciprofloxacin Allergy (Verified 09/06/21 10:10) ITCHING, REDNESS oxycodone [From Percocet] Allergy (Verified 09/06/21 10:10) Penicillins Allergy (Verified 09/06/21 10:10) Review of Systems ROS: No change since H&P Vital Signs and I&O's Vital Signs: Temperature 98.4 F Pulse Rate [Left Radial] 98 Pulse Rate 84 Respiratory Rate 20 Blood Pressure [Right Arm] 132/64 Blood Pressure 123/60 O2 Sat by Pulse Oximetry 91 Intake and Output: Intake & Output 07/07/22 07/08/22 07/09/22 07/10/22 11:59 11:59 11:59 11:59 Intake Total 1807 / 1807 Output Total 450 / 450 Balance 1357 / 1357 Physical Exam Oriented: Normal Eyes: Normal Respiratory: Normal Cardiovascular: Normal Auscultation: Bowel Sounds: Decreased Tenderness: RUQ Skin: Decreased Turgur Musculoskeletal: Normal Psychiatric: Depression Mood Description: Apathetic and Depressed Affect: Depressed Speech Pattern: Clear and Appropriate Laboratory and Diagnostics Result Diagrams: 07/09/22 04:05 07/09/22 04:05 Labs: 07/08/22 14:37 Urine,Catheterized Urine Culture - Preliminary Laboratory WBC 19.8 X10^3/uL (3.6-10.0) H 07/09/22 04:05 RBC 4.14 X10^6/uL (3.5-5.4) 07/09/22 04:05 Hgb 12.7 g/dL (12.0-16.0) 07/09/22 04:05 Hct 37.8 % (36.0-47.0) 07/09/22 04:05 MCV 91.2 fL (80.0-100.0) 07/09/22 04:05 MCH 30.5 pg (27.0-34.0) 07/09/22 04:05 MCHC 33.5 g/dL (33.0-35.0) 07/09/22 04:05 RDW 13.8 % (11.6-16.5) 07/09/22 04:05 Plt Count 324 X10^3/uL (150.0-450.0) 07/09/22 04:05 Plt Count Comment Adequate (ADEQUATE) 07/09/22 04:05 MPV 8.8 fL (7.4-11.0) 07/09/22 04:05 Neut % (Auto) 87.4 % (42.0-75.0) H 07/09/22 04:05 Lymph % (Auto) 10.9 % (21.0-51.0) L 07/09/22 04:05 [place] % (Auto) 1.5 % (0.0-13.0) 07/09/22 04:05 Eos % (Auto) 0.0 % (0.9-2.9) L 07/09/22 04:05 Baso % (Auto) 0.2 % (0.2-1.0) 07/09/22 04:05 Neut # (Auto) 17.3 x10^3/uL (2.2-4.8) H 07/09/22 04:05 Lymph # (Auto) 2.2 X10^3/uL (1.3-2.9) 07/09/22 04:05 [place] # (Auto) 0.3 x10^3/uL (0.3-0.8) 07/09/22 04:05 Eos # (Auto) 0.0 x10^3/uL (0.0-0.2) 07/09/22 04:05 Baso # (Auto) 0.0 X10^3/uL (0.0-0.1) 07/09/22 04:05 Absolute Nucleated RBC 0.0 /100WBC 07/09/22 04:05 Total Counted 100 07/09/22 04:05 Neutrophils % (Manual) 70 % (39-76) 07/09/22 04:05 Band Neutrophils % 17 % (0-10) H 07/09/22 04:05 Lymphocytes % (Manual) 11 % (13-43) L 07/09/22 04:05 Monocytes % (Manual) 2 % (4-9) L 07/09/22 04:05 Metamyelocytes % 3 07/08/22 14:10 Plt Morphology Comment Normal (NORMAL) 07/09/22 04:05 RBC Morphology Normal (NORMAL) 07/09/22 04:05 Sodium 136 mmol/L (136-145) 07/09/22 04:05 Corrected Sodium 137 mmol/L (136-145) 07/09/22 04:05 Potassium 3.6 mmol/L (3.5-5.1) 07/09/22 04:05 Chloride 102 mmol/L (98-107) 07/09/22 04:05 Carbon Dioxide 23.9 mmol/L (21-32) 07/09/22 04:05 BUN 19 mg/dL (7-18) H 07/09/22 04:05 Creatinine 1.09 mg/dL (0.55-1.02) H 07/09/22 04:05 Est GFR (MDRD) Af Amer > 60 (>60) 07/09/22 04:05 Est GFR (MDRD) Non-Af 52 (>60) L 07/09/22 04:05 Glucose 135 mg/dL (65-99) H 07/09/22 04:05 POC Glucose (mg/dL) 142 mg/dL (65-99) H 07/09/22 11:52 Lactic Acid 2.5 mmol/L (0.4-2.0) H 07/08/22 15:46 Calcium 7.9 mg/dL (8.5-10.1) L 07/09/22 04:05 Corrected Calcium 9.2 mg/dL (8.5-10.1) 07/09/22 04:05 Magnesium 1.2 mg/dL (2.0-2.9) L 07/09/22 04:05 Total Bilirubin 1.90 mg/dL (0.2-1.0) H 07/09/22 04:05 AST 101 Units/L (15-37) H 07/09/22 04:05 ALT 71 Units/L (12-78) 07/09/22 04:05 Alkaline Phosphatase 104 Units/L (46-116) 07/09/22 04:05 Troponin I High Sens 12.4 ng/L (4.0-60.0) 07/08/22 14:10 Total Protein 6.3 g/dL (6.4-8.2) L 07/09/22 04:05 Albumin 2.4 g/dL (3.4-5.0) L 07/09/22 04:05 Globulin 3.9 g/dL (2.5-4.5) 07/09/22 04:05 Albumin/Globulin Ratio 0.6 Ratio (1.1-2.1) L 07/09/22 04:05 Lipase 20 Units/L (73-393) L 07/08/22 14:10 TSH 3rd Generation 1.305 uIU/mL (0.358-3.74) 07/08/22 14:10 Specimen Type Catherized urine 07/08/22 14:37 Urine Color Karrie (YELLOW) 07/08/22 14:37 Urine Appearance Slightly hazy (CLEAR) 07/08/22 14:37 Urine pH 5.0 (5.0 - 8.0) 07/08/22 14:37 Ur Specific [place] 1.030 (1.000-1.030) 07/08/22 14:37 Urine Protein 3+ (NEGATIVE) 07/08/22 14:37 Urine Glucose (UA) Negative (NEGATIVE) 07/08/22 14:37 Urine Ketones 1+ (NEGATIVE) 07/08/22 14:37 Urine Blood 1+ (NEGATIVE) 07/08/22 14:37 Urine Nitrite Positive (NEGATIVE) 07/08/22 14:37 Urine Bilirubin 3+ (NEGATIVE) 07/08/22 14:37 Urine Urobilinogen 4+ (NORMAL) 07/08/22 14:37 Ur Leukocyte Esterase 1+ (NEGATIVE) 07/08/22 14:37 Urine RBC 0-2 /HPF (0-3) 07/08/22 14:37 Urine WBC 5-10 /HPF (0-5) A 07/08/22 14:37 Ur Squamous Epith Cells Rare /HPF (NEGATIVE) 07/08/22 14:37 Ur Renal Epithelial Cell Rare /HPF (NEGATIVE) 07/08/22 14:37 Amorphous Sediment 1+ /HPF (NEGATIVE) 07/08/22 14:37 Urine Bacteria 3+ /HPF (NEGATIVE) 07/08/22 14:37 Hyaline Casts Rare /LPF (NEGATIVE) 07/08/22 14:37 Other Casts Few /LPF (NEGATIVE) 07/08/22 14:37 Ur Culture Indicated? Yes/culture set up 07/08/22 14:37 SARS-CoV-2 (PCR) Negative (NEGATIVE) 07/08/22 15:33 Influenza Type A (PCR) Negative (NEGATIVE) 07/08/22 15:33 Influenza Type B (PCR) Negative (NEGATIVE) 07/08/22 15:33 RSV (PCR) Negative (NEGATIVE) 07/08/22 15:33 SARS CoV-2 RNA Rapid JESSICA Cancelled 07/08/22 15:33 Radiology Reviewed: Yes Plan (1) UTI (urinary tract infection): Status: Acute Qualifiers: Hematuria presence: with hematuria Urinary tract infection type: acute cystitis Qualified Code(s): N30.01 - Acute cystitis with hematuria Plan: IV Rocephin. Follow-up with urine culture when available. (2) Chronic kidney disease (CKD): Status: Acute Qualifiers: Chronic kidney disease stage: stage 4 (severe) Qualified Code(s): N18.4 - Chronic kidney disease, stage 4 (severe) Narrative Support Text: Renal status improved since admission. (3) Elevated liver enzymes: Status: Acute Plan: Follow-up general surgery recommendations check a CA 199 to rule out pancreatic mass/cancer. (4) Altered mental status: Status: Acute Qualifiers: Altered mental status type: transient alteration of awareness Qualified Code(s): R40.4 - Transient alteration of awareness Narrative Support Text: Patient is answering questions appropriately this morning. Plan: Follow for improvement. (5) Generalized weakness: Status: Acute (6) Leukocytosis: Status: Acute Narrative Support Text: Slightly improved since admission. Plan: IV Rocephin for UTI. (7) Atrial fibrillation: Status: Chronic Qualifiers: Atrial fibrillation type: chronic Qualified Code(s): I48.2 - Chronic atrial fibrillation Plan: Diltiazem 120 mg daily and Eliquis 5 mg twice daily. (8) Hypertension: Status: Chronic Qualifiers: Hypertension type: essential hypertension Qualified Code(s): I10 - Essential (primary) hypertension Plan: Metoprolol 12.5 mg twice daily (9) Right upper quadrant abdominal pain: Status: Acute Narrative Support Text: Patient is status postcholecystectomy in the past. However the patient does have dilated biliary ducts for some reason. Plan: I will go ahead and consult general surgery, Dr. Fay for further evaluation and follow his recommendations. (10) Dehydration: Status: Acute Plan: IV hydration. (11) Total bilirubin, elevated: Status: Acute Narrative Support Text: Improving at this time since admission. Plan: Recheck total bilirubin tomorrow morning to see if it has normalized.
[2022-07-09] MEDS ORDERED: SOLU-Medrol 125 MG VIAL IVP ONE (15:47)
[2022-07-09] MEDS ORDERED: BENADRYL INJ 50 MG VIAL IVP ONE (15:47)
[2022-07-09] MEDS ORDERED: PEPCID 20 MG VIAL 20 MG in NS 50 ML IV 50 ML IV ONE (15:48)
[2022-07-09] MEDS ORDERED: SOLU-Medrol 125 MG VIAL ONE (15:51)
[2022-07-09] MEDS ORDERED: BENADRYL INJ 50 MG VIAL ONE (15:51)
[2022-07-09] MEDS ORDERED: PEPCID 20 MG VIAL IVP ONE (15:52)
[2022-07-09] MEDS: PEPCID 20 MG VIAL ONE ×2 (16:10→16:11)
[2022-07-09] MEDS: K-RIDER 10 MEQ/NS 100 ML 10 MEQ/100 ML BAG IV PRN ×4 (16:19→23:07)
[2022-07-09] MEDS: CLEOCIN 300 MG IV PREMIX 300 MG/50 ML BAG IV SCH (21:14)
[2022-07-10] MEDS: D5 1/2 NS 1,000 ML 1,000 ML IV SCH ×4 (01:19→17:05)
[2022-07-10 05:10] LABS: HEMOGLOBIN 12.9 g/dL (12.0-16.0); WHITE BLOOD COUNT 10.6 X10^3/uL (3.6-10.0)
[2022-07-10 05:14] LABS: BASOPHILS % (AUTO) 0.1 % (0.2-1.0); EOSINOPHILS % (AUTO) 0.1 % (0.9-2.9); HEMATOCRIT 38.1 % (36.0-47.0); LYMPHOCYTES # (AUTO) 1.3 X10^3/uL (1.3-2.9); MEAN CORPUSCULAR HEMOGLOBIN 31.1 pg (27.0-34.0); MEAN CORPUSCULAR HGB CONC 33.9 g/dL (33.0-35.0); MEAN CORPUSCULAR VOLUME 91.7 fL (80.0-100.0); MEAN PLATELET VOLUME 8.8 fL (7.4-11.0); MONOCYTES # (AUTO) 0.1 x10^3/uL (0.3-0.8); MONOCYTES % (AUTO) 1.1 % (0.0-13.0); NEUTROPHILS # (AUTO) 9.2 x10^3/uL (2.2-4.8); NEUTROPHILS % (AUTO) 86.7 % (42.0-75.0); RED BLOOD COUNT 4.16 X10^6/uL (3.5-5.4); RED CELL DISTRIBUTION WIDTH 14.1 % (11.6-16.5)
[2022-07-10 05:22] LABS: ALANINE AMINOTRANSFERASE 50 Units/L (12-78); ALBUMIN 2.2 g/dL (3.4-5.0); ALKALINE PHOSPHATASE 114 Units/L (46-116); ASPARTATE AMINO TRANSFERASE 40 Units/L (15-37); BLOOD UREA NITROGEN 14 mg/dL (7-18); CALCIUM 8.3 mg/dL (8.5-10.1); CARBON DIOXIDE 22.2 mmol/L (21-32); CHLORIDE 103 mmol/L (98-107); COR CA(FOR HYPOALB) 9.7 mg/dL (8.5-10.1); COR NA(FOR HYPERGLY) 138 mmol/L (136-145); CREATININE 0.94 mg/dL (0.55-1.02); SODIUM 135 mmol/L (136-145); TOTAL PROTEIN 6.6 g/dL (6.4-8.2); eGFR NON BLACK RACES > 60 (>60)
[2022-07-10] MEDS: CLEOCIN 300 MG IV PREMIX 300 MG/50 ML BAG IV SCH ×3 (05:44→21:40)
--- NOTE | 2022-07-10 12:20 | PCM.PROG ---
Progress Note Progress Note for Day of Date of Exam: 07/10/22 Subjective Subjective: The patient is resting well and feels better this morning. However late yesterday evening I was called and it was reported to me that she has started getting red in the face and appeared to be having a allergic reaction to the Rocephin. I ordered IV Solu-Medrol 125 mg IV x1 along with Benadryl 25 mg IV x1 and Pepcid 20 mg IV x1 for an apparent allergic reaction. However with treatment the allergic reaction subsided and she did well afterwards and there were no further complications. We will be adding Rocephin to her allergy list. I replaced the antibiotic with IV clindamycin and currently she is doing well on it. Patient was seen by general surgeon, Dr. Fay yesterday and he is recommended that she get a MRCP for her dilated biliary ducts/hepatic ducts. Her right upper quadrant pain is better today which could be a result of treated cholangitis. Patient's urine culture came back and she grew out E. coli. It was sensitive to Rocephin however she is allergic to that now. It is resistant to sulfa meds and tetracyclines however if it is sensitive to gentamicin. I w ill consult pharmacy to give her 1 dose of gentamicin which should treat her UTI appropriately. Past Medical Family Social History Allergies: Allergies adhesive tape Allergy (Verified 09/06/21 10:10) ceftriaxone [From Rocephin] Allergy (Verified 07/09/22 18:38) ciprofloxacin Allergy (Verified 09/06/21 10:10) ITCHING, REDNESS oxycodone [From Percocet] Allergy (Verified 09/06/21 10:10) Penicillins Allergy (Verified 09/06/21 10:10) Review of Systems ROS: No change since H&P Vital Signs and I&O's Vital Signs: Temperature 97.6 F Pulse Rate [Left Radial] 87 Pulse Rate 84 Respiratory Rate 18 Blood Pressure [Left Arm] 124/69 Blood Pressure [Right Arm] 131/80 Blood Pressure 123/60 O2 Sat by Pulse Oximetry 94 Intake and Output: Intake & Output 07/08/22 07/09/22 07/10/22 07/11/22 11:59 11:59 11:59 11:59 Intake Total 1807 / 1807 2550 / 2550 Output Total 450 / 450 2400 / 2400 Balance 1357 / 1357 150 / 150 Physical Exam Oriented: Normal Eyes: Normal Respiratory: Normal Cardiovascular: Normal Auscultation: Bowel Sounds: Decreased Tenderness: Normal Skin: Decreased Turgur Musculoskeletal: Normal Psychiatric: Depression Mood Description: Apathetic and Depressed Affect: Depressed Speech Pattern: Clear and Appropriate Laboratory and Diagnostics Result Diagrams: 07/10/22 04:15 07/10/22 04:15 Labs: 07/08/22 14:37 Urine,Catheterized Urine Culture - Final Escherichia Coli 07/08/22 16:00 Blood Blood Culture - Preliminary 07/08/22 15:46 Blood Blood Culture - Preliminary Laboratory WBC 10.6 X10^3/uL (3.6-10.0) H D 07/10/22 04:15 RBC 4.16 X10^6/uL (3.5-5.4) 07/10/22 04:15 Hgb 12.9 g/dL (12.0-16.0) 07/10/22 04:15 Hct 38.1 % (36.0-47.0) 07/10/22 04:15 MCV 91.7 fL (80.0-100.0) 07/10/22 04:15 MCH 31.1 pg (27.0-34.0) 07/10/22 04:15 MCHC 33.9 g/dL (33.0-35.0) 07/10/22 04:15 RDW 14.1 % (11.6-16.5) 07/10/22 04:15 Plt Count 320 X10^3/uL (150.0-450.0) 07/10/22 04:15 Plt Count Comment Adequate (ADEQUATE) 07/09/22 04:05 MPV 8.8 fL (7.4-11.0) 07/10/22 04:15 Neut % (Auto) 86.7 % (42.0-75.0) H 07/10/22 04:15 Lymph % (Auto) 12.0 % (21.0-51.0) L 07/10/22 04:15 [place] % (Auto) 1.1 % (0.0-13.0) 07/10/22 04:15 Eos % (Auto) 0.1 % (0.9-2.9) L 07/10/22 04:15 Baso % (Auto) 0.1 % (0.2-1.0) L 07/10/22 04:15 Neut # (Auto) 9.2 x10^3/uL (2.2-4.8) H 07/10/22 04:15 Lymph # (Auto) 1.3 X10^3/uL (1.3-2.9) 07/10/22 04:15 [place] # (Auto) 0.1 x10^3/uL (0.3-0.8) L 07/10/22 04:15 Eos # (Auto) 0.0 x10^3/uL (0.0-0.2) 07/10/22 04:15 Baso # (Auto) 0.0 X10^3/uL (0.0-0.1) 07/10/22 04:15 Absolute Nucleated RBC 0.0 /100WBC 07/10/22 04:15 Total Counted 100 07/09/22 04:05 Neutrophils % (Manual) 70 % (39-76) 07/09/22 04:05 Band Neutrophils % 17 % (0-10) H 07/09/22 04:05 Lymphocytes % (Manual) 11 % (13-43) L 07/09/22 04:05 Monocytes % (Manual) 2 % (4-9) L 07/09/22 04:05 Metamyelocytes % 3 07/08/22 14:10 Plt Morphology Comment Normal (NORMAL) 07/09/22 04:05 RBC Morphology Normal (NORMAL) 07/09/22 04:05 Sodium 135 mmol/L (136-145) L 07/10/22 04:15 Corrected Sodium 138 mmol/L (136-145) 07/10/22 04:15 Potassium 4.4 mmol/L (3.5-5.1) 07/10/22 04:15 Chloride 103 mmol/L (98-107) 07/10/22 04:15 Carbon Dioxide 22.2 mmol/L (21-32) 07/10/22 04:15 BUN 14 mg/dL (7-18) 07/10/22 04:15 Creatinine 0.94 mg/dL (0.55-1.02) 07/10/22 04:15 Est GFR (MDRD) Af Amer > 60 (>60) 07/10/22 04:15 Est GFR (MDRD) Non-Af > 60 (>60) 07/10/22 04:15 Glucose 223 mg/dL (65-99) H 07/10/22 04:15 POC Glucose (mg/dL) 158 mg/dL (65-99) H 07/10/22 11:14 Lactic Acid 2.5 mmol/L (0.4-2.0) H 07/08/22 15:46 Calcium 8.3 mg/dL (8.5-10.1) L 07/10/22 04:15 Corrected Calcium 9.7 mg/dL (8.5-10.1) 07/10/22 04:15 Magnesium 2.4 mg/dL (2.0-2.9) 07/10/22 04:15 Total Bilirubin 0.60 mg/dL (0.2-1.0) 07/10/22 04:15 AST 40 Units/L (15-37) H 07/10/22 04:15 ALT 50 Units/L (12-78) 07/10/22 04:15 Alkaline Phosphatase 114 Units/L (46-116) 07/10/22 04:15 Troponin I High Sens 12.4 ng/L (4.0-60.0) 07/08/22 14:10 Total Protein 6.6 g/dL (6.4-8.2) 07/10/22 04:15 Albumin 2.2 g/dL (3.4-5.0) L 07/10/22 04:15 Globulin 4.4 g/dL (2.5-4.5) 07/10/22 04:15 Albumin/Globulin Ratio 0.5 Ratio (1.1-2.1) L 07/10/22 04:15 Lipase 20 Units/L (73-393) L 07/08/22 14:10 TSH 3rd Generation 1.305 uIU/mL (0.358-3.74) 07/08/22 14:10 Specimen Type Catherized urine 07/08/22 14:37 Urine Color Kar[place] (YELLOW) 07/08/22 14:37 Urine Appearance Slightly hazy (CLEAR) 07/08/22 14:37 Urine pH 5.0 (5.0 - 8.0) 07/08/22 14:37 Ur Specific [place] 1.030 (1.000-1.030) 07/08/22 14:37 Urine Protein 3+ (NEGATIVE) 07/08/22 14:37 Urine Glucose (UA) Negative (NEGATIVE) 07/08/22 14:37 Urine Ketones 1+ (NEGATIVE) 07/08/22 14:37 Urine Blood 1+ (NEGATIVE) 07/08/22 14:37 Urine Nitrite Positive (NEGATIVE) 07/08/22 14:37 Urine Bilirubin 3+ (NEGATIVE) 07/08/22 14:37 Urine Urobilinogen 4+ (NORMAL) 07/08/22 14:37 Ur Leukocyte Esterase 1+ (NEGATIVE) 07/08/22 14:37 Urine RBC 0-2 /HPF (0-3) 07/08/22 14:37 Urine WBC 5-10 /HPF (0-5) A 07/08/22 14:37 Ur Squamous Epith Cells Rare /HPF (NEGATIVE) 07/08/22 14:37 Ur Renal Epithelial Cell Rare /HPF (NEGATIVE) 07/08/22 14:37 Amorphous Sediment 1+ /HPF (NEGATIVE) 07/08/22 14:37 Urine Bacteria 3+ /HPF (NEGATIVE) 07/08/22 14:37 Hyaline Casts Rare /LPF (NEGATIVE) 07/08/22 14:37 Other Casts Few /LPF (NEGATIVE) 07/08/22 14:37 Ur Culture Indicated? Yes/culture set up 07/08/22 14:37 SARS-CoV-2 (PCR) Negative (NEGATIVE) 07/08/22 15:33 Influenza Type A (PCR) Negative (NEGATIVE) 07/08/22 15:33 Influenza Type B (PCR) Negative (NEGATIVE) 07/08/22 15:33 RSV (PCR) Negative (NEGATIVE) 07/08/22 15:33 SARS CoV-2 RNA Rapid JESSICA Cancelled 07/08/22 15:33 Plan (1) UTI (urinary tract infection): Status: Acute Qualifiers: Urinary tract infection type: acute cystitis Hematuria presence: with hematuria Qualified Code(s): N30.01 - Acute cystitis with hematuria Narrative Support Text: UTI secondary to E. coli. It is sensitive to gentamicin. However it is resistant to sulfa medications and tetracyclines. Patient is allergic to Rocephin and penicillins so she is not a candidate for cephalosporin or Carbapenem therapy. Plan: I will consult pharmacy for today to give the patient 1 dose of IV gentamicin to treat her UTI. (2) Chronic kidney disease (CKD): Status: Acute Qualifiers: Chronic kidney disease stage: stage 4 (severe) Qualified Code(s): N18.4 - Chronic kidney disease, stage 4 (severe) Narrative Support Text: BUN/creatinine are stable today. (3) Elevated liver enzymes: Status: Acute Narrative Support Text: LFTs have all normalized except AST which is a few points elevated. Plan: Follow-up general surgery recommendations check a CA 199 to rule out pancreatic mass/cancer. (4) Altered mental status: Status: Acute Qualifiers: Altered mental status type: transient alteration of awareness Qualified Code(s): R40.4 - Transient alteration of awareness Plan: Follow for improvement. (5) Generalized weakness: Status: Acute (6) Leukocytosis: Status: Acute Plan: Patient will receive gentamicin IV x1 dose per pharmacy dosing. (7) Atrial fibrillation: Status: Chronic Qualifiers: Atrial fibrillation type: chronic Qualified Code(s): I48.2 - Chronic atrial fibrillation Plan: Diltiazem 120 mg daily and Eliquis 5 mg twice daily. (8) Hypertension: Status: Chronic Qualifiers: Hypertension type: essential hypertension Qualified Code(s): I10 - Ess ential (primary) hypertension Plan: Metoprolol 12.5 mg twice daily (9) Right upper quadrant abdominal pain: Status: Acute Plan: I will go ahead and consult general surgery, Dr. Fay for further evaluation and follow his recommendations. (10) Dehydration: Status: Acute Plan: IV hydration. (11) Total bilirubin, elevated: Status: Acute Plan: Recheck total bilirubin tomorrow morning to see if it has normalized.
[2022-07-10] MEDS ORDERED: CONSULT PHARMACY - GENTAMICIN XX SCH (13:00)
[2022-07-10] MEDS ORDERED: NYSTATIN POWDER TOP SCH (13:00)
[2022-07-10] MEDS ORDERED: GENTAMICIN INJ 160 MG in NS 100 ML IV 100 ML IV ONE (14:00)
[2022-07-10] MEDS: VITAMIN D3 125 mcg (5,000 UNITS) PO SCH (14:05)
[2022-07-10] MEDS: SYNTHROID 100 mcg TAB PO SCH (14:06)
[2022-07-10] MEDS: CYMBALTA PO SCH (14:06)
[2022-07-10] MEDS: CARDIZEM CD 120 MG 24-HR PO SCH (14:06)
[2022-07-10] MEDS: ELIQUIS PO SCH (21:39)
[2022-07-10] MEDS: LOPRESSOR TAB 25 MG PO SCH (21:39)
[2022-07-10] MEDS: PROTONIX TAB 40 MG PO SCH (21:39)
[2022-07-11] MEDS: D5 1/2 NS 1,000 ML 1,000 ML IV SCH ×4 (00:55→20:57)
[2022-07-11 04:51] LABS: MEAN CORPUSCULAR HGB CONC 33.9 g/dL (33.0-35.0); WHITE BLOOD COUNT 10.5 X10^3/uL (3.6-10.0)
[2022-07-11 05:00] LABS: BASOPHILS % (AUTO) 0.1 % (0.2-1.0); HEMATOCRIT 36.2 % (36.0-47.0); HEMOGLOBIN 12.3 g/dL (12.0-16.0); LYMPHOCYTES # (AUTO) 1.7 X10^3/uL (1.3-2.9); LYMPHOCYTES % (AUTO) 16.1 % (21.0-51.0); MEAN CORPUSCULAR HEMOGLOBIN 31.1 pg (27.0-34.0); MEAN CORPUSCULAR VOLUME 91.8 fL (80.0-100.0); MEAN PLATELET VOLUME 8.9 fL (7.4-11.0); MONOCYTES # (AUTO) 0.5 x10^3/uL (0.3-0.8); MONOCYTES % (AUTO) 5.1 % (0.0-13.0); NEUTROPHILS # (AUTO) 8.2 x10^3/uL (2.2-4.8); NEUTROPHILS % (AUTO) 78.7 % (42.0-75.0); RED BLOOD COUNT 3.94 X10^6/uL (3.5-5.4); RED CELL DISTRIBUTION WIDTH 13.7 % (11.6-16.5)
[2022-07-11] MEDS: CLEOCIN 300 MG IV PREMIX 300 MG/50 ML BAG IV SCH ×3 (05:05→20:59)
[2022-07-11 05:06] LABS: ALANINE AMINOTRANSFERASE 33 Units/L (12-78); ALBUMIN 2.2 g/dL (3.4-5.0); ALKALINE PHOSPHATASE 96 Units/L (46-116); ASPARTATE AMINO TRANSFERASE 19 Units/L (15-37); BLOOD UREA NITROGEN 12 mg/dL (7-18); CALCIUM 8.2 mg/dL (8.5-10.1); CARBON DIOXIDE 25.3 mmol/L (21-32); CHLORIDE 105 mmol/L (98-107); COR CA(FOR HYPOALB) 9.6 mg/dL (8.5-10.1); COR NA(FOR HYPERGLY) 139 mmol/L (136-145); CREATININE 0.76 mg/dL (0.55-1.02); SODIUM 138 mmol/L (136-145); TOTAL PROTEIN 6.3 g/dL (6.4-8.2); eGFR NON BLACK RACES > 60 (>60)
[2022-07-11] MEDS ORDERED: [UNRECOGNIZED DRUG - OTHER] PO SCH (09:00)
[2022-07-11] MEDS ORDERED: CHOLECALCIFEROL PO SCH (09:00)
[2022-07-11] MEDS ORDERED: B COMPLEX WITH VITAMIN C PO SCH (09:00)
[2022-07-11] MEDS: SYNTHROID 100 mcg TAB PO SCH (10:05)
[2022-07-11] MEDS: LOPRESSOR TAB 25 MG PO SCH ×2 (10:05→20:56)
[2022-07-11] MEDS: CYMBALTA PO SCH (10:06)
[2022-07-11] MEDS: ELIQUIS PO SCH ×2 (10:06→20:56)
[2022-07-11] MEDS: PROTONIX TAB 40 MG PO SCH ×2 (10:06→20:57)
[2022-07-11] MEDS: VITAMIN D3 125 mcg (5,000 UNITS) PO SCH (10:06)
[2022-07-11] MEDS: CARDIZEM CD 120 MG 24-HR PO SCH (10:06)
--- NOTE | 2022-07-11 10:21 | DR.PROGNOT ---
Hospital Progress Notes - Progress Note for Day of: Progress Note Date: 07/11/22 - Chief Complaint Chief Complaint: only mild Lt side abdominal pain .. no nausea or vomiting ,. LFT are normal . WBC is normal now . - Past Medical Family Social History Past Med/Fam/Surg Hx: No changes since H&P Allergies: Allergies adhesive tape Allergy (Verified 09/06/21 10:10) ceftriaxone [From Rocephin] Allergy (Verified 07/09/22 18:38) ciprofloxacin Allergy (Verified 09/06/21 10:10) ITCHING, REDNESS oxycodone [From Percocet] Allergy (Verified 09/06/21 10:10) Penicillins Allergy (Verified 09/06/21 10:10) - Review Of Systems ROS: No change since H&P - Vital Signs Vital Signs: Temperature 97.9 F Pulse Rate [Left Radial] 80 Pulse Rate 86 Respiratory Rate 20 Blood Pressure [Left Arm] 136/68 Blood Pressure [Right Arm] 131/80 Blood Pressure 123/60 O2 Sat by Pulse Oximetry 92 - Physical Exam Oriented: Normal Eyes: Normal Respiratory: Normal Cardiovascular: Normal GI:Auscultation: Decreased GI:Palpation: Normal GI: Tenderness: Normal, Other (Lt side abdominal tenderness .. BS+ ) Skin: Decreased Turgur Musculoskeletal: Normal Psychiatric: Depression Mood Description: Apathetic, Depressed Affect: Depressed Speech Pattern: Clear, Appropriate - Laboratory and Diagnostics Result Diagrams: 07/11/22 04:05 07/11/22 04:05 Labs: 07/08/22 14:37 Urine,Catheterized Urine Culture - Final Escherichia Coli 07/08/22 16:00 Blood Blood Culture - Preliminary 07/08/22 15:46 Blood Blood Culture - Preliminary Laboratory WBC 10.5 X10^3/uL (3.6-10.0) H 07/11/22 04:05 RBC 3.94 X10^6/uL (3.5-5.4) 07/11/22 04:05 Hgb 12.3 g/dL (12.0-16.0) 07/11/22 04:05 Hct 36.2 % (36.0-47.0) 07/11/22 04:05 MCV 91.8 fL (80.0-100.0) 07/11/22 04:05 MCH 31.1 pg (27.0-34.0) 07/11/22 04:05 MCHC 33.9 g/dL (33.0-35.0) 07/11/22 04:05 RDW 13.7 % (11.6-16.5) 07/11/22 04:05 Plt Count 313 X10^3/uL (150.0-450.0) 07/11/22 04:05 Plt Count Comment Adequate (ADEQUATE) 07/09/22 04:05 MPV 8.9 fL (7.4-11.0) 07/11/22 04:05 Neut % (Auto) 78.7 % (42.0-75.0) H 07/11/22 04:05 Lymph % (Auto) 16.1 % (21.0-51.0) L 07/11/22 04:05 [place] % (Auto) 5.1 % (0.0-13.0) 07/11/22 04:05 Eos % (Auto) 0.0 % (0.9-2.9) L 07/11/22 04:05 Baso % (Auto) 0.1 % (0.2-1.0) L 07/11/22 04:05 Neut # (Auto) 8.2 x10^3/uL (2.2-4.8) H 07/11/22 04:05 Lymph # (Auto) 1.7 X10^3/uL (1.3-2.9) 07/11/22 04:05 [place] # (Auto) 0.5 x10^3/uL (0.3-0.8) 07/11/22 04:05 Eos # (Auto) 0.0 x10^3/uL (0.0-0.2) 07/11/22 04:05 Baso # (Auto) 0.0 X10^3/uL (0.0-0.1) 07/11/22 04:05 Absolute Nucleated RBC 0.0 /100WBC 07/11/22 04:05 Total Counted 100 07/09/22 04:05 Neutrophils % (Manual) 70 % (39-76) 07/09/22 04:05 Band Neutrophils % 17 % (0-10) H 07/09/22 04:05 Lymphocytes % (Manual) 11 % (13-43) L 07/09/22 04:05 Monocytes % (Manual) 2 % (4-9) L 07/09/22 04:05 Metamyelocytes % 3 07/08/22 14:10 Plt Morphology Comment Normal (NORMAL) 07/09/22 04:05 RBC Morphology Normal (NORMAL) 07/09/22 04:05 Sodium 138 mmol/L (136-145) 07/11/22 04:05 Corrected Sodium 139 mmol/L (136-145) 07/11/22 04:05 Potassium 3.9 mmol/L (3.5-5.1) 07/11/22 04:05 Chloride 105 mmol/L (98-107) 07/11/22 04:05 Carbon Dioxide 25.3 mmol/L (21-32) 07/11/22 04:05 BUN 12 mg/dL (7-18) 07/11/22 04:05 Creatinine 0.76 mg/dL (0.55-1.02) 07/11/22 04:05 Est GFR (MDRD) Af Amer > 60 (>60) 07/11/22 04:05 Est GFR (MDRD) Non-Af > 60 (>60) 07/11/22 04:05 Glucose 139 mg/dL (65-99) H 07/11/22 04:05 POC Glucose (mg/dL) 133 mg/dL (65-99) H 07/11/22 05:36 Lactic Acid 2.5 mmol/L (0.4-2.0) H 07/08/22 15:46 Calcium 8.2 mg/dL (8.5-10.1) L 07/11/22 04:05 Corrected Calcium 9.6 mg/dL (8.5-10.1) 07/11/22 04:05 Magnesium 2.4 mg/dL (2.0-2.9) 07/10/22 04:15 Total Bilirubin 0.30 mg/dL (0.2-1.0) 07/11/22 04:05 AST 19 Units/L (15-37) 07/11/22 04:05 ALT 33 Units/L (12-78) 07/11/22 04:05 Alkaline Phosphatase 96 Units/L (46-116) 07/11/22 04:05 Troponin I High Sens 12.4 ng/L (4.0-60.0) 07/08/22 14:10 Total Protein 6.3 g/dL (6.4-8.2) L 07/11/22 04:05 Albumin 2.2 g/dL (3.4-5.0) L 07/11/22 04:05 Globulin 4.1 g/dL (2.5-4.5) 07/11/22 04:05 Albumin/Globulin Ratio 0.5 Ratio (1.1-2.1) L 07/11/22 04:05 Lipase 20 Units/L (73-393) L 07/08/22 14:10 TSH 3rd Generation 1.305 uIU/mL (0.358-3.74) 07/08/22 14:10 Specimen Type Catherized urine 07/08/22 14:37 Urine Color [place] (YELLOW) 07/08/22 14:37 Urine Appearance Slightly hazy (CLEAR) 07/08/22 14:37 Urine pH 5.0 (5.0 - 8.0) 07/08/22 14:37 Ur Specific [place] 1.030 (1.000-1.030) 07/08/22 14:37 Urine Protein 3+ (NEGATIVE) 07/08/22 14:37 Urine Glucose (UA) Negative (NEGATIVE) 07/08/22 14:37 Urine Ketones 1+ (NEGATIVE) 07/08/22 14:37 Urine Blood 1+ (NEGATIVE) 07/08/22 14:37 Urine Nitrite Positive (NEGATIVE) 07/08/22 14:37 Urine Bilirubin 3+ (NEGATIVE) 07/08/22 14:37 Urine Urobilinogen 4+ (NORMAL) 07/08/22 14:37 Ur Leukocyte Esterase 1+ (NEGATIVE) 07/08/22 14:37 Urine RBC 0-2 /HPF (0-3) 07/08/22 14:37 Urine WBC 5-10 /HPF (0-5) A 07/08/22 14:37 Ur Squamous Epith Cells Rare /HPF (NEGATIVE) 07/08/22 14:37 Ur Renal Epithelial Cell Rare /HPF (NEGATIVE) 07/08/22 14:37 Amorphous Sediment 1+ /HPF (NEGATIVE) 07/08/22 14:37 Urine Bacteria 3+ /HPF (NEGATIVE) 07/08/22 14:37 Hyaline Casts Rare /LPF (NEGATIVE) 07/08/22 14:37 Other Casts Few /LPF (NEGATIVE) 07/08/22 14:37 Ur Culture Indicated? Yes/culture set up 07/08/22 14:37 SARS-CoV-2 (PCR) Negative (NEGATIVE) 07/08/22 15:33 Influenza Type A (PCR) Negative (NEGATIVE) 07/08/22 15:33 Influenza Type B (PCR) Negative (NEGATIVE) 07/08/22 15:33 RSV (PCR) Negative (NEGATIVE) 07/08/22 15:33 SARS CoV-2 RNA Rapid JESSICA Cancelled 07/08/22 15:33 - Assessment and Plan 3: recurrent pancreatitis . subsiding cholangitis . possible CBD stones . for MRCP today . - Problem Patient Problems: Patient Problems Altered mental status (Acute) R41.82 Leukocytosis (Acute) D72.829
--- NOTE | 2022-07-11 14:04 | PCM.PROG ---
Progress Note Progress Note for Day of Date of Exam: 07/11/22 Subjective Subjective: The patient is alert and awake this morning. She reports she still feeling better. She is a little bit of left lower quadrant pain but no right upper quadrant pain at this time. Her LFTs have normalized. Her family did bring the information from her neurostimulator located in her back to see if it is compatible was doing MRCP later today. Patient's vital signs are stable she is afebrile. It is noted her O2 sat is a little bit low at 92 on 2 L nasal cannula. However longer lungs are clear on exam. We will follow-up with the results of the MRCP to see if we can find a reason for the patient's dilated hepatic ducts. Patient did receive IV gentamicin for her UTI secondary to mul tidrug-resistant E. coli. Past Medical Family Social History Past Med/Fam/Surg Hx: No changes since H&P Allergies: Allergies adhesive tape Allergy (Verified 09/06/21 10:10) ceftriaxone [From Rocephin] Allergy (Verified 07/09/22 18:38) ciprofloxacin Allergy (Verified 09/06/21 10:10) ITCHING, REDNESS oxycodone [From Percocet] Allergy (Verified 09/06/21 10:10) Penicillins Allergy (Verified 09/06/21 10:10) Review of Systems ROS: No change since H&P Vital Signs and I&O's Vital Signs: Temperature 97.9 F Pulse Rate [Left Radial] 80 Pulse Rate 86 Respiratory Rate 20 Blood Pressure [Left Arm] 136/68 Blood Pressure [Right Arm] 131/80 Blood Pressure 123/60 O2 Sat by Pulse Oximetry 92 Intake and Output: Intake & Output 07/09/22 07/10/22 07/11/22 07/12/22 11:59 11:59 11:59 11:59 Intake Total 1807 / 1807 2550 / 2550 4429 / 4429 Output Total 450 / 450 2400 / 2400 1550 / 1550 Balance 1357 / 1357 150 / 150 2879 / 2879 Physical Exam Oriented: Normal Eyes: Normal Respiratory: Normal Cardiovascular: Normal Auscultation: Bowel Sounds: Decreased Palpation: Normal Tenderness: LLQ and Other (Lt side abdominal tenderness .. BS+ ) Skin: Decreased Turgur Musculoskeletal: Normal Psychiatric: Depression Mood Description: Apathetic and Depressed Affect: Depressed Speech Pattern: Clear and Appropriate Laboratory and Diagnostics Result Diagrams: 07/11/22 04:05 07/11/22 04:05 Labs: 07/08/22 14:37 Urine,Catheterized Urine Culture - Final Escherichia Coli 07/08/22 16:00 Blood Blood Culture - Preliminary 07/08/22 15:46 Blood Blood Culture - Preliminary Laboratory WBC 10.5 X10^3/uL (3.6-10.0) H 07/11/22 04:05 RBC 3.94 X10^6/uL (3.5-5.4) 07/11/22 04:05 Hgb 12.3 g/dL (12.0-16.0) 07/11/22 04:05 Hct 36.2 % (36.0-47.0) 07/11/22 04:05 MCV 91.8 fL (80.0-100.0) 07/11/22 04:05 MCH 31.1 pg (27.0-34.0) 07/11/22 04:05 MCHC 33.9 g/dL (33.0-35.0) 07/11/22 04:05 RDW 13.7 % (11.6-16.5) 07/11/22 04:05 Plt Count 313 X10^3/uL (150.0-450.0) 07/11/22 04:05 Plt Count Comment Adequate (ADEQUATE) 07/09/22 04:05 MPV 8.9 fL (7.4-11.0) 07/11/22 04:05 Neut % (Auto) 78.7 % (42.0-75.0) H 07/11/22 04:05 Lymph % (Auto) 16.1 % (21.0-51.0) L 07/11/22 04:05 [place] % (Auto) 5.1 % (0.0-13.0) 07/11/22 04:05 Eos % (Auto) 0.0 % (0.9-2.9) L 07/11/22 04:05 Baso % (Auto) 0.1 % (0.2-1.0) L 07/11/22 04:05 Neut # (Auto) 8.2 x10^3/uL (2.2-4.8) H 07/11/22 04:05 Lymph # (Auto) 1.7 X10^3/uL (1.3-2.9) 07/11/22 04:05 [place] # (Auto) 0.5 x10^3/uL (0.3-0.8) 07/11/22 04:05 Eos # (Auto) 0.0 x10^3/uL (0.0-0.2) 07/11/22 04:05 Baso # (Auto) 0.0 X10^3/uL (0.0-0.1) 07/11/22 04:05 Absolute Nucleated RBC 0.0 /100WBC 07/11/22 04:05 Total Counted 100 07/09/22 04:05 Neutrophils % (Manual) 70 % (39-76) 07/09/22 04:05 Band Neutrophils % 17 % (0-10) H 07/09/22 04:05 Lymphocytes % (Manual) 11 % (13-43) L 07/09/22 04:05 Monocytes % (Manual) 2 % (4-9) L 07/09/22 04:05 Metamyelocytes % 3 07/08/22 14:10 Plt Morphology Comment Normal (NORMAL) 07/09/22 04:05 RBC Morphology Normal (NORMAL) 07/09/22 04:05 Sodium 138 mmol/L (136-145) 07/11/22 04:05 Corrected Sodium 139 mmol/L (136-145) 07/11/22 04:05 Potassium 3.9 mmol/L (3.5-5.1) 07/11/22 04:05 Chloride 105 mmol/L (98-107) 07/11/22 04:05 Carbon Dioxide 25.3 mmol/L (21-32) 07/11/22 04:05 BUN 12 mg/dL (7-18) 07/11/22 04:05 Creatinine 0.76 mg/dL (0.55-1.02) 07/11/22 04:05 Est GFR (MDRD) Af Amer > 60 (>60) 07/11/22 04:05 Est GFR (MDRD) Non-Af > 60 (>60) 07/11/22 04:05 Glucose 139 mg/dL (65-99) H 07/11/22 04:05 POC Glucose (mg/dL) 125 mg/dL (65-99) H 07/11/22 11:39 Lactic Acid 2.5 mmol/L (0.4-2.0) H 07/08/22 15:46 Calcium 8.2 mg/dL (8.5-10.1) L 07/11/22 04:05 Corrected Calcium 9.6 mg/dL (8.5-10.1) 07/11/22 04:05 Magnesium 2.4 mg/dL (2.0-2.9) 07/10/22 04:15 Total Bilirubin 0.30 mg/dL (0.2-1.0) 07/11/22 04:05 AST 19 Units/L (15-37) 07/11/22 04:05 ALT 33 Units/L (12-78) 07/11/22 04:05 Alkaline Phosphatase 96 Units/L (46-116) 07/11/22 04:05 Troponin I High Sens 12.4 ng/L (4.0-60.0) 07/08/22 14:10 Total Protein 6.3 g/dL (6.4-8.2) L 07/11/22 04:05 Albumin 2.2 g/dL (3.4-5.0) L 07/11/22 04:05 Globulin 4.1 g/dL (2.5-4.5) 07/11/22 04:05 Albumin/Globulin Ratio 0.5 Ratio (1.1-2.1) L 07/11/22 04:05 Lipase 20 Units/L (73-393) L 07/08/22 14:10 TSH 3rd Generation 1.305 uIU/mL (0.358-3.74) 07/08/22 14:10 Specimen Type Catherized urine 07/08/22 14:37 Urine Color [place] (YELLOW) 07/08/22 14:37 Urine Appearance Slightly hazy (CLEAR) 07/08/22 14:37 Urine pH 5.0 (5.0 - 8.0) 07/08/22 14:37 Ur Specific [place] 1.030 (1.000-1.030) 07/08/22 14:37 Urine Protein 3+ (NEGATIVE) 07/08/22 14:37 Urine Glucose (UA) Negative (NEGATIVE) 07/08/22 14:37 Urine Ketones 1+ (NEGATIVE) 07/08/22 14:37 Urine Blood 1+ (NEGATIVE) 07/08/22 14:37 Urine Nitrite Positive (NEGATIVE) 07/08/22 14:37 Urine Bilirubin 3+ (NEGATIVE) 07/08/22 14:37 Urine Urobilinogen 4+ (NORMAL) 07/08/22 14:37 Ur Leukocyte Esterase 1+ (NEGATIVE) 07/08/22 14:37 Urine RBC 0-2 /HPF (0-3) 07/08/22 14:37 Urine WBC 5-10 /HPF (0-5) A 07/08/22 14:37 Ur Squamous Epith Cells Rare /HPF (NEGATIVE) 07/08/22 14:37 Ur Renal Epithelial Cell Rare /HPF (NEGATIVE) 07/08/22 14:37 Amorphous Sediment 1+ /HPF (NEGATIVE) 07/08/22 14:37 Urine Bacteria 3+ /HPF (NEGATIVE) 07/08/22 14:37 Hyaline Casts Rare /LPF (NEGATIVE) 07/08/22 14:37 Other Casts Few /LPF (NEGATIVE) 07/08/22 14:37 Ur Culture Indicated? Yes/culture set up 07/08/22 14:37 SARS-CoV-2 (PCR) Negative (NEGATIVE) 07/08/22 15:33 Influenza Type A (PCR) Negative (NEGATIVE) 07/08/22 15:33 Influenza Type B (PCR) Negative (NEGATIVE) 07/08/22 15:33 RSV (PCR) Negative (NEGATIVE) 07/08/22 15:33 SARS CoV-2 RNA Rapid JESSICA Cancelled 07/08/22 15:33 Plan (1) UTI (urinary tract infection): Status: Acute Qualifiers: Urinary tract infection type: acute cystitis Hematuria presence: with hematuria Qualified Code(s): N30.01 - Acute cystitis with hematuria Narrative Support Text: Patient is urine was positive for E. coli Plan: I will consult pharmacy for today to give the patient 1 dose of IV gentamicin to treat her UTI. (2) Chronic kidney disease (CKD): Status: Acute Qualifiers: Chronic kidney disease stage: stage 4 (severe) Qualified Code(s): N18.4 - Chronic kidney disease, stage 4 (severe) (3) Elevated liver enzymes: Status: Acute Plan: Follow-up general surgery recommendations check a CA 199 to rule out pancreatic mass/cancer. (4) Altered mental status: Status: Acute Qualifiers: Altered mental status type: transient alteration of awareness Qualified Code(s): R40.4 - Transient alteration of awareness Plan: Follow for improvement. (5) Generalized weakness: Status: Acute (6) Leukocytosis: Status: Acute Plan: Patient will receive gentamicin IV x1 dose per pharmacy dosing. (7) Atrial fibrillation: Status: Chronic Qualifiers: Atrial fibrillation type: chronic Qualified Code(s): I48.2 - Chronic atrial fibrillation Plan: Diltiazem 120 mg daily and Eliquis 5 mg twice daily. (8) Hypertension: Status: Chronic Qualifiers: Hypertension type: essential hypertension Qualified Code(s): I10 - Essential (primary) hypertension Plan: Metoprolol 12.5 mg twice daily (9) Right upper quadrant abdominal pain: Status: Acute Plan: I will go ahead and consult general surgery, Dr. Fay for further evaluation and follow his recommendations. (10) Dehydration: Status: Acute Plan: IV hydration. (11) Total bilirubin, elevated: Status: Acute Plan: Recheck total bilirubin tomorrow morning to see if it has normalized.
[2022-07-12] MEDS: D5 1/2 NS 1,000 ML 1,000 ML IV SCH ×4 (05:09→21:20)
[2022-07-12] MEDS: CLEOCIN 300 MG IV PREMIX 300 MG/50 ML BAG IV SCH ×3 (05:09→21:10)
[2022-07-12 05:21] LABS: BASOPHILS % (AUTO) 0.3 % (0.2-1.0); EOSINOPHILS # (AUTO) 0.1 x10^3/uL (0.0-0.2); EOSINOPHILS % (AUTO) 0.7 % (0.9-2.9); HEMATOCRIT 36.3 % (36.0-47.0); HEMOGLOBIN 12.2 g/dL (12.0-16.0); LYMPHOCYTES # (AUTO) 2.9 X10^3/uL (1.3-2.9); LYMPHOCYTES % (AUTO) 27.1 % (21.0-51.0); MEAN CORPUSCULAR HEMOGLOBIN 30.9 pg (27.0-34.0); MEAN CORPUSCULAR HGB CONC 33.6 g/dL (33.0-35.0); MEAN CORPUSCULAR VOLUME 91.9 fL (80.0-100.0); MONOCYTES # (AUTO) 1.1 x10^3/uL (0.3-0.8); MONOCYTES % (AUTO) 10.2 % (0.0-13.0); NEUTROPHILS # (AUTO) 6.7 x10^3/uL (2.2-4.8); NEUTROPHILS % (AUTO) 61.7 % (42.0-75.0); RED BLOOD COUNT 3.95 X10^6/uL (3.5-5.4); WHITE BLOOD COUNT 10.8 X10^3/uL (3.6-10.0)
[2022-07-12 05:31] LABS: ALANINE AMINOTRANSFERASE 27 Units/L (12-78); ALBUMIN 2.1 g/dL (3.4-5.0); ALKALINE PHOSPHATASE 97 Units/L (46-116); ASPARTATE AMINO TRANSFERASE 17 Units/L (15-37); BLOOD UREA NITROGEN 15 mg/dL (7-18); CALCIUM 7.8 mg/dL (8.5-10.1); CARBON DIOXIDE 25.4 mmol/L (21-32); CHLORIDE 105 mmol/L (98-107); COR CA(FOR HYPOALB) 9.3 mg/dL (8.5-10.1); CREATININE 0.82 mg/dL (0.55-1.02); SODIUM 137 mmol/L (136-145); TOTAL PROTEIN 5.9 g/dL (6.4-8.2); eGFR NON BLACK RACES > 60 (>60)
[2022-07-12] MEDS: LOPRESSOR TAB 25 MG PO SCH ×2 (09:07→21:11)
[2022-07-12] MEDS: VITAMIN D3 125 mcg (5,000 UNITS) PO SCH (09:07)
[2022-07-12] MEDS: CARDIZEM CD 120 MG 24-HR PO SCH (09:07)
[2022-07-12] MEDS: SYNTHROID 100 mcg TAB PO SCH (09:07)
[2022-07-12] MEDS: ELIQUIS PO SCH ×2 (09:08→21:11)
[2022-07-12] MEDS: CYMBALTA PO SCH (09:08)
[2022-07-12] MEDS: PROTONIX TAB 40 MG PO SCH ×2 (09:08→21:11)
--- NOTE | 2022-07-12 15:24 | DR.PROGNOT ---
Hospital Progress Notes - Progress Note for Day of: Progress Note Date: 07/12/22 - Chief Complaint Chief Complaint: only mild Lt side abdominal pain .. no nausea or vomiting ,. LFT are normal . WBC is normal now . MRI is not done yet - Past Medical Family Social History Past Med/Fam/Surg Hx: No changes since H&P Allergies: Allergies adhesive tape Allergy (Verified 09/06/21 10:10) ceftriaxone [From Rocephin] Allergy (Verified 07/09/22 18:38) ciprofloxacin Allergy (Verified 09/06/21 10:10) ITCHING, REDNESS oxycodone [From Percocet] Allergy (Verified 09/06/21 10:10) Penicillins Allergy (Verified 09/06/21 10:10) - Review Of Systems ROS: No change since H&P - Vital Signs Vital Signs: Temperature 98.8 F Pulse Rate [Left Radial] 74 Pulse Rate 86 Respiratory Rate 20 Blood Pressure [Left Arm] 144/67 Blood Pressure [Right Arm] 131/80 Blood Pressure 123/60 O2 Sat by Pulse Oximetry 94 - Physical Exam Oriented: Normal Eyes: Normal Respiratory: Normal Cardiovascular: Normal GI:Auscultation: Decreased GI:Palpation: Normal GI: Tenderness: LLQ, Other (Lt side abdominal tenderness .. BS+) Skin: Decreased Turgur Musculoskeletal: Normal Psychiatric: Depression Mood Description: Apathetic, Depressed Affect: Depressed Speech Pattern: Clear, Appropriate - Laboratory and Diagnostics Result Diagrams: 07/12/22 04:10 07/12/22 04:10 Labs: 07/08/22 14:37 Urine,Catheterized Urine Culture - Final Escherichia Coli 07/08/22 16:00 Blood Blood Culture - Preliminary 07/08/22 15:46 Blood Blood Culture - Preliminary Laboratory WBC 10.8 X10^3/uL (3.6-10.0) H 07/12/22 04:10 RBC 3.95 X10^6/uL (3.5-5.4) 07/12/22 04:10 Hgb 12.2 g/dL (12.0-16.0) 07/12/22 04:10 Hct 36.3 % (36.0-47.0) 07/12/22 04:10 MCV 91.9 fL (80.0-100.0) 07/12/22 04:10 MCH 30.9 pg (27.0-34.0) 07/12/22 04:10 MCHC 33.6 g/dL (33.0-35.0) 07/12/22 04:10 RDW 14.0 % (11.6-16.5) 07/12/22 04:10 Plt Count 309 X10^3/uL (150.0-450.0) 07/12/22 04:10 Plt Count Comment Adequate (ADEQUATE) 07/09/22 04:05 MPV 9.0 fL (7.4-11.0) 07/12/22 04:10 Neut % (Auto) 61.7 % (42.0-75.0) 07/12/22 04:10 Lymph % (Auto) 27.1 % (21.0-51.0) 07/12/22 04:10 [place] % (Auto) 10.2 % (0.0-13.0) 07/12/22 04:10 Eos % (Auto) 0.7 % (0.9-2.9) L 07/12/22 04:10 Baso % (Auto) 0.3 % (0.2-1.0) 07/12/22 04:10 Neut # (Auto) 6.7 x10^3/uL (2.2-4.8) H 07/12/22 04:10 Lymph # (Auto) 2.9 X10^3/uL (1.3-2.9) 07/12/22 04:10 [place] # (Auto) 1.1 x10^3/uL (0.3-0.8) H 07/12/22 04:10 Eos # (Auto) 0.1 x10^3/uL (0.0-0.2) 07/12/22 04:10 Baso # (Auto) 0.0 X10^3/uL (0.0-0.1) 07/12/22 04:10 Absolute Nucleated RBC 0.1 /100WBC 07/12/22 04:10 Total Counted 100 07/09/22 04:05 Neutrophils % (Manual) 70 % (39-76) 07/09/22 04:05 Band Neutrophils % 17 % (0-10) H 07/09/22 04:05 Lymphocytes % (Manual) 11 % (13-43) L 07/09/22 04:05 Monocytes % (Manual) 2 % (4-9) L 07/09/22 04:05 Metamyelocytes % 3 07/08/22 14:10 Plt Morphology Comment Normal (NORMAL) 07/09/22 04:05 RBC Morphology Normal (NORMAL) 07/09/22 04:05 Sodium 137 mmol/L (136-145) 07/12/22 04:10 Corrected Sodium TNP 07/12/22 04:10 Potassium 3.4 mmol/L (3.5-5.1) L 07/12/22 04:10 Chloride 105 mmol/L (98-107) 07/12/22 04:10 Carbon Dioxide 25.4 mmol/L (21-32) 07/12/22 04:10 BUN 15 mg/dL (7-18) 07/12/22 04:10 Creatinine 0.82 mg/dL (0.55-1.02) 07/12/22 04:10 Est GFR (MDRD) Af Amer > 60 (>60) 07/12/22 04:10 Est GFR (MDRD) Non-Af > 60 (>60) 07/12/22 04:10 Glucose 92 mg/dL (65-99) 07/12/22 04:10 POC Glucose (mg/dL) 79 mg/dL (65-99) 07/12/22 12:07 Lactic Acid 2.5 mmol/L (0.4-2.0) H 07/08/22 15:46 Calcium 7.8 mg/dL (8.5-10.1) L 07/12/22 04:10 Corrected Calcium 9.3 mg/dL (8.5-10.1) 07/12/22 04:10 Magnesium 2.4 mg/dL (2.0-2.9) 07/10/22 04:15 Total Bilirubin 0.30 mg/dL (0.2-1.0) 07/12/22 04:10 AST 17 Units/L (15-37) 07/12/22 04:10 ALT 27 Units/L (12-78) 07/12/22 04:10 Alkaline Phosphatase 97 Units/L (46-116) 07/12/22 04:10 Troponin I High Sens 12.4 ng/L (4.0-60.0) 07/08/22 14:10 Total Protein 5.9 g/dL (6.4-8.2) L 07/12/22 04:10 Albumin 2.1 g/dL (3.4-5.0) L 07/12/22 04:10 Globulin 3.8 g/dL (2.5-4.5) 07/12/22 04:10 Albumin/Globulin Ratio 0.6 Ratio (1.1-2.1) L 07/12/22 04:10 Lipase 20 Units/L (73-393) L 07/08/22 14:10 TSH 3rd Generation 1.305 uIU/mL (0.358-3.74) 07/08/22 14:10 Specimen Type Catherized urine 07/08/22 14:37 Urine Color [place] (YELLOW) 07/08/22 14:37 Urine Appearance Slightly hazy (CLEAR) 07/08/22 14:37 Urine pH 5.0 (5.0 - 8.0) 07/08/22 14:37 Ur Specific [place] 1.030 (1.000-1.030) 07/08/22 14:37 Urine Protein 3+ (NEGATIVE) 07/08/22 14:37 Urine Glucose (UA) Negative (NEGATIVE) 07/08/22 14:37 Urine Ketones 1+ (NEGATIVE) 07/08/22 14:37 Urine Blood 1+ (NEGATIVE) 07/08/22 14:37 Urine Nitrite Positive (NEGATIVE) 07/08/22 14:37 Urine Bilirubin 3+ (NEGATIVE) 07/08/22 14:37 Urine Urobilinogen 4+ (NORMAL) 07/08/22 14:37 Ur Leukocyte Esterase 1+ (NEGATIVE) 07/08/22 14:37 Urine RBC 0-2 /HPF (0-3) 07/08/22 14:37 Urine WBC 5-10 /HPF (0-5) A 07/08/22 14:37 Ur Squamous Epith Cells Rare /HPF (NEGATIVE) 07/08/22 14:37 Ur Renal Epithelial Cell Rare /HPF (NEGATIVE) 07/08/22 14:37 Amorphous Sediment 1+ /HPF (NEGATIVE) 07/08/22 14:37 Urine Bacteria 3+ /HPF (NEGATIVE) 07/08/22 14:37 Hyaline Casts Rare /LPF (NEGATIVE) 07/08/22 14:37 Other Casts Few /LPF (NEGATIVE) 07/08/22 14:37 Ur Culture Indicated? Yes/culture set up 07/08/22 14:37 SARS-CoV-2 (PCR) Negative (NEGATIVE) 07/08/22 15:33 Influenza Type A (PCR) Negative (NEGATIVE) 07/08/22 15:33 Influenza Type B (PCR) Negative (NEGATIVE) 07/08/22 15:33 RSV (PCR) Negative (NEGATIVE) 07/08/22 15:33 SARS CoV-2 RNA Rapid JESSICA Cancelled 07/08/22 15:33 - Assessment and Plan 3: recurrent pancreatitis . subsiding cholangitis . possible CBD stones . for MRCP today . - Problem Patient Problems: Patient Problems Altered mental status (Acute) R41.82 Leukocytosis (Acute) D72.829
--- NOTE | 2022-07-12 18:49 | PCM.PROG ---
Progress Note - Progress Note for Day of Date of Exam: 07/12/22 - Subjective Subjective: IS CURRENTLY INPATIENT STATUS FOR TREATMENT OF E.COLI UTI, RECURRENT PANCREATITIS, ABDOMINAL PAIN, DEHYDRATION, LEUKOCYTOSIS, BILATERAL PLEURAL EFFUSIONS, AND GENERALIZED WEAKNESS. HER LIVER ENZYMES WERE ELEVATED ON ADMISSION AND CHOLANGITIS WAS SUSPECTED. AN MRCP WAS ORDER BY DR. TAVARES, HOWEVER, PATIENT HAS A PAIN STIMULATOR TO THE BACK AND WE ARE WAITING FOR IT TO BE TURNED TO MRI MODE BEFORE THE MRCP CAN BE PERFORMED. TODAY, SHE IS ALERT AND ORIENTED, LYING IN BED ON MORNING ROUNDS. SHE COMPLAINS OF INTERMITTENT ABDOMINAL PAIN. PAIN IS LOCATED IN THE LLQ AT THE PRESENT TIME. ON EXAMINATION, HEART IS REGULAR IN RATE AND RHYTHM. BILATERAL LUNGS ARE NOTED WITH DIMINISHED LUNG SOUNDS THROUGHOUT. ABDOMEN IS ROUND, SOFT, AND NOTED WITH LLQ TENDERNESS. SHE DENIES RUQ TENDERNESS AT THE PRESENT TIME. NORMAL BOWEL SOUNDS ARE NOTED IN ALL QUADRANTS. HER VITALS THIS MORNING ARE: 98.0-76-20-95%-148/67. LABS WERE OBTAINED. WBC 10.8, RBC 3.95, HGB 3.95, HCT 36.3, PLT COUNT 309, SODIUM 137, POTASSIUM 3.4, CHLORIDE 105, BUN 15, CREATININE 0.82, GLUCOSE 92, CALCIUM 7.8, AST 17, ALT 27, ALK PHOS 97, TOTAL PROTEIN 5.9, ALBUMIN 2.1. WE WILL CONTACT THE STIMULATOR COMPANY REGARDING INSTRUCTIONS ON HOW TO TURN THE STIMULATOR TO MRI MODE. WHEN IT IS ON MRI MODE, SHE WILL HAVE THE MRCP DONE TO RULE OUT A STONE IN THE COMMON BILE DUCT. SHE IS CURRENTLY RECEIVING D51/2 NS AT 100 ML/HR, CLEOCIN 300MG IV Q8H, THE POTASSIUM AND MAGNESIUM PROTOCOLS, AND HER HOME MEDICATIONS WERE RESUMED. WE WILL CONTINUE WITH CURRENT PLAN OF CARE TODAY. OTHERWISE, WE WILL FOLLOW-UP WITH AM LABS AND CONTINUE TO MONITOR. TIME SPENT ON CLINICAL ASSESSMENT, REVIEWING LABS AND IMAGING, DECISION MAKING, AND DOCUMENTATION GREATER THAN 45 MINUTES. - Past Medical Family Social History Past Med/Fam/Surg Hx: No changes since H&P Allergies: Allergies adhesive tape Allergy (Verified 09/06/21 10:10) ceftriaxone [From Rocephin] Allergy (Verified 07/09/22 18:38) ciprofloxacin Allergy (Verified 09/06/21 10:10) ITCHING, REDNESS oxycodone [From Percocet] Allergy (Verified 09/06/21 10:10) Penicillins Allergy (Verified 09/06/21 10:10) - Review of Systems ROS: No change since H&P - Vital Signs and I&O's Vital Signs: Temperature 97.7 F Pulse Rate [Left Radial] 70 Pulse Rate 86 Respiratory Rate 20 Blood Pressure [Left Arm] 149/66 Blood Pressure [Right Arm] 131/80 Blood Pressure 123/60 O2 Sat by Pulse Oximetry 96 Intake and Output: Intake & Output 07/10/22 07/11/22 07/12/22 07/13/22 11:59 11:59 11:59 11:59 Intake Total 2550 / 2550 4429 / 4429 2070 / 2070 240 / 240 Output Total 2400 / 2400 1550 / 1550 1200 / 1200 1100 / 1100 Balance 150 / 150 2879 / 2879 870 / 870 -860 / -860 - Physical Exam Oriented: Normal Eyes: Normal Ear: Normal Nose: Normal Throat: Normal Respiratory: Normal Cardiovascular: Normal : Normal Auscultation: Bowel Sounds: Normal Palpation: Normal Tenderness: LLQ, Other (Lt side abdominal tenderness .. BS+) Skin: Normal Musculoskeletal: Normal Psychiatric: Depression Mood Description: Apathetic, Depressed Affect: Depressed Speech Pattern: Clear, Appropriate - Laboratory and Diagnostics Result Diagrams: 07/12/22 04:10 07/12/22 04:10 Labs: 07/08/22 14:37 Urine,Catheterized Urine Culture - Final Escherichia Coli 07/08/22 16:00 Blood Blood Culture - Preliminary 07/08/22 15:46 Blood Blood Culture - Preliminary Laboratory WBC 10.8 X10^3/uL (3.6-10.0) H 07/12/22 04:10 RBC 3.95 X10^6/uL (3.5-5.4) 07/12/22 04:10 Hgb 12.2 g/dL (12.0-16.0) 07/12/22 04:10 Hct 36.3 % (36.0-47.0) 07/12/22 04:10 MCV 91.9 fL (80.0-100.0) 07/12/22 04:10 MCH 30.9 pg (27.0-34.0) 07/12/22 04:10 MCHC 33.6 g/dL (33.0-35.0) 07/12/22 04:10 RDW 14.0 % (11.6-16.5) 07/12/22 04:10 Plt Count 309 X10^3/uL (150.0-450.0) 07/12/22 04:10 Plt Count Comment Adequate (ADEQUATE) 07/09/22 04:05 MPV 9.0 fL (7.4-11.0) 07/12/22 04:10 Neut % (Auto) 61.7 % (42.0-75.0) 07/12/22 04:10 Lymph % (Auto) 27.1 % (21.0-51.0) 07/12/22 04:10 [place] % (Auto) 10.2 % (0.0-13.0) 07/12/22 04:10 Eos % (Auto) 0.7 % (0.9-2.9) L 07/12/22 04:10 Baso % (Auto) 0.3 % (0.2-1.0) 07/12/22 04:10 Neut # (Auto) 6.7 x10^3/uL (2.2-4.8) H 07/12/22 04:10 Lymph # (Auto) 2.9 X10^3/uL (1.3-2.9) 07/12/22 04:10 [place] # (Auto) 1.1 x10^3/uL (0.3-0.8) H 07/12/22 04:10 Eos # (Auto) 0.1 x10^3/uL (0.0-0.2) 07/12/22 04:10 Baso # (Auto) 0.0 X10^3/uL (0.0-0.1) 07/12/22 04:10 Absolute Nucleated RBC 0.1 /100WBC 07/12/22 04:10 Total Counted 100 07/09/22 04:05 Neutrophils % (Manual) 70 % (39-76) 07/09/22 04:05 Band Neutrophils % 17 % (0-10) H 07/09/22 04:05 Lymphocytes % (Manual) 11 % (13-43) L 07/09/22 04:05 Monocytes % (Manual) 2 % (4-9) L 07/09/22 04:05 Metamyelocytes % 3 07/08/22 14:10 Plt Morphology Comment Normal (NORMAL) 07/09/22 04:05 RBC Morphology Normal (NORMAL) 07/09/22 04:05 Sodium 137 mmol/L (136-145) 07/12/22 04:10 Corrected Sodium TNP 07/12/22 04:10 Potassium 3.4 mmol/L (3.5-5.1) L 07/12/22 04:10 Chloride 105 mmol/L (98-107) 07/12/22 04:10 Carbon Dioxide 25.4 mmol/L (21-32) 07/12/22 04:10 BUN 15 mg/dL (7-18) 07/12/22 04:10 Creatinine 0.82 mg/dL (0.55-1.02) 07/12/22 04:10 Est GFR (MDRD) Af Amer > 60 (>60) 07/12/22 04:10 Est GFR (MDRD) Non-Af > 60 (>60) 07/12/22 04:10 Glucose 92 mg/dL (65-99) 07/12/22 04:10 POC Glucose (mg/dL) 89 mg/dL (65-99) 07/12/22 18:03 Lactic Acid 2.5 mmol/L (0.4-2.0) H 07/08/22 15:46 Calcium 7.8 mg/dL (8.5-10.1) L 07/12/22 04:10 Corrected Calcium 9.3 mg/dL (8.5-10.1) 07/12/22 04:10 Magnesium 2.4 mg/dL (2.0-2.9) 07/10/22 04:15 Total Bilirubin 0.30 mg/dL (0.2-1.0) 07/12/22 04:10 AST 17 Units/L (15-37) 07/12/22 04:10 ALT 27 Units/L (12-78) 07/12/22 04:10 Alkaline Phosphatase 97 Units/L (46-116) 07/12/22 04:10 Troponin I High Sens 12.4 ng/L (4.0-60.0) 07/08/22 14:10 Total Protein 5.9 g/dL (6.4-8.2) L 07/12/22 04:10 Albumin 2.1 g/dL (3.4-5.0) L 07/12/22 04:10 Globulin 3.8 g/dL (2.5-4.5) 07/12/22 04:10 Albumin/Globulin Ratio 0.6 Ratio (1.1-2.1) L 07/12/22 04:10 Lipase 20 Units/L (73-393) L 07/08/22 14:10 TSH 3rd Generation 1.305 uIU/mL (0.358-3.74) 07/08/22 14:10 Specimen Type Catherized urine 07/08/22 14:37 Urine Color [place] (YELLOW) 07/08/22 14:37 Urine Appearance Slightly hazy (CLEAR) 07/08/22 14:37 Urine pH 5.0 (5.0 - 8.0) 07/08/22 14:37 Ur Specific [place] 1.030 (1.000-1.030) 07/08/22 14:37 Urine Protein 3+ (NEGATIVE) 07/08/22 14:37 Urine Glucose (UA) Negative (NEGATIVE) 07/08/22 14:37 Urine Ketones 1+ (NEGATIVE) 07/08/22 14:37 Urine Blood 1+ (NEGATIVE) 07/08/22 14:37 Urine Nitrite Positive (NEGATIVE) 07/08/22 14:37 Urine Bilirubin 3+ (NEGATIVE) 07/08/22 14:37 Urine Urobilinogen 4+ (NORMAL) 07/08/22 14:37 Ur Leukocyte Esterase 1+ (NEGATIVE) 07/08/22 14:37 Urine RBC 0-2 /HPF (0-3) 07/08/22 14:37 Urine WBC 5-10 /HPF (0-5) A 07/08/22 14:37 Ur Squamous Epith Cells Rare /HPF (NEGATIVE) 07/08/22 14:37 Ur Renal Epithelial Cell Rare /HPF (NEGATIVE) 07/08/22 14:37 Amorphous Sediment 1+ /HPF (NEGATIVE) 07/08/22 14:37 Urine Bacteria 3+ /HPF (NEGATIVE) 07/08/22 14:37 Hyaline Casts Rare /LPF (NEGATIVE) 07/08/22 14:37 Other Casts Few /LPF (NEGATIVE) 07/08/22 14:37 Ur Culture Indicated? Yes/culture set up 07/08/22 14:37 SARS-CoV-2 (PCR) Negative (NEGATIVE) 07/08/22 15:33 Influenza Type A (PCR) Negative (NEGATIVE) 07/08/22 15:33 Influenza Type B (PCR) Negative (NEGATIVE) 07/08/22 15:33 RSV (PCR) Negative (NEGATIVE) 07/08/22 15:33 SARS CoV-2 RNA Rapid JESSICA Cancelled 07/08/22 15:33 - Plan (1) E. coli UTI Status: Acute Plan: D51/2 NS AT 100 ML/HR, CLEOCIN 300MG IV Q8H, THE POTASSIUM AND MAGNESIUM PROTOCOLS, AND HER HOME MEDICATIONS WERE RESUMED. OBTAIN MRCP TODAY (2) Abdominal pain Status: Acute Qualifiers: Abdominal location: left lower quadrant Qualified Code(s): R10.32 - Left l ower quadrant pain (3) Recurrent pancreatitis Status: Acute (4) Dehydration Status: Acute Plan: IV hydration. (5) Leukocytosis Status: Acute Qualifiers: Leukocytosis type: unspecified Qualified Code(s): D72.829 - Elevated white blood cell count, unspecified Plan: Patient will receive gentamicin IV x1 dose per pharmacy dosing. (6) Pleural effusion Status: Acute (7) Generalized weakness Status: Acute (8) Chronic kidney disease (CKD) Status: Chronic Qualifiers: Chronic kidney disease stage: unspecified stage Qualified Code(s): N18.9 - Chronic kidney disease, unspecified (9) Hypothyroidism Status: Chronic Qualifiers: Hypothyroidism type: acquired Qualified Code(s): E03.9 - Hypothyroidism, unspecified (10) GERD (gastroesophageal reflux disease) Status: Chronic Qualifiers: Esophagitis presence: esophagitis presence not specified Qualified Code(s): K21.9 - Gastro-esophageal reflux disease without esophagitis (11) YANY (generalized anxiety disorder) Status: Chronic (12) MDD (major depressive disorder) Status: Chronic Qualifiers: Major depression recurrence: recurrent Active/Remission status: remission status unspecified Qualified Code(s): F33.9 - Major depressive disorder, recurrent, unspecified
[2022-07-12] MEDS ORDERED: NS 250 ML IV 250 ML IV ONE (20:56)
[2022-07-12] MEDS ORDERED: NS 250 ML IV 250 ML IV PRN (21:08)
[2022-07-12] MEDS: K-RIDER 10 MEQ/NS 100 ML 10 MEQ/100 ML BAG IV PRN ×2 (21:12→22:31)
[2022-07-12] MEDS: MAALOX or MYLANTA PO PRN (22:31)
[2022-07-13] MEDS: NORCO 7.5/325 MG TAB PO PRN ×2 (00:46→21:10)
[2022-07-13] MEDS: D5 1/2 NS 1,000 ML 1,000 ML IV SCH ×4 (01:36→16:06)
[2022-07-13] MEDS: CLEOCIN 300 MG IV PREMIX 300 MG/50 ML BAG IV SCH ×3 (05:27→21:12)
[2022-07-13 07:10] LABS: BASOPHILS % (AUTO) 0.4 % (0.2-1.0); EOSINOPHILS # (AUTO) 0.2 x10^3/uL (0.0-0.2); EOSINOPHILS % (AUTO) 1.6 % (0.9-2.9); HEMATOCRIT 37.8 % (36.0-47.0); HEMOGLOBIN 12.6 g/dL (12.0-16.0); LYMPHOCYTES # (AUTO) 3.3 X10^3/uL (1.3-2.9); MEAN CORPUSCULAR HEMOGLOBIN 30.5 pg (27.0-34.0); MEAN CORPUSCULAR HGB CONC 33.3 g/dL (33.0-35.0); MEAN CORPUSCULAR VOLUME 91.5 fL (80.0-100.0); MEAN PLATELET VOLUME 8.9 fL (7.4-11.0); MONOCYTES # (AUTO) 1.1 x10^3/uL (0.3-0.8); MONOCYTES % (AUTO) 7.6 % (0.0-13.0); NEUTROPHILS # (AUTO) 9.6 x10^3/uL (2.2-4.8); NEUTROPHILS % (AUTO) 67.4 % (42.0-75.0); RED BLOOD COUNT 4.13 X10^6/uL (3.5-5.4); RED CELL DISTRIBUTION WIDTH 13.5 % (11.6-16.5); WHITE BLOOD COUNT 14.2 X10^3/uL (3.6-10.0)
[2022-07-13 07:19] LABS: ALANINE AMINOTRANSFERASE 21 Units/L (12-78); ALBUMIN 2.1 g/dL (3.4-5.0); ALKALINE PHOSPHATASE 89 Units/L (46-116); ASPARTATE AMINO TRANSFERASE 18 Units/L (15-37); BLOOD UREA NITROGEN 8 mg/dL (7-18); CALCIUM 8.1 mg/dL (8.5-10.1); CARBON DIOXIDE 24.8 mmol/L (21-32); CHLORIDE 103 mmol/L (98-107); COR CA(FOR HYPOALB) 9.6 mg/dL (8.5-10.1); CREATININE 0.71 mg/dL (0.55-1.02); SODIUM 136 mmol/L (136-145); TOTAL PROTEIN 6.1 g/dL (6.4-8.2); eGFR NON BLACK RACES > 60 (>60)
[2022-07-13 08:06] LABS: BAND NEUTROPHILS % 3 % (0-10)
[2022-07-13 08:07] LABS: PLATELET MORPHOLOGY COMMENT NORMAL (NORMAL); TARGET CELLS SLIGHT
--- NOTE | 2022-07-13 08:29 | RAD ---
HISTORYShortness of breath, leukocytosisSTUDYChest AP [id number]/23/2022FINDINGSHear t is enlarged. No congestive heart failure is noted. Aorta is calcified. Lungs are free of acute infiltrates. No pleural effusions are identified. Bony thorax is unremarkable.IMPRESSIONCardiomegaly without definite congestive heart failureNo infiltratesElectronically signed by: HEENA OSPINA (Jul 13, 2022 08:27:53)
[2022-07-13] MEDS: LOPRESSOR TAB 25 MG PO SCH ×2 (08:45→20:56)
[2022-07-13] MEDS: SYNTHROID 100 mcg TAB PO SCH (08:45)
[2022-07-13] MEDS: ELIQUIS PO SCH ×2 (08:47→20:57)
[2022-07-13] MEDS: MICRO K EXTEN CAP 10 MEQ PO PRN ×2 (08:49→08:50)
[2022-07-13] MEDS: CYMBALTA PO SCH (08:49)
[2022-07-13] MEDS: PROTONIX TAB 40 MG PO SCH ×2 (08:49→20:57)
[2022-07-13] MEDS: VITAMIN D3 125 mcg (5,000 UNITS) PO SCH (08:49)
[2022-07-13] MEDS: CARDIZEM CD 120 MG 24-HR PO SCH (08:49)
--- NOTE | 2022-07-13 09:25 | MRI ---
MRCPClinical indication: ABD PAINProcedure: Multiplanar multi sequence MRI of the abdomen were obtained without the administration of intravenous contrast according to standard departmental protocol.Comparisons:CT July 08, 2022Findings:Fat deposition within the liver. No significant ascites. Liver and spleen are normal in size and morphology. Simple hepatic cyst measuring 1.4 cm. Gallbladder absent. No filling defects within the common bile duct. Common bile duct measures 1.5 cm. There is intrahepatic ductal dilatation. Main pancreatic duct appears to be grossly within normal limits . Pancreas is atrophic with some tiny cystic-appearing structures for example in the pancreatic body measuring 1.0 cm on series 801 image 19. adrenal glands are grossly normal Kidneys demonstrate normal cortical medullary differentiation. No hydronephrosis. No suspicious lymph nodes.Impression:1.Dilation of the intra and extrahepatic bile ducts. This may be within normal limits for a post cholecystectomy patient of this age. Correlate with laboratory values. If laboratory values suggest obstruction, ERCP may be required.2. Hepatic steatosis.3. Pancreatic atrophy with probable tiny side branch IPMN.Electronically signed by: TOSHA STUBBS (Jul 13, 2022 09:23:55)
[2022-07-13] MEDS: MAALOX or MYLANTA PO PRN (11:26)
[2022-07-13] MEDS: MAGNESIUM SULFATE 1 GRAM/100 mL PREMIX 1 G/100 ML BAG IV PRN ×2 (14:44→15:58)
--- NOTE | 2022-07-13 15:00 | DR.PROGNOT ---
Hospital Progress Notes - Progress Note for Day of: Progress Note Date: 07/13/22 - Chief Complaint Chief Complaint: only mild Lt side abdominal pain .. no nausea or vomiting ,. more alert .. MRI showed moderate dilated intra and extra hepatic ducts . no CBD stones or pancreatic mass . LFT are normal . WBC is normal now . - Past Medical Family Social History Past Med/Fam/Surg Hx: No changes since H&P Allergies: Allergies adhesive tape Allergy (Verified 09/06/21 10:10) ceftriaxone [From Rocephin] Allergy (Verified 07/09/22 18:38) ciprofloxacin Allergy (Verified 09/06/21 10:10) ITCHING, REDNESS oxycodone [From Percocet] Allergy (Verified 09/06/21 10:10) Penicillins Allergy (Verified 09/06/21 10:10) - Review Of Systems ROS: No change since H&P - Vital Signs Vital Signs: Temperature 97.6 F Pulse Rate [Left Radial] 72 Pulse Rate 46 Respiratory Rate 20 Blood Pressure [Left Arm] 125/60 Blood Pressure [Right Arm] 131/80 Blood Pressure 123/60 O2 Sat by Pulse Oximetry 95 - Physical Exam Oriented: Normal Eyes: Normal Ear: Normal Nose: Normal Throat: Normal Respiratory: Normal Cardiovascular: Normal : Normal GI:Auscultation: Normal GI:Palpation: Normal GI: Tenderness: LLQ, Other (Lt side abdominal tenderness .. BS+) Skin: Normal Musculoskeletal: Normal Psychiatric: Depression Mood Description: Apathetic, Depressed Affect: Depressed Speech Pattern: Clear, Appropriate - Laboratory and Diagnostics Result Diagrams: 07/13/22 05:22 07/13/22 05:22 Labs: 07/08/22 14:37 Urine,Catheterized Urine Culture - Final Escherichia Coli 07/08/22 16:00 Blood Blood Culture - Preliminary 07/08/22 15:46 Blood Blood Culture - Preliminary Laboratory WBC 14.2 X10^3/uL (3.6-10.0) H 07/13/22 05:22 RBC 4.13 X10^6/uL (3.5-5.4) 07/13/22 05:22 Hgb 12.6 g/dL (12.0-16.0) 07/13/22 05:22 Hct 37.8 % (36.0-47.0) 07/13/22 05:22 MCV 91.5 fL (80.0-100.0) 07/13/22 05:22 MCH 30.5 pg (27.0-34.0) 07/13/22 05:22 MCHC 33.3 g/dL (33.0-35.0) 07/13/22 05:22 RDW 13.5 % (11.6-16.5) 07/13/22 05:22 Plt Count 320 X10^3/uL (150.0-450.0) 07/13/22 05:22 Plt Count Comment Adequate (ADEQUATE) 07/13/22 05:22 MPV 8.9 fL (7.4-11.0) 07/13/22 05:22 Neut % (Auto) 67.4 % (42.0-75.0) 07/13/22 05:22 Lymph % (Auto) 23.0 % (21.0-51.0) 07/13/22 05:22 [place] % (Auto) 7.6 % (0.0-13.0) 07/13/22 05:22 Eos % (Auto) 1.6 % (0.9-2.9) 07/13/22 05:22 Baso % (Auto) 0.4 % (0.2-1.0) 07/13/22 05:22 Neut # (Auto) 9.6 x10^3/uL (2.2-4.8) H 07/13/22 05:22 Lymph # (Auto) 3.3 X10^3/uL (1.3-2.9) H 07/13/22 05:22 [place] # (Auto) 1.1 x10^3/uL (0.3-0.8) H 07/13/22 05:22 Eos # (Auto) 0.2 x10^3/uL (0.0-0.2) 07/13/22 05:22 Baso # (Auto) 0.0 X10^3/uL (0.0-0.1) 07/13/22 05:22 Absolute Nucleated RBC 0.0 /100WBC 07/13/22 05:22 Total Counted 100 07/13/22 05:22 Neutrophils % (Manual) 64 % (39-76) 07/13/22 05:22 Band Neutrophils % 3 % (0-10) 07/13/22 05:22 Lymphocytes % (Manual) 25 % (13-43) 07/13/22 05:22 Monocytes % (Manual) 5 % (4-9) 07/13/22 05:22 Eosinophils % (Manual) 3 % (0-6) 07/13/22 05:22 Metamyelocytes % 3 07/08/22 14:10 Atypical Lymphocytes Few A 07/13/22 05:22 Plt Morphology Comment Normal (NORMAL) 07/13/22 05:22 RBC Morphology Abnormal (NORMAL) A 07/13/22 05:22 Target Cells Slight A 07/13/22 05:22 Sodium 136 mmol/L (136-145) 07/13/22 05:22 Corrected Sodium TNP 07/13/22 05:22 Potassium 3.5 mmol/L (3.5-5.1) 07/13/22 05:22 Chloride 103 mmol/L (98-107) 07/13/22 05:22 Carbon Dioxide 24.8 mmol/L (21-32) 07/13/22 05:22 BUN 8 mg/dL (7-18) 07/13/22 05:22 Creatinine 0.71 mg/dL (0.55-1.02) 07/13/22 05:22 Est GFR (MDRD) Af Amer > 60 (>60) 07/13/22 05:22 Est GFR (MDRD) Non-Af > 60 (>60) 07/13/22 05:22 Glucose 102 mg/dL (65-99) H 07/13/22 05:22 POC Glucose (mg/dL) 102 mg/dL (65-99) H 07/13/22 11:25 Lactic Acid 2.5 mmol/L (0.4-2.0) H 07/08/22 15:46 Calcium 8.1 mg/dL (8.5-10.1) L 07/13/22 05:22 Corrected Calcium 9.6 mg/dL (8.5-10.1) 07/13/22 05:22 Magnesium 1.5 mg/dL (2.0-2.9) L 07/13/22 05:22 Total Bilirubin 0.60 mg/dL (0.2-1.0) 07/13/22 05:22 AST 18 Units/L (15-37) 07/13/22 05:22 ALT 21 Units/L (12-78) 07/13/22 05:22 Alkaline Phosphatase 89 Units/L (46-116) 07/13/22 05:22 Troponin I High Sens 12.4 ng/L (4.0-60.0) 07/08/22 14:10 B-Natriuretic Peptide 415 pg/mL (0-79) H 07/13/22 05:22 Total Protein 6.1 g/dL (6.4-8.2) L 07/13/22 05:22 Albumin 2.1 g/dL (3.4-5.0) L 07/13/22 05:22 Globulin 4.0 g/dL (2.5-4.5) 07/13/22 05:22 Albumin/Globulin Ratio 0.5 Ratio (1.1-2.1) L 07/13/22 05:22 Lipase 20 Units/L (73-393) L 07/08/22 14:10 TSH 3rd Generation 1.305 uIU/mL (0.358-3.74) 07/08/22 14:10 Specimen Type Catherized urine 07/08/22 14:37 Urine Color [place] (YELLOW) 07/08/22 14:37 Urine Appearance Slightly hazy (CLEAR) 07/08/22 14:37 Urine pH 5.0 (5.0 - 8.0) 07/08/22 14:37 Ur Specific [place] 1.030 (1.000-1.030) 07/08/22 14:37 Urine Protein 3+ (NEGATIVE) 07/08/22 14:37 Urine Glucose (UA) Negative (NEGATIVE) 07/08/22 14:37 Urine Ketones 1+ (NEGATIVE) 07/08/22 14:37 Urine Blood 1+ (NEGATIVE) 07/08/22 14:37 Urine Nitrite Positive (NEGATIVE) 07/08/22 14:37 Urine Bilirubin 3+ (NEGATIVE) 07/08/22 14:37 Urine Urobilinogen 4+ (NORMAL) 07/08/22 14:37 Ur Leukocyte Esterase 1+ (NEGATIVE) 07/08/22 14:37 Urine RBC 0-2 /HPF (0-3) 07/08/22 14:37 Urine WBC 5-10 /HPF (0-5) A 07/08/22 14:37 Ur Squamous Epith Cells Rare /HPF (NEGATIVE) 07/08/22 14:37 Ur Renal Epithelial Cell Rare /HPF (NEGATIVE) 07/08/22 14:37 Amorphous Sediment 1+ /HPF (NEGATIVE) 07/08/22 14:37 Urine Bacteria 3+ /HPF (NEGATIVE) 07/08/22 14:37 Hyaline Casts Rare /LPF (NEGATIVE) 07/08/22 14:37 Other Casts Few /LPF (NEGATIVE) 07/08/22 14:37 Ur Culture Indicated? Yes/culture set up 07/08/22 14:37 SARS-CoV-2 (PCR) Negative (NEGATIVE) 07/08/22 15:33 Influenza Type A (PCR) Negative (NEGATIVE) 07/08/22 15:33 Influenza Type B (PCR) Negative (NEGATIVE) 07/08/22 15:33 RSV (PCR) Negative (NEGATIVE) 07/08/22 15:33 SARS CoV-2 RNA Rapid JESSICA Cancelled 07/08/22 15:33 - Assessment and Plan 3: recurrent pancreatitis and maybe cholangitis . possible CBD stones or stricture after an old MRCP with sphicterotomy . could be discharged and may benefit from repeated ERCP .. - Problem Patient Problems: Patient Problems E. coli UTI (Acute) N39.0, B96.20 Recurrent pancreatitis (Acute) Pleural effusion (Acute) J90 Dehydration (Acute) E86.0 Chronic kidney disease (CKD) (Chronic) N18.9 Generalized weakness (Acute) R53.1 Altered mental status (Acute) R41.82 Leukocytosis (Acute) D72.829 Abdominal pain (Acute) R10.9 Hypothyroidism (Chronic) E03.9 GERD (gastroesophageal reflux disease) (Chronic) K21.9 YANY (generalized anxiety disorder) (Chronic) F41.1 MDD (major depressive disorder) (Chronic) F32.9
--- NOTE | 2022-07-13 15:45 | DR.CONSULT ---
Consult - Consultation for Day of: Date: 07/13/22 (GI) - Chief Complaint Chief Complaint: Patient is a 77 y/o who is referred abdominal pain and elevated LFTs. Patient has complaints of upper abdominal pain and nausea. Denies previous EGD. Spouse at bedside reports patient has had an ERCP previously, done 2-3 years ago for similar issue. MRCP done 07/12/22 showed dilation of the intra and extrahepatic bile ducts, this may be within normal limits for a post cholecystectomy patient of this age; hepatic steatosis; pancreatic atrophy with probable tiny side branch IPMN. Patient was here in the [facility] 3 weeks ago she was admitted then for altered mental status. Her confusion resolved and they could not find a reason for her confusion at that time. She reports not having a bowel movement for the last 3 days and goes up to 5 days sometimes not having a bowel movement. She reports some abdominal pain and chest pain as well in the ER. The patient had a CT of the lungs and abdomen/pelvis that showed extrahepatic dilatation of the biliary ducts. She also had fatty infiltration of the liver. There was no choledocholithiasis seen however cannot rule out ascending cholangitis. No masses were seen. Urinalysis did show the patient has a urinary tract infection with 3+ leukocyte esterase and positive nitrites. We elected to start the patient on IV Rocephin as she is allergic to penicillin and ciprofloxacin. We will admit her to the medical floor and start her on IV hydration as she is also dehydrated and for pain control of the abdominal pain. - Past Medical History Past Medical History: Coronary Artery Disease, Hypertension, Diabetes, Renal Disease, Depression, Hypothyroidism, GERD, Arthritis, Kidney Stones, Sleep Apnea, CHF Additional Medical History: Lupus, Cataracts, Sleep Apnea (CPAP at home), Atrial Fibrillation, Hx IBS, Hiatal Hernia, Fibromyalgia, Chronic Back Pain, Hx DVT, Pancreatitis - Past Surgical History Surgical History: Abdominal Surgery, Cholecystectomy, Hysterectomy, Ortho Surgery Additional Surgical History: Bladder Tack, Breast Reduction, Fissurectomy, Hemorroidectomy, Cardiac Ablation, Back Stimulator - Family History Family Medical History: Diabetes Mellitus, Cancer, [place], Coronary Artery Disease, Heart Failure, Hypertension - Social History Does patient currently use any type of tobacco product: No Have you used tobacco products in the last 12 months: No Type of Tobacco Use: None Does any household member use tobacco: No Alcohol Use: None Drug Use: None - Medications Home Medications: adhesive tape Allergy (Verified 09/06/21 10:10) ceftriaxone [From Rocephin] Allergy (Verified 07/09/22 18:38) ciprofloxacin Allergy (Verified 09/06/21 10:10) ITCHING, REDNESS oxycodone [From Percocet] Allergy (Verified 09/06/21 10:10) Penicillins Allergy (Verified 09/06/21 10:10) CONTINUE taking the following medications B-complex with vitamin C 1 cap PO QDAY 07/08/22 [History] cholecalciferol (vitamin D3) 125 mcg (5,000 unit) disintegrating tablet 125 mcg PO DAILY 07/08/22 [History] diphenhydramine HCl 12.5 mg/5 mL oral elixir 12.5 mg PO Q4-6H PRN Itching 07/08/22 [History] duloxetine 60 mg capsule,delayed release 1 cap PO QDAY 07/08/22 [History] hydrocodone 7.5 mg-acetaminophen 325 mg tablet 1 tab PO TID PRN pain 07/08/22 [History] nystatin 100,000 unit/gram topical powder See Rx Instructions .Route .COMPLEX 07/08/22 [History] - Review of Systems Constitutional: See HPI. denies: No Symptoms Reported, Fever, Chills, Sweats, Weakness, Malaise, Other Eyes: No Symptoms Reported. denies: See HPI, Pain, Vision Change, Conjunctivae Inflammation, Eyelid Inflammation, Redness, Other ENT: No Symptoms Reported. denies: See HPI, Ear Pain, Ear Discharge, Nose Pain, Nose Discharge, Nose Congestion, Mouth Pain, Mouth Swelling, Throat Pain, Throat Swelling, Other Respiratory: See HPI. denies: No Symptoms Reported, Cough, Dry, Shortness of Breath, Hemoptysis, SOB with Excertion, Pleuritic Pain, Sputum, Wheezing, Other Cardiovascular: Chest Pain. denies: No Symptoms Reported, See HPI, Palpitations, Orthopnea, Paroxysmal Noc. Dyspnea, Edema, Light Headedness, Other Gastrointestinal: See HPI, Nausea, Abdominal Pain (Upper). denies: No Symptoms Reported, Vomiting, Diarrhea, Constipation, Melena, Hematochezia, Other Genitourinary: No Symptoms Reported. denies: See HPI, Dysuria, Frequency, Incontinence, Hematuria, Retention, Other Musculoskeletal: No Symptoms Reported. denies: See HPI, Shoulder Pain, Arm Pain, Back Pain, Hand Pain, Leg Pain, Foot Pain, Neck Pain, Other Skin: No Symptoms Reported. denies: See HPI, Rash, Lesions, Jaundice, Bruising, Wound, Ecchymosis, Other Neurological: No Symptoms Reported. denies: See HPI, Weakness, Numbness, Incoordination, Change in Speech, Confusion, Seizures, Other - Physical Exam Vital Signs: Temperature 97.6 F Pulse Rate [Left Radial] 72 Pulse Rate 46 Respiratory Rate 20 Blood Pressure [Left Arm] 125/60 Blood Pressure [Right Arm] 131/80 Blood Pressure 123/60 O2 Sat by Pulse Oximetry 95 Oriented: Normal. negative: Time, Person, Place, Not Oriented, Unable to test, Other Eyes: Normal. negative: Blurred Vision, Diplopia, Discharge, Pain, Redness, Photophobia, Other Ear: negative: Normal, Right, Left, Swelling, Ecchymosis, Hemotypanum, Abrasion, Laceration Nose: negative: Normal, Injected, Discharge, Blood, Other Throat: negative: Normal, Tonsillar Hypertrophy, Red, Exudate, Dry, Other Respiratory: Clear Throughout. negative: Diminished Throughout, Rhonchi Throughout, Rales Throughout, Wheezes Throughout, RUL Clear, RML Clear, RLL Clear, HODA Clear, LML Clear, LLL Clear, RUL Diminished, RML Diminished, RLL Diminished, HODA Diminished, LML Diminished, LLL Diminished, RUL Absent, RML Absent, RLL Absent, HODA Absent, LML Absent, LLL Absent, RUL Rhonchi, RML Rhonchi, RLL Rhonchi, HODA Rhonchi, LML Rhonchi, LLL Rhonchi, RUL Insp. Wheeze, RML Insp. Wheeze, RLL Insp. Wheeze, HODA Insp.Wheeze, LML Insp.Wheeze, LLL Insp.Wheeze, RUL Exp. Wheeze, RML Exp. Wheeze, RLL Exp. Wheeze, HODA Exp. Wheeze, LML Exp. Wheeze, LLL Exp. Wheeze, RUL Rales, RML Rales, RLL Rales, HODA Rales, LML Rales, LLL Rales, RUL Rub, RML Rub, RLL Rub, HODA Rub, LML Rub, LLL Rub, RUL Squeak, RML Squeak, RLL Squeak, HODA Squeak, LML Squeak, LLL Squeak Cardiovascular: Normal. negative: Tachycardia, Bradycardia, Irregular, S3, S4, Systolic, Diastolic, Murmur, Edema, Other : negative: Normal, Dysuria, Hematuria, Frequency, Discharge, Testicular Pain, Bleeding, , Other Auscultation: Bowel Sounds: Normal. negative: Bruit, Absent, Increased, Decreased, High Pitched, Other Palpation: negative: Normal, Spleen Enlarged, Liver Enlarged, Mass Pulsatile, Other Tenderness: RUQ, LUQ, Epigastric. negative: Normal, Diffuse, RLQ, LLQ, Periumbilical, Suprapubic, Mild, Moderate, Severe, Rebound, Guarding, Rigidity, Other Skin: Normal. negative: Decreased Turgur, Rash, Papular, Macular, Maculopapular, Vesicular, Pustular, Petechial, Red, Tender, Hot, Diaphoresis, Wound, Bruising, Ecchymosis, Other Musculoskeletal: negative: Normal, Right, Left, Shoulder, Clavicle, Arm, Elbow, Forearm, Wrist, Hand, Hip, Thigh, Knee, Leg, Ankle, Foot, Back:Thoracic, Back:Lumbar, Back:Midline, Back:Paraspinous, Pelvis, Swelling, Tender, Deformity, Pulse Deficit, Motor Deficit, Sensory Deficit, Instability, Crepitance Psychiatric: Normal. negative: Anxiety, Depression, Agitation, Other Mood Description: Calm. negative: Angry, Apathetic, Depressed, Fearful, Flat, Happy, Hostile, Sad, Suspicious, Withdrawn, Anxious, Appropriate, Labile Affect: negative: Angry, Anxious, Depressed, Flat, Hysterical, Quiet, Violent, Normal Speech Pattern: Clear, Appropriate. negative: Unclear, Inappropriate, Delayed, Slurred, Excessive, Aphasic, Artificially Ventilated, Trach(not ventilated) - Plan Plan: Assessment. 1. Abnormal MRCP. 2. H/O abnormal LFTs, MRCP negative for choledocholithiasis, possible stone passed. 3. Upper abdominal pain, nausea. 4. H/O GERD. 5. H/O hyperplastic colon polyps. Plan: EGD in AM. Monitor LFTs. If hyperbilirubinemia occurs, will consider ERCP. IV Zofran PRN. Plan D/W Dr. Dillon - Allergies Allergies/Adverse Reactions: Allergies Allergy/AdvReac Type Severity Reaction Status Date / Time adhesive tape Allergy Verified 09/06/21 10:10 ceftriaxone [From Rocephin] Allergy Verified 07/09/22 18:38 ciprofloxacin Allergy ITCHING, Verified 09/06/21 10:10 REDNESS oxycodone [From Percocet] Allergy Verified 09/06/21 10:10 Penicillins Allergy Verified 09/06/21 10:10
[2022-07-14] MEDS: D5 1/2 NS 1,000 ML 1,000 ML IV SCH ×2 (01:43→09:54)
[2022-07-14] MEDS: CLEOCIN 300 MG IV PREMIX 300 MG/50 ML BAG IV SCH ×2 (05:25→13:28)
[2022-07-14 05:30] LABS: BASOPHILS # (AUTO) 0.1 X10^3/uL (0.0-0.1); BASOPHILS % (AUTO) 0.4 % (0.2-1.0); EOSINOPHILS # (AUTO) 0.5 x10^3/uL (0.0-0.2); EOSINOPHILS % (AUTO) 3.5 % (0.9-2.9); HEMATOCRIT 35.8 % (36.0-47.0); HEMOGLOBIN 12.1 g/dL (12.0-16.0); LYMPHOCYTES # (AUTO) 3.5 X10^3/uL (1.3-2.9); LYMPHOCYTES % (AUTO) 26.8 % (21.0-51.0); MEAN CORPUSCULAR HEMOGLOBIN 30.7 pg (27.0-34.0); MEAN CORPUSCULAR HGB CONC 33.7 g/dL (33.0-35.0); MEAN CORPUSCULAR VOLUME 90.9 fL (80.0-100.0); MEAN PLATELET VOLUME 8.7 fL (7.4-11.0); MONOCYTES # (AUTO) 0.7 x10^3/uL (0.3-0.8); MONOCYTES % (AUTO) 5.6 % (0.0-13.0); NEUTROPHILS # (AUTO) 8.4 x10^3/uL (2.2-4.8); NEUTROPHILS % (AUTO) 63.7 % (42.0-75.0); RED BLOOD COUNT 3.94 X10^6/uL (3.5-5.4); WHITE BLOOD COUNT 13.2 X10^3/uL (3.6-10.0)
[2022-07-14 05:38] LABS: ALANINE AMINOTRANSFERASE 16 Units/L (12-78); ALBUMIN 1.9 g/dL (3.4-5.0); ALKALINE PHOSPHATASE 80 Units/L (46-116); ASPARTATE AMINO TRANSFERASE 12 Units/L (15-37); BLOOD UREA NITROGEN 5 mg/dL (7-18); CALCIUM 7.7 mg/dL (8.5-10.1); CARBON DIOXIDE 27.3 mmol/L (21-32); CHLORIDE 104 mmol/L (98-107); COR CA(FOR HYPOALB) 9.4 mg/dL (8.5-10.1); CREATININE 0.71 mg/dL (0.55-1.02); MAGNESIUM 1.9 mg/dL (2.0-2.9); SODIUM 138 mmol/L (136-145); TOTAL PROTEIN 5.7 g/dL (6.4-8.2); eGFR NON BLACK RACES > 60 (>60)
[2022-07-14] MEDS: MAGNESIUM SULFATE 1 GRAM/100 mL PREMIX 1 G/100 ML BAG IV PRN ×2 (06:20→07:51)
[2022-07-14 06:26] LABS: METAMYELOCYTES % 2; MYELOCYTES % 1; PLATELET MORPHOLOGY COMMENT NORMAL (NORMAL)
[2022-07-14] MEDS ORDERED: LEVAQUIN PREMIX IV 500 MG 500 MG/100 ML BAG IV SCH (09:00)
[2022-07-14] MEDS ORDERED: D5 LR 1,000 ML 1,000 ML IV ONE (10:41)
[2022-07-14] MEDS ORDERED: DIPRIVAN VIAL 20 ML ONE (11:17)
[2022-07-14] MEDS ORDERED: XYLOCAINE 2 % (PLAIN) ONE (11:18)
[2022-07-14] MEDS: ELIQUIS PO SCH (12:18)
[2022-07-14] MEDS: SYNTHROID 100 mcg TAB PO SCH (12:18)
[2022-07-14] MEDS: VITAMIN D3 125 mcg (5,000 UNITS) PO SCH (12:18)
[2022-07-14] MEDS: PROTONIX TAB 40 MG PO SCH (12:18)
[2022-07-14] MEDS: LOPRESSOR TAB 25 MG PO SCH (12:18)
[2022-07-14] MEDS: CARDIZEM CD 120 MG 24-HR PO SCH (12:19)
[2022-07-14] MEDS: CYMBALTA PO SCH (12:19)
[2022-07-14 13:51] VITALS: BP 130/58
== END 2022-07-14 15:25 | disposition home health service (06) | DRG 690 ==
LOC: ER 13:44 → MED/SURG 13:44
PROVIDERS: ADMIT Family Medicine; ATTEND Internal Medicine
DX: Y92.230 Patient room in hospital as the place of occurrence of the external cause; I48.20 Chronic atrial fibrillation, unspecified; R13.11 Dysphagia, oral phase; I12.9 Hypertensive chronic kidney disease with stage 1 through stage 4 chronic kidney disease, or unspecified chronic kidney disease; J90 Pleural effusion, not elsewhere classified; Z20.822 Contact with and (suspected) exposure to COVID-19; R17 Unspecified jaundice; Z96.82 Presence of neurostimulator; Z86.010 Personal history of colon polyps; R26.89 Other abnormalities of gait and mobility; R53.1 Weakness; N18.4 Chronic kidney disease, stage 4 (severe); E86.0 Dehydration; N30.01 Acute cystitis with hematuria; F33.9 Major depressive disorder, recurrent, unspecified; R40.4 Transient alteration of awareness; R97.0 Elevated carcinoembryonic antigen [CEA]; B96.29 Other Escherichia coli [E. coli] as the cause of diseases classified elsewhere; M32.9 Systemic lupus erythematosus, unspecified; R10.13 Epigastric pain; K86.1 Other chronic pancreatitis; R07.89 Other chest pain; K22.2 Esophageal obstruction; R10.11 Right upper quadrant pain; K22.4 Dyskinesia of esophagus; T36.1X5A Adverse effect of cephalosporins and other beta-lactam antibiotics, initial encounter; R74.8 Abnormal levels of other serum enzymes

== ENCOUNTER 2022-07-26 13:52 | Observation (INO) ==
--- NOTE | 2022-07-26 14:13 | DR.AMS ---
HPI Time Seen Time Seen by Provider: 07/26/22 14:13 Complaint Cheif Complaint Doctors Comments: 77 y/o female presents for evaluation. Was hospitalized last week, not feeling great since discharge. Was feeling weak. Nowe having episodes of confusion, altered mental status. + pain RUE, neck radiates down RUE. + worse with ROM of R shoulder. Nothing makes it better. Denies fever, chills, URI symptoms. No bowel or bladder complaints. Reviewed Nurses Notes Reviewed: Yes Source History Provided: Patient and Significant Other PMH PMH Past Medical History: Arthritis, CHF, Coronary Artery Disease, Depression, Diabetes, GERD, Hypertension, Hypothyroidism, Kidney Stones, Renal Disease and Sleep Apnea Past Surgical History: Yes Surgical History: Abdominal Surgery, Cholecystectomy, Hysterectomy and Ortho Surgery Family History Family Medical History: Diabetes Mellitus, Cancer, [place], Coronary Artery Disease, Heart Failure and Hypertension Social History Do you use any recreational Drugs:: No ROS Review of Systems Constitutional: Weakness Eyes: No Symptoms Reported ENTM: No Symptoms Reported Respiratoy: No Symptoms Reported Cardiovascular: No Symptoms Reported Gastrointestinal/Abdominal: No Symptoms Reported Genitourinary: No Symptoms Reported Neurological: No Symptoms Reported Musculoskeletal: See HPI Integumentary: No Symptoms Reported Hematologic/Lymphatic: No Symptoms Reported Psychiatric: No Symptoms Reported All Other Systems: Reviewed and Negative PE Vitals Vital Signs: Temp Pulse Resp BP BP Pulse Ox O2 Del Method 07/26/22 17:15 96 H 22 95 07/26/22 17:00 96 H 20 97 07/26/22 17:00 132/78 07/26/22 16:45 93 H 28 H 96 07/26/22 16:30 93 H 25 H 96 07/26/22 16:30 124/71 07/26/22 16:15 91 H 18 95 07/26/22 16:00 91 H 22 94 L 07/26/22 16:00 118/64 07/26/22 15:45 91 H 22 94 L 07/26/22 15:30 120/64 07/26/22 15:30 92 H 23 94 L 07/26/22 15:30 120/64 07/26/22 15:15 91 H 28 H 93 L 07/26/22 15:00 94 H 24 93 L 07/26/22 15:00 119/56 07/26/22 14:45 100 H 25 H 93 L 07/26/22 14:30 101 H 22 94 L 07/26/22 14:30 123/57 07/26/22 14:26 97 H 22 95 07/26/22 14:11 97.8 F 107 H 18 137/62 95 Room Air 07/14/22 13:40 130/58 07/14/22 09:22 FiO2 07/26/22 17:15 07/26/22 17:00 07/26/22 17:00 07/26/22 16:45 07/26/22 16:30 07/26/22 16:30 07/26/22 16:15 07/26/22 16:00 07/26/22 16:00 07/26/22 15:45 07/26/22 15:30 07/26/22 15:30 07/26/22 15:30 07/26/22 15:15 07/26/22 15:00 07/26/22 15:00 07/26/22 14:45 07/26/22 14:30 07/26/22 14:30 07/26/22 14:26 07/26/22 14:11 07/14/22 13:40 07/14/22 09:22 28 General General Appearance: Alert and In No Apparent Distress Eyes Eye exam: PERRL and EOMI ENT ENT Exam: Normal Exam and Mucous Membranes Moist Neck Neck Exam: Normal Inspection and Other (+ discomfort with ROM) Respiratory Respiratory Exam: Normal Lung Sounds Bilat; negative Accessory Muscle Use or Respiratory Distress Cardiovascular Cardiovascular Exam: Regular Rate, Normal Rhythm and Normal Heart Sounds Abdominal Exam Abdominal Exam: Normal Inspection, Normal Bowel Sounds and Soft; negative Tenderness Extremities Extremities Exam: Normal Inspection and Other (+ R shoulder pain with ROM.) Back Back Exam: Tenderness (R upper trapezial region) Neurological Neurological Exam: Alert, Oriented X3 and CN II-XII Intact; negative Motor Sensory Deficit Psychological Psychiatric Exam: Normal Affect Skin Skin Exam: Warm and Dry COURSE Treatment Treatment: 77 y/o female with weakness, altered mental status. Usually gets this way with UTI. No specific complaints of pain. W/u initiated. Given IV fluids. CBC, CMP acceptable. Urine off a bit - + nitrate, 1+ supriya est, 3+ bacteria. Givne IV Levaquin. Discussed findings with pt/family. Will admit for observation to make sure no other problems. Discussed with Dr Santana (covering for Dr Rai). Will admit. ROR Labs Reviewed Laboratory Results Reviewed?: Yes Result Diagrams: 07/26/22 14:40 07/26/22 14:40 Laboratory: WBC 7.2 X10^3/uL (3.6-10.0) 07/26/22 14:40 RBC 4.36 X10^6/uL (3.5-5.4) 07/26/22 14:40 Hgb 13.3 g/dL (12.0-16.0) 07/26/22 14:40 Hct 39.6 % (36.0-47.0) 07/26/22 14:40 MCV 90.9 fL (80.0-100.0) 07/26/22 14:40 MCH 30.6 pg (27.0-34.0) 07/26/22 14:40 MCHC 33.6 g/dL (33.0-35.0) 07/26/22 14:40 RDW 14.4 % (11.6-16.5) 07/26/22 14:40 Plt Count 467 X10^3/uL (150.0-450.0) H 07/26/22 14:40 MPV 7.1 fL (7.4-11.0) L 07/26/22 14:40 Neut % (Auto) 36.6 % (42.0-75.0) L 07/26/22 14:40 Lymph % (Auto) 49.1 % (21.0-51.0) 07/26/22 14:40 [place] % (Auto) 9.9 % (0.0-13.0) 07/26/22 14:40 Eos % (Auto) 3.0 % (0.9-2.9) H 07/26/22 14:40 Baso % (Auto) 1.4 % (0.2-1.0) H 07/26/22 14:40 Neut # (Auto) 2.6 x10^3/uL (2.2-4.8) 07/26/22 14:40 Lymph # (Auto) 3.5 X10^3/uL (1.3-2.9) H 07/26/22 14:40 [place] # (Auto) 0.7 x10^3/uL (0.3-0.8) 07/26/22 14:40 Eos # (Auto) 0.2 x10^3/uL (0.0-0.2) 07/26/22 14:40 Baso # (Auto) 0.1 X10^3/uL (0.0-0.1) 07/26/22 14:40 Absolute Nucleated RBC 0.0 /100WBC 07/26/22 14:40 Sodium 134 mmol/L (136-145) L 07/26/22 14:40 Corrected Sodium TNP 07/26/22 14:40 Potassium 3.8 mmol/L (3.5-5.1) 07/26/22 14:40 Chloride 99 mmol/L (98-107) 07/26/22 14:40 Carbon Dioxide 28.2 mmol/L (21-32) 07/26/22 14:40 BUN 7 mg/dL (7-18) 07/26/22 14:40 Creatinine 0.88 mg/dL (0.55-1.02) 07/26/22 14:40 Est GFR (MDRD) Af Amer > 60 (>60) 07/26/22 14:40 Est GFR (MDRD) Non-Af > 60 (>60) 07/26/22 14:40 Glucose 104 mg/dL (65-99) H 07/26/22 14:40 Calcium 8.7 mg/dL (8.5-10.1) 07/26/22 14:40 Corrected Calcium 9.7 mg/dL (8.5-10.1) 07/26/22 14:40 Total Bilirubin 0.60 mg/dL (0.2-1.0) 07/26/22 14:40 AST 25 Units/L (15-37) 07/26/22 14:40 ALT 13 Units/L (12-78) 07/26/22 14:40 Alkaline Phosphatase 75 Units/L (46-116) 07/26/22 14:40 Troponin I High Sens 6.8 ng/L (4.0-60.0) 07/26/22 14:40 Total Protein 7.2 g/dL (6.4-8.2) 07/26/22 14:40 Albumin 2.7 g/dL (3.4-5.0) L 07/26/22 14:40 Globulin 4.5 g/dL (2.5-4.5) 07/26/22 14:40 Albumin/Globulin Ratio 0.6 Ratio (1.1-2.1) L 07/26/22 14:40 Specimen Type Catherized urine 07/26/22 15:34 Urine Color Yellow (YELLOW) 07/26/22 15:34 Urine Appearance Hazy (CLEAR) 07/26/22 15:34 Urine pH 6.0 (5.0 - 8.0) 07/26/22 15:34 Ur Specific [place] 1.025 (1.000-1.030) 07/26/22 15:34 Urine Protein 2+ (NEGATIVE) 07/26/22 15:34 Urine Glucose (UA) Negative (NEGATIVE) 07/26/22 15:34 Urine Ketones Negative (NEGATIVE) 07/26/22 15:34 Urine Blood 2+ (NEGATIVE) 07/26/22 15:34 Urine Nitrite Positive (NEGATIVE) 07/26/22 15:34 Urine Bilirubin Negative (NEGATIVE) 07/26/22 15:34 Urine Urobilinogen Normal (NORMAL) 07/26/22 15:34 Ur Leukocyte Esterase 1+ (NEGATIVE) 07/26/22 15:34 Urine RBC 0-2 /HPF (0-3) 07/26/22 15:34 Urine WBC 0-2 /HPF (0-5) 07/26/22 15:34 Ur Squamous Epith Cells Negative /HPF (NEGATIVE) 07/26/22 15:34 Urine Bacteria 3+ /HPF (NEGATIVE) 07/26/22 15:34 Ur Culture Indicated? Yes/culture set up 07/26/22 15:34 Labs reviewed. XRAY XRAY Interpreted by: Both X-ray Results: no acute abnormalities on CXR EKG Rate: 96 [place]: LAD Rhythm: NSR Block: None Hypertrophy: None ST: Nonsp Opioid Opioid Risk Tool Age (Bennett box if 16-45): No History of Preadolescent Sexual Abuse: No Total: 0 Total Score Risk Category: Low Risk Copyright: Christian CANALES predicting aberrant behaviors Discharge Plan Diagnosis Discharge Problem: Acute UTI, Altered mental status Discharge Plan Patient Disposition: 09 ADMITTED INPATIENT Condition: Stable Orders to Discharge Patient Discharge Orders: Transfer (Routine); Ordered 07/26/22 Ordered By: Paul Lima
[2022-07-26] MEDS ORDERED: NS 500 ML IV 500 ML IV ONE ×2 (14:24→14:31)
--- NOTE | 2022-07-26 14:28 | EKG ---
Test Reason : RIGHT ARM RADIATING SHOULDER PAIN Blood Pressure : */* mmHG Vent. Rate : 96 BPM Atrial Rate : 96 BPM P-R Int : 208 ms QRS Dur : 74 ms QT Int : 348 ms P-R-T Axes : 87 -32 72 degrees QTc Int : 439 ms Normal sinus rhythm Left axis deviation Cannot rule out Anterior infarct , age undetermined Abnormal ECG When compared with ECG of 08-JUL-2022 14:08, Nonspecific T wave abnormality, improved in Anterior leads Confirmed by Jarrod Coates ([id number]) on 07/28/2022 8:39:07 AM Referred By: Confirmed By: Jarrod Coates
[2022-07-26 14:57] LABS: BASOPHILS # (AUTO) 0.1 X10^3/uL (0.0-0.1); BASOPHILS % (AUTO) 1.4 % (0.2-1.0); EOSINOPHILS # (AUTO) 0.2 x10^3/uL (0.0-0.2); HEMATOCRIT 39.6 % (36.0-47.0); HEMOGLOBIN 13.3 g/dL (12.0-16.0); LYMPHOCYTES # (AUTO) 3.5 X10^3/uL (1.3-2.9); LYMPHOCYTES % (AUTO) 49.1 % (21.0-51.0); MEAN CORPUSCULAR HEMOGLOBIN 30.6 pg (27.0-34.0); MEAN CORPUSCULAR HGB CONC 33.6 g/dL (33.0-35.0); MEAN CORPUSCULAR VOLUME 90.9 fL (80.0-100.0); MEAN PLATELET VOLUME 7.1 fL (7.4-11.0); MONOCYTES # (AUTO) 0.7 x10^3/uL (0.3-0.8); MONOCYTES % (AUTO) 9.9 % (0.0-13.0); NEUTROPHILS # (AUTO) 2.6 x10^3/uL (2.2-4.8); NEUTROPHILS % (AUTO) 36.6 % (42.0-75.0); RED BLOOD COUNT 4.36 X10^6/uL (3.5-5.4); RED CELL DISTRIBUTION WIDTH 14.4 % (11.6-16.5); WHITE BLOOD COUNT 7.2 X10^3/uL (3.6-10.0)
[2022-07-26 15:01] LABS: BLOOD UREA NITROGEN 7 mg/dL (7-18); CALCIUM 8.7 mg/dL (8.5-10.1); CARBON DIOXIDE 28.2 mmol/L (21-32); CHLORIDE 99 mmol/L (98-107); CREATININE 0.88 mg/dL (0.55-1.02); SODIUM 134 mmol/L (136-145); eGFR NON BLACK RACES > 60 (>60)
[2022-07-26 15:50] LABS: BILIRUBIN,URINE NEGATIVE (NEGATIVE); BLOOD/HEMOGLOBIN,URINE 2+ (NEGATIVE); GLUCOSE, URINE NEGATIVE (NEGATIVE); KETONES,URINE NEGATIVE (NEGATIVE); LEUKOCYTE ESTERASE ,URINE 1+ (NEGATIVE); NITRITES,URINE POSITIVE (NEGATIVE); PROTEIN,URINE 2+ (NEGATIVE); UROBILINOGEN,URINE NORMAL (NORMAL)
[2022-07-26 16:05] LABS: APPEARANCE,URINE HAZY (CLEAR); COLOR,URINE YELLOW (YELLOW)
[2022-07-26 16:06] LABS: BACTERIA,URINE 3+ /HPF (NEGATIVE); RBC,URINE 0-2 /HPF (0-3); SQUAMOUS EPITHELIAL CELL,UR NEGATIVE /HPF (NEGATIVE)
[2022-07-26] MEDS ORDERED: LEVAQUIN PREMIX IV 500 MG 500 MG/100 ML BAG IV ONE ×2 (16:18→16:21)
[2022-07-26 16:27] LABS: ALANINE AMINOTRANSFERASE 13 Units/L (12-78); ALBUMIN 2.7 g/dL (3.4-5.0); ALKALINE PHOSPHATASE 75 Units/L (46-116); ASPARTATE AMINO TRANSFERASE 25 Units/L (15-37); COR CA(FOR HYPOALB) 9.7 mg/dL (8.5-10.1); TOTAL PROTEIN 7.2 g/dL (6.4-8.2)
[2022-07-26] MEDS ORDERED: ANTIVERT TAB 25 MG PO PRN (18:50)
[2022-07-26] MEDS ORDERED: NYSTATIN POWDER TOP SCH ×2 (18:50→20:00)
[2022-07-26] MEDS: PROTONIX TAB 40 MG PO SCH (20:35)
[2022-07-26] MEDS: LOPRESSOR TAB 25 MG PO SCH (20:35)
[2022-07-26] MEDS: NS 1,000 ML IV 1,000 ML IV SCH (20:37)
[2022-07-26] MEDS: ULTRAM PO PRN (20:37)
[2022-07-26] MEDS: ELIQUIS PO SCH (21:28)
--- NOTE | 2022-07-26 22:11 | RAD ---
HISTORYLATHARGIC, AMS Relevant Clinical InformationSTUDYCHEST, 1 [id number]/28/2022.FINDINGSThe trachea is midline. The cardiac silhouette is unremarkable. There is nonspecific opacity in the medial right base. Left lung is grossly clear and there is no pleural effusion. The bony thorax is unremarkable.IMPRESSIONNonspecific medial right base opacity.Electronically signed by: Reno Rondon (Jul 26, 2022 22:09:32)
[2022-07-27 05:31] LABS: BASOPHILS # (AUTO) 0.1 X10^3/uL (0.0-0.1); EOSINOPHILS # (AUTO) 0.3 x10^3/uL (0.0-0.2); EOSINOPHILS % (AUTO) 3.8 % (0.9-2.9); HEMATOCRIT 35.6 % (36.0-47.0); LYMPHOCYTES # (AUTO) 2.8 X10^3/uL (1.3-2.9); LYMPHOCYTES % (AUTO) 41.9 % (21.0-51.0); MEAN CORPUSCULAR HEMOGLOBIN 30.1 pg (27.0-34.0); MEAN CORPUSCULAR HGB CONC 33.7 g/dL (33.0-35.0); MEAN CORPUSCULAR VOLUME 89.3 fL (80.0-100.0); MEAN PLATELET VOLUME 7.8 fL (7.4-11.0); MONOCYTES # (AUTO) 0.7 x10^3/uL (0.3-0.8); MONOCYTES % (AUTO) 9.9 % (0.0-13.0); NEUTROPHILS # (AUTO) 2.9 x10^3/uL (2.2-4.8); NEUTROPHILS % (AUTO) 43.4 % (42.0-75.0); RED BLOOD COUNT 3.99 X10^6/uL (3.5-5.4); RED CELL DISTRIBUTION WIDTH 14.7 % (11.6-16.5); WHITE BLOOD COUNT 6.7 X10^3/uL (3.6-10.0)
[2022-07-27 05:57] LABS: BLOOD UREA NITROGEN 8 mg/dL (7-18); CARBON DIOXIDE 26.8 mmol/L (21-32); CHLORIDE 102 mmol/L (98-107); CREATININE 0.77 mg/dL (0.55-1.02); SODIUM 136 mmol/L (136-145); eGFR NON BLACK RACES > 60 (>60)
[2022-07-27 06:08] LABS: ALANINE AMINOTRANSFERASE 7 Units/L (12-78); ALBUMIN 2.5 g/dL (3.4-5.0); ALKALINE PHOSPHATASE 70 Units/L (46-116); ASPARTATE AMINO TRANSFERASE 24 Units/L (15-37); COR CA(FOR HYPOALB) 9.2 mg/dL (8.5-10.1); TOTAL PROTEIN 6.5 g/dL (6.4-8.2)
[2022-07-27] MEDS: PROTONIX TAB 40 MG PO SCH ×2 (09:18→21:07)
[2022-07-27] MEDS: CARDIZEM CD 120 MG 24-HR PO SCH (09:18)
[2022-07-27] MEDS: LOPRESSOR TAB 25 MG PO SCH ×2 (09:18→21:07)
[2022-07-27] MEDS: CYMBALTA PO SCH (09:18)
[2022-07-27] MEDS: ELIQUIS PO SCH ×2 (09:18→21:08)
[2022-07-27] MEDS: SYNTHROID 100 mcg TAB PO SCH (09:19)
[2022-07-27] MEDS: LEVAQUIN PREMIX IV 500 MG 500 MG/100 ML BAG IV SCH (09:19)
[2022-07-27] MEDS: NS 1,000 ML IV 1,000 ML IV SCH ×3 (09:20→21:09)
[2022-07-27] MEDS: ULTRAM PO PRN (09:22)
--- NOTE | 2022-07-27 12:22 | DR.H&P ---
H&P - History & Physical for Day of: H&P Date: 07/26/22 - Chief Complaint Chief Complaint: WEAKNESS, CONFUSION, RIGHT SHOULDER PAIN - History of Present Illness History of Present Illness: IS A 77 YEAR OLD PATIENT OF OURS. SHE PRESENTED TO THE HOSPITAL WITH COMPLAINTS OF GENERALIZED WEAKNESS, SUPRAPUBIC PAIN, RIGHT SHOULDER PAIN, AND CONFUSION. SHE REPORTS THAT HER SYMPTOMS HAVE BEEN PRESENT AND PROGRESSIVELY WORSENING SINCE SHE WAS DISCHARGED FROM THE HOSPITAL ON 07/14/22. HER PMH INCLUDES: ARTHRITIS, CHF, CAD, DEPRESSION, DM II, GERD, HTN, HYPOTHYROIDISM, KIDNEY STONES, RENAL DISEASE, SLEEP APNEA, CHOLECYSTECTOMY, HYSTERECTOMY, AND ORTHOPEDIC SURGERY. ON ARRIVAL TO THE ER, PATIENT WAS ALERT AND OREINTED. SHE WAS ABLE TO FOLLOW COMMANDS. HER VITALS WERE: 97.8-97-22-95%-137/62. LABS WERE OBTAINED. WBC 7.2, RBC 4.36, HGB 13.3, HCT 39.6, PLT COUNT 467, SODIUM 134, POTASSIUM 3.8, CHLORIDE 99, BUN 7, CREATININE 0.88, GLUCOSE 104, CALCIUM 8.7, TOTAL BILI 0.60, AST 25, ALT 13, ALK PHOS 75, TROPONIN 6.8, TOTAL PROTEIN 7.2, ALBUMIN 2.7. URINALYSIS OBTAINED AND REVEALED: WBC 0-2, RBC 0-2, BLOOD 2+, NITRITES POSITIVE, LEUKOCYTES 1+, BACTERIA 3+. A URINE CULTURE WAS SET UP. A CHEST XRAY WAS OBTAINED AND REVEALED: The trachea is midline. The cardiac silhouette is unremarkable. There is nonspecific opacity in the medial right base. Left lung is grossly clear and there is no pleural effusion. The bony thorax is unremarkable. EKG PRESENTED NORMAL SINUS RHYTHM WITH HR 96. DECISION WAS MADE TO ADMIT PATIENT TO THE HOSPITAL OBSERVATION STATUS FOR TREATMENT OF URINARY TRACT INFECTION, GENERALIZED WEAKNESS, CONFUSION. SHE WAS STARTED ON NORMAL SALINE AT 80 ML/HR, LEVAQUIN 500MG IV DAILY, OTBS ACHS. HER HOME MEDICATIONS OF ELIQUIS, CARDIZEM, CYMBALTA, SYNTHROID, MECLIZINE, METOPROLOL, PANTOPRAZOLE, AND TRAZODONE WERE RESUMED. WE WILL OBTAIN A RIGHT SHOULDER XRAY. WE WILL HAVE PHYSICAL AND OCCUPATIONAL THERAPIES EVALUATE PATIENT. OTHERWISE, WE WILL FOLLOW-UP WITH AM LABS AND CONTINUE TO MONITOR. TIME SPENT ON CLINICAL ASSESSMENT, REVIWING LABS AND IMAGING, DECISION MAKING, AND DOCUMENTATION GREATER THAN 75 MINUTES. - Past Medical History Past Medical History: Coronary Artery Disease, Hypertension, Diabetes, Renal Disease, Depression, Hypothyroidism, GERD, Arthritis, Kidney Stones, Sleep Apnea, CHF Additional Medical History: Lupus, Cataracts, Sleep Apnea (CPAP at home), Atrial Fibrillation, Hx IBS, Hiatal Hernia, Fibromyalgia, Chronic Back Pain, Hx DVT, Pancreatitis - Past Surgical History Surgical History: Cholecystectomy, Hysterectomy, Other Additional Surgical History: Bladder Tack, Breast Reduction, Fissurectomy, Hemorroidectomy, Cardiac Ablation, Back Stimulator - Family History Family Medical History: Diabetes Mellitus, Cancer, [place], Coronary Artery Disease, Heart Failure, Hypertension - Social History Does patient currently use any type of tobacco product: No Have you used tobacco products in the last 12 months: No Type of Tobacco Use: None Does any household member use tobacco: No Alcohol Use: None Drug Use: None - Medications Home Medications: adhesive tape Allergy (Verified 09/06/21 10:10) ceftriaxone [From Rocephin] Allergy (Verified 07/09/22 18:38) ciprofloxacin Allergy (Verified 09/06/21 10:10) ITCHING, REDNESS oxycodone [From Percocet] Allergy (Verified 09/06/21 10:10) Penicillins Allergy (Verified 09/06/21 10:10) - Review of Systems Constitutional: Weakness Eyes: No Symptoms Reported ENT: No Symptoms Reported Respiratory: No Symptoms Reported Cardiovascular: No Symptoms Reported Gastrointestinal: Abdominal Pain Genitourinary: No Symptoms Reported Musculoskeletal: No Symptoms Reported Skin: No Symptoms Reported Neurological: Weakness, Confusion - Physical Exam Vital Signs: Temperature 97.6 F Pulse Rate [Right Radial] 74 Pulse Rate 93 Respiratory Rate 18 Blood Pressure [Left Arm] 115/55 Blood Pressure 142/64 O2 Sat by Pulse Oximetry 97 Oriented: Person Eyes: Normal Ear: Normal Nose: Normal Throat: Normal Respiratory: Diminished Throughout Cardiovascular: Normal : Normal Auscultation: Bowel Sounds: Normal Palpation: Normal Tenderness: Suprapubic Skin: Normal Musculoskeletal: Right, Shoulder, Tender Psychiatric: Normal Mood Description: Calm Affect: Normal Speech Pattern: Clear - Assessment/Plan (1) Acute UTI Status: Acute Plan: ADMIT, NORMAL SALINE AT 80 ML/HR, LEVAQUIN 500MG IV DAILY, OTBS ACHS. HER HOME MEDICATIONS OF ELIQUIS, CARDIZEM, CYMBALTA, SYNTHROID, MECLIZINE, METOPROLOL, PANTOPRAZOLE, AND TRAZODONE WERE RESUMED. (2) Generalized weakness Status: Acute (3) Altered mental status Qualifiers: Altered mental status type: transient alteration of awareness Qualified Code(s): R40.4 - Transient alteration of awareness Status: Acute (4) Right shoulder pain Qualifiers: Chronicity: acute Qualified Code(s): M25.511 - Pain in right shoulder Status: Acute (5) Chronic kidney disease (CKD) Qualifiers: Chronic kidney disease stage: unspecified stage Qualified Code(s): N18.9 - Chronic kidney disease, unspecified Status: Chronic (6) Hypothyroidism Qualifiers: Hypothyroidism type: acquired Qualified Code(s): E03.9 - Hypothyroidism, unspecified Status: Chronic (7) GERD (gastroesophageal reflux disease) Qualifiers: Esophagitis presence: esophagitis presence not specified Qualified Code(s): K21.9 - Gastro-esophageal reflux disease without esophagitis Status: Chronic (8) YANY (generalized anxiety disorder) Status: Chronic (9) MDD (major depressive disorder) Qualifiers: Major depression recurrence: recurrent Active/Remission status: remission status unspecified Qualified Code(s): F33.9 - Major depressive disorder, recurrent, unspecified Status: Chronic (10) Atrial fibrillation Qualifiers: Atrial fibrillation type: unspecified chronic Qualified Code(s): I48.20 - Chronic atrial fibrillation, unspecified Status: Chronic (11) Essential (primary) hypertension Status: Chronic - Allergies Allergies/Adverse Reactions: Allergies Allergy/AdvReac Type Severity Reaction Status Date / Time adhesive tape Allergy Verified 09/06/21 10:10 ceftriaxone [From Rocephin] Allergy Verified 07/09/22 18:38 ciprofloxacin Allergy ITCHING, Verified 09/06/21 10:10 REDNESS oxycodone [From Percocet] Allergy Verified 09/06/21 10:10 Penicillins Allergy Verified 09/06/21 10:10
--- NOTE | 2022-07-27 16:42 | RAD ---
HISTORYShoulder painSTUDYRight shoulder two viewsCOMPARISONNoneFINDINGSTwo AP views without the standard orthogonal projection.No definite fracture or dislocation, bone destruction or humeral head deformity. No articular erosion is seen. Joint spaces are unremarkable for advanced age.IMPRESSIONNo acute findings or evidence for significant arthropathy.Electronically signed by: JENNIFER DICK (Jul 27, 2022 16:41:41)
[2022-07-27 18:12] VITALS: BMI 34.7
[2022-07-28 06:01] LABS: BASOPHILS # (AUTO) 0.1 X10^3/uL (0.0-0.1); BASOPHILS % (AUTO) 0.9 % (0.2-1.0); EOSINOPHILS # (AUTO) 0.3 x10^3/uL (0.0-0.2); EOSINOPHILS % (AUTO) 4.8 % (0.9-2.9); HEMOGLOBIN 11.5 g/dL (12.0-16.0); LYMPHOCYTES # (AUTO) 2.9 X10^3/uL (1.3-2.9); LYMPHOCYTES % (AUTO) 49.9 % (21.0-51.0); MEAN CORPUSCULAR HEMOGLOBIN 30.6 pg (27.0-34.0); MEAN CORPUSCULAR HGB CONC 33.7 g/dL (33.0-35.0); MEAN CORPUSCULAR VOLUME 90.8 fL (80.0-100.0); MEAN PLATELET VOLUME 7.5 fL (7.4-11.0); MONOCYTES # (AUTO) 0.6 x10^3/uL (0.3-0.8); MONOCYTES % (AUTO) 9.9 % (0.0-13.0); NEUTROPHILS % (AUTO) 34.5 % (42.0-75.0); RED BLOOD COUNT 3.75 X10^6/uL (3.5-5.4); RED CELL DISTRIBUTION WIDTH 14.3 % (11.6-16.5); WHITE BLOOD COUNT 5.9 X10^3/uL (3.6-10.0)
[2022-07-28 06:14] LABS: ALANINE AMINOTRANSFERASE 9 Units/L (12-78); ALKALINE PHOSPHATASE 66 Units/L (46-116); ASPARTATE AMINO TRANSFERASE 23 Units/L (15-37); BLOOD UREA NITROGEN 6 mg/dL (7-18); CARBON DIOXIDE 25.1 mmol/L (21-32); CHLORIDE 104 mmol/L (98-107); COR CA(FOR HYPOALB) 9.6 mg/dL (8.5-10.1); COR NA(FOR HYPERGLY) 136 mmol/L (136-145); CREATININE 0.72 mg/dL (0.55-1.02); SODIUM 136 mmol/L (136-145); TOTAL PROTEIN 5.8 g/dL (6.4-8.2); eGFR NON BLACK RACES > 60 (>60)
[2022-07-28] MEDS: PROTONIX TAB 40 MG PO SCH (08:23)
[2022-07-28] MEDS: CARDIZEM CD 120 MG 24-HR PO SCH (08:23)
[2022-07-28] MEDS: SYNTHROID 100 mcg TAB PO SCH (08:23)
[2022-07-28] MEDS: LEVAQUIN PREMIX IV 500 MG 500 MG/100 ML BAG IV SCH (08:23)
[2022-07-28] MEDS: LOPRESSOR TAB 25 MG PO SCH (08:23)
[2022-07-28] MEDS: CYMBALTA PO SCH (08:24)
[2022-07-28] MEDS: ELIQUIS PO SCH (08:24)
[2022-07-28] MEDS ORDERED: BACTRIM DS TAB PO SCH (09:00)
[2022-07-28 09:24] VITALS: BP 121/57
[2022-07-28] MEDS: NS 1,000 ML IV 1,000 ML IV SCH (10:13)
== END 2022-07-28 11:00 | disposition home health service (06) ==
LOC: ER 13:52 → MED/SURG 13:52
PROVIDERS: ADMIT Internal Medicine; ATTEND Internal Medicine
DX: R26.89 Other abnormalities of gait and mobility; R22.0 Localized swelling, mass and lump, head; R41.89 Other symptoms and signs involving cognitive functions and awareness; E11.65 Type 2 diabetes mellitus with hyperglycemia; R53.1 Weakness; B96.29 Other Escherichia coli [E. coli] as the cause of diseases classified elsewhere; I10 Essential (primary) hypertension; K21.9 Gastro-esophageal reflux disease without esophagitis; M25.511 Pain in right shoulder; E03.8 Other specified hypothyroidism; N39.0 Urinary tract infection, site not specified; I48.20 Chronic atrial fibrillation, unspecified; F41.8 Other specified anxiety disorders; R40.4 Transient alteration of awareness; F33.9 Major depressive disorder, recurrent, unspecified

== ENCOUNTER 2022-12-23 04:11 | Observation (INO) ==
[2022-12-23 04:30] VITALS: BMI 37.1
--- NOTE | 2022-12-23 04:36 | DR.TRAUMA ---
HPI Time Seen Time Seen by Provider: 12/23/22 04:15 Complaint/Symptom Chief Complaint Doctors Comments: Patient states that she usually walks with her walker.But tonight she awoke to go to the bathroom and walked across the house to another bedroom.Patient fell in the bedroom unto her left side. Patient states that she fell unto hardwood floor. Patient c/o neck pain,back pain,pelvis pain,Rt femur pain,Bilat leg pain,nausea. Patient denies: loc,headache,chest pain,abdominal pain PMH PMH Past Medical History: Arthritis, CHF, Coronary Artery Disease, Depression, Diabetes, GERD, Hypertension, Hypothyroidism, Kidney Stones, Renal Disease and Sleep Apnea Past Surgical History: Yes Surgical History: Cholecystectomy, Hysterectomy and Other Family History Family Medical History: Diabetes Mellitus, Cancer, [place], Coronary Artery Disease, Heart Failure and Hypertension Social History Do you use any recreational Drugs:: No Travel Risk Coronavirus risk:travel/contact w/high risk person: No Has patient experienced Coronavirus symptoms: No ROS Review of Systems Constitutional: No Symptoms Reported Eyes: No Symptoms Reported ENTM: No Symptoms Reported Respiratoy: No Symptoms Reported Cardiovascular: No Symptoms Reported Gastrointestinal/Abdominal: No Symptoms Reported Genitourinary: No Symptoms Reported Neurological: No Symptoms Reported Musculoskeletal: Back Pain, Neck Pain, Right (Femur and leg pain), Pelvis and Hip (Rt hip pain) Integumentary: No Symptoms Reported Hematologic/Lymphatic: No Symptoms Reported Endocrine: No Symptoms Reported Psychiatric: No Symptoms Reported All Other Systems: Reviewed and Negative PE Vitals Vitals: Temperature 97.8 F Pulse Rate 97 Pulse Rate 80 Respiratory Rate 25 Respiratory Rate 23 Blood Pressure [Left Arm] 121/57 Blood Pressure 163/67 Blood Pressure 107/49 O2 Sat by Pulse Oximetry 94 O2 Sat by Pulse Oximetry 94 General Limitations: No Limitations General Appearance: Alert Head Head Exam: Normal Inspection Eyes Eye exam: Normal Appearance Eyelids: Normal Inspection: Bilateral Pupils: Regular, Round: Bilateral Sclera/Conjunctival: Normal Inspection: Bilateral Posterior Chamber: Normal Inspection: Bilateral ENT ENT Exam: Normal Exam External Ear Exam: Normal External Inspection TM/Canal Exam: Bilateral: Normal Nose Exam: Normal Nose Exam Nasal Speculum Exam: Bilateral: Normal Mouth Exam: Normal Inspection Teeth Exam: Normal Inspection Throat Exam: Normal Inspection Neck Neck Exam: Tenderness (midline) Neck Exam Focused: Normal Inspection Chest Chest Inspection: Normal Inspection Respiratory Respiratory Exam: Normal Lung Sounds Bilat; negative Chest Wall Tenderness Respiratory Exam: Bilateral: Clear to Auscultation Cardiovascular Cardiovascular Exam: Regular Rate and Normal Rhythm Abdominal Exam Abdominal Exam: Normal Inspection, Normal Bowel Sounds and Soft Extremities Extremities Exam: Normal Inspection Upper Extremities Shoulder Exam: Normal Inspection Arm Exam: Normal Inspection Elbow Exam: Normal Inspection Forearm Exam: Normal Inspection Hand Exam: Normal Inspection Neuromotor Exam: Normal Exam Neurosensory Exam: Normal Exam Lower Extremities Hip/Pelvis Exam: Normal Inspection and Tenderness (Rt hip,bilateral pelvis) Upper Leg Exam: Normal Inspection and Tenderness (Rt tib-fib) Knee Exam: Normal Inspection Lower Leg Exam: Normal Inspection Ankle Exam: Normal Inspection Foot/Toe Exam: Normal Inspection Neurovascular/Tendon Exam: Normal Capillary Refill Gait Exam: Observed and Normal Back Back Exam: Normal Inspection Neurologic Neurological Exam: Alert Psychiatric Psychiatric Exam: Normal Affect and Normal Mood Skin Skin Exam: Warm, Dry, Intact and Normal Color MDM Differential Diagnosis Differential Diagnosis (Trauma): Closed head trauma, Fracture (s) and Spine injury COURSE Treatment Treatment: Patient was brought to a trauma room and cervical colllar was applied and patient was log rolled. Patient's head CT did not reveal an acute intracranial injury,cervical spine/thoracic spine/lumbar spine CT w/o contrast did not reveal acute fractures/subluxation. Pelvis ct w/o contrast revealed sacral ala fracture but no hip fractures.Femur and tib-fib were without acute fracture or dislocation.Discussed case with Dr Rai who will admit patient to his service for further evaluation.Patient has been stable in the ED. [facility] Labs Reviewed Laboratory Results Reviewed?: Yes Result Diagrams: 12/25/22 05:00 12/25/22 05:00 Laboratory: WBC 11.9 X10^3/uL (3.6-10.0) H 12/23/22 05:05 RBC 4.02 X10^6/uL (3.5-5.4) 12/23/22 05:05 Hgb 12.5 g/dL (12.0-16.0) 12/23/22 05:05 Hct 37.1 % (36.0-47.0) 12/23/22 05:05 MCV 92.2 fL (80.0-100.0) 12/23/22 05:05 MCH 31.2 pg (27.0-34.0) 12/23/22 05:05 MCHC 33.8 g/dL (33.0-35.0) 12/23/22 05:05 RDW 13.9 % (11.6-16.5) 12/23/22 05:05 Plt Count 315 X10^3/uL (150.0-450.0) 12/23/22 05:05 MPV 7.8 fL (7.4-11.0) 12/23/22 05:05 Neut % (Auto) 68.7 % (42.0-75.0) 12/23/22 05:05 Lymph % (Auto) 22.1 % (21.0-51.0) 12/23/22 05:05 [place] % (Auto) 4.5 % (0.0-13.0) 12/23/22 05:05 Eos % (Auto) 2.7 % (0.9-2.9) 12/23/22 05:05 Baso % (Auto) 2.0 % (0.2-1.0) H 12/23/22 05:05 Neut # (Auto) 8.2 x10^3/uL (2.2-4.8) H 12/23/22 05:05 Lymph # (Auto) 2.6 X10^3/uL (1.3-2.9) 12/23/22 05:05 [place] # (Auto) 0.5 x10^3/uL (0.3-0.8) 12/23/22 05:05 Eos # (Auto) 0.3 x10^3/uL (0.0-0.2) H 12/23/22 05:05 Baso # (Auto) 0.2 X10^3/uL (0.0-0.1) H 12/23/22 05:05 Absolute Nucleated RBC 0.0 /100WBC 12/23/22 05:05 Sodium 142 mmol/L (136-145) 12/23/22 05:05 Corrected Sodium 143 mmol/L (136-145) 12/23/22 05:05 Potassium 3.8 mmol/L (3.5-5.1) 12/23/22 05:05 Chloride 105 mmol/L (98-107) 12/23/22 05:05 Carbon Dioxide 28.3 mmol/L (21-32) 12/23/22 05:05 BUN 18 mg/dL (7-18) 12/23/22 05:05 Creatinine 0.86 mg/dL (0.55-1.02) 12/23/22 05:05 Est GFR (MDRD) Af Amer > 60 (>60) 12/23/22 05:05 Est GFR (MDRD) Non-Af > 60 (>60) 12/23/22 05:05 Glucose 127 mg/dL (65-99) H 12/23/22 05:05 Lactic Acid 1.0 mmol/L (0.4-2.0) 12/23/22 05:05 Calcium 8.9 mg/dL (8.5-10.1) 12/23/22 05:05 Corrected Calcium 9.8 mg/dL (8.5-10.1) 12/23/22 05:05 Total Bilirubin 0.40 mg/dL (0.2-1.0) 12/23/22 05:05 AST 19 Units/L (15-37) 12/23/22 05:05 ALT 18 Units/L (12-78) 12/23/22 05:05 Alkaline Phosphatase 79 Units/L (46-116) 12/23/22 05:05 C-Reactive Protein 9.60 mg/L (0-3.0) H 12/23/22 05:05 Total Protein 7.0 g/dL (6.4-8.2) 12/23/22 05:05 Albumin 2.9 g/dL (3.4-5.0) L 12/23/22 05:05 Globulin 4.1 g/dL (2.5-4.5) 12/23/22 05:05 Albumin/Globulin Ratio 0.7 Ratio (1.1-2.1) L 12/23/22 05:05 Amylase 30 Units/L (25-115) 12/23/22 05:05 Lipase 53 Units/L (73-393) L 12/23/22 05:05 XRAY XRAY Interpreted by: Radiologist X-ray Results: HISTORY FALL, NAUSEA, HEAD AND NECK PAIN STUDY BRAIN W/O CON COMPARISON CT brain from 06/20/2022. TECHNIQUE Multiple axial images of the head were performed from the skullbase to the vertex using standard departmental protocol. Sagittal and coronal reformatted images were performed. Dose reduction techniques including Automated Exposure Control (AEC) and adjustment of mA and kV were utilized. FINDINGS Streak artifact from dental hardware limits evaluation. The lateral ventricles and basilar cisterns are patent. No parenchymal mass or hematoma. Shahid-white differentiation appears acutely preserved. Moderate low attenuation change in the subcortical and deep supratentorial white matter. No extra-axial collection. The globes are intact. No air fluid levels in the paranasal sinuses. No paranasal sinus wall thickening or sclerosis. Mastoid air cells are clear. The calvarium is intact. IMPRESSION No acute intracranial abnormality. Moderate chronic small vessel disease. Electronically signed by: Daniel Kaur (Dec 23, 2022 06:06:06) HISTORY NECK PAIN AFTER FALL STUDY CERVICAL SPINE W/O CON COMPARISON None. TECHNIQUE Multiple axial images of the cervical spine were obtained from the skull base to the thoracic inlet without administration of IV contrast. Sagittal and coronal reformats were performed and reviewed. Dose reduction techniques including Automated Exposure Control (AEC) and adjustment of mA and kV were utilized. FINDINGS Mild leftward curvature of the cervical spine apex C3. No significant anterior posterior listhesis. Nudy-ow-tyiqbmba multilevel degenerative disc disease worst at C6-7. No acute fracture. No aggressive osseous lesion. There is at least mild stenosis of the spinal canal from disc osteophyte complexes at posterior C4-5 through C6-7. Moderate multilevel facet arthropathy. There is bony encroachment on the neural foramina at right C3-4 through C6-7 and left C3-4. No prevertebral soft tissue swelling. The visualized lung apices are clear. IMPRESSION No acute fracture or traumatic listhesis. Phvu-ho-ebckunuy cervical spondylosis. Electronically signed by: Daniel Kaur (Dec 23, 2022 06:14:44) HISTORY Bilateral hip pain after fall. STUDY PELVIS W/O CON COMPARISON None. TECHNIQUE CT bony pelvis without contrast with sagittal and coronal reformats. Dose reduction techniques including Automated Exposure Control (AEC) and adjustment of mA and kV were utilized. FINDINGS There is chondrocalcinosis of the pubic symphysis. Ilgi-sq-ijyyknaf bilateral hip osteoarthrosis. Bones are osteopenic. No hip fracture identified. There is a subtle fracture of the left anterior cortex of the sacral ala image 33 series 3. Status post hysterectomy. Small fat containing bilateral inguinal hernias. Neurostimulator device in the right lower back fat. Partially visualized bilateral subcentimeter renal calculi. Partially visualized fat stranding in the left gluteal fat image 91 series 4 likely contusion. IMPRESSION Subtle fracture of the left sacral ala. No other fracture identified. Fat stranding in the left gluteal fat is likely contusion. Electronically signed by: Daniel Kaur (Dec 23, 2022 06:33:55) HISTORY RIGHT LEG PAIN AFTER FALL Relevant Clinical Information STUDY FEMUR, RIGHT COMPARISON None FINDINGS No acute cortical disruption or dislocation can be identified. The femoral head and neck are unremarkable in their appearance. No significant soft tissue swelling or injury can be seen. IMPRESSION Negative exam Electronically signed by: Lashaun Kellogg (Dec 23, 2022 08:22:10) HISTORY RIGHT LEG PAIN AFTER FALL Relevant Clinical Information STUDY LOWER LEG, TIB/FIB RIGHT COMPARISON None FINDINGS AP and lateral radiographs of the lower extremity demonstrate no evidence for acute cortical disruption. No significant soft tissue abnormality can be identified. IMPRESSION Negative exam Electronically signed by: Lashaun Kellogg (Dec 23, 2022 08:21:17) Opioid Opioid Risk Tool Age (Bennett box if 16-45): No History of Preadolescent Sexual Abuse: No Total: 0 Total Score Risk Category: Low Risk Copyright: Christian CANALES predicting aberrant behaviors Discharge Plan Diagnosis Discharge Problem: Fall as cause of accidental injury at home as place of occurrence Closed fracture of sacrum Qualifiers: Encounter type: initial encounter Zone of sacrum fracture: unspecified portion of sacrum Qualified Code(s): S32.10XA - Unspecified fracture of sacrum, initial encounter for closed fracture Discharge Plan Patient Disposition: ADMITTED INPATIENT Condition: Stable Orders to Discharge Patient Discharge Orders: Discharge (Routine); Ordered 12/25/22 Ordered By: IVELISSE ENRIQUEZ
[2022-12-23 05:16] LABS: BASOPHILS # (AUTO) 0.2 X10^3/uL (0.0-0.1); EOSINOPHILS # (AUTO) 0.3 x10^3/uL (0.0-0.2); EOSINOPHILS % (AUTO) 2.7 % (0.9-2.9); HEMATOCRIT 37.1 % (36.0-47.0); HEMOGLOBIN 12.5 g/dL (12.0-16.0); LYMPHOCYTES # (AUTO) 2.6 X10^3/uL (1.3-2.9); LYMPHOCYTES % (AUTO) 22.1 % (21.0-51.0); MEAN CORPUSCULAR HEMOGLOBIN 31.2 pg (27.0-34.0); MEAN CORPUSCULAR HGB CONC 33.8 g/dL (33.0-35.0); MEAN CORPUSCULAR VOLUME 92.2 fL (80.0-100.0); MEAN PLATELET VOLUME 7.8 fL (7.4-11.0); MONOCYTES # (AUTO) 0.5 x10^3/uL (0.3-0.8); MONOCYTES % (AUTO) 4.5 % (0.0-13.0); NEUTROPHILS # (AUTO) 8.2 x10^3/uL (2.2-4.8); NEUTROPHILS % (AUTO) 68.7 % (42.0-75.0); PLATELET COUNT 315 X10^3/uL (150.0-450.0); RED BLOOD COUNT 4.02 X10^6/uL (3.5-5.4); RED CELL DISTRIBUTION WIDTH 13.9 % (11.6-16.5); WHITE BLOOD COUNT 11.9 X10^3/uL (3.6-10.0)
[2022-12-23 05:37] LABS: ALANINE AMINOTRANSFERASE 18 Units/L (12-78); ALBUMIN 2.9 g/dL (3.4-5.0); ALKALINE PHOSPHATASE 79 Units/L (46-116); AMYLASE 30 Units/L (25-115); ASPARTATE AMINO TRANSFERASE 19 Units/L (15-37); BLOOD UREA NITROGEN 18 mg/dL (7-18); CALCIUM 8.9 mg/dL (8.5-10.1); CARBON DIOXIDE 28.3 mmol/L (21-32); CHLORIDE 105 mmol/L (98-107); COR CA(FOR HYPOALB) 9.8 mg/dL (8.5-10.1); COR NA(FOR HYPERGLY) 143 mmol/L (136-145); CREATININE 0.86 mg/dL (0.55-1.02); GLUCOSE 127 mg/dL (65-99); LIPASE 53 Units/L (73-393); POTASSIUM 3.8 mmol/L (3.5-5.1); SODIUM 142 mmol/L (136-145); eGFR NON BLACK RACES > 60 (>60)
--- NOTE | 2022-12-23 06:07 | CT ---
HISTORYFALL, NAUSEA, HEAD AND NECK PAINSTUDYBRAIN W/O CONCOMPARISONCT brain from 06/20/2022.TECHNIQUEMultiple axial images of the head were performed from the skullbase to the vertex using standard departmental protocol. Sagittal and coronal reformatted images were performed. Dose reduction techniques including Automated Exposure Control (AEC) and adjustment of mA and kV were utilized.FINDINGSStreak artifact from dental hardware limits evaluation. The lateral ventricles and basilar cisterns are patent.No parenchymal mass or hematoma. Shahid-white differentiation appears acutely preserved. Moderate low attenuation change in the subcortical and deep supratentorial white matter.No extra-axial collection.The globes are intact.No air fluid levels in the paranasal sinuses. No paranasal sinus wall thickening or sclerosis. Mastoid air cells are clear.The calvarium is intact.IMPRESSIONNo acute intracranial abnormality. Moderate chronic small vessel disease.Electronically signed by: Daniel Kaur (Dec 23, 2022 06:06:06)
--- NOTE | 2022-12-23 06:15 | CT ---
HISTORYNECK PAIN AFTER FALLSTUDYCERVICAL SPINE W/O CONCOMPARISONNone.TECHNIQUEMultiple axial images of the cervical spine were obtained from the skull base to the thoracic inlet without administration of IV contrast. Sagittal and coronal reformats were performed and reviewed. Dose reduction techniques including Automated Exposure Control (AEC) and adjustment of mA and kV were utilized.FINDINGSMild leftward curvature of the cervical spine apex C3. No significant anterior posterior listhesis. Jxyo-cb-ejenxuyx multilevel degenerative disc disease worst at C6-7. No acute fracture. No aggressive osseous lesion. There is at least mild stenosis of the spinal canal from disc osteophyte complexes at posterior C4-5 through C6-7. Moderate multilevel facet arthropathy. There is bony encroachment on the neural foramina at right C3-4 through C6-7 and left C3-4. No prevertebral soft tissue swelling. The visualized lung apices are clear.IMPRESSIONNo acute fracture or traumatic listhesis. Ledj-ut-itpzhsux cervical spondylosis.Electronically signed by: Daniel Kaur (Dec 23, 2022 06:14:44)
--- NOTE | 2022-12-23 06:26 | CT ---
HISTORYPT C/O LOW BACK PAIN AFTER FALLSTUDYLUMBAR SPINE W/O CONCOMPARISONNone.TECHNIQUEMultiple axial images of the lumbar spine were obtained from the thoracolumbar junction to the sacrum without the administration of IV contrast. Sagittal and coronal reformats were performed and reviewed. Dose reduction techniques including Automated Exposure Control (AEC) and adjustment of mA and kV were utilized.FINDINGSThere chronic appearing fracture deformities at T11 through L1 with bone retropulsion at T12. Vertebroplasty at T12. There is approximately 40 percent height loss at T11 and T12 and 30 percent height loss at L1. There is approximately 3 mm of bone retropulsion of T12 relative to L1. No acute lumbar spine fr fracture actures identified. Questionable fracture of the left sacral ala with subtle cortical malalignment on image 82 series 3. Mild to moderate multilevel degenerative disc disease with vacuum disc phenomena at L1-2. Moderate multilevel facet arthropathy. Mild bony encroachment on the neural foramina at right L3-4 and left L2-3. Mild bony encroachment on the spinal canal at T12 from bone retropulsion. Mild rightward curvature of the lumbar spine apex L2-3. No aggressive osseous lesion. Moderately atherosclerotic normal caliber thoracic aorta. Small hiatal hernia. Subcentimeter left renal calculi are present.IMPRESSIONNo acute lumbar spine fracture. Chronic fractures at T11 through L1 with mild bone retropulsion at T12. [id number]-[id number] lumbar spondylosis. Questionable subtle fracture of the left sacral ala.Electronically signed by: Daniel Kaur (Dec 23, 2022 06:25:46)
--- NOTE | 2022-12-23 06:35 | CT ---
HISTORYBilateral hip pain after fall.STUDYPELVIS W/O CONCOMPARISONNone.TECHNIQUECT bony pelvis without contrast with sagittal and coronal reformats. Dose reduction techniques including Automated Exposure Control (AEC) and adjustment of mA and kV were utilized.FINDINGSThere is chondrocalcinosis of the pubic symphysis. Jwyo-xm-ghukzxan bilateral hip osteoarthrosis. Bones are osteopenic. No hip fracture identified. There is a subtle fracture of the left anterior cortex of the sacral ala image 33 series 3. Status post hysterectomy. Small fat containing bilateral inguinal hernias. Neurostimulator device in the right lower back fat. Partially visualized bilateral subcentimeter renal calculi. Partially visualized fat stranding in the left gluteal fat image 91 series 4 likely contusion.IMPRESSIONSubtle fracture of the left sacral ala. No other fracture identified. Fat stranding in the left gluteal fat is likely contusion.Electronically signed by: Daniel Kaur (Dec 23, 2022 06:33:55)
--- NOTE | 2022-12-23 08:22 | RAD ---
HISTORYRIGHT LEG PAIN AFTER FALL Relevant Clinical InformationSTUDYLOWER LEG, TIB/FIB RIGHTCOMPARISONNoneFINDINGSAP and lateral radiographs of the lower extremity demonstrate no evidence for acute cortical disruption. No significant soft tissue abnormality can be identified.IMPRESSIONNegative examElectronically signed by: Lashaun Kellogg (Dec 23, 2022 08:21:17)
--- NOTE | 2022-12-23 08:23 | RAD ---
HISTORYRIGHT LEG PAIN AFTER FALL Relevant Clinical InformationSTUDYFEMUR, RIGHTCOMPARISONNoneFINDINGSNo acute cortical disruption or dislocation can be identified. The femoral head and neck are unremarkable in their appearance. No significant soft tissue swelling or injury can be seen.IMPRESSIONNegative examElectronically signed by: Lashaun Kellogg (Dec 23, 2022 08:22:10)
--- NOTE | 2022-12-23 08:23 | RAD ---
HISTORYFALL, LEFT LEG PAIN CAD, HTN, DM, RENAL DISEASE, ARTHRITIS, SLEEP APNEA, CHF SX: MARTI, HYSTSTUDYLOWER LEG, TIB/FIB LEFTCOMPARISONNoneFINDINGSAP and lateral radiographs of the lower extremity demonstrate no evidence for acute cortical disruption. No significant soft tissue abnormality can be identified.IMPRESSIONNegative examElectronically signed by: Lashaun Kellogg (Dec 23, 2022 08:22:45)
[2022-12-23] MEDS ORDERED: ULTRAM PO PRN (09:36)
[2022-12-23] MEDS ORDERED: PriLOSEC PO SCH (09:36)
[2022-12-23] MEDS: CYMBALTA PO SCH (10:27)
[2022-12-23] MEDS: TAB-A-VITE PO SCH (10:27)
[2022-12-23] MEDS: LOPRESSOR TAB 25 MG PO SCH ×2 (10:28→20:30)
[2022-12-23] MEDS: PROTONIX TAB 40 MG PO SCH ×2 (10:28→20:29)
[2022-12-23] MEDS: SYNTHROID 100 mcg TAB PO SCH (10:28)
[2022-12-23] MEDS: KLONOPIN TAB 0.5 MG PO SCH ×3 (10:28→20:31)
[2022-12-23] MEDS: VITAMIN D3 125 mcg (5,000 UNITS) PO SCH (10:28)
[2022-12-23] MEDS: CARDIZEM CD 120 MG 24-HR PO SCH (10:28)
[2022-12-23] MEDS: NYSTATIN POWDER TOP SCH ×2 (10:29→20:46)
[2022-12-23] MEDS: ELIQUIS PO SCH ×2 (10:29→20:29)
[2022-12-23] MEDS: MYCOLOG-II CREAM TOP SCH ×3 (10:37→20:46)
[2022-12-23 12:33] LABS: BILIRUBIN,URINE NEGATIVE (NEGATIVE); BLOOD/HEMOGLOBIN,URINE 5+ (NEGATIVE); GLUCOSE, URINE NEGATIVE (NEGATIVE); KETONES,URINE NEGATIVE (NEGATIVE); LEUKOCYTE ESTERASE ,URINE 1+ (NEGATIVE); NITRITES,URINE POSITIVE (NEGATIVE); PROTEIN,URINE NEGATIVE (NEGATIVE); UROBILINOGEN,URINE NORMAL (NORMAL)
[2022-12-23 12:45] LABS: APPEARANCE,URINE HAZY (CLEAR); BACTERIA,URINE 4+ /HPF (NEGATIVE); COLOR,URINE YELLOW (YELLOW); SQUAMOUS EPITHELIAL CELL,UR RARE /HPF (NEGATIVE)
[2022-12-23 12:46] LABS: YEAST,URINE RARE /HPF (NEGATIVE)
[2022-12-23] MEDS ORDERED: VIBRAMYCIN IV ONE (18:03)
[2022-12-23] MEDS: VIBRAMYCIN 100 MG in D5W 250 ML IV 250 ML IV SCH (19:42)
[2022-12-23] MEDS: NORCO 5/325 MG TAB PO PRN (20:46)
--- NOTE | 2022-12-23 23:58 | DR.H&P ---
H&P - History & Physical for Day of: H&P Date: 12/23/22 - Chief Complaint Chief Complaint: NECK PAIN, LOW BACK PAIN, PELVIC PAIN, RIGHT FEMUR PAIN, BILATERAL LEG PAIN, AND NAUSEA FOLLOWING A FALL AT HOME - History of Present Illness History of Present Illness: IS A 77 YEAR OLD PATIENT OF OURS. SHE PRESENTED TO THE HOSPITAL WITH COMPLAINTS OF NECK PAIN, LOW BACK PAIN, PELVIC PAIN, RIGHT FEMUR PAIN, BILATERAL LEG PAIN, AND NAUSEA FOLLOWING A FALL AT HOME. PATIENT REPORTS THAT SHE USUALLY AMBULATES WITH A WALKER, BUT DIDNT THIS MORNING WHEN SHE WENT TO THE BATHROOM. SHE REPORTS FALLING ONTO HARDWOOD FLOOR, ONTO HER LEFT SIDE. SHE DENIES LOC, HEADACHE, CHEST PAIN, OR ABDOMINAL PAIN. HER PMH INCLUDES: ARTHRITIS, CHF, CAD, DEPRESSION, GERD, HTN, HYPOTHYROIDISM, KIDNEY STONES, RENAL DISEASE, SLEEP APNEA, CHOLECYSTECTOMY, HYSTERECTOMY, AND ORTHOPEDIC SURGERY. ON ARRIVAL TO THE ER, PATIENT WAS ALERT AND OREINTED. SHE WAS ABLE TO FOLLOW COMMANDS. HER VITALS WERE: 97.8-84-12-91%-107/49. LABS WERE OBTAINED. WBC 11.9, RBC 4.02, HGB 12.5, HCT 37.1, SODIUM 142, POTASSIUM 3.8, CHLORIDE 105, BUN 18, CREATININE 0.86, GLUCOSE 127, LACTIC ACID 1.0, CALCIUM 8.9, TOTAL BILI 0.40, AST 19, ALT 18, ALK PHOS 79, CRP 9.60, TOTAL PROTEIN 7.0, ALBUMIN 2.9, AMYLASE 30, LIPASE 53. URINALYSIS OBTAINED AND REVEALED: WBC 5-10, RBC 10-20, LEUKOCYTES 1+, BACTERIA 4+, NITRITE POSITIVE. A URINE CULTURE WAS SET UP. A BRAIN CT WAS OBTAINED AND REVEALED: No acute intracranial abnormality. Moderate chronic small vessel disease. A CERVICAL SPINE CT WAS OBTAINED AND REVEALED: No acute fracture or traumatic listhesis. [id number] cervical spondylosis. A LUMBAR SPINE CT WAS OBTAINED AND REVEALED: No acute lumbar spine fracture. Chronic fractures at T11 through L1 with mild bone retropulsion at T12. [id number] lumbar spondylosis. Questionable subtle fracture of the left sacral ala. A PELVIS CT WAS OBTAINED AND REVEALED: Subtle fracture of the left sacral ala. No other fracture identified. Fat stranding in the left gluteal fat is likely contusion. RIGHT FEMUR XRAY WAS NEGATIVE. RIGHT AND LEFT TIB/FIB XRAYS WERE ALSO NEGATIVE. SHE WAS ADMITTED TO THE HOSPITAL FOR FURTHER EVALUATION AND TREATMENT OF CLOSED SACRUM FRACTURE AND URINARY TRACT INFECTION. SHE WAS STARTED ON DOXYCYCLINE 100MG Q12H, NORCO 5/325MG Q6H PRN, AND HER HOME MEDICATIONS WERE RESUMED. HOME MEDS INCLUDE: ELIQUIS, VITAMIN D3, KLONOPIN, CARDIZEM, CYMBALTA, SYNTHROID, MECLIZINE, LOPRESSOR, MULTIVITAMINS, NYSTATIN, AND PROTONIX. WE WILL HAVE PHYSICAL AND OCCUPATIONAL THERAPIES EVALUATE PATIENT. OTHERWISE, WE WILL FOLLOW-UP WITH AM LABS AND CONTINUE TO MONITOR. TIME SPENT ON CLINICAL ASSESSMENT, REVIWING LABS AND IMAGING, DECISION MAKING, AND DOCUMENTATION GREATER THAN 75 MINUTES. - Past Medical History Past Medical History: Coronary Artery Disease, Hypertension, Diabetes, Renal Disease, Depression, Hypothyroidism, GERD, Arthritis, Kidney Stones, Sleep Apnea, CHF Additional Medical History: Lupus, Cataracts, Sleep Apnea (CPAP at home), Atrial Fibrillation, Hx IBS, Hiatal Hernia, Fibromyalgia, Chronic Back Pain, Hx DVT, Pancreatitis - Past Surgical History Surgical History: Cholecystectomy, Hysterectomy, Other Additional Surgical History: Bladder Tack, Breast Reduction, Fissurectomy, Hemorroidectomy, Cardiac Ablation, Back Stimulator - Family History Family Medical History: Diabetes Mellitus, Cancer, [place], Coronary Artery Disease, Heart Failure, Hypertension - Social History Type of Tobacco Use: None Does any household member use tobacco: No Alcohol Use: None Drug Use: None - Medications Home Medications: Home Medications Medication Instructions Recorded Confirmed Type B-complex with vitamin C 1 cap PO QDAY 07/08/22 12/23/22 History cholecalciferol (vitamin D3) 125 125 mcg PO DAILY 07/08/22 12/23/22 History mcg (5,000 unit) disintegrating tablet apixaban 5 mg tablet (Eliquis) 1 tab PO BID 12/23/22 12/23/22 History clonazepam 0.5 mg tablet 1 tab PO BID 12/23/22 12/23/22 History dicyclomine 10 mg capsule 1 cap PO QID 12/23/22 12/23/22 History diltiazem HCl 120 mg 1 cap PO QDAY 12/23/22 12/23/22 History capsule,extended release 24 hr duloxetine 60 mg capsule,delayed 1 cap PO QDAY 12/23/22 12/23/22 History release levothyroxine 100 mcg tablet 1 tab PO QAM 12/23/22 12/23/22 History meclizine 25 mg tablet 1 tab PO QID PRN 12/23/22 12/23/22 History metoprolol tartrate 25 mg tablet 0.5 tab PO BID 12/23/22 12/23/22 History nitrofurantoin 1 cap PO BID 12/23/22 12/23/22 History monohydrate/macrocrystals 100 mg capsule nystatin 100,000 unit/gram topical 1 applic topical BID 12/23/22 12/23/22 History powder nystatin-triamcinolone 100,000 1 applic topical BID 12/23/22 12/23/22 History unit/g-0.1 % topical cream olanzapine 5 mg tablet 1 tab PO QPM 12/23/22 12/23/22 History omeprazole 40 mg capsule,delayed 1 cap PO QDAY 12/23/22 12/23/22 History release pantoprazole 40 mg tablet,delayed 1 tab PO BID 12/23/22 12/23/22 History release - Review of Systems Constitutional: Weakness Eyes: No Symptoms Reported ENT: No Symptoms Reported Respiratory: No Symptoms Reported Cardiovascular: No Symptoms Reported Gastrointestinal: No Symptoms Reported Genitourinary: No Symptoms Reported Musculoskeletal: Leg Pain (BILATERAL ), Neck Pain, Other (PELVIS PAIN) Skin: No Symptoms Reported Neurological: Weakness - Physical Exam Vital Signs: Temperature 98.5 F Temperature 97.8 F Pulse Rate [Left Radial] 94 Pulse Rate 94 Pulse Rate 80 Respiratory Rate 18 Respiratory Rate 23 Blood Pressure [Left Arm] 131/62 Blood Pressure 110/59 Blood Pressure 107/49 O2 Sat by Pulse Oximetry 95 O2 Sat by Pulse Oximetry 94 Oriented: Normal Eyes: Normal Nose: Normal Throat: Normal Respiratory: Diminished Throughout Cardiovascular: Normal : Normal Auscultation: Bowel Sounds: Normal Palpation: Normal Tenderness: Normal Skin: Normal Musculoskeletal: Right, Left, Hip, Leg, Pelvis, Tender Psychiatric: Normal Mood Description: Calm Affect: Normal Speech Pattern: Clear - Assessment/Plan (1) Closed fracture of sacrum Qualifiers: Encounter type: initial encounter Zone of sacrum fracture: unspecified portion of sacrum Qualified Code(s): S32.10XA - Unspecified fracture of sacrum, initial encounter for closed fracture Status: Acute Plan: ADMIT, PT/OT, DOXYCYCLINE 100MG Q12H, NORCO 5/325MG Q6H PRN, AND HER HOME MEDICATIONS WERE RESUMED. HOME MEDS INCLUDE: ELIQUIS, VITAMIN D3, KLONOPIN, CARDIZEM, CYMBALTA, SYNTHROID, MECLIZINE, LOPRESSOR, MULTIVITAMINS, NYSTATIN, AND PROTONIX. (2) Acute UTI Status: Acute (3) History of recent fall Status: Acute (4) Hypothyroidism Qualifiers: Hypothyroidism type: acquired Qualified Code(s): E03.9 - Hypothyroidism, unspecified Status: Chronic (5) GERD (gastroesophageal reflux disease) Qualifiers: Esophagitis presence: esophagitis presence not specified Qualified Code(s): K21.9 - Gastro-esophageal reflux disease without esophagitis Status: Chronic (6) CHF (congestive heart failure) Qualifiers: Qualified Code(s): I50.42 - Chronic combined systolic (congestive) and diastolic (congestive) heart failure Status: Chronic (7) CAD (coronary artery disease) Qualifiers: Coronary Disease-Associated Artery/Lesion type: hoh artery [place] vs. transplanted heart: hoh heart Associated angina: unspecified whether angina present Qualified Code(s): I25.10 - Atherosclerotic heart disease of hoh coronary artery without angina pectoris Status: Chronic (8) Hypertension Qualifiers: Hypertension type: primary hypertension Qualified Code(s): I10 - Essential (primary) hypertension Status: Chronic - Allergies Allergies/Adverse Reactions: Allergies Allergy/AdvReac Type Severity Reaction Status Date / Time adhesive tape Allergy Unknown Verified 12/23/22 09:58 latex Allergy Unknown Verified 12/23/22 09:58 Penicillins Allergy Unknown Verified 12/23/22 09:58 ceftriaxone [From Rocephin] Allergy Verified 12/23/22 09:58 ciprofloxacin Allergy ITCHING, Verified 12/23/22 09:58 REDNESS oxycodone [From Percocet] Allergy Verified 12/23/22 09:58
[2022-12-24 05:16] LABS: BASOPHILS # (AUTO) 0.1 X10^3/uL (0.0-0.1); BASOPHILS % (AUTO) 0.6 % (0.2-1.0); EOSINOPHILS # (AUTO) 0.5 x10^3/uL (0.0-0.2); EOSINOPHILS % (AUTO) 5.3 % (0.9-2.9); HEMATOCRIT 34.3 % (36.0-47.0); HEMOGLOBIN 11.8 g/dL (12.0-16.0); LYMPHOCYTES # (AUTO) 3.2 X10^3/uL (1.3-2.9); LYMPHOCYTES % (AUTO) 34.7 % (21.0-51.0); MEAN CORPUSCULAR HEMOGLOBIN 31.4 pg (27.0-34.0); MEAN CORPUSCULAR HGB CONC 34.4 g/dL (33.0-35.0); MEAN CORPUSCULAR VOLUME 91.2 fL (80.0-100.0); MEAN PLATELET VOLUME 7.9 fL (7.4-11.0); MONOCYTES # (AUTO) 0.5 x10^3/uL (0.3-0.8); MONOCYTES % (AUTO) 5.6 % (0.0-13.0); NEUTROPHILS # (AUTO) 4.9 x10^3/uL (2.2-4.8); NEUTROPHILS % (AUTO) 53.8 % (42.0-75.0); PLATELET COUNT 303 X10^3/uL (150.0-450.0); RED BLOOD COUNT 3.76 X10^6/uL (3.5-5.4); RED CELL DISTRIBUTION WIDTH 13.8 % (11.6-16.5); WHITE BLOOD COUNT 9.1 X10^3/uL (3.6-10.0)
[2022-12-24 05:29] LABS: ALANINE AMINOTRANSFERASE 18 Units/L (12-78); ALBUMIN 2.6 g/dL (3.4-5.0); ALKALINE PHOSPHATASE 72 Units/L (46-116); ASPARTATE AMINO TRANSFERASE 17 Units/L (15-37); BLOOD UREA NITROGEN 15 mg/dL (7-18); CALCIUM 8.5 mg/dL (8.5-10.1); CHLORIDE 107 mmol/L (98-107); COR CA(FOR HYPOALB) 9.6 mg/dL (8.5-10.1); CREATINE KINASE 25 Units/L (26-192); CREATININE 0.78 mg/dL (0.55-1.02); GLUCOSE 105 mg/dL (65-99); POTASSIUM 3.8 mmol/L (3.5-5.1); SODIUM 142 mmol/L (136-145); TOTAL PROTEIN 6.3 g/dL (6.4-8.2); eGFR NON BLACK RACES > 60 (>60)
[2022-12-24] MEDS: VITAMIN D3 125 mcg (5,000 UNITS) PO SCH (09:05)
[2022-12-24] MEDS: SYNTHROID 100 mcg TAB PO SCH (09:05)
[2022-12-24] MEDS: LOPRESSOR TAB 25 MG PO SCH ×2 (09:06→20:13)
[2022-12-24] MEDS: VIBRAMYCIN 100 MG in D5W 250 ML IV 250 ML IV SCH ×2 (09:07→20:13)
[2022-12-24] MEDS: PROTONIX TAB 40 MG PO SCH ×2 (09:08→20:14)
[2022-12-24] MEDS: ELIQUIS PO SCH ×2 (09:08→20:14)
[2022-12-24] MEDS: ANTIVERT TAB 25 MG PO PRN (09:08)
[2022-12-24] MEDS: MYCOLOG-II CREAM TOP SCH ×2 (09:09→20:27)
[2022-12-24] MEDS: NYSTATIN POWDER TOP SCH ×2 (09:09→20:27)
[2022-12-24] MEDS: KLONOPIN TAB 0.5 MG PO SCH ×2 (09:10→20:14)
[2022-12-24] MEDS: NORCO 5/325 MG TAB PO PRN (09:12)
[2022-12-24] MEDS ORDERED: NS 500 ML IV 500 ML IV ONE (09:38)
[2022-12-24] MEDS: CARDIZEM CD 120 MG 24-HR PO SCH (09:51)
[2022-12-24] MEDS: CYMBALTA PO SCH (09:51)
[2022-12-24] MEDS: TAB-A-VITE PO SCH (09:51)
[2022-12-24] MEDS: HIPREX PO SCH ×2 (11:33→20:13)
[2022-12-24] MEDS ORDERED: K-DUR TAB 20 MEQ PO PRN (17:35)
[2022-12-24] MEDS ORDERED: MICRO K EXTEN CAP 10 MEQ PO PRN (17:35)
[2022-12-24] MEDS ORDERED: POTASSIUM CHL 40 MEQ/NS 0.45% 500 ML IV PRN (17:35)
[2022-12-24] MEDS ORDERED: K-RIDER 10 MEQ/NS 100 ML 10 MEQ/100 ML BAG IV PRN (17:35)
[2022-12-24] MEDS ORDERED: MAGNESIUM SULFATE 1 GRAM/100 mL PREMIX 1 G/100 ML BAG IV PRN (17:35)
[2022-12-24] MEDS ORDERED: KLOR-CON PO PRN (17:35)
[2022-12-24] MEDS ORDERED: POTASSIUM CHL 60 MEQ/NS 0.45% 500 ML IV PRN (17:35)
[2022-12-24] MEDS ORDERED: POTASSIUM CHLORIDE LIQ 20 MEQ UDC PO PRN (17:35)
[2022-12-24] MEDS ORDERED: K-DUR TAB 20 MEQ PO ONE (17:51)
[2022-12-25 05:22] LABS: BASOPHILS % (AUTO) 0.2 % (0.2-1.0); EOSINOPHILS # (AUTO) 0.6 x10^3/uL (0.0-0.2); EOSINOPHILS % (AUTO) 6.9 % (0.9-2.9); HEMATOCRIT 35.4 % (36.0-47.0); HEMOGLOBIN 12.1 g/dL (12.0-16.0); LYMPHOCYTES # (AUTO) 3.2 X10^3/uL (1.3-2.9); MEAN CORPUSCULAR HEMOGLOBIN 31.6 pg (27.0-34.0); MEAN CORPUSCULAR HGB CONC 34.2 g/dL (33.0-35.0); MEAN CORPUSCULAR VOLUME 92.3 fL (80.0-100.0); MEAN PLATELET VOLUME 7.9 fL (7.4-11.0); MONOCYTES # (AUTO) 0.5 x10^3/uL (0.3-0.8); MONOCYTES % (AUTO) 5.7 % (0.0-13.0); NEUTROPHILS # (AUTO) 4.1 x10^3/uL (2.2-4.8); NEUTROPHILS % (AUTO) 49.2 % (42.0-75.0); PLATELET COUNT 295 X10^3/uL (150.0-450.0); RED BLOOD COUNT 3.83 X10^6/uL (3.5-5.4); RED CELL DISTRIBUTION WIDTH 13.6 % (11.6-16.5); WHITE BLOOD COUNT 8.3 X10^3/uL (3.6-10.0)
[2022-12-25 05:35] LABS: ALANINE AMINOTRANSFERASE 19 Units/L (12-78); ALBUMIN 2.7 g/dL (3.4-5.0); ALKALINE PHOSPHATASE 79 Units/L (46-116); ASPARTATE AMINO TRANSFERASE 21 Units/L (15-37); BLOOD UREA NITROGEN 15 mg/dL (7-18); CALCIUM 8.9 mg/dL (8.5-10.1); CARBON DIOXIDE 28.6 mmol/L (21-32); CHLORIDE 108 mmol/L (98-107); COR CA(FOR HYPOALB) 9.9 mg/dL (8.5-10.1); CREATININE 0.79 mg/dL (0.55-1.02); GLUCOSE 101 mg/dL (65-99); POTASSIUM 4.2 mmol/L (3.5-5.1); SODIUM 142 mmol/L (136-145); TOTAL PROTEIN 6.8 g/dL (6.4-8.2); eGFR NON BLACK RACES > 60 (>60)
[2022-12-25] MEDS: CARDIZEM CD 120 MG 24-HR PO SCH (08:25)
[2022-12-25] MEDS: KLONOPIN TAB 0.5 MG PO SCH (08:25)
[2022-12-25] MEDS: CYMBALTA PO SCH (08:25)
[2022-12-25] MEDS: SYNTHROID 100 mcg TAB PO SCH (08:26)
[2022-12-25] MEDS: PROTONIX TAB 40 MG PO SCH (08:26)
[2022-12-25] MEDS: LOPRESSOR TAB 25 MG PO SCH (08:26)
[2022-12-25] MEDS: VITAMIN D3 125 mcg (5,000 UNITS) PO SCH (08:26)
[2022-12-25] MEDS: TAB-A-VITE PO SCH (08:26)
[2022-12-25] MEDS: VIBRAMYCIN 100 MG in D5W 250 ML IV 250 ML IV SCH (08:26)
[2022-12-25] MEDS: ELIQUIS PO SCH (08:26)
[2022-12-25] MEDS: ANTIVERT TAB 25 MG PO PRN (08:26)
[2022-12-25] MEDS: NYSTATIN POWDER TOP SCH (08:27)
[2022-12-25] MEDS: MYCOLOG-II CREAM TOP SCH (08:27)
[2022-12-25] MEDS: HIPREX PO SCH (10:34)
[2022-12-25 13:13] VITALS: BP 110/70; PULSE 76; TEMP 98.1; O2SAT 95
== END 2022-12-25 13:50 | disposition home or self-care (01) ==
LOC: MED/SURG 04:11 → ER 04:11 → MED/SURG 10:10
PROVIDERS: ADMIT Internal Medicine; ATTEND Internal Medicine
DX: Z79.01 Long term (current) use of anticoagulants; I25.10 Atherosclerotic heart disease of native coronary artery without angina pectoris; R73.09 Other abnormal glucose; N39.0 Urinary tract infection, site not specified; I10 Essential (primary) hypertension; M79.662 Pain in left lower leg; Y92.091 Bathroom in other non-institutional residence as the place of occurrence of the external cause; M47.896 Other spondylosis, lumbar region; K21.9 Gastro-esophageal reflux disease without esophagitis; M47.892 Other spondylosis, cervical region; B96.29 Other Escherichia coli [E. coli] as the cause of diseases classified elsewhere; Z87.440 Personal history of urinary (tract) infections; M54.59 Other low back pain; E03.8 Other specified hypothyroidism; W18.39XA Other fall on same level, initial encounter; R79.82 Elevated C-reactive protein (CRP); M79.661 Pain in right lower leg; S32.110A Nondisplaced Zone I fracture of sacrum, initial encounter for closed fracture